=== PATIENT | male | born 1965 ===

== ENCOUNTER 2017-02-19 09:18 | Inpatient (IN) | payer MEDICAID ==
[2017-02-19 10:09] LABS: EOS # 0.1 K/uL (0.0-0.7); LYMPH # 1.5 K/uL (1.0-4.3)
--- NOTE | 2017-02-19 10:10 | C.PDOC ---
History Of Present Illness 51 y/o male presents to the ED requesting heroin detox. Patient reports that he snorts 10-12 bags per day, last use yesterday. Patient denies any medical issues or other complaints. No SI/HI. Note that the patient was already prescreened. Time Seen by Provider: 02/19/17 09:35 Chief Complaint (Nursing): Substance Abuse History Per: Patient History/Exam Limitations: no limitations Onset/Duration Of Symptoms: Days, Gradual, Persistent Current Symptoms Are (Timing): Still Present Suicide/Self Injury Attempted (Context): None Modifying Factor(s): Other (heroin) Involuntary Hold By: None Recent travel outside of the [place]: No Past Medical History Reviewed: Historical Data, Nursing Documentation, Vital Signs Vital Signs: Last Vital Signs Temp 97.9 F 02/19/17 09:27 Pulse 73 02/19/17 09:27 Resp 18 02/19/17 09:27 BP 156/82 H 02/19/17 09:27 Pulse Ox 100 02/19/17 10:12 - Medical History PMH: No Chronic Diseases Surgical History: No Surg Hx Family History: States: No Known Family Hx - Social History Hx Tobacco Use: Yes (heavy smoker) Hx Alcohol Use: No Hx Substance Use: Yes Review Of Systems Except As Marked, All Systems Reviewed And Found Negative. Constitutional: Positive for: Other (requesting detox) Psych: Negative for: Suicidal ideation Physical Exam - Physical Exam Appears: Non-toxic, No Acute Distress Skin: Normal Color, Warm, Dry Head: Atraumatic, Normacephalic Eye(s): bilateral: Normal Inspection, PERRL Neck: Normal ROM Chest: Symmetrical Cardiovascular: Rhythm Regular Respiratory: Normal Breath Sounds, No Rales, No Rhonchi, No Wheezing Gastrointestinal/Abdominal: Normal Exam, Soft, No Tenderness Extremity: Normal ROM, No Swelling Neurological/Psych: Oriented x3, Normal Speech, Normal Cognition ED Course And Treatment - Laboratory Results Result Diagrams: 02/19/17 10:05 02/19/17 10:05 Lab Interpretation: Normal O2 Sat by Pulse Oximetry: 100 (ra) Pulse Ox Interpretation: Normal Progress Note: Case discussed and patient evaluated by Crisis team Reassessment Condition: Unchanged - Physician Consult Information Physician Contacted: Liang Hicks Outcome Of Conversation: admit Medical Decision Making Medical Decision Making: Plan: * Blood Work * Urinalysis Disposition - Disposition Disposition: HOSPITALIZED Disposition Time: 11:40 Condition: STABLE - POA Present On Arrival: None - Clinical Impression Clinical Impression: Drug abuse, Drug dependence - PA / JOB SITE SUPERVISOR / Resident Statement MD/DO has reviewed & agrees with the documentation as recorded. - Scribe Statement The provider has reviewed the documentation as recorded by the Scribe (Jasmin Russell) All medical record entries made by the Scribe were at my direction and personally dictated by me. I have reviewed the chart and agree that the record accurately reflects my personal performance of the history, physical exam, medical decision making, and the department course for this patient. I have also personally directed, reviewed, and agree with the discharge instructions and disposition. Decision To Admit - Pt Status Changed To: Hospital Disposition Of: Inpatient - Admit Certification Admit to Inpatient:: After my assessment, the patient will require hospitalization for at least two midnights. This is because of the severity of symptoms shown, intensity of services needed, and/or the medical risk in this patient being treated as an outpatient. - InPatient: Physician Admission Certification: I certify that this patient requires 2 or more midnights of care for the following reason:: opioid dependence - . Bed Request Type: Detox Admitting Physician: Liang Hicks Patient Diagnosis: Drug dependence, Drug abuse
[2017-02-19 10:17] LABS: CHLORIDE 103 mmol/L (98-107)
[2017-02-19 10:18] LABS: POTASSIUM 3.9 mmol/L (3.6-5.2); SODIUM 138 mmol/L (132-148)
[2017-02-19 10:19] LABS: BASO % 0.6 % (0.0-2.0); EOS % 2.1 % (0.0-4.0); HEMATOCRIT 39.1 % (35.0-51.0); LYMPH % 27.9 % (20.0-40.0); MEAN CELL VOLUME 89.8 fL (80.0-94.0); MEAN CORPUSCULAR HEMOGLOBIN 30.2 pg (27.0-31.0); MEAN CORPUSCULAR HGB CONC 33.6 g/dL (33.0-37.0); MEAN PLATELET VOLUME 10.7 fL (7.2-11.7); MONO # 0.6 K/uL (0.0-0.8); MONO % 12.1 % (0.0-10.0); NRBC % 0.2 % (0.0-2.0); RED CELL DISTRIBUTION WIDTH 14.8 % (11.5-14.5); WHITE BLOOD COUNT 5.4 K/uL (4.8-10.8)
[2017-02-19 10:20] LABS: ALB/GLOB RATIO 0.7 (1.0-2.1); ALKALINE PHOSPHATASE 125 U/L (38-126); ALT/SGPT 103 U/L (21-72); AST/SGOT 141 U/L (17-59); BILIRUBIN,TOTAL 1.8 mg/dL (0.2-1.3); BLOOD UREA NITROGEN 8 mg/dL (9-20); CARBON DIOXIDE 27 mmol/L (22-30); GFR AFRICAN-AMERICAN > 60; GLUCOSE,RANDOM 107 mg/dL (75-110); RBC URINE < 1 /hpf (0-3); URINE BILIRUBIN NEGATIVE (NEGATIVE); URINE BLOOD NEGATIVE (NEGATIVE); URINE COLOR Yellow (YELLOW); URINE GLUCOSE (UA) NORMAL (Normal); URINE KETONE NEGATIVE (NEGATIVE); URINE LEUKOCYTE ESTERASE NEG Leu/uL (Negative); URINE PROTEIN NEGATIVE (NEGATIVE); WBC URINE 1 /hpf (0-5)
[2017-02-19 10:21] LABS: ALCOHOL SERUM < 10 mg/dl (0-10); CALCIUM 8.5 mg/dl (8.6-10.4)
[2017-02-19] MEDS ORDERED: Aluminum Hydroxide/Magnesium Hydroxide Susp (30 mL) PO PRN (13:00)
[2017-02-19] MEDS ORDERED: Buprenorphine Hydrochloride 2 mg SL ONE ×2 (18:30→19:30)
[2017-02-20] MEDS: Buprenorphine Hydrochloride 2 mg SL SCH (09:53)
--- NOTE | 2017-02-20 13:50 | PCM.PSYCH ---
Initial Psychiatric Evaluation - Initial Psychiatric Evaluation Type of Admission: Voluntary Legal Status: Capacity Chief Complaint (in patient's own words): I need treatment from heroine use History of Present Illness and Precipitating Events: Patient is a, 51 years old, single, currently unemployed, male with history of. Use was admitted for the treatment of withdrawing from opiate. Patient denied any psychiatric history. Patient reported started using heroine at the age of 23 years. Reported currently he was using 10-12 bags daily, snorting. In the past he was also using his IV. His last use of heroin reported 2 days ago. Longest period of abstinence was 4 years, from [id number]. Denied any previous detox or rehabs. Denied use of any other drugs including cocaine, cannabis and alcohol. He smokes one pack of cigarettes daily. Refused to take nicotine patch. Patient was born in [place], he has 12th grade of education. Moved to [facility] in [place]. Currently unemployed for last 6 months. 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 He is single and has 2 grown up children. Currently lives with his girlfriend. His height is 5 feet 11 inches and weight is 220 pounds. Current Medications: Active Medications Generic Name Dose Route Start Last Admin Trade Name Freq PRN Reason Stop Dose Admin Al Hydrox/Mg Hydrox/Simethicone 30 ml 02/19/17 13:00 Maalox 30 Ml PO TID PRN Indigestion / Heartburn Buprenorphine HCl 6 mg 02/20/17 10:00 02/20/17 09:53 Subutex SL 02/23/17 09:59 6 mg DAILY GABBY Administration Taper Clobetasol Propionate 0 applic 02/19/17 18:00 02/20/17 09:54 Temovate 0.05% Ointment TOP Not Given BID GABBY Clonidine HCl 0.1 mg 02/19/17 13:04 02/20/17 09:55 Catapres PO 0.1 mg Q8 PRN Administration COWS Score More or Equal to 5 Dicyclomine HCl 20 mg 02/19/17 17:45 Bentyl PO Q6 PRN Other Gabapentin 300 mg 02/19/17 18:00 02/20/17 09:53 Neurontin PO 300 mg BID GABBY Administration Hydroxyzine HCl 25 mg 02/19/17 13:01 02/19/17 18:05 Atarax PO 25 mg Q6 PRN Administration Anxiety Ibuprofen 600 mg 02/19/17 13:02 Motrin Tab PO Q6 PRN Pain, moderate (4-7) Loperamide HCl 2 mg 02/19/17 13:00 Imodium PO Q8 PRN Diarrhea Ondansetron HCl 4 mg 02/19/17 13:00 02/19/17 15:24 Zofran Tab PO 4 mg Q8 PRN Administration Nausea/Vomiting Past Psychiatric History - Past Psychiatric History Previous Treatment History: None History of Abuse: None reported History of ETOH/Drug Use: See HPI History of Family Illness: None reported Pertinent Medical Hx (Current Medical&Sleep Prob, Allergies): Allergies Allergy/AdvReac Type Severity Reaction Status Date / Time No Known Allergies Allergy Verified 02/19/17 09:30 No Known Home Med 02/19/17 Hypertension Review of Systems - Psychiatric Psychiatric: Other Mental Status Examination - Personal Presentation Personal Presentation: Looks stated age - Affect Affect: Depressed - Motor Activity Motor Activity: Calm - Reliability in Providing Information Reliability in Providing Information: Fair - Speech Speech: Organized - Mood Mood: Depressed - Formal Thought Process Formal Thought Process: No Impairment - Hallucinations/Delusions Hallucinations: Other (None reported) Delusions: Other - Obsessions/Compulsions Obsessions: None Compulsions: None - Cognitive Functions Orientation: Person, Place, Situation, Time Sensorium: Alert Attention/Concentration: Attentive Abstract Thinking: [place] Estimate of Intelligence: Average Judgement: Intact, as evidence by: Insight regarding need for hospitalization Memory: Recent intact, as evidence by: 3/3 object recall, Remote intact, as evidenced by: Ability to recall historical events - Risk Risk: Withdrawal, Diminished functioning - Strength & Assets Inventory Strength & Assets Inventory: Family support, Cooperative - Limitations Limitations: Other DSM 5 DX - DSM 5 DSM 5 Diagnosis: Opiate use disorder severe - Recommended/Plan of Treatment Treatment Recommendations and Plan of Treatment: Patient education Supportive therapy [place] intervention We will start Subutex taper for opiate withdrawal symptoms Other when necessary medications Patient doesn't want to go to any program after discharge from the hospital Projected ELOS: 4-5 days - Smoking Cessation Smoking Cessation Initiated: No Reason for not providing: Patient refuses to take nicotine patch
[2017-02-21] MEDS: Buprenorphine Hydrochloride 2 mg SL SCH (09:32)
--- NOTE | 2017-02-21 12:42 | PCM.PYCHPN ---
Psychiatric Progress Note - Psychiatric Progress Note Patient seen today, length of contact: 15 minutes Patient Chief Complaint: I'm feeling better with the treatment Problems Identified/Issues Discussed: Patient seen. Chart reviewed. Case discussed with the staff. Issues related to illness and treatment were discussed with the patient. Patient reported compliant with treatment with no adverse affects. Tolerating treatment very well. Patient reported feeling much better with very mild withdrawal symptoms. No other complaints reported. At the time of evaluation, patient was awake alert oriented 3, had no delusions, no auditory or visual hallucinations, no suicidal ideations or homicidal ideations. Medical Problems: Hypertension Diagnostic Results: Reviewed DSM 5 Symptoms Update: Improving with treatment Medication Change: No Medical Record Reviewed: Yes Mental Status Examination - Cognitive Function Orientation: Person, Place, Situation, Time Memory: Intact Attention: WNL Concentration: WNL Association: WN Fund of Knowledge: [facility] Decription of patient's judgement and insights: Fair - Mood Mood: Depressed (Less than before) - Affect Affect: Depressed - Speech Speech: Appropriate - Formal Thought Process Formal Thought Process: No Impairment Psychotic Thoughts and Behaviors: None - Suicidal Ideation Suicidal Ideation: No - Homicidal Ideation Homicidal Ideation: No Goal/Treatment Plan - Goal/Treatment Plan Need for Continued Stay: Remain at risks for inpatient hospitalization, Discharge may exacerbated symptoms, Severe functional impairment Progress Toward Problem(s) and Goals/Treatment Plan: Patient education Supportive therapy [place] intervention Continue treatment as before Patient doesn't want to go to any program after discharge from the hospital Estimated Date of D/C: 02/23/17 - Smoking Cessation Smoking Cessation Initiated: No Reason for not providing: Patient refuses to take nicotine patch
[2017-02-21 20:06] VITALS: RESP 18; TEMP 98
[2017-02-22 06:25] VITALS: BP 127/72; PULSE 67; O2SAT 95
[2017-02-22] MEDS: Buprenorphine Hydrochloride 2 mg SL SCH (08:36)
== END 2017-02-22 08:40 | disposition home or self-care (01) | DRG 745 ==
LOC: C.ER 09:18 → C.7D 11:39
DX: F11.90 Opioid use, unspecified, uncomplicated (principal); F32.89 Other specified depressive episodes; I10 Essential (primary) hypertension; F17.210 Nicotine dependence, cigarettes, uncomplicated

== ENCOUNTER 2018-02-09 18:43 | Inpatient (IN) | payer MEDICAID ==
--- NOTE | 2018-02-09 19:46 | C.PDOC ---
History Of Present Illness Patient presents to the ER with a complaint of nausea, vomiting, and abdominal pain worsening over the past 2 days. Patient was just recently discharged from [facility] for worsening cirrhosis and high ammonia levels. Patient reports he has not been able to tolerate PO and has not been getting his methadone doses for the past 2 days. Denies fever or chills. Time Seen by Provider: 02/09/18 19:45 Chief Complaint (Nursing): Medical Clearance History Per: Patient History/Exam Limitations: no limitations Onset/Duration Of Symptoms: Days Current Symptoms Are (Timing): Still Present Severity: Moderate Pain Scale Rating Of: 4 Reports Recently: Seen In ED, Treated By A Physician, Hospitalized Recent travel outside of the [place]: No Additional History Per: Family Past Medical History Reviewed: Historical Data, Nursing Documentation, Vital Signs Vital Signs: Last Vital Signs Temp 98.1 F 02/09/18 19:28 Pulse 88 02/09/18 19:28 Resp 16 02/09/18 19:28 BP 92/58 L 02/09/18 20:31 Pulse Ox 95 02/09/18 20:12 - Medical History PMH: Hepatitis Family History: States: No Known Family Hx - Social History Hx Tobacco Use: Yes (heavy smoker) Hx Alcohol Use: No Hx Substance Use: Yes (heroin user) Review Of Systems Constitutional: Negative for: Fever, Chills Cardiovascular: Negative for: Chest Pain Respiratory: Negative for: Shortness of Breath Gastrointestinal: Positive for: Nausea, Vomiting, Abdominal Pain Genitourinary: Negative for: Dysuria Musculoskeletal: Negative for: Back Pain Skin: Negative for: Rash Neurological: Negative for: Weakness Psych: Negative for: Anxiety Physical Exam - Physical Exam Appears: Non-toxic, Other (Awake, Alert) Skin: Warm, Dry Head: Normacephalic Eye(s): bilateral: Scleral Icterus Oral Mucosa: Dry Neck: Supple Chest: Other (Right chest catheter) Cardiovascular: Rhythm Regular Respiratory: No Rales, No Rhonchi, No Wheezing Gastrointestinal/Abdominal: Soft, Tenderness (Diffuse), No Guarding, No Rebound , Other (Hepatomegaly) Back: No CVA Tenderness Extremity: Pedal Edema (Bilateral) Extremity: Bilateral: Atraumatic Pulses: Left Dorsalis Pedis: Normal, Right Dorsalis Pedis: Normal Neurological/Psych: Oriented x3 Gait: Unsteady ED Course And Treatment - Laboratory Results Result Diagrams: 02/09/18 20:17 02/09/18 20:17 ECG: Interpreted By Me, Viewed By Me ECG Rhythm: Sinus Rhythm (72), Nonspecific Changes O2 Sat by Pulse Oximetry: 95 (Room air) Pulse Ox Interpretation: Normal Progress Note: EKG, blood work, CXR, and urinalysis ordered. Pepcid and Zofran administered. Disposition Discussed With Dr.: Megan Zheng Comment: accepted the pt on his service and took over the care at 9:10PM Counseled Patient/Family Regarding: Studies Performed, Diagnosis - Disposition Disposition: HOSPITALIZED Disposition Time: 19:46 Condition: FAIR Forms: [employer] Records (Setswana) - Clinical Impression Clinical Impression: Abdominal pain, Cirrhosis, Hyperammonemia - Scribe Statement The provider has reviewed the documentation as recorded by the Scribe Calvin Cottrell All medical record entries made by the Scribe were at my direction and personally dictated by me. I have reviewed the chart and agree that the record accurately reflects my personal performance of the history, physical exam, medical decision making, and the department course for this patient. I have also personally directed, reviewed, and agree with the discharge instructions and disposition. Decision To Admit - Pt Status Changed To: Hospital Disposition Of: Inpatient - Admit Certification Admit to Inpatient:: After my assessment, the patient will require hospitalization for at least two midnights. This is because of the severity of symptoms shown, intensity of services needed, and/or the medical risk in this patient being treated as an outpatient. - InPatient: Physician Admission Certification: I certify that this patient requires 2 or more midnights of care for the following reason:: After my assessment, the patient will require hospitalization for at least two midnights. This is because of the severity of symptoms shown, intensity of services needed, and/or the medical risk in this patient being treated as an outpatient. - . Bed Request Type: Regular Admitting Physician: Megan Zheng Patient Diagnosis: Abdominal pain, Cirrhosis, Hyperammonemia
[2018-02-09 20:22] LABS: BASO # 0.1 K/uL (0.0-0.2); BASO % 0.4 % (0.0-2.0); EOS # 0.1 K/uL (0.0-0.7); EOS % 0.9 % (0.0-4.0); LYMPH # 0.7 K/uL (1.0-4.3); LYMPH % 4.4 % (20.0-40.0); MEAN PLATELET VOLUME 9.7 fL (7.2-11.7); MONO # 1.4 K/uL (0.0-0.8); MONO % 8.6 % (0.0-10.0); NEUT # 14.2 K/uL (1.8-7.0); NEUT % 85.7 % (50.0-75.0); RBC 4.13 Mil/uL (4.40-5.90); RED CELL DISTRIBUTION WIDTH 15.1 % (11.5-14.5)
[2018-02-09 20:26] LABS: PLATELET COUNT 172 K/uL (130-400); WHITE BLOOD COUNT 16.6 K/uL (4.8-10.8)
[2018-02-09 20:36] LABS: ALB/GLOB RATIO 0.8 (1.0-2.1); ALBUMIN 2.5 g/dL (3.5-5.0); CALCIUM 7.5 mg/dl (8.6-10.4)
[2018-02-09 20:49] LABS: SQUAMOUS EPITHIAL 1 /hpf (0-5); URINE BILIRUBIN NEGATIVE (NEGATIVE); URINE BLOOD NEGATIVE (NEGATIVE); URINE CLARITY Hazy (Clear); URINE COLOR Yellow (YELLOW); URINE GLUCOSE (UA) NORMAL (Normal); URINE LEUKOCYTE ESTERASE TRACE Leu/uL (Negative); URINE PROTEIN NEGATIVE (NEGATIVE); URINE UROBILINOGEN NORMAL mg/dL (0.2-1.0)
[2018-02-09] MEDS ORDERED: Piperacillin/Tazobact 3.375 gm 100 ML IVPB STA (20:50)
[2018-02-09 20:53] LABS: INR 1.6
[2018-02-09 20:59] LABS: PROTHROMBIN TIME 17.9 SECONDS (9.7-12.2)
[2018-02-09] MEDS ORDERED: Sodium Chloride 0.9% 1,000 ML IV ONE (21:14)
[2018-02-09] MEDS ORDERED: Piperacillin/Tazobact 3.375 gm 100 ML IVPB ONE (21:15)
[2018-02-09] MEDS ORDERED: Sodium Chloride 0.9% 1,000 ML IV SCH (21:30)
[2018-02-09 22:00] LABS: BANDS 4 % (0-2); BASOPHIL 1 % (0-2); LYMPHOCYTE 6 % (20-40); MONOCYTE 9 % (0-10); NEUTROPHIL 80 % (50-75); PLATELET ESTIMATE NORMAL (NORMAL); TOTAL CELLS COUNTED 100
[2018-02-09] MEDS ORDERED: Sodium Chloride 0.9% 250 ML IV ONE (23:16)
--- NOTE | 2018-02-10 08:20 | RAD ---
PROCEDURE: CHEST RADIOGRAPH, 1 VIEW HISTORY: abd pain COMPARISON: None available FINDINGS: LUNGS: Oblique linear opacity mid right lung consistent with consolidations/atelectasis at lung base. Right heart border obscured. Recommend further evaluation with PA and lateral chest radiography. Linear opacity upper right yamila thorax may represent fluid within a fissure. Alternatively, this represents linear atelectasis. There is no shift of the heart mediastinum towards the right side this suggests substantial volume loss. No left-sided consolidation is seen. PLEURA: Probable small right pleural effusion. No evidence of left pleural effusion. No pneumothorax. CARDIOVASCULAR: Normal heart size. OSSEOUS STRUCTURES: No significant abnormalities. VISUALIZED UPPER ABDOMEN: Normal. OTHER FINDINGS: None. IMPRESSION: Opacity at medial right base obliquely delineated from aerated lung. Possible atelectasis. Recommend PA and lateral chest radiography for further evaluation. Possible right pleural effusion with fluid in major fissure.
[2018-02-10] MEDS ORDERED: Sodium Chloride 0.9% 250 ML IV ONE (08:45)
[2018-02-10] MEDS ORDERED: Enoxaparin 40 mg Syringe SC SCH (10:00)
[2018-02-10] MEDS ORDERED: MIDODRINE HCL 2.5 MG PO SCH (10:00)
[2018-02-10] MEDS ORDERED: PHENYTOIN SODIUM 300 MG PO SCH (10:00)
[2018-02-10] MEDS: Pantoprazole 40 mg EC Tab PO SCH (10:39)
--- NOTE | 2018-02-10 10:39 | CP.PCM.CON ---
<Summer Dang - Last Filed: 02/10/18 11:11> History of Present Illness - History of Present Illness History of Present Illness: Gastroenterology Note for Dr. Luong's Service Reason for Consult: high ammonia, cirrhosis HPI: 52 Male with PMHx as listed below presented with nausea, vomiting and abdominal pain x 2 days. Patient was recently discharged from [facility] for elevated ammonia levels. Patient reports 2 months ago he was admitted to [facility], where he had fluid removed from his right lung. Shortly after he also had a paracentesis performed, having 7 liters removed. He was discharged with instructions to continue lasix and aldactone for which patient reports he has been compliant. He currently admits to abdominal pain. No prior EGD or Colonoscopy. 12 Point ROS unremarkable, unless noted as above. PMHx: Hepatic Encephalopathy likely secondary to Cirrhosis, ??Seizure Disorder, Hepatitis C - untreated PSHx: Reported having his right lung drainage at [facility] 12/2017 Meds: As per MAR- patient only able to recall lactulose All: NKDA SHx: Admitted 2-1 PPD for >30 years, admitted to drinking ETOH during his 20s , hx IVDA with Heroine, Cocaine, FHx: Unremarkable for GI issues or malignancies Past Patient History - Past Medical History & Family History Past Medical History?: Yes - Past Social History Smoking Status: Heavy Smoker > 10 Cigarettes Daily - CARDIAC Hx Cardiac Disorders: Yes Hx Hypertension: No - PULMONARY Hx Respiratory Disorders: No Hx Tuberculosis: No - NEUROLOGICAL Hx Neurological Disorder: No Hx Seizures: No - HEENT Hx HEENT Problems: No - RENAL Hx Chronic Kidney Disease: No - ENDOCRINE/METABOLIC Hx Endocrine Disorders: No - HEMATOLOGICAL/ONCOLOGICAL Hx Blood Disorders: No Hx Human Immunodeficiency Virus (HIV): No - INTEGUMENTARY Hx Dermatological Problems: Yes Hx Psoriasis: Yes - MUSCULOSKELETAL/RHEUMATOLOGICAL Hx Musculoskeletal Disorders: No Hx Falls: No - GASTROINTESTINAL Hx Gastrointestinal Disorders: No - GENITOURINARY/GYNECOLOGICAL Hx Genitourinary Disorders: No Hx Sexually Transmitted Disorders: No - PSYCHIATRIC Hx Psychophysiologic Disorder: Yes Hx Substance Use: Yes - SURGICAL HISTORY Hx Surgeries: No - ANESTHESIA Hx Anesthesia: No Hx Anesthesia Reactions: No Hx Malignant Hyperthermia: No Meds Allergies/Adverse Reactions: Allergies Allergy/AdvReac Type Severity Reaction Status Date / Time No Known Allergies Allergy Verified 02/09/18 19:30 - Medications Medications: Current Medications Diclofenac Sodium (Voltaren) 75 mg PO BID COUNT INCLUDES [facility] Enoxaparin Sodium (Lovenox) 40 mg SC DAILY COUNT INCLUDES THE [facility] Sodium Chloride (Sodium Chloride 0.9%) 1,000 mls @ 30 mls/hr IV .Q24H COUNT INCLUDES THE [facility] Last Admin: 02/10/18 07:53 Dose: 30 mls/hr Lactulose (Enulose) 20 gm PO BID COUNT INCLUDES THE [facility] Midodrine (Proamatine) 5 mg PO BID COUNT INCLUDES [facility] Last Admin: 02/10/18 09:00 Dose: 5 mg Pantoprazole Sodium (Protonix Ec Tab) 40 mg PO DAILY COUNT INCLUDES [facility] Phenytoin Sodium (Dilantin) 300 mg PO DAILY COUNT INCLUDES THE [facility] Physical Exam - Constitutional Appears: Cachectic, Chronically Ill - Head Exam Head Exam: NORMAL INSPECTION, NORMOCEPHALIC - Eye Exam Eye Exam: EOMI, Normal appearance, PERRL. absent: Scleral icterus Pupil Exam: NORMAL ACCOMODATION - ENT Exam ENT Exam: Mucous Membranes Dry - Respiratory Exam Respiratory Exam: Clear to Auscultation Bilateral, NORMAL BREATHING PATTERN. absent: Decreased Breath Sounds - Cardiovascular Exam Cardiovascular Exam: REGULAR RHYTHM - GI/Abdominal Exam GI & Abdominal Exam: Organomegaly, Soft. absent: Distended, Tenderness Additional comments: Right thorax dressing - c/d/i - Extremities Exam Extremities exam: Positive for: normal inspection, pedal pulses present. Negative for: pedal edema, tenderness - Neurological Exam Neurological exam: Alert, Oriented x3 - Psychiatric Exam Psychiatric exam: Normal Affect, Normal Mood Results - Vital Signs Recent Vital Signs: Last Vital Signs Temp 97.6 F 02/10/18 07:10 Pulse 70 02/10/18 07:59 Resp 20 02/10/18 07:10 BP 89/51 L 02/10/18 07:59 Pulse Ox 96 02/10/18 07:10 - Labs Result Diagrams: 02/09/18 20:17 02/09/18 20:17 Labs: Laboratory Results - last 24 hr 02/09/18 02/09/18 02/09/18 20:17 20:17 20:17 WBC 16.6 H D RBC 4.13 L Hgb 12.0 Hct 36.3 MCV 88.0 MCH 29.0 MCHC 33.0 RDW 15.1 H Plt Count 172 D MPV 9.7 Neut % (Auto) 85.7 H Lymph % (Auto) 4.4 L [place] % (Auto) 8.6 Eos % (Auto) 0.9 Baso % (Auto) 0.4 Neut # (Auto) 14.2 H Lymph # (Auto) 0.7 L [place] # (Auto) 1.4 H Eos # (Auto) 0.1 Baso # (Auto) 0.1 Neutrophils % (Manual) 80 H Band Neutrophils % 4 H Lymphocytes % (Manual) 6 L Monocytes % (Manual) 9 Basophils % (Manual) 1 Platelet Estimate Normal PT INR APTT Sodium 123 L Potassium 4.9 Chloride 90 L Carbon Dioxide 19 L Anion Gap 19 BUN 63 H Creatinine 3.4 H Est GFR ( Amer) 23 Est GFR (Non-Af Amer) 19 Random Glucose 101 Calcium 7.5 L Total Bilirubin 0.9 AST 77 H ALT 53 Alkaline Phosphatase 120 Ammonia 289 H Total Protein 5.9 L Albumin 2.5 L D Globulin 3.4 Albumin/Globulin Ratio 0.8 L Lipase 335 H Urine Color Urine Clarity Urine pH Ur Specific [place] Urine Protein Urine Glucose (UA) Urine Ketones Urine Blood Urine Nitrate Urine Bilirubin Urine Urobilinogen Ur Leukocyte Esterase Urine WBC (Auto) Urine RBC (Auto) Ur Squamous Epith Cells Hyaline Casts 02/09/18 02/09/18 20:41 20:41 WBC RBC Hgb Hct MCV MCH MCHC RDW Plt Count MPV Neut % (Auto) Lymph % (Auto) [place] % (Auto) Eos % (Auto) Baso % (Auto) Neut # (Auto) Lymph # (Auto) [place] # (Auto) Eos # (Auto) Baso # (Auto) Neutrophils % (Manual) Band Neutrophils % Lymphocytes % (Manual) Monocytes % (Manual) Basophils % (Manual) Platelet Estimate PT 17.9 H INR 1.6 APTT 36 H Sodium Potassium Chloride Carbon Dioxide Anion Gap BUN Creatinine Est GFR ( Amer) Est GFR (Non-Af Amer) Random Glucose Calcium Total Bilirubin AST ALT Alkaline Phosphatase Ammonia Total Protein Albumin Globulin Albumin/Globulin Ratio Lipase Urine Color Yellow Urine Clarity Hazy Urine pH 5.0 Ur Specific [place] 1.014 Urine Protein Negative Urine Glucose (UA) Normal Urine Ketones Negative Urine Blood Negative Urine Nitrate Negative Urine Bilirubin Negative Urine Urobilinogen Normal Ur Leukocyte Esterase Trace Urine WBC (Auto) 6 H Urine RBC (Auto) 1 Ur Squamous Epith Cells 1 Hyaline Casts 3-5 H Assessment & Plan - Assessment and Plan (Free Text) Plan: Hepatic Encephalopathy Likely Secondary to Cirrhosis MELD Score: 23 Labs suggesting cirrhosis, however no prior imaging Will need EGD for variceal screening Will need outpatient colonoscopy Imaging: Abdominal Ultrasound to evaluate portal and splenic vein Labs: Ammonia 289 on admission Autoimmune workup: AFP, EVANGELINA, Ceruloplasmin, Mitochondrial, Smooth Muscle, IGG HIV Screening Medications: Lactulose 20gm PO BID - at least 3 bowel movements per day Hepatitis C Untreated If patient is no longer using IV drugs, can consider HCV treatment as outpatient Hx Opioid Use Disorder Currently on Methadone Seizure Disorder? DW Dr. Luong, Summer Dang DO, PGY-1 <Tremaine Luong - Last Filed: 02/10/18 14:54> Meds - Medications Medications: Current Medications Diclofenac Sodium (Voltaren) 75 mg PO BID COUNT INCLUDES [facility] Last Admin: 02/10/18 10:40 Dose: 75 mg Enoxaparin Sodium (Lovenox) 40 mg SC DAILY COUNT INCLUDES [facility] Sodium Chloride (Sodium Chloride 0.9%) 1,000 mls @ 30 mls/hr IV .Q24H COUNT INCLUDES [facility] Last Admin: 02/10/18 07:53 Dose: 30 mls/hr Lactulose (Enulose) 20 gm PO BID COUNT INCLUDES [facility] Last Admin: 02/10/18 10:39 Dose: 20 gm Methadone HCl (Methadone) 45 mg PO Q24H COUNT INCLUDES [facility] PRN Reason: Taper Stop: 02/20/18 09:59 Midodrine (Proamatine) 5 mg PO TID COUNT INCLUDES [facility] Pantoprazole Sodium (Protonix Ec Tab) 40 mg PO DAILY COUNT INCLUDES [facility] Last Admin: 02/10/18 10:39 Dose: 40 mg Phenytoin Sodium (Dilantin) 100 mg PO TID COUNT INCLUDES [facility] Results - Vital Signs Recent Vital Signs: Last Vital Signs Temp 97.6 F 02/10/18 07:10 Pulse 80 02/10/18 10:37 Resp 20 02/10/18 07:10 BP 92/56 L 02/10/18 10:37 Pulse Ox 96 02/10/18 07:10 - Labs Result Diagrams: 02/10/18 11:19 02/10/18 11:19 Labs: Laboratory Results - last 24 hr 02/09/18 02/09/18 02/09/18 20:17 20:17 20:17 WBC 16.6 H D RBC 4.13 L Hgb 12.0 Hct 36.3 MCV 88.0 MCH 29.0 MCHC 33.0 RDW 15.1 H Plt Count 172 D MPV 9.7 Neut % (Auto) 85.7 H Lymph % (Auto) 4.4 L [place] % (Auto) 8.6 Eos % (Auto) 0.9 Baso % (Auto) 0.4 Neut # (Auto) 14.2 H Lymph # (Auto) 0.7 L [place] # (Auto) 1.4 H Eos # (Auto) 0.1 Baso # (Auto) 0.1 Neutrophils % (Manual) 80 H Band Neutrophils % 4 H Lymphocytes % (Manual) 6 L Reactive Lymphs % Monocytes % (Manual) 9 Eosinophils % (Manual) Basophils % (Manual) 1 Platelet Estimate Normal Large Platelets Hypochromasia (manual) Poikilocytosis (manual Anisocytosis (manual) Erlanger Cells PT INR APTT Sodium 123 L Potassium 4.9 Chloride 90 L Carbon Dioxide 19 L Anion Gap 19 BUN 63 H Creatinine 3.4 H Est GFR ( Amer) 23 Est GFR (Non-Af Amer) 19 Random Glucose 101 Calcium 7.5 L Total Bilirubin 0.9 AST 77 H ALT 53 Alkaline Phosphatase 120 Ammonia 289 H Total Protein 5.9 L Albumin 2.5 L D Globulin 3.4 Albumin/Globulin Ratio 0.8 L Lipase 335 H Alpha Fetoprotein Urine Color Urine Clarity Urine pH Ur Specific [place] Urine Protein Urine Glucose (UA) Urine Ketones Urine Blood Urine Nitrate Urine Bilirubin Urine Urobilinogen Ur Leukocyte Esterase Urine WBC (Auto) Urine RBC (Auto) Ur Squamous Epith Cells Hyaline Casts IgG HIV 1&2 Antibody Screen 02/09/18 02/09/18 02/10/18 20:41 20:41 11:19 WBC 10.2 RBC 3.95 L Hgb 11.7 L Hct 35.1 MCV 88.9 MCH 29.7 MCHC 33.4 RDW 15.8 H Plt Count 161 MPV 9.8 Neut % (Auto) 77.1 H Lymph % (Auto) 6.4 L [place] % (Auto) 12.6 H Eos % (Auto) 3.2 Baso % (Auto) 0.7 Neut # (Auto) 7.9 H Lymph # (Auto) 0.7 L [place] # (Auto) 1.3 H Eos # (Auto) 0.3 Baso # (Auto) 0.1 Neutrophils % (Manual) 74 Band Neutrophils % 1 Lymphocytes % (Manual) 6 L Reactive Lymphs % 1 H Monocytes % (Manual) 13 H Eosinophils % (Manual) 4 Basophils % (Manual) 1 Platelet Estimate Normal Large Platelets Present Hypochromasia (manual) Slight Poikilocytosis (manual Slight Anisocytosis (manual) Slight Albina Cells Slight PT 17.9 H INR 1.6 APTT 36 H Sodium Potassium Chloride Carbon Dioxide Anion Gap BUN Creatinine Est GFR ( Amer) Est GFR (Non-Af Amer) Random Glucose Calcium Total Bilirubin AST ALT Alkaline Phosphatase Ammonia Total Protein Albumin Globulin Albumin/Globulin Ratio Lipase Alpha Fetoprotein Urine Color Yellow Urine Clarity Hazy Urine pH 5.0 Ur Specific [place] 1.014 Urine Protein Negative Urine Glucose (UA) Normal Urine Ketones Negative Urine Blood Negative Urine Nitrate Negative Urine Bilirubin Negative Urine Urobilinogen Normal Ur Leukocyte Esterase Trace Urine WBC (Auto) 6 H Urine RBC (Auto) 1 Ur Squamous Epith Cells 1 Hyaline Casts 3-5 H IgG HIV 1&2 Antibody Screen 02/10/18 02/10/18 02/10/18 11:19 11:19 11:19 WBC RBC Hgb Hct MCV MCH MCHC RDW Plt Count MPV Neut % (Auto) Lymph % (Auto) [place] % (Auto) Eos % (Auto) Baso % (Auto) Neut # (Auto) Lymph # (Auto) [place] # (Auto) Eos # (Auto) Baso # (Auto) Neutrophils % (Manual) Band Neutrophils % Lymphocytes % (Manual) Reactive Lymphs % Monocytes % (Manual) Eosinophils % (Manual) Basophils % (Manual) Platelet Estimate Large Platelets Hypochromasia (manual) Poikilocytosis (manual Anisocytosis (manual) Erlanger Cells PT INR APTT Sodium 130 L Potassium 3.8 Chloride 96 L Carbon Dioxide 20 L Anion Gap 18 BUN 72 H Creatinine 3.3 H Est GFR ( Amer) 24 Est GFR (Non-Af Amer) 20 Random Glucose 79 Calcium 7.6 L Total Bilirubin 0.7 AST 72 H ALT 50 Alkaline Phosphatase 125 Ammonia 41 H D Total Protein 5.7 L Albumin 2.4 L Globulin 3.3 Albumin/Globulin Ratio 0.7 L Lipase Alpha Fetoprotein Urine Color Urine Clarity Urine pH Ur Specific [place] Urine Protein Urine Glucose (UA) Urine Ketones Urine Blood Urine Nitrate Urine Bilirubin Urine Urobilinogen Ur Leukocyte Esterase Urine WBC (Auto) Urine RBC (Auto) Ur Squamous Epith Cells Hyaline Casts IgG 1596.5 HIV 1&2 Antibody Screen 02/10/18 02/10/18 11:19 11:19 WBC RBC Hgb Hct MCV MCH MCHC RDW Plt Count MPV Neut % (Auto) Lymph % (Auto) [place] % (Auto) Eos % (Auto) Baso % (Auto) Neut # (Auto) Lymph # (Auto) [place] # (Auto) Eos # (Auto) Baso # (Auto) Neutrophils % (Manual) Band Neutrophils % Lymphocytes % (Manual) Reactive Lymphs % Monocytes % (Manual) Eosinophils % (Manual) Basophils % (Manual) Platelet Estimate Large Platelets Hypochromasia (manual) Poikilocytosis (manual Anisocytosis (manual) [place] Cells PT INR APTT Sodium Potassium Chloride Carbon Dioxide Anion Gap BUN Creatinine Est GFR ( Amer) Est GFR (Non-Af Amer) Random Glucose Calcium Total Bilirubin AST ALT Alkaline Phosphatase Ammonia Total Protein Albumin Globulin Albumin/Globulin Ratio Lipase Alpha Fetoprotein 1.2 Urine Color Urine Clarity Urine pH Ur Specific [place] Urine Protein Urine Glucose (UA) Urine Ketones Urine Blood Urine Nitrate Urine Bilirubin Urine Urobilinogen Ur Leukocyte Esterase Urine WBC (Auto) Urine RBC (Auto) Ur Squamous Epith Cells Hyaline Casts IgG HIV 1&2 Antibody Screen Negative Attending/Attestation - Attestation I have personally seen and examined this patient.: Yes I have fully participated in the care of the patient.: Yes I have reviewed all pertinent clinical information: Yes Notes (Text): 02/10/18 14:45 I have seen and examined patient with GI fellow and medical historian. Agree with above documentation with the following additions. In brief, this is a 52 year old male with history of chronic HCV (diagnosed in 2009, treatment naive), cirrhosis who presents to hospital with complaint of progressive abdominal pain and confusion. He was recently discharged from [facility] where he had a right sided pleural effusion drained along with large volume paracentesis performed. He does admit to recent confusion, though claims to be compliant with outpatient diuretic and lactulose therapy. He denies nausea, vomiting, fever/chills, weight loss, rectal bleeding, jaundice, pruritis. No prior endoscopic evaluation. Additional physical examination: Skin: warm, dry, no suspicious lesions present Chronic HCV decompensated cirrhosis, admission MELD 23 AMS, hepatic encephalopathy CKD? - Low sodium diet as tolerated - Obtain abdominal US, evaluate for mass lesion, ascites - Continue to monitor LFTs, obtain autoimmune panel testing - Obtain AFP - Maintain lactulose therapy for HE prevention, titrate so patient has 2-3 bowel movements daily - Unknown prior baseline creatinine, continue with midodrine therapy, suggest addition of albumin - Patient would benefit from evaluation at tertiary care facility for transplant consideration, particularly given apparent sobriety. He would also eventually benefit from EGD for variceal screening and age appropriate screening colonoscopy which can be performed electively as outpatient. Will continue to monitor patient clinical course.
[2018-02-10] MEDS: Diclofenac Sodium Delayed Release 75 mg EC Tab PO SCH ×2 (10:40→18:24)
[2018-02-10 11:36] LABS: BASO # 0.1 K/uL (0.0-0.2); BASO % 0.7 % (0.0-2.0); EOS # 0.3 K/uL (0.0-0.7); EOS % 3.2 % (0.0-4.0); HEMOGLOBIN 11.7 g/dL (12.0-18.0); LYMPH # 0.7 K/uL (1.0-4.3); LYMPH % 6.4 % (20.0-40.0); MEAN CELL VOLUME 88.9 fL (80.0-94.0); MEAN CORPUSCULAR HEMOGLOBIN 29.7 pg (27.0-31.0); MEAN CORPUSCULAR HGB CONC 33.4 g/dL (33.0-37.0); MEAN PLATELET VOLUME 9.8 fL (7.2-11.7); MONO # 1.3 K/uL (0.0-0.8); MONO % 12.6 % (0.0-10.0); NEUT # 7.9 K/uL (1.8-7.0); NEUT % 77.1 % (50.0-75.0); PLATELET COUNT 161 K/uL (130-400); RBC 3.95 Mil/uL (4.40-5.90); RED CELL DISTRIBUTION WIDTH 15.8 % (11.5-14.5); WHITE BLOOD COUNT 10.2 K/uL (4.8-10.8)
--- NOTE | 2018-02-10 11:41 | PCM.PSYCH ---
Initial Psychiatric Evaluation - Initial Psychiatric Evaluation Type of Admission: Voluntary Legal Status: Capacity Chief Complaint (in patient's own words): "I need help with methadone" History of Present Illness and Precipitating Events: The patient is seen, chart reviewed and case discussed. This is a 52-year-old male, lives with his girlfriend, has 2 adult children, unemployed. The patient is here for GI problems and he has liver cirrhosis due to hepatitis C. He was going to [facility] in [place] for methadone maintenance, however they told him that they will no longer give him methadone because of his liver problem. He was on 70 mg and last dose was confirmed as 2 days ago. He has some withdrawal symptoms now and he wants to detox from methadone. He agreed to do with 5 mg per day here after all the risks and benefits of coming off methadone discussed. He will continue tapering go there if he is discharged sooner or go to detox. He denies all other drug use and alcohol. He reports some insomnia and anxiety but otherwise no psych symptoms. Past psych history: Denies Medical history: Hepatitis C and liver cirrhosis Family psych history: Denies Current Medications: Active Medications Generic Name Dose Route Start Last Admin Trade Name Tomaszq PRN Reason Stop Dose Admin Diclofenac Sodium 75 mg 02/10/18 10:00 02/10/18 10:40 Voltaren PO 75 mg BID GABBY Administration Enoxaparin Sodium 40 mg 02/10/18 10:00 02/10/18 10:40 Lovenox SC 40 mg DAILY GABBY Administration Sodium Chloride 1,000 mls @ 30 mls/hr 02/09/18 21:30 02/10/18 07:53 Sodium Chloride 0.9% IV 30 mls/hr .Q24H GABBY Administration Lactulose 20 gm 02/10/18 10:00 02/10/18 10:39 Enulose PO 20 gm BID GABBY Administration Midodrine 5 mg 02/10/18 14:00 Proamatine PO TID GABBY Pantoprazole Sodium 40 mg 02/10/18 10:00 02/10/18 10:39 Protonix Ec Tab PO 40 mg DAILY GABBY Administration Phenytoin Sodium 100 mg 02/10/18 14:00 Dilantin PO TID GABBY Past Psychiatric History - Past Psychiatric History Previous Treatment History: None Pertinent Medical Hx (Current Medical&Sleep Prob, Allergies): Allergies Allergy/AdvReac Type Severity Reaction Status Date / Time No Known Allergies Allergy Verified 02/09/18 19:30 Diclofenac Sodium [Voltaren] 75 mg PO BID 02/09/18 Furosemide 40 mg PO DAILY 02/09/18 Midodrine HCl [Midodrine HCl] 2.5 mg PO TID 02/09/18 Midodrine [Proamatine] 10 mg PO TID 02/09/18 Phenytoin Sodium Extended [Extended Phenytoin Sodium] 300 mg PO DAILY 02/09/18 Spironolactone [Aldactone] 50 mg PO DAILY 02/09/18 Torsemide 60 mg PO DAILY 02/09/18 Review of Systems - Neurological Neurological: UNREMARKABLE - Psychiatric Psychiatric: Abnormal Sleep Pattern, Anxiety. absent: Hallucinations, Homicidal Ideation, Suicidal Ideation Mental Status Examination - Personal Presentation Personal Presentation: Looks older than stated age - Affect Affect: Constricted - Motor Activity Motor Activity: Calm - Reliability in Providing Information Reliability in Providing Information: Good - Speech Speech: Organized - Mood Mood: Anxious - Formal Thought Process Formal Thought Process: No Impairment - Cognitive Functions Orientation: Person, Place, Situation, Time Sensorium: Alert Attention/Concentration: Attentive Abstract Thinking: [place] Estimate of Intelligence: Average Judgement: Intact, as evidence by: Insight regarding need for hospitalization Memory: Recent intact, as evidence by: Ability to recall events of the day, Remote intact, as evidenced by: Abilit to recall sig. life events - Risk Risk: Diminished functioning - Strength & Assets Inventory Strength & Assets Inventory: Cooperative - Limitations Limitations: Living alone DSM 5 DX - DSM 5 DSM 5 Diagnosis: Opioid withdrawal Opioid use d/o -severe - Recommended/Plan of Treatment Treatment Recommendations and Plan of Treatment: Patient agreed to detox from methadone, starting at 50 mg (he was off for 2 days ) and go down 5 per day. When necessary medications Support and psychoeducation Consider Suboxone maintenance Trazodone for insomnia 33 min
[2018-02-10 11:57] LABS: ALB/GLOB RATIO 0.7 (1.0-2.1); ALBUMIN 2.4 g/dL (3.5-5.0); CALCIUM 7.6 mg/dl (8.6-10.4)
[2018-02-10 12:10] LABS: BANDS 1 % (0-2); BASOPHIL 1 % (0-2); EOSINOPHIL 4 % (0-4); LYMPHOCYTE 6 % (20-40); MONOCYTE 13 % (0-10); NEUTROPHIL 74 % (50-75); REACTIVE LYMPHOCYTES 1 % (0-0); TOTAL CELLS COUNTED 100
[2018-02-10 12:11] LABS: ANISOCYTOSIS SLIGHT; BURR CELLS SLIGHT; HYPOCHROMIC SLIGHT; LARGE PLATELETS PRESENT; PLATELET ESTIMATE NORMAL (NORMAL); POIKILOCYTOSIS SLIGHT
[2018-02-10 15:33] LABS: BARBITURATES, UR NEGATIVE (NEGATIVE); BENZODIAZEPINES, UR NEGATIVE (NEGATIVE); OPIATES, UR NEGATIVE (NEGATIVE); PHENCYCLIDINE, UR NEGATIVE (NEGATIVE)
--- NOTE | 2018-02-10 15:52 | CP.PCM.PN ---
Subjective - Date & Time of Evaluation Date of Evaluation: 02/10/18 Time of Evaluation: 15:52 Objective - Vital Signs/Intake and Output Vital Signs (last 24 hours): Temp Pulse Resp BP Pulse Ox 97.6 F 80 20 92/56 L 96 02/10/18 07:10 02/10/18 10:37 02/10/18 07:10 02/10/18 10:37 02/10/18 07:10 - Medications Medications: Current Medications Diclofenac Sodium (Voltaren) 75 mg PO BID [facility] Last Admin: 02/10/18 10:40 Dose: 75 mg Enoxaparin Sodium (Lovenox) 40 mg SC DAILY [facility] Sodium Chloride (Sodium Chloride 0.9%) 1,000 mls @ 30 mls/hr IV .Q24H [facility] Last Admin: 02/10/18 07:53 Dose: 30 mls/hr Lactulose (Enulose) 20 gm PO BID [facility] Last Admin: 02/10/18 10:39 Dose: 20 gm Methadone HCl (Methadone) 45 mg PO Q24H [facility] PRN Reason: Taper Stop: 02/20/18 09:59 Midodrine (Proamatine) 5 mg PO TID [facility] Last Admin: 02/10/18 14:51 Dose: Not Given Pantoprazole Sodium (Protonix Ec Tab) 40 mg PO DAILY [facility] Last Admin: 02/10/18 10:39 Dose: 40 mg Phenytoin Sodium (Dilantin) 100 mg PO TID [facility] Last Admin: 02/10/18 14:20 Dose: Not Given - Labs Labs: 02/10/18 11:19 02/10/18 11:19 PT 17.9 SECONDS (9.7-12.2) H 02/09/18 20:41 INR 1.6 02/09/18 20:41 APTT 36 SECONDS (21-34) H 02/09/18 20:41
--- NOTE | 2018-02-10 16:26 | US ---
HISTORY: r/o portal vein, splenic vein thrombosis COMPARISON: None. TECHNIQUE: Sonographic evaluation of the abdomen. FINDINGS: LIVER: Measures 13.7 cm. Diffusely increased echogenicity of the liver parenchyma. Consistent with fatty infiltration. Nodular contour. Possible hepatic cirrhosis. No mass. No biliary dilatation. Normal hepatopetal portal venous flow. Portal vein patent without evidence of thrombus. Normal flow in the splenic vein. Normal flow in the hepatic veins. GALLBLADDER: Thickened wall, nonspecific. No evidence of cholelithiasis. No pericholecystic fluid or sonographic Alcaraz's sign. COMMON BILE DUCT: Measures 2 mm. No stones. No dilatation. PANCREAS: Unremarkable as visualized. No mass. No ductal dilatation. RIGHT KIDNEY: Measures 10.0cm. Normal echogenicity. No calculus, mass, or hydronephrosis. LEFT KIDNEY: Measures 14.1cm. Normal echogenicity. No calculus, mass or hydronephrosis. SPLEEN: Mild splenomegaly. The spleen measures 14.3 cm in greatest dimension. AORTA: No aneurysmal dilatation. IVC: Unremarkable. OTHER FINDINGS: Mild ascites. Right pleural effusion. IMPRESSION: No evidence of portal venous thrombosis or splenic venous thrombosis. Possible hepatic cirrhosis. Splenomegaly. Right pleural effusion. Mild ascites.
--- NOTE | 2018-02-10 17:34 | CP.PCM.PN ---
Subjective - Date & Time of Evaluation Date of Evaluation: 02/10/18 Time of Evaluation: 09:20 - Subjective Subjective: clinically same Objective - Vital Signs/Intake and Output Vital Signs (last 24 hours): Temp Pulse Resp BP Pulse Ox 97.6 F 80 20 92/56 L 96 02/10/18 07:10 02/10/18 10:37 02/10/18 07:10 02/10/18 10:37 02/10/18 07:10 Intake and Output: 02/10/18 02/10/18 06:59 18:59 Intake Total 740 Balance 740 - Medications Medications: Current Medications Diclofenac Sodium (Voltaren) 75 mg PO BID [facility] Last Admin: 02/10/18 10:40 Dose: 75 mg Enoxaparin Sodium (Lovenox) 30 mg SC DAILY [facility] Sodium Chloride (Sodium Chloride 0.9%) 1,000 mls @ 30 mls/hr IV .Q24H [facility] Last Admin: 02/10/18 07:53 Dose: 30 mls/hr Lactulose (Enulose) 20 gm PO BID [facility] Last Admin: 02/10/18 10:39 Dose: 20 gm Methadone HCl (Methadone) 45 mg PO Q24H [facility] PRN Reason: Taper Stop: 02/20/18 09:59 Midodrine (Proamatine) 5 mg PO TID [facility] Last Admin: 02/10/18 14:51 Dose: Not Given Pantoprazole Sodium (Protonix Ec Tab) 40 mg PO DAILY [facility] Last Admin: 02/10/18 10:39 Dose: 40 mg Phenytoin Sodium (Dilantin) 100 mg PO TID [facility] Last Admin: 02/10/18 14:20 Dose: Not Given - Labs Labs: 02/10/18 11:19 02/10/18 11:19 PT 17.9 SECONDS (9.7-12.2) H 02/09/18 20:41 INR 1.6 02/09/18 20:41 APTT 36 SECONDS (21-34) H 02/09/18 20:41 - Constitutional Appears: Well - Head Exam Head Exam: ATRAUMATIC, NORMAL INSPECTION, NORMOCEPHALIC - Eye Exam Eye Exam: EOMI, Normal appearance, PERRL Pupil Exam: NORMAL ACCOMODATION, PERRL - ENT Exam ENT Exam: Mucous Membranes Moist, Normal Exam - Neck Exam Neck Exam: Full ROM, Normal Inspection. absent: Lymphadenopathy - Respiratory Exam Respiratory Exam: Decreased Breath Sounds - Cardiovascular Exam Cardiovascular Exam: REGULAR RHYTHM, +S1, +S2 - GI/Abdominal Exam GI & Abdominal Exam: Soft, Diminished Bowel Sounds - Rectal Exam Rectal Exam: Deferred Assessment and Plan - Assessment and Plan (Free Text) Plan: Continue phenytoin Continue methadone Midodrine patient is no more vomiting Follow-up with the GI Follow-up with the psych Follow-up with Dr. Martinez As ordered
[2018-02-10] MEDS: Enoxaparin 30 mg Syringe SC SCH (18:23)
[2018-02-11 06:17] LABS: BASO # 0.2 K/uL (0.0-0.2); BASO % 1.1 % (0.0-2.0); EOS # 0.3 K/uL (0.0-0.7); EOS % 2.2 % (0.0-4.0); HEMOGLOBIN 12.8 g/dL (12.0-18.0); LYMPH # 1.1 K/uL (1.0-4.3); LYMPH % 7.8 % (20.0-40.0); MEAN CELL VOLUME 88.3 fL (80.0-94.0); MEAN CORPUSCULAR HEMOGLOBIN 29.8 pg (27.0-31.0); MEAN CORPUSCULAR HGB CONC 33.7 g/dL (33.0-37.0); MEAN PLATELET VOLUME 9.7 fL (7.2-11.7); MONO # 1.7 K/uL (0.0-0.8); MONO % 12.3 % (0.0-10.0); NEUT # 10.3 K/uL (1.8-7.0); NEUT % 76.6 % (50.0-75.0); NRBC % 0.1 % (0.0-2.0); PLATELET COUNT 220 K/uL (130-400); RBC 4.32 Mil/uL (4.40-5.90); RED CELL DISTRIBUTION WIDTH 15.5 % (11.5-14.5); WHITE BLOOD COUNT 13.5 K/uL (4.8-10.8)
[2018-02-11 06:36] LABS: ALB/GLOB RATIO 0.8 (1.0-2.1); ALBUMIN 2.7 g/dL (3.5-5.0); CALCIUM 7.9 mg/dl (8.6-10.4)
[2018-02-11 08:04] VITALS: TEMP 97.8
[2018-02-11 08:54] LABS: BANDS 1 % (0-2); EOSINOPHIL 4 % (0-4); LYMPHOCYTE 11 % (20-40); MONOCYTE 8 % (0-10); NEUTROPHIL 76 % (50-75); PLATELET ESTIMATE NORMAL (NORMAL); TOTAL CELLS COUNTED 100
[2018-02-11 09:24] LABS: CERULOPLASMIN 16 mg/dL (18-36)
--- NOTE | 2018-02-11 09:47 | CP.PCM.PN ---
<Summer Dang - Last Filed: 02/11/18 09:44> Subjective - Date & Time of Evaluation Date of Evaluation: 02/11/18 Time of Evaluation: 07:00 - Subjective Subjective: Gastroenterology Follow Up Note Patient was seen and examined at bedside. Patient is AAOx 3. Patient reports nausea and abdominal pain has resolved. 12 point ROS unremarkable. Objective - Vital Signs/Intake and Output Vital Signs (last 24 hours): Temp Pulse Resp BP Pulse Ox 97.8 F 90 21 91/61 L 97 02/11/18 07:35 02/11/18 07:35 02/11/18 07:35 02/11/18 07:35 02/11/18 07:35 Intake and Output: 02/11/18 02/11/18 06:59 18:59 Intake Total 540 Balance 540 - Medications Medications: Current Medications Enoxaparin Sodium (Lovenox) 30 mg SC DAILY [facility] Last Admin: 02/10/18 18:23 Dose: 30 mg Sodium Chloride (Sodium Chloride 0.9%) 1,000 mls @ 30 mls/hr IV .Q24H [facility] Last Admin: 02/10/18 07:53 Dose: 30 mls/hr Lactulose (Enulose) 20 gm PO BID [facility] Last Admin: 02/10/18 18:22 Dose: 20 gm Methadone HCl (Methadone) 0 mg PO Q24H [facility] PRN Reason: Taper Stop: 02/19/18 11:59 Midodrine (Proamatine) 5 mg PO TID [facility] Last Admin: 02/10/18 18:24 Dose: 5 mg Pantoprazole Sodium (Protonix Ec Tab) 40 mg PO DAILY [facility] Last Admin: 02/10/18 10:39 Dose: 40 mg Phenytoin Sodium (Dilantin) 100 mg PO TID [facility] Last Admin: 02/10/18 18:24 Dose: 100 mg - Labs Labs: 02/11/18 06:09 02/11/18 06:09 PT 17.9 SECONDS (9.7-12.2) H 02/09/18 20:41 INR 1.6 02/09/18 20:41 APTT 36 SECONDS (21-34) H 02/09/18 20:41 - Constitutional Appears: No Acute Distress - Head Exam Head Exam: NORMAL INSPECTION, NORMOCEPHALIC - Eye Exam Eye Exam: EOMI, Normal appearance, PERRL. absent: Nystagmus, Scleral icterus - ENT Exam ENT Exam: Mucous Membranes Moist - Respiratory Exam Respiratory Exam: Clear to Ausculation Bilateral, NORMAL BREATHING PATTERN - Cardiovascular Exam Cardiovascular Exam: REGULAR RHYTHM - GI/Abdominal Exam GI & Abdominal Exam: Soft, Normal Bowel Sounds, Organomegaly (splenomegaly ). absent: Tenderness - Rectal Exam Rectal Exam: Deferred - Extremities Exam Extremities Exam: Normal Inspection. absent: Pedal Edema, Tenderness - Back Exam Back Exam: NORMAL INSPECTION - Neurological Exam Neurological Exam: Alert, Awake, CN II-XII Intact, Oriented x3 - Psychiatric Exam Psychiatric exam: Normal Affect, Normal Mood - Skin Skin Exam: Dry, Intact, Normal Color, Warm Assessment and Plan - Assessment and Plan (Free Text) Assessment: 52 year old Male with past medical history of Chronic HCV diagnosed in 2009, untreated, cirrhosis with multiple admissions for hepatic encephalopathy despite compliance with outpatient diuretic and lactulose therapy. Admitted for abdominal pain and altered mental state. No prior EGD or colonoscopy. Chronic HCV decompensated cirrhosis, admission MELD 23 AMS, hepatic encephalopathy CKD? Plan: - Low sodium diet as tolerated - Abdominal US showed no portal or splenic thrombosis - AFP - 1.2. Continue to monitor LFTs, pending autoimmune panel testing - Maintain lactulose therapy for HE prevention, titrate so patient has 2-3 bowel movements daily. - Suggest starting Rifaximin to reduce recurrent admissions for hepatic encephalopathy. - Unknown prior baseline creatinine, continue with midodrine therapy, suggest addition of albumin - Patient would benefit from evaluation at tertiary care facility for transplant consideration, particularly given apparent sobriety. He would also eventually benefit from EGD for variceal screening and age appropriate screening colonoscopy which can be performed electively as outpatient. - Will continue to monitor patient clinical course. DW Summer Longoria DO, PGY-1 <Kory Puente - Last Filed: 02/11/18 12:09> Objective - Vital Signs/Intake and Output Vital Signs (last 24 hours): Temp Pulse Resp BP Pulse Ox 97.8 F 90 21 91/61 L 97 02/11/18 07:35 02/11/18 07:35 02/11/18 07:35 02/11/18 07:35 02/11/18 07:35 Intake and Output: 02/11/18 02/11/18 06:59 18:59 Intake Total 540 Balance 540 - Medications Medications: Current Medications Enoxaparin Sodium (Lovenox) 30 mg SC DAILY [facility] Last Admin: 02/11/18 10:18 Dose: 30 mg Sodium Chloride (Sodium Chloride 0.9%) 1,000 mls @ 30 mls/hr IV .Q24H [facility] Last Admin: 02/10/18 07:53 Dose: 30 mls/hr Lactulose (Enulose) 20 gm PO BID [facility] Last Admin: 02/11/18 10:19 Dose: 20 gm Methadone HCl (Methadone) 40 mg PO Q24H [facility] PRN Reason: Taper Stop: 02/19/18 11:59 Midodrine (Proamatine) 5 mg PO TID [facility] Last Admin: 02/11/18 10:19 Dose: 5 mg Pantoprazole Sodium (Protonix Ec Tab) 40 mg PO DAILY [facility] Last Admin: 02/11/18 10:18 Dose: 40 mg Phenytoin Sodium (Dilantin) 100 mg PO TID [facility] Last Admin: 02/11/18 10:18 Dose: 100 mg - Labs Labs: 02/11/18 06:09 02/11/18 06:09 PT 17.9 SECONDS (9.7-12.2) H 02/09/18 20:41 INR 1.6 02/09/18 20:41 APTT 36 SECONDS (21-34) H 02/09/18 20:41 Attending/Attestation - Attestation I have personally seen and examined this patient.: Yes I have fully participated in the care of the patient.: Yes I have reviewed all pertinent clinical information, including history, physical exam and plan: Yes Notes (Text): 02/11/18 12:07 52 year old male with h/o HCV cirrhosis a/w encephalopathy. His symptoms are improved. Continue lactulose. Will try to see if he can get rifaxamin as outpatient to help reduce hospitalizations related to encephalopathy.
[2018-02-11] MEDS ORDERED: Diclofenac Sodium Delayed Release 75 mg EC Tab PO SCH (10:00)
[2018-02-11] MEDS: Pantoprazole 40 mg EC Tab PO SCH (10:18)
[2018-02-11] MEDS: Enoxaparin 30 mg Syringe SC SCH (10:18)
--- NOTE | 2018-02-11 11:51 | PCM.PYCHPN ---
Psychiatric Progress Note - Psychiatric Progress Note Patient seen today, length of contact: 15 min Patient Chief Complaint: "I am OK" Problems Identified/Issues Discussed: The pt is seen, chart reviewed, case discussed with staff. Support given, DC used briefly No new symptoms reported, improving slowly. Got his 50 mg methadone and will get 40 mg today. However, he wants to leave and risk of relapse and then OD/ discussed. He agreed to go to [facility] and complete his detox taper as an outpatient No SEs from medications, risks discussed. No psych issues psych will sign off, cleared for dc. Mental Status Examination - Cognitive Function Orientation: Person, Place, Situation, Time Memory: Intact Attention: WNL Concentration: WNL Association: WNL Fund of Knowledge: WNL - Mood Mood: Anxious - Affect Affect: Constricted - Speech Speech: Appropriate - Formal Thought Process Formal Thought Process: No Impairment - Suicidal Ideation Suicidal Ideation: No - Homicidal Ideation Homicidal Ideation: No Goal/Treatment Plan - Goal/Treatment Plan Need for Continued Stay: Other Progress Toward Problem(s) and Goals/Treatment Plan: Continue detox as an outpt When necessary medications Support and psychoeducation
--- NOTE | 2018-02-11 12:24 | CARD ---
APPROVED REPORT EKG Measurement Heart [id number] [id number] <Conclusion> Normal sinus rhythm Cannot rule out Anterior infarct, age undetermined Prolonged QT Abnormal ECG
[2018-02-11 16:49] VITALS: BP 112/61; PULSE 75; RESP 20; O2SAT 96
--- NOTE | 2018-02-11 16:50 | CP.PCM.PN ---
Subjective - Date & Time of Evaluation Date of Evaluation: 02/11/18 Time of Evaluation: 16:50 - Subjective Subjective: PT SEEN AND CLEARED BY GI THIS MORNING; THEY LEFT PT A LIST OF PHARMACIES THAT MAY BE ABLE TO PROVIDE HIM WITH A VOUCHER FOR NEW RX RIFAXIMIN. SEEN BY DR. HALE AND Timothy MENDEZ AND ALSO CLEARED FOR D/C BY THEM BOTH. RX GIVEN FOR RIFAXIMIN PER GI. PT INSTRUCTED TO F/U WITH DR. MENDEZ, GI AND [facility] (FOR METHADONE PROGRAM). SEE BELOW FOR D/C PLAN SENT HOME WITH PT. NO FURTHER ORDERS. -FOLLOW UP WITH YOUR PRIMARY DOCTOR IN THE OFFICE WITHIN 5-7 DAYS---CALL TOMORROW FOR APPT. -FOLLOW UP WITH DR. MCCLENDON (STOMACH DOCTOR) IN THE OFFICE WITHIN 10-14 DAYS--- CALL TOMORROW FOR APPT. -CONTINUE HOME MEDICATIONS USUAL. -YOU WERE EVALUATED BY DR. HALE, PSYCHIATRIST; IT IS RECOMMENDED THAT YOU REVISIT [facility] FOR MANAGEMENT AND PROPER TAPERING OF METHADONE. -YOU HAVE BEEN GIVEN A PRESCRIPTION FOR RIFAXIMIN TO TAKE 2 TIMES A DAY; YOU HAVE BEEN PROVIDED WITH A LIST OF PHARMACIES THAT PROVIDE VOUCHERS TO COVER THE COST OF THIS MEDICATION. -FOR FURTHER QUESTIONS OR CONCERNS, CONTACT DR. Timothy MENDEZ OR DR. MCCLENDON. Objective - Vital Signs/Intake and Output Vital Signs (last 24 hours): Temp Pulse Resp BP Pulse Ox 97.8 F 75 20 112/61 96 02/11/18 15:05 02/11/18 15:05 02/11/18 15:05 02/11/18 15:05 02/11/18 15:05 Intake and Output: 02/11/18 02/11/18 06:59 18:59 Intake Total 540 Balance 540 - Medications Medications: Current Medications Enoxaparin Sodium (Lovenox) 30 mg SC DAILY [facility] Last Admin: 02/11/18 10:18 Dose: 30 mg Sodium Chloride (Sodium Chloride 0.9%) 1,000 mls @ 30 mls/hr IV .Q24H [facility] Last Admin: 02/10/18 07:53 Dose: 30 mls/hr Lactulose (Enulose) 20 gm PO BID [facility] Last Admin: 02/11/18 10:19 Dose: 20 gm Methadone HCl (Methadone) 40 mg PO Q24H [facility] PRN Reason: Taper Stop: 02/19/18 11:59 Last Admin: 02/11/18 13:32 Dose: 40 mg Midodrine (Proamatine) 5 mg PO TID [facility] Last Admin: 02/11/18 15:01 Dose: 5 mg Pantoprazole Sodium (Protonix Ec Tab) 40 mg PO DAILY [facility] Last Admin: 02/11/18 10:18 Dose: 40 mg Phenytoin Sodium (Dilantin) 100 mg PO TID [facility] Last Admin: 02/11/18 15:01 Dose: 100 mg - Labs Labs: 02/11/18 06:09 02/11/18 06:09 PT 17.9 SECONDS (9.7-12.2) H 02/09/18 20:41 INR 1.6 02/09/18 20:41 APTT 36 SECONDS (21-34) H 02/09/18 20:41
== END 2018-02-11 17:36 | disposition home or self-care (01) | DRG 557 ==
LOC: C.ER 18:43 → C.5S 21:06 → C.9E 21:06 → C.5S 02-10 14:11
PROVIDERS: ADMIT Internal Medicine Nephrology; ATTEND Internal Medicine Nephrology
DX: K74.69 Other cirrhosis of liver (principal); K72.90 Hepatic failure, unspecified without coma; B18.2 Chronic viral hepatitis C; F11.23 Opioid dependence with withdrawal; E72.20 Disorder of urea cycle metabolism, unspecified; F41.9 Anxiety disorder, unspecified; G40.909 Epilepsy, unspecified, not intractable, without status epilepticus; G47.00 Insomnia, unspecified; F17.210 Nicotine dependence, cigarettes, uncomplicated

== ENCOUNTER 2018-02-13 14:10 | Inpatient (IN) | payer MEDICAID ==
--- NOTE | 2018-02-13 14:44 | C.PDOC ---
History Of Present Illness 52 year old male with PMHx of heroin abuse and hepatitis is brought to the ED by EMS/[employer] [employer] after being found in an altered mental state. Patient is accompanied by his brother, patient's brother states patient was D/C from the Hospital 2 days ago and since ten has not been taking his medications. Patient is confused, combative, screaming loudly and is not able to answer any questions. History is provided by his brother. Chief Complaint (Nursing): Weakness/Neurological Deficit History Per: Family History/Exam Limitations: clinical condition Onset/Duration Of Symptoms: Days Current Symptoms Are (Timing): Still Present Associated Symptoms Preceding Syncopal Episode: No Predromal Symptoms (Sudden Onset) Seizure Or Post-ictal Symptoms: None Fall Associated With With Symptoms: No Recent travel outside of the [place]: No Additional History Per: Family Past Medical History Reviewed: Historical Data, Nursing Documentation, Vital Signs Vital Signs: Last Vital Signs Temp 97.8 F 02/13/18 14:30 Pulse 78 02/13/18 15:33 Resp 14 02/13/18 15:33 BP 95/49 L 02/13/18 15:33 Pulse Ox 99 02/13/18 15:33 - Medical History PMH: Hepatitis Denies: Diabetes, HIV, HTN, Chronic Kidney Disease, Seizures, Sexually Transmitted Disease Surgical History: No Surg Hx Family History: States: Unknown Family Hx - Social History Hx Tobacco Use: Yes (heavy smoker) Hx Alcohol Use: No Hx Substance Use: Yes - Immunization History Hx Tetanus Toxoid Vaccination: (unknown) Hx Influenza Vaccination: (unknown) Hx Pneumococcal Vaccination: (unknown) Review Of Systems Review Of Systems: ROS cannot be obtained secondary to pt's inabilty to answer questions. Physical Exam - Physical Exam Appears: Non-toxic, No Acute Distress Skin: Normal Color, Warm, Dry, Ecchymosis (patches on rigth forearm, left abdomen, left foearm), Other (IV drug use track saha) Head: Atraumatic, Normacephalic Eye(s): bilateral: Normal Inspection Nose: No Discharge Oral Mucosa: Moist Neck: Normal ROM, Supple Chest: Symmetrical Cardiovascular: Rhythm Regular, No Murmur, Other (Rigth chest wall drainage in place) Respiratory: Normal Breath Sounds, No Rales, No Rhonchi, No Wheezing Extremity: Normal ROM, No Tenderness, No Swelling Neurological/Psych: No Oriented x3, No Response To Commands, Other (incoherent, combative, confused) Gait: Unable To Assess ED Course And Treatment - Laboratory Results Result Diagrams: 02/13/18 15:28 02/13/18 15:28 Medical Decision Making Medical Decision Making: Impression: AMS, hepatic encephalopathy Plan: * Labs * CXR * Ativan 1 mg IM * Geodon 20 mg IJ * UA Disposition - Disposition Disposition: HOSPITALIZED Disposition Time: 18:01 Condition: FAIR - Clinical Impression Clinical Impression: Hyperammonemia, Acute encephalopathy - Scribe Statement The provider has reviewed the documentation as recorded by the Scribe Amaury Rausch All medical record entries made by the Scribe were at my direction and personally dictated by me. I have reviewed the chart and agree that the record accurately reflects my personal performance of the history, physical exam, medical decision making, and the department course for this patient. I have also personally directed, reviewed, and agree with the discharge instructions and disposition.
--- NOTE | 2018-02-13 15:25 | RAD ---
PROCEDURE: Chest 02/13/2018 HISTORY: Detox/Psy COMPARISON: Comparison made with CT scan 02/09/2018 FINDINGS: LUNGS: Right lower lobe opacification consistent with combination of large effusion with lower lobe atelectasis and or infiltrate PLEURA: No pneumothorax or pleural fluid seen. CARDIOVASCULAR: Heart size difficult to assess due to silhouetting of the right cardiac border OSSEOUS STRUCTURES: No significant abnormalities. VISUALIZED UPPER ABDOMEN: Normal. OTHER FINDINGS: None. IMPRESSION: Right lower lobe opacification consistent with combination of large effusion with lower lobe atelectasis and or infiltrate
[2018-02-13 15:34] LABS: BASO % 0.3 % (0.0-2.0); EOS # 0.1 K/uL (0.0-0.7); EOS % 0.6 % (0.0-4.0); HEMOGLOBIN 12.7 g/dL (12.0-18.0); LYMPH # 0.6 K/uL (1.0-4.3); LYMPH % 5.6 % (20.0-40.0); MEAN CELL VOLUME 87.4 fL (80.0-94.0); MEAN CORPUSCULAR HEMOGLOBIN 29.7 pg (27.0-31.0); MONO # 1.3 K/uL (0.0-0.8); MONO % 12.7 % (0.0-10.0); NEUT # 8.2 K/uL (1.8-7.0); NEUT % 80.8 % (50.0-75.0); NRBC % 0.1 % (0.0-2.0); PLATELET COUNT 239 K/uL (130-400); RBC 4.26 Mil/uL (4.40-5.90); RED CELL DISTRIBUTION WIDTH 15.2 % (11.5-14.5); WHITE BLOOD COUNT 10.2 K/uL (4.8-10.8)
[2018-02-13 15:38] LABS: URINE BACTERIA RARE (<OCC); URINE BILIRUBIN NEGATIVE (NEGATIVE); URINE BLOOD NEGATIVE (NEGATIVE); URINE CLARITY Hazy (Clear); URINE COLOR Yellow (YELLOW); URINE GLUCOSE (UA) NORMAL (Normal); URINE LEUKOCYTE ESTERASE TRACE Leu/uL (Negative); URINE PROTEIN NEGATIVE (NEGATIVE); URINE UROBILINOGEN NORMAL mg/dL (0.2-1.0)
[2018-02-13 15:45] LABS: ALB/GLOB RATIO 0.6 (1.0-2.1); ALBUMIN 2.5 g/dL (3.5-5.0); ALT/SGPT 54 U/L (21-72); AST/SGOT 74 U/L (17-59); BLOOD UREA NITROGEN 99 mg/dL (9-20); CALCIUM 7.8 mg/dl (8.6-10.4); GFR AFRICAN-AMERICAN 17; GFR NON-AFRICAN AMERICAN 14
[2018-02-13 15:54] LABS: EOSINOPHIL 2 % (0-4); LYMPHOCYTE 1 % (20-40); MONOCYTE 9 % (0-10); NEUTROPHIL 88 % (50-75); PLATELET ESTIMATE NORMAL (NORMAL); TOTAL CELLS COUNTED 100
[2018-02-13] MEDS ORDERED: Lactulose 10 gm/15 ml (Rectal Use) PR ONE (15:59)
[2018-02-13 16:04] LABS: BARBITURATES, UR NEGATIVE (NEGATIVE); BENZODIAZEPINES, UR NEGATIVE (NEGATIVE); OPIATES, UR NEGATIVE (NEGATIVE); PHENCYCLIDINE, UR NEGATIVE (NEGATIVE)
[2018-02-13] MEDS ORDERED: Sodium Chloride 0.9% 1,000 ML IV ONE (17:59)
--- NOTE | 2018-02-13 20:50 | CP.PCM.HP ---
Past Patient History - Infectious Disease Hx of Infectious Diseases: None - Past Medical History & Family History Past Medical History?: Yes - Past Social History Smoking Status: Light Smoker < 10 Cigarettes Daily - CARDIAC Hx Hypertension: No - PULMONARY Hx Respiratory Disorders: No Hx Tuberculosis: No - NEUROLOGICAL Hx Seizures: No - HEENT Hx HEENT Problems: No - RENAL Hx Chronic Kidney Disease: No - ENDOCRINE/METABOLIC Hx Endocrine Disorders: No - HEMATOLOGICAL/ONCOLOGICAL Hx Hepatitis C: Yes Hx Human Immunodeficiency Virus (HIV): No - INTEGUMENTARY Hx Dermatological Problems: Yes Hx Psoriasis: Yes - MUSCULOSKELETAL/RHEUMATOLOGICAL Hx Musculoskeletal Disorders: No Hx Falls: Yes - GASTROINTESTINAL Hx Gastrointestinal Disorders: No - GENITOURINARY/GYNECOLOGICAL Hx Sexually Transmitted Disorders: No - PSYCHIATRIC Hx Substance Use: Yes - SURGICAL HISTORY Hx Surgeries: No Other/Comment: unknown - ANESTHESIA Hx Anesthesia: No (unknown) Hx Anesthesia Reactions: No Hx Malignant Hyperthermia: No Has any member of the family had a problem w/ anesthesia?: No Meds Allergies/Adverse Reactions: Allergies Allergy/AdvReac Type Severity Reaction Status Date / Time No Known Allergies Allergy Verified 02/13/18 14:27 Results - Vital Signs Recent Vital Signs: Last Vital Signs Temp 97.8 F 02/13/18 14:30 Pulse 73 02/13/18 19:56 Resp 18 02/13/18 19:56 BP 101/67 02/13/18 19:56 Pulse Ox 99 02/13/18 15:33 - Labs Result Diagrams: 02/13/18 15:28 02/13/18 15:28 Labs: Laboratory Results - last 24 hr 02/13/18 02/13/18 02/13/18 15:25 15:25 15:28 WBC 10.2 RBC 4.26 L Hgb 12.7 Hct 37.3 MCV 87.4 MCH 29.7 MCHC 34.0 RDW 15.2 H Plt Count 239 MPV 10.0 Neut % (Auto) 80.8 H Lymph % (Auto) 5.6 L [place] % (Auto) 12.7 H Eos % (Auto) 0.6 Baso % (Auto) 0.3 Neut # (Auto) 8.2 H Lymph # (Auto) 0.6 L [place] # (Auto) 1.3 H Eos # (Auto) 0.1 Baso # (Auto) 0.0 Neutrophils % (Manual) 88 H Lymphocytes % (Manual) 1 L Monocytes % (Manual) 9 Eosinophils % (Manual) 2 Platelet Estimate Normal RBC Morphology Normal Sodium Potassium Chloride Carbon Dioxide Anion Gap BUN Creatinine Est GFR ( Amer) Est GFR (Non-Af Amer) Random Glucose Calcium Total Bilirubin AST ALT Alkaline Phosphatase Ammonia Total Protein Albumin Globulin Albumin/Globulin Ratio Urine Color Yellow Urine Clarity Hazy Urine pH 6.0 Ur Specific [place] 1.011 Urine Protein Negative Urine Glucose (UA) Normal Urine Ketones Negative Urine Blood Negative Urine Nitrate Negative Urine Bilirubin Negative Urine Urobilinogen Normal Ur Leukocyte Esterase Trace Urine WBC (Auto) 4 Urine RBC (Auto) 1 Urine Bacteria Rare Urine Opiates Screen Negative Urine Methadone Screen Positive H Ur Barbiturates Screen Negative Ur Phencyclidine Scrn Negative Ur Amphetamines Screen Negative U Benzodiazepines Scrn Negative U Oth Cocaine Metabols Negative U Cannabinoids Screen Negative Alcohol, Quantitative 02/13/18 02/13/18 15:28 15:28 WBC RBC Hgb Hct MCV MCH MCHC RDW Plt Count MPV Neut % (Auto) Lymph % (Auto) [place] % (Auto) Eos % (Auto) Baso % (Auto) Neut # (Auto) Lymph # (Auto) [place] # (Auto) Eos # (Auto) Baso # (Auto) Neutrophils % (Manual) Lymphocytes % (Manual) Monocytes % (Manual) Eosinophils % (Manual) Platelet Estimate RBC Morphology Sodium 127 L Potassium 4.4 Chloride 96 L Carbon Dioxide 14 L Anion Gap 21 H BUN 99 H Creatinine 4.5 H Est GFR ( Amer) 17 Est GFR (Non-Af Amer) 14 Random Glucose 97 Calcium 7.8 L Total Bilirubin 0.9 AST 74 H ALT 54 Alkaline Phosphatase 140 H Ammonia 232 H D Total Protein 6.5 Albumin 2.5 L Globulin 4.1 H Albumin/Globulin Ratio 0.6 L Urine Color Urine Clarity Urine pH Ur Specific [place] Urine Protein Urine Glucose (UA) Urine Ketones Urine Blood Urine Nitrate Urine Bilirubin Urine Urobilinogen Ur Leukocyte Esterase Urine WBC (Auto) Urine RBC (Auto) Urine Bacteria Urine Opiates Screen Urine Methadone Screen Ur Barbiturates Screen Ur Phencyclidine Scrn Ur Amphetamines Screen U Benzodiazepines Scrn U Oth Cocaine Metabols U Cannabinoids Screen Alcohol, Quantitative < 10
[2018-02-14] MEDS ORDERED: Diclofenac Sodium Delayed Release 75 mg EC Tab PO SCH (10:00)
--- NOTE | 2018-02-14 14:37 | CP.PCM.PN ---
Subjective - Date & Time of Evaluation Date of Evaluation: 02/14/18 Time of Evaluation: 09:00 - Subjective Subjective: clinically same Objective - Vital Signs/Intake and Output Vital Signs (last 24 hours): Temp Pulse Resp BP Pulse Ox 98.6 F 98 H 20 108/63 98 02/14/18 09:00 02/14/18 09:00 02/14/18 09:00 02/14/18 10:35 02/14/18 09:00 Intake and Output: 02/14/18 02/14/18 06:59 18:59 Intake Total 1400 Balance 1400 - Medications Medications: Current Medications Diclofenac Sodium (Voltaren) 75 mg PO BID [facility] Furosemide (Lasix) 40 mg PO DAILY [facility] Last Admin: 02/14/18 10:35 Dose: 40 mg Heparin Sodium (Porcine) (Heparin) 5,000 units SC Q12 [facility] Last Admin: 02/14/18 10:35 Dose: 5,000 units Lactulose (Enulose) 20 gm PO BID [facility] Last Admin: 02/14/18 10:35 Dose: 20 gm Lorazepam (Ativan) 0.5 mg PO Q12 PRN PRN Reason: Agitation Midodrine (Proamatine) 5 mg PO TID [facility] Last Admin: 02/14/18 13:51 Dose: 5 mg Ondansetron HCl (Zofran Inj) 4 mg IVP Q8 PRN PRN Reason: Nausea/Vomiting Phenytoin Sodium (Dilantin) 300 mg PO DAILY [facility] Last Admin: 02/14/18 10:34 Dose: 300 mg Pneumococcal Polyvalent Vaccine (Pneumovax 23 Vaccine) 0.5 ml IM .ONCE ONE Stop: 02/15/18 10:01 Rifaximin (Xifaxan) 550 mg PO BID [facility] PRN Reason: Protocol Last Admin: 02/14/18 10:34 Dose: 550 mg Spironolactone (Aldactone) 50 mg PO DAILY [facility] Last Admin: 02/14/18 10:35 Dose: 50 mg Torsemide (Demadex) 60 mg PO DAILY [facility] Last Admin: 02/14/18 10:35 Dose: 60 mg - Labs Labs: 02/13/18 15:28 02/13/18 15:28 - Constitutional Appears: Well - Head Exam Head Exam: ATRAUMATIC, NORMAL INSPECTION, NORMOCEPHALIC - Eye Exam Eye Exam: EOMI, Normal appearance, PERRL Pupil Exam: NORMAL ACCOMODATION, PERRL - ENT Exam ENT Exam: Mucous Membranes Moist, Normal Exam - Neck Exam Neck Exam: Full ROM, Normal Inspection. absent: Lymphadenopathy - Respiratory Exam Respiratory Exam: Decreased Breath Sounds - Cardiovascular Exam Cardiovascular Exam: REGULAR RHYTHM, +S1, +S2 - GI/Abdominal Exam GI & Abdominal Exam: Soft, Diminished Bowel Sounds - Rectal Exam Rectal Exam: Deferred
--- NOTE | 2018-02-14 15:26 | CP.PCM.CON ---
<Jatin Zheng - Last Filed: 02/14/18 15:42> History of Present Illness - History of Present Illness History of Present Illness: Samm Muller is a 52 Male with PMHx as listed below who presented to the ER for AMS. Pt was bought in by his brother due to altered mental status and states that he has been non-complaint on all of hi meds since discharge from [facility] 2 days ago. He again was admitted at that time for hepatic encephalopathy. He was given lactulose and given diuretics then discharged home. Prior to the last admission, patient was recently discharged from [facility] for elevated ammonia levels. Patient reports 2 months ago he was admitted to [facility], where he had fluid removed from his right lung. Shortly after he also had a paracentesis performed, having 7 liters removed. Pt cannot give a history to AMS, so all information was obtained from EMR and staff. PMHx: Hepatic Encephalopathy likely secondary to Cirrhosis, ??Seizure Disorder, Hepatitis C - untreated PSHx: Reported having his right lung drainage at [facility] 12/2017 Meds: As per MAR- patient only able to recall lactulose All: NKDA SHx: Admitted 2-1 PPD for >30 years, admitted to drinking ETOH during his 20s , hx IVDA with Heroine, Cocaine, FHx: Unremarkable for GI issues or malignancies Past Patient History - Infectious Disease Hx of Infectious Diseases: None - Past Medical History & Family History Past Medical History?: Yes - Past Social History Smoking Status: Light Smoker < 10 Cigarettes Daily - CARDIAC Hx Hypertension: No - PULMONARY Hx Respiratory Disorders: No Hx Tuberculosis: No - NEUROLOGICAL Hx Seizures: No - HEENT Hx HEENT Problems: No - RENAL Hx Chronic Kidney Disease: No - ENDOCRINE/METABOLIC Hx Endocrine Disorders: No - HEMATOLOGICAL/ONCOLOGICAL Hx Hepatitis C: Yes Hx Human Immunodeficiency Virus (HIV): No - INTEGUMENTARY Hx Dermatological Problems: Yes Hx Psoriasis: Yes - MUSCULOSKELETAL/RHEUMATOLOGICAL Hx Musculoskeletal Disorders: No Hx Falls: Yes - GASTROINTESTINAL Hx Gastrointestinal Disorders: No - GENITOURINARY/GYNECOLOGICAL Hx Sexually Transmitted Disorders: No - PSYCHIATRIC Hx Substance Use: Yes - SURGICAL HISTORY Hx Surgeries: No Other/Comment: unknown - ANESTHESIA Hx Anesthesia: No (unknown) Hx Anesthesia Reactions: No Hx Malignant Hyperthermia: No Has any member of the family had a problem w/ anesthesia?: No Meds Allergies/Adverse Reactions: Allergies Allergy/AdvReac Type Severity Reaction Status Date / Time No Known Allergies Allergy Verified 02/13/18 14:27 - Medications Medications: Current Medications Diclofenac Sodium (Voltaren) 75 mg PO BID [facility] Furosemide (Lasix) 40 mg PO DAILY [facility] Last Admin: 02/14/18 10:35 Dose: 40 mg Heparin Sodium (Porcine) (Heparin) 5,000 units SC Q12 [facility] Last Admin: 02/14/18 10:35 Dose: 5,000 units Lactulose (Enulose) 20 gm PO BID [facility] Last Admin: 02/14/18 10:35 Dose: 20 gm Lorazepam (Ativan) 0.5 mg PO Q12 PRN PRN Reason: Agitation Midodrine (Proamatine) 5 mg PO TID [facility] Last Admin: 02/14/18 13:51 Dose: 5 mg Ondansetron HCl (Zofran Inj) 4 mg IVP Q8 PRN PRN Reason: Nausea/Vomiting Phenytoin Sodium (Dilantin) 300 mg PO DAILY [facility] Last Admin: 02/14/18 10:34 Dose: 300 mg Pneumococcal Polyvalent Vaccine (Pneumovax 23 Vaccine) 0.5 ml IM .ONCE ONE Stop: 02/15/18 10:01 Rifaximin (Xifaxan) 550 mg PO BID [facility] PRN Reason: Protocol Last Admin: 02/14/18 10:34 Dose: 550 mg Spironolactone (Aldactone) 50 mg PO DAILY [facility] Last Admin: 02/14/18 10:35 Dose: 50 mg Torsemide (Demadex) 60 mg PO DAILY [facility] Last Admin: 02/14/18 10:35 Dose: 60 mg Physical Exam - Constitutional Appears: Non-toxic, No Acute Distress, Confused, Chronically Ill - Head Exam Head Exam: ATRAUMATIC, NORMOCEPHALIC - Eye Exam Eye Exam: Scleral icterus - ENT Exam ENT Exam: Mucous Membranes Moist, Normal Exam - Neck Exam Neck exam: Positive for: Normal Inspection - Respiratory Exam Respiratory Exam: Clear to Auscultation Bilateral, NORMAL BREATHING PATTERN. absent: Prolonged Expiratory Phase, Rales, Rhonchi, Wheezes - Cardiovascular Exam Cardiovascular Exam: REGULAR RHYTHM, +S1, +S2 - GI/Abdominal Exam GI & Abdominal Exam: Distended, Normal Bowel Sounds. absent: Firm, Guarding, Hyperactive Bowel Sounds, Rebound, Rigid - Extremities Exam Extremities exam: Positive for: pedal edema. Negative for: joint swelling - Neurological Exam Neurological exam: Altered Additional comments: +asterix - Psychiatric Exam Additional comments: could not assess - Skin Skin Exam: Dry, Intact, Warm Results - Vital Signs Recent Vital Signs: Last Vital Signs Temp 98.6 F 02/14/18 09:00 Pulse 98 H 02/14/18 09:00 Resp 20 02/14/18 09:00 BP 108/63 02/14/18 10:35 Pulse Ox 98 02/14/18 09:00 - Labs Result Diagrams: 02/13/18 15:28 02/13/18 15:28 Labs: Laboratory Results - last 24 hr 02/13/18 02/13/18 02/13/18 15:25 15:25 15:28 WBC 10.2 RBC 4.26 L Hgb 12.7 Hct 37.3 MCV 87.4 MCH 29.7 MCHC 34.0 RDW 15.2 H Plt Count 239 MPV 10.0 Neut % (Auto) 80.8 H Lymph % (Auto) 5.6 L [place] % (Auto) 12.7 H Eos % (Auto) 0.6 Baso % (Auto) 0.3 Neut # (Auto) 8.2 H Lymph # (Auto) 0.6 L [place] # (Auto) 1.3 H Eos # (Auto) 0.1 Baso # (Auto) 0.0 Neutrophils % (Manual) 88 H Lymphocytes % (Manual) 1 L Monocytes % (Manual) 9 Eosinophils % (Manual) 2 Platelet Estimate Normal RBC Morphology Normal Sodium Potassium Chloride Carbon Dioxide Anion Gap BUN Creatinine Est GFR ( Amer) Est GFR (Non-Af Amer) Random Glucose Calcium Total Bilirubin AST ALT Alkaline Phosphatase Ammonia Total Protein Albumin Globulin Albumin/Globulin Ratio Urine Color Yellow Urine Clarity Hazy Urine pH 6.0 Ur Specific [place] 1.011 Urine Protein Negative Urine Glucose (UA) Normal Urine Ketones Negative Urine Blood Negative Urine Nitrate Negative Urine Bilirubin Negative Urine Urobilinogen Normal Ur Leukocyte Esterase Trace Urine WBC (Auto) 4 Urine RBC (Auto) 1 Urine Bacteria Rare Urine Opiates Screen Negative Urine Methadone Screen Positive H Ur Barbiturates Screen Negative Ur Phencyclidine Scrn Negative Ur Amphetamines Screen Negative U Benzodiazepines Scrn Negative U Oth Cocaine Metabols Negative U Cannabinoids Screen Negative Alcohol, Quantitative 02/13/18 02/13/18 15:28 15:28 WBC RBC Hgb Hct MCV MCH MCHC RDW Plt Count MPV Neut % (Auto) Lymph % (Auto) [place] % (Auto) Eos % (Auto) Baso % (Auto) Neut # (Auto) Lymph # (Auto) [place] # (Auto) Eos # (Auto) Baso # (Auto) Neutrophils % (Manual) Lymphocytes % (Manual) Monocytes % (Manual) Eosinophils % (Manual) Platelet Estimate RBC Morphology Sodium 127 L Potassium 4.4 Chloride 96 L Carbon Dioxide 14 L Anion Gap 21 H BUN 99 H Creatinine 4.5 H Est GFR ( Amer) 17 Est GFR (Non-Af Amer) 14 Random Glucose 97 Calcium 7.8 L Total Bilirubin 0.9 AST 74 H ALT 54 Alkaline Phosphatase 140 H Ammonia 232 H D Total Protein 6.5 Albumin 2.5 L Globulin 4.1 H Albumin/Globulin Ratio 0.6 L Urine Color Urine Clarity Urine pH Ur Specific [place] Urine Protein Urine Glucose (UA) Urine Ketones Urine Blood Urine Nitrate Urine Bilirubin Urine Urobilinogen Ur Leukocyte Esterase Urine WBC (Auto) Urine RBC (Auto) Urine Bacteria Urine Opiates Screen Urine Methadone Screen Ur Barbiturates Screen Ur Phencyclidine Scrn Ur Amphetamines Screen U Benzodiazepines Scrn U Oth Cocaine Metabols U Cannabinoids Screen Alcohol, Quantitative < 10 Assessment & Plan - Assessment and Plan (Free Text) Assessment: 52 year old Male with past medical history of Chronic HCV diagnosed in 2009, untreated, cirrhosis with multiple admissions for hepatic encephalopathy despite compliance with outpatient diuretic and lactulose therapy. Admitted for abdominal pain and altered mental state. Chronic HCV decompensated cirrhosis, admission MELD 23 AMS, hepatic encephalopathy CLARA on CKD? Plan: - Low sodium diet as tolerated - Abdominal US showed no portal or splenic thrombosis - AFP - 1.2. Last admission Continue to monitor LFTs - Maintain lactulose therapy for HE prevention, titrate so patient has 2-3 bowel movements daily. - start Rifaximin to reduce recurrent admissions for hepatic encephalopathy. - recommend discontinuation of all diurectic - recommend renal consult - Will continue to monitor patient clinical course. -need INR D/W Dr. Olvera <Germán Olvera - Last Filed: 02/14/18 16:21> Meds - Medications Medications: Current Medications Diclofenac Sodium (Voltaren) 75 mg PO BID [facility] Furosemide (Lasix) 40 mg PO DAILY [facility] Last Admin: 02/14/18 10:35 Dose: 40 mg Heparin Sodium (Porcine) (Heparin) 5,000 units SC Q12 [facility] Last Admin: 02/14/18 10:35 Dose: 5,000 units Lactulose (Enulose) 20 gm PO QID [facility] Lorazepam (Ativan) 0.5 mg PO Q12 PRN PRN Reason: Agitation Midodrine (Proamatine) 5 mg PO TID [facility] Last Admin: 02/14/18 13:51 Dose: 5 mg Ondansetron HCl (Zofran Inj) 4 mg IVP Q8 PRN PRN Reason: Nausea/Vomiting Phenytoin Sodium (Dilantin) 300 mg PO DAILY [facility] Last Admin: 02/14/18 10:34 Dose: 300 mg Pneumococcal Polyvalent Vaccine (Pneumovax 23 Vaccine) 0.5 ml IM .ONCE ONE Stop: 02/15/18 10:01 Rifaximin (Xifaxan) 550 mg PO BID [facility] PRN Reason: Protocol Last Admin: 02/14/18 10:34 Dose: 550 mg Results - Vital Signs Recent Vital Signs: Last Vital Signs Temp 98.6 F 02/14/18 15:25 Pulse 111 H 02/14/18 15:25 Resp 20 02/14/18 15:25 BP 112/74 02/14/18 15:25 Pulse Ox 96 02/14/18 15:25 - Labs Result Diagrams: 02/13/18 15:28 02/13/18 15:28 Labs: Laboratory Results - last 24 hr 02/13/18 15:25 Urine Opiates Screen Negative Urine Methadone Screen Positive H Ur Barbiturates Screen Negative Ur Phencyclidine Scrn Negative Ur Amphetamines Screen Negative U Benzodiazepines Scrn Negative U Oth Cocaine Metabols Negative U Cannabinoids Screen Negative Attending/Attestation - Attestation I have personally seen and examined this patient.: Yes I have fully participated in the care of the patient.: Yes I have reviewed all pertinent clinical information: Yes Notes (Text): 02/14/18 16:02 Patient seen with GI fellow. This is a 52 year old with past medical history of Chronic HCV diagnosed in 2009, untreated, cirrhosis with multiple admissions for hepatic encephalopathy despite compliance with outpatient diuretic and lactulose therapy. Admitted for abdominal pain and altered mental state. Maintain lactulose to have 2 BM/day. Discontinue diuretics for new onset azotemia. Low sodium diet as tolerated. Sonogram with no PVT. recommend 500 cc of IVF and then start albumin 25 gm 3 bottles per day for 3 days. Send urine lytes and monitor I/O.
[2018-02-14 19:44] LABS: INR 1.6; PROTHROMBIN TIME 18.2 SECONDS (9.7-12.2)
[2018-02-15 08:38] LABS: BASO # 0.2 K/uL (0.0-0.2); BASO % 0.9 % (0.0-2.0); EOS % 0.2 % (0.0-4.0); HEMOGLOBIN 14.4 g/dL (12.0-18.0); LYMPH # 0.8 K/uL (1.0-4.3); LYMPH % 4.5 % (20.0-40.0); MEAN CELL VOLUME 87.9 fL (80.0-94.0); MEAN CORPUSCULAR HEMOGLOBIN 29.5 pg (27.0-31.0); MEAN CORPUSCULAR HGB CONC 33.6 g/dL (33.0-37.0); MEAN PLATELET VOLUME 10.1 fL (7.2-11.7); MONO # 1.9 K/uL (0.0-0.8); MONO % 10.7 % (0.0-10.0); NEUT # 15.1 K/uL (1.8-7.0); NEUT % 83.7 % (50.0-75.0); NRBC % 0.1 % (0.0-2.0); PLATELET COUNT 248 K/uL (130-400); RBC 4.89 Mil/uL (4.40-5.90); RED CELL DISTRIBUTION WIDTH 15.8 % (11.5-14.5)
[2018-02-15 08:41] LABS: WHITE BLOOD COUNT 18.1 K/uL (4.8-10.8)
[2018-02-15 08:43] LABS: INR 1.7; PROTHROMBIN TIME 19.5 SECONDS (9.7-12.2)
[2018-02-15 09:03] LABS: ALB/GLOB RATIO 0.6 (1.0-2.1); ALBUMIN 2.6 g/dL (3.5-5.0); CALCIUM 8.2 mg/dl (8.6-10.4)
[2018-02-15] MEDS ORDERED: Pneumococcal 23-Valent Vaccine IM ONE (10:00)
[2018-02-15] MEDS ORDERED: Influenza Vaccine 60 mcg/0.5 mL SYR (4YR UP) IM ONE (10:00)
[2018-02-15 10:26] LABS: BANDS 1 % (0-2); LYMPHOCYTE 5 % (20-40); MONOCYTE 10 % (0-10); NEUTROPHIL 84 % (50-75); TOTAL CELLS COUNTED 100
[2018-02-15 10:27] LABS: ANISOCYTOSIS SLIGHT
[2018-02-15 10:30] LABS: LARGE PLATELETS PRESENT; POIKILOCYTOSIS SLIGHT
[2018-02-15 10:31] LABS: PLATELET ESTIMATE NORMAL (NORMAL)
--- NOTE | 2018-02-15 13:24 | CP.PCM.PN ---
<Jatin Zheng - Last Filed: 02/15/18 13:26> Subjective - Date & Time of Evaluation Date of Evaluation: 02/15/18 Time of Evaluation: 12:15 - Subjective Subjective: PGY4 GI Follow-up Pt seen and examined bedside more alert and oriented today +BM 2-3 since yesterday Denies any abd pain tolerating diet ROS: 10 point ROS conducted neg other than above Objective - Vital Signs/Intake and Output Vital Signs (last 24 hours): Temp Pulse Resp BP Pulse Ox 97.4 F L 89 21 115/80 96 02/15/18 07:10 02/15/18 07:10 02/15/18 07:10 02/15/18 10:11 02/15/18 07:10 Intake and Output: 02/15/18 02/15/18 06:59 18:59 Output Total 20 Balance -20 - Medications Medications: Current Medications Diclofenac Sodium (Voltaren) 75 mg PO BID [facility] Furosemide (Lasix) 40 mg PO DAILY [facility] Last Admin: 02/15/18 10:11 Dose: 40 mg Heparin Sodium (Porcine) (Heparin) 5,000 units SC Q12 [facility] Last Admin: 02/15/18 10:07 Dose: 5,000 units Lactulose (Enulose) 20 gm PO QID [facility] Last Admin: 02/15/18 10:06 Dose: 20 gm Lorazepam (Ativan) 0.5 mg PO Q12 PRN PRN Reason: Agitation Midodrine (Proamatine) 5 mg PO TID [facility] Last Admin: 02/15/18 10:19 Dose: 5 mg Ondansetron HCl (Zofran Inj) 4 mg IVP Q8 PRN PRN Reason: Nausea/Vomiting Last Admin: 02/15/18 10:11 Dose: 4 mg Phenytoin Sodium (Dilantin) 300 mg PO DAILY [facility] Last Admin: 02/15/18 10:06 Dose: 300 mg Rifaximin (Xifaxan) 550 mg PO BID [facility] PRN Reason: Protocol Last Admin: 02/15/18 10:09 Dose: 550 mg - Labs Labs: 02/15/18 08:29 02/15/18 08:29 PT 19.5 SECONDS (9.7-12.2) H 02/15/18 08:29 INR 1.7 02/15/18 08:29 - Constitutional Appears: Well, No Acute Distress - Head Exam Head Exam: ATRAUMATIC, NORMOCEPHALIC - Eye Exam Eye Exam: Scleral icterus - ENT Exam ENT Exam: Mucous Membranes Moist, Normal Exam - Neck Exam Neck Exam: Normal Inspection - Respiratory Exam Respiratory Exam: Clear to Ausculation Bilateral, NORMAL BREATHING PATTERN. absent: Rales, Rhonchi, Wheezes, Respiratory Distress - Cardiovascular Exam Cardiovascular Exam: REGULAR RHYTHM, +S1, +S2 - GI/Abdominal Exam GI & Abdominal Exam: Soft, Normal Bowel Sounds. absent: Guarding, Rigid, Tenderness, Organomegaly, Rebound - Extremities Exam Extremities Exam: absent: Joint Swelling, Pedal Edema - Neurological Exam Neurological Exam: Alert, Awake, Oriented x3 - Psychiatric Exam Psychiatric exam: Normal Affect, Normal Mood - Skin Skin Exam: Dry, Intact, Normal Color, Warm Assessment and Plan - Assessment and Plan (Free Text) Assessment: 52 year old Male with past medical history of Chronic HCV diagnosed in 2009, untreated, cirrhosis with multiple admissions for hepatic encephalopathy despite compliance with outpatient diuretic and lactulose therapy. Admitted for abdominal pain and altered mental state. Chronic HCV decompensated cirrhosis, MELD 02/15/18 25 AMS, hepatic encephalopathy CLARA on CKD?, improving Plan: - strict Low sodium diet as tolerated - Abdominal US showed no portal or splenic thrombosis - AFP - 1.2. Last admission - Continue to monitor LFTs - Maintain lactulose therapy for HE prevention, titrate so patient has 2-3 bowel movements daily. - continue Rifaximin to reduce recurrent admissions for hepatic encephalopathy. - recommend discontinuation of all diurectic; waiting on nephro recommedations - Will continue to monitor patient clinical course. D/W Dr. Olvera <Germán Olvera - Last Filed: 02/15/18 17:05> Objective - Vital Signs/Intake and Output Vital Signs (last 24 hours): Temp Pulse Resp BP Pulse Ox 97.7 F 89 20 114/77 96 02/15/18 15:37 02/15/18 15:37 02/15/18 15:37 02/15/18 15:37 02/15/18 15:37 Intake and Output: 02/15/18 02/15/18 06:59 18:59 Output Total 20 Balance -20 - Medications Medications: Current Medications Diclofenac Sodium (Voltaren) 75 mg PO BID [facility] Furosemide (Lasix) 40 mg PO DAILY [facility] Last Admin: 02/15/18 10:11 Dose: 40 mg Heparin Sodium (Porcine) (Heparin) 5,000 units SC Q12 [facility] Last Admin: 02/15/18 10:07 Dose: 5,000 units Sodium Chloride (Sodium Chloride 0.9%) 1,000 mls @ 40 mls/hr IV .Q24H [facility] Last Admin: 02/15/18 14:58 Dose: 40 mls/hr Lactulose (Enulose) 20 gm PO QID [facility] Last Admin: 02/15/18 13:34 Dose: 20 gm Lorazepam (Ativan) 0.5 mg PO Q12 PRN PRN Reason: Agitation Methadone HCl (Methadone) 15 mg PO DAILY [facility] Last Admin: 02/15/18 14:58 Dose: 15 mg Midodrine (Proamatine) 5 mg PO TID [facility] Last Admin: 02/15/18 13:33 Dose: 5 mg Ondansetron HCl (Zofran Inj) 4 mg IVP Q8 PRN PRN Reason: Nausea/Vomiting Last Admin: 02/15/18 10:11 Dose: 4 mg Ondansetron HCl (Zofran Odt) 4 mg PO BID [facility] Phenytoin Sodium (Dilantin) 300 mg PO DAILY [facility] Last Admin: 02/15/18 10:06 Dose: 300 mg Rifaximin (Xifaxan) 550 mg PO BID [facility] PRN Reason: Protocol Last Admin: 02/15/18 10:09 Dose: 550 mg - Labs Labs: 02/15/18 08:29 02/15/18 08:29 PT 19.5 SECONDS (9.7-12.2) H 02/15/18 08:29 INR 1.7 02/15/18 08:29 Attending/Attestation - Attestation I have personally seen and examined this patient.: Yes I have fully participated in the care of the patient.: Yes I have reviewed all pertinent clinical information, including history, physical exam and plan: Yes Notes (Text): 02/15/18 17:05 Patient seen with GI fellow. This is a 52 year old with past medical history of Chronic HCV diagnosed in 2009, untreated, cirrhosis with multiple admissions for hepatic encephalopathy despite compliance with outpatient diuretic and lactulose therapy. Admitted for abdominal pain and altered mental state. Maintain lactulose to have 2 BM/day. Discontinue diuretics for new onset azotemia. Low sodium diet as tolerated. Sonogram with no PVT. recommend 500 cc of IVF and then start albumin 25 gm 3 bottles per day for 3 days. Send urine lytes and monitor I/O.
[2018-02-15] MEDS ORDERED: Potassium Chloride 20 mEq ER Tab PO STA (14:15)
[2018-02-15] MEDS ORDERED: Sodium Chloride 0.9% 1,000 ML IV SCH (14:30)
[2018-02-15 15:37] VITALS: RESP 20
--- NOTE | 2018-02-15 17:44 | CP.PCM.PN ---
Subjective - Date & Time of Evaluation Date of Evaluation: 02/15/18 Time of Evaluation: 09:20 - Subjective Subjective: clinically same Objective - Vital Signs/Intake and Output Vital Signs (last 24 hours): Temp Pulse Resp BP Pulse Ox 97.7 F 89 20 114/77 96 02/15/18 15:37 02/15/18 15:37 02/15/18 15:37 02/15/18 15:37 02/15/18 15:37 Intake and Output: 02/15/18 02/15/18 06:59 18:59 Output Total 20 Balance -20 - Medications Medications: Current Medications Diclofenac Sodium (Voltaren) 75 mg PO BID [facility] Furosemide (Lasix) 40 mg PO DAILY [facility] Last Admin: 02/15/18 10:11 Dose: 40 mg Heparin Sodium (Porcine) (Heparin) 5,000 units SC Q12 [facility] Last Admin: 02/15/18 10:07 Dose: 5,000 units Sodium Chloride (Sodium Chloride 0.9%) 1,000 mls @ 40 mls/hr IV .Q24H [facility] Last Admin: 02/15/18 14:58 Dose: 40 mls/hr Lactulose (Enulose) 20 gm PO QID [facility] Last Admin: 02/15/18 13:34 Dose: 20 gm Lorazepam (Ativan) 0.5 mg PO Q12 PRN PRN Reason: Agitation Methadone HCl (Methadone) 15 mg PO DAILY [facility] Last Admin: 02/15/18 14:58 Dose: 15 mg Midodrine (Proamatine) 5 mg PO TID [facility] Last Admin: 02/15/18 13:33 Dose: 5 mg Ondansetron HCl (Zofran Inj) 4 mg IVP Q8 PRN PRN Reason: Nausea/Vomiting Last Admin: 02/15/18 10:11 Dose: 4 mg Ondansetron HCl (Zofran Odt) 4 mg PO BID [facility] Phenytoin Sodium (Dilantin) 300 mg PO DAILY [facility] Last Admin: 02/15/18 10:06 Dose: 300 mg Rifaximin (Xifaxan) 550 mg PO BID [facility] PRN Reason: Protocol Last Admin: 02/15/18 10:09 Dose: 550 mg - Labs Labs: 02/15/18 08:29 02/15/18 08:29 PT 19.5 SECONDS (9.7-12.2) H 02/15/18 08:29 INR 1.7 02/15/18 08:29 - Constitutional Appears: Well - Head Exam Head Exam: ATRAUMATIC, NORMAL INSPECTION, NORMOCEPHALIC - Eye Exam Eye Exam: EOMI, Normal appearance, PERRL Pupil Exam: NORMAL ACCOMODATION, PERRL - ENT Exam ENT Exam: Mucous Membranes Moist, Normal Exam - Neck Exam Neck Exam: Full ROM, Normal Inspection. absent: Lymphadenopathy - Respiratory Exam Respiratory Exam: Decreased Breath Sounds - Cardiovascular Exam Cardiovascular Exam: REGULAR RHYTHM, +S1, +S2 - GI/Abdominal Exam GI & Abdominal Exam: Soft, Diminished Bowel Sounds - Rectal Exam Rectal Exam: Deferred
--- NOTE | 2018-02-15 22:43 | CP.PCM.CON ---
History of Present Illness - History of Present Illness History of Present Illness: renal consult note 52 yr old with liver cirrhosis, hep c, recurrent HRS, ckd sec ot hrs, hepatic encephalopathy is admitted with ams, he has had recurrent admissions to [facility] [place] and then [facility] for ams/ascites/clara which has responded to meds. per family has been non compliant with meds since last dc from [facility]. ros: negative pe: vitals reviewed s1s2 present heent normal oral mucosa dry no resp distress abd soft, distended ao times 1 skin nrml flat affect PLAN: CLARA/CKD/HRS/cirrhosis/hepatic encephalopathy/ascites/azotemia renal failure is sec to hepatorenal syndrome, with clara precipitated with acute hepatic issues like recurrent hepatic encephalopathy. he is well known to us from prior admissions [facility] I&Os recommend griffiths continue midodrine, i have added octerotide sc i have stopped lasix and agree with gentle hydration could add albumin 25% tid as well further cirrhosis management per gi and primary team Past Patient History - Infectious Disease Hx of Infectious Diseases: None - Past Medical History & Family History Past Medical History?: Yes - Past Social History Smoking Status: Light Smoker < 10 Cigarettes Daily - CARDIAC Hx Hypertension: No - PULMONARY Hx Respiratory Disorders: No Hx Tuberculosis: No - NEUROLOGICAL Hx Seizures: No - HEENT Hx HEENT Problems: No - RENAL Hx Chronic Kidney Disease: No - ENDOCRINE/METABOLIC Hx Endocrine Disorders: No - HEMATOLOGICAL/ONCOLOGICAL Hx Hepatitis C: Yes Hx Human Immunodeficiency Virus (HIV): No - INTEGUMENTARY Hx Dermatological Problems: Yes Hx Psoriasis: Yes - MUSCULOSKELETAL/RHEUMATOLOGICAL Hx Musculoskeletal Disorders: No Hx Falls: Yes - GASTROINTESTINAL Hx Gastrointestinal Disorders: No - GENITOURINARY/GYNECOLOGICAL Hx Sexually Transmitted Disorders: No - PSYCHIATRIC Hx Substance Use: Yes - SURGICAL HISTORY Hx Surgeries: No Other/Comment: unknown - ANESTHESIA Hx Anesthesia: No (unknown) Hx Anesthesia Reactions: No Hx Malignant Hyperthermia: No Has any member of the family had a problem w/ anesthesia?: No Meds Allergies/Adverse Reactions: Allergies Allergy/AdvReac Type Severity Reaction Status Date / Time No Known Allergies Allergy Verified 02/13/18 14:27 - Medications Medications: Current Medications Heparin Sodium (Porcine) (Heparin) 5,000 units SC Q12 [facility] Last Admin: 02/15/18 22:23 Dose: Not Given Sodium Chloride (Sodium Chloride 0.9%) 1,000 mls @ 40 mls/hr IV .Q24H [facility] Last Admin: 02/15/18 14:58 Dose: 40 mls/hr Lactulose (Enulose) 20 gm PO QID [facility] Last Admin: 02/15/18 22:23 Dose: Not Given Lorazepam (Ativan) 0.5 mg PO Q12 PRN PRN Reason: Agitation Methadone HCl (Methadone) 15 mg PO DAILY [facility] Last Admin: 02/15/18 14:58 Dose: 15 mg Midodrine (Proamatine) 5 mg PO TID [facility] Last Admin: 02/15/18 18:13 Dose: 5 mg Octreotide Acetate (Sandostatin) 100 mcg SC TID [facility] Ondansetron HCl (Zofran Inj) 4 mg IVP Q8 PRN PRN Reason: Nausea/Vomiting Last Admin: 02/15/18 10:11 Dose: 4 mg Ondansetron HCl (Zofran Odt) 4 mg PO BID [facility] Last Admin: 02/15/18 18:13 Dose: 4 mg Phenytoin Sodium (Dilantin) 300 mg PO DAILY [facility] Last Admin: 02/15/18 10:06 Dose: 300 mg Rifaximin (Xifaxan) 550 mg PO BID [facility] PRN Reason: Protocol Last Admin: 02/15/18 18:12 Dose: 550 mg Results - Vital Signs Recent Vital Signs: Last Vital Signs Temp 97.7 F 02/15/18 15:37 Pulse 89 02/15/18 15:37 Resp 20 02/15/18 15:37 BP 114/77 02/15/18 15:37 Pulse Ox 96 02/15/18 15:37 - Labs Result Diagrams: 02/15/18 08:29 02/15/18 08:29 Labs: Laboratory Results - last 24 hr 02/15/18 02/15/18 02/15/18 08:29 08:29 08:29 WBC 18.1 H D RBC 4.89 Hgb 14.4 Hct 43.0 MCV 87.9 MCH 29.5 MCHC 33.6 RDW 15.8 H Plt Count 248 MPV 10.1 Neut % (Auto) 83.7 H Lymph % (Auto) 4.5 L [place] % (Auto) 10.7 H Eos % (Auto) 0.2 Baso % (Auto) 0.9 Neut # (Auto) 15.1 H Lymph # (Auto) 0.8 L [place] # (Auto) 1.9 H Eos # (Auto) 0.0 Baso # (Auto) 0.2 Neutrophils % (Manual) 84 H Band Neutrophils % 1 Lymphocytes % (Manual) 5 L Monocytes % (Manual) 10 Platelet Estimate Normal Large Platelets Present Poikilocytosis (manual Slight Anisocytosis (manual) Slight PT 19.5 H INR 1.7 Sodium 133 Potassium 3.5 L Chloride 102 Carbon Dioxide 17 L Anion Gap 17 BUN 103 H* Creatinine 3.1 H Est GFR ( Amer) 26 Est GFR (Non-Af Amer) 21 Random Glucose 146 H Calcium 8.2 L Total Bilirubin 0.8 AST 69 H ALT 50 Alkaline Phosphatase 158 H Total Protein 7.0 Albumin 2.6 L Globulin 4.4 H Albumin/Globulin Ratio 0.6 L
--- NOTE | 2018-02-16 07:23 | CP.PCM.PN ---
<Summer Dang - Last Filed: 02/16/18 09:51> Subjective - Date & Time of Evaluation Date of Evaluation: 02/16/18 Time of Evaluation: 07:00 - Subjective Subjective: Gastroenterology Follow Up Patient was seen and examined at bedside. Patient is AAOx3 this morning. Patient reports he had 5 loose bowel movements overnight. He is ambulating and tolerating diet. 12 point ROS unremarkable. Objective - Vital Signs/Intake and Output Vital Signs (last 24 hours): Temp Pulse Resp BP Pulse Ox 97.8 F 95 H 20 116/77 95 02/15/18 23:25 02/15/18 23:25 02/15/18 23:25 02/15/18 23:25 02/15/18 23:25 - Medications Medications: Current Medications Heparin Sodium (Porcine) (Heparin) 5,000 units SC Q12 [facility] Last Admin: 02/15/18 22:23 Dose: Not Given Sodium Chloride (Sodium Chloride 0.9%) 1,000 mls @ 40 mls/hr IV .Q24H [facility] Last Admin: 02/15/18 14:58 Dose: 40 mls/hr Lactulose (Enulose) 20 gm PO BID [facility] Lorazepam (Ativan) 0.5 mg PO Q12 PRN PRN Reason: Agitation Methadone HCl (Methadone) 15 mg PO DAILY [facility] Last Admin: 02/15/18 14:58 Dose: 15 mg Midodrine (Proamatine) 5 mg PO TID [facility] Last Admin: 02/15/18 18:13 Dose: 5 mg Octreotide Acetate (Sandostatin) 100 mcg SC TID [facility] Ondansetron HCl (Zofran Inj) 4 mg IVP Q8 PRN PRN Reason: Nausea/Vomiting Last Admin: 02/15/18 10:11 Dose: 4 mg Phenytoin Sodium (Dilantin) 300 mg PO DAILY [facility] Last Admin: 02/15/18 10:06 Dose: 300 mg Rifaximin (Xifaxan) 550 mg PO BID [facility] PRN Reason: Protocol Last Admin: 02/15/18 18:12 Dose: 550 mg - Labs Labs: 02/15/18 08:29 02/15/18 08:29 PT 19.5 SECONDS (9.7-12.2) H 02/15/18 08:29 INR 1.7 02/15/18 08:29 - Constitutional Appears: No Acute Distress, Older Than Stated Age, Cachectic, Chronically Ill - Head Exam Head Exam: NORMAL INSPECTION, NORMOCEPHALIC - Eye Exam Eye Exam: EOMI, Normal appearance, PERRL. absent: Nystagmus, Scleral icterus Pupil Exam: NORMAL ACCOMODATION - ENT Exam ENT Exam: Mucous Membranes Dry, Normal Exam - Respiratory Exam Respiratory Exam: Decreased Breath Sounds (R> L ), NORMAL BREATHING PATTERN - Cardiovascular Exam Cardiovascular Exam: REGULAR RHYTHM - GI/Abdominal Exam GI & Abdominal Exam: Soft, Normal Bowel Sounds. absent: Distended, Tenderness, Organomegaly - Rectal Exam Rectal Exam: Deferred - Extremities Exam Extremities Exam: Normal Inspection. absent: Pedal Edema, Tenderness - Neurological Exam Neurological Exam: Alert, Awake, Oriented x3 - Psychiatric Exam Psychiatric exam: Normal Affect, Normal Mood - Skin Skin Exam: Dry, Intact, Normal Color, Warm Assessment and Plan - Assessment and Plan (Free Text) Assessment: 52 year old Male with past medical history of Chronic HCV diagnosed in 2009, untreated, cirrhosis with multiple admissions for hepatic encephalopathy despite compliance with outpatient diuretic and lactulose therapy. Admitted for abdominal pain and altered mental state. Chronic HCV Decompensated Cirrhosis, MELD 02/15/18 25 AMS, Hepatic Encephalopathy HRS CLARA 2/2 Diuretics? Plan: - Strict Low sodium diet as tolerated - Abdominal US showed no portal or splenic thrombosis - AFP - 1.2. Last admission - Maintain lactulose therapy for HE prevention, titrate so patient has 2-3 bowel movements daily - Continue Rifaximin to reduce recurrent admissions for hepatic encephalopathy. Patient will need assistance affording this as outpatient - Recommend discontinuation of all diuretics; continue with nephrology recommendations - Patient will need therapeutic paracentesis, pending creatinine - Will continue to monitor patient clinical course. Summer Joseph Dr., DO, PGY-1 <Germán Olvera - Last Filed: 02/16/18 10:20> Objective - Vital Signs/Intake and Output Vital Signs (last 24 hours): Temp Pulse Resp BP Pulse Ox 97.7 F 71 20 106/72 96 02/16/18 07:34 02/16/18 07:34 02/16/18 07:34 02/16/18 07:34 02/16/18 07:34 - Medications Medications: Current Medications Heparin Sodium (Porcine) (Heparin) 5,000 units SC Q12 [facility] Last Admin: 02/15/18 22:23 Dose: Not Given Sodium Chloride (Sodium Chloride 0.9%) 1,000 mls @ 40 mls/hr IV .Q24H [facility] Last Admin: 02/15/18 14:58 Dose: 40 mls/hr Lactulose (Enulose) 20 gm PO BID [facility] Lorazepam (Ativan) 0.5 mg PO Q12 PRN PRN Reason: Agitation Methadone HCl (Methadone) 15 mg PO DAILY [facility] Last Admin: 02/15/18 14:58 Dose: 15 mg Midodrine (Proamatine) 5 mg PO TID [facility] Last Admin: 02/15/18 18:13 Dose: 5 mg Octreotide Acetate (Sandostatin) 100 mcg SC TID [facility] Ondansetron HCl (Zofran Inj) 4 mg IVP Q8 PRN PRN Reason: Nausea/Vomiting Last Admin: 02/15/18 10:11 Dose: 4 mg Phenytoin Sodium (Dilantin) 300 mg PO DAILY [facility] Last Admin: 02/15/18 10:06 Dose: 300 mg Rifaximin (Xifaxan) 550 mg PO BID [facility] PRN Reason: Protocol Last Admin: 02/15/18 18:12 Dose: 550 mg - Labs Labs: 02/16/18 08:26 02/16/18 08:26 PT 19.5 SECONDS (9.7-12.2) H 02/15/18 08:29 INR 1.7 02/15/18 08:29 Attending/Attestation - Attestation I have personally seen and examined this patient.: Yes I have fully participated in the care of the patient.: Yes I have reviewed all pertinent clinical information, including history, physical exam and plan: Yes Notes (Text): 02/16/18 10:16 Patient seen with GI fellow and medical administrative specialist. This is a 52 year old with past medical history of Chronic HCV diagnosed in 2009, untreated, decompensated cirrhosis with multiple admissions for hepatic encephalopathy despite compliance with outpatient diuretic and lactulose therapy. Admitted for abdominal pain, worsening ascites and azotemia and altered mental state. Mental status oriented today. - Maintain lactulose to have 2 BM/day. - Discontinue diuretics for new onset azotemia. - Low sodium diet as tolerated. - Sonogram with no PVT. - Recommend start albumin 25 gm 3 bottles per day for 3 days. - Send urine lytes and monitor I/O - Therapeutic tap once creatinine downtrends - Continue HRS cocktail - On PE- decreased BS on LLL of lungs. 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 - DVt prophylaxis - daily MELD labs - last Na- MELD- 25
[2018-02-16] MEDS ORDERED: Albumin Human 25% (12.5 gm/50 ml) IV ONE (08:00)
[2018-02-16 08:37] LABS: BASO # 0.1 K/uL (0.0-0.2); BASO % 0.4 % (0.0-2.0); EOS # 0.2 K/uL (0.0-0.7); EOS % 1.3 % (0.0-4.0); HEMOGLOBIN 13.9 g/dL (12.0-18.0); LYMPH % 6.1 % (20.0-40.0); MEAN CELL VOLUME 88.2 fL (80.0-94.0); MEAN CORPUSCULAR HEMOGLOBIN 29.6 pg (27.0-31.0); MEAN CORPUSCULAR HGB CONC 33.5 g/dL (33.0-37.0); MEAN PLATELET VOLUME 9.8 fL (7.2-11.7); MONO # 1.9 K/uL (0.0-0.8); NEUT # 12.6 K/uL (1.8-7.0); NEUT % 80.2 % (50.0-75.0); NRBC % 0.1 % (0.0-2.0); PLATELET COUNT 244 K/uL (130-400); RED CELL DISTRIBUTION WIDTH 16.1 % (11.5-14.5); WHITE BLOOD COUNT 15.7 K/uL (4.8-10.8)
[2018-02-16 08:45] LABS: ALB/GLOB RATIO 0.6 (1.0-2.1); ALBUMIN 2.6 g/dL (3.5-5.0); CALCIUM 8.1 mg/dl (8.6-10.4)
[2018-02-16] MEDS: Albumin Human 25% (12.5 gm/50 ml) IV SCH ×2 (09:17→10:52)
[2018-02-16 09:44] LABS: BANDS 3 % (0-2); EOSINOPHIL 2 % (0-4); LYMPHOCYTE 5 % (20-40); MONOCYTE 10 % (0-10); NEUTROPHIL 80 % (50-75); PLATELET ESTIMATE NORMAL (NORMAL); TOTAL CELLS COUNTED 100
--- NOTE | 2018-02-16 13:13 | CP.PCM.PN ---
Subjective - Date & Time of Evaluation Date of Evaluation: 02/16/18 Time of Evaluation: 13:08 - Subjective Subjective: Nephrology Consultation Note Assessment: critical Recurrent Acute Kidney Injury (N17.9) likely due to hepato-renal syndrome Type 1 Rt pleural effusion Chronic Hep C with cirrhosis and hepatic encephalopathy Plan No acute need for renal replacement therapy at this time. Maintain hemodynamics stable. Patient not on ACEI/ARB due to CLARA Monitor Input/Output, daily weights and renal function with basic metabolic panel will increase po midodrine to 10 mg and octreotide 200 mcg sc three times a day added sodium bicarb d/c IVF and started IV albumin pt was not considered to be a candidate for liver transplant when seen at [facility] by GI team overall prognosis poor consider palliative care Dose meds/antibiotics for reduced GFR. Avoid fleets enema/magnesium based laxatives. Avoid nephrotoxins/NSAIDs/ iodinated contrast (unless needed emergently) Glycemic control Further work up for as per primary team Thanks for allowing me to participate in care of your patient. Will follow patient with you. Please call if any Qs Dr Sean Ruiz Office: [phone] Subjective: Noted events overnight. Patients feels okay. Denies chest pain, palpitation, shortness of breath, leg swelling. All other negative Physical Examination: General Appearance: Comfortable, in no acute respiratory distress, co- operative. facial muscles wasted Vitals reviewed and noted as below Head; Atraumatic, normocephalic ENT: no ulcers no thrush. Tongue is midline. Oropharynx: no rash or ulcers. EYES: Pupils are equal, round and reactive to light accommodation. Eye muscles and extraocular movement intact. Sclera is anicteric. Neck; supple no lymphadenopathy, no thyromegaly or bruit Lungs: Normal respiratory rate/effort. Breath sounds reduced at Rt base Heart: Normal rate. s1s2 normal. No rub or gallop. Extremities: no edema. No varicose veins Neurological: Patient is alert, awake and oriented to person, place and time. No focal deficit. Strength bilateral appropriate and equal Skin: Warm and dry. Normal turgor. No rash. Palpitation: Normal elasticity for age Abdomen: Abdomen is soft. Bowel sounds +. There is no abdominal tenderness, no guarding/rigidity no organomegaly. abdomen is ascitic Psych: limited insight and flat affect/mood MSK: no joint tenderness or swelling. Digits and nails normal, no deformity : kidney or bladder not palpable Labs/imaging reviewed. Past medical history, past surgical history, family history, social history, allergy reviewed and noted as below Family hx: no hx of CKD. Rest non-contributory UA: no blood or protein Objective - Vital Signs/Intake and Output Vital Signs (last 24 hours): Temp Pulse Resp BP Pulse Ox 97.7 F 71 20 106/72 96 02/16/18 07:34 02/16/18 07:34 02/16/18 07:34 02/16/18 07:34 02/16/18 07:34 - Medications Medications: Current Medications Albumin Human (Albumin Human 25% (12.5 Gm/50 Ml)) 25 gm IV Q6 [facility] Stop: 02/17/18 06:01 Heparin Sodium (Porcine) (Heparin) 5,000 units SC Q12 [facility] Last Admin: 02/16/18 10:04 Dose: 5,000 units Lactulose (Enulose) 20 gm PO BID [facility] Last Admin: 02/16/18 10:15 Dose: 20 gm Lorazepam (Ativan) 0.5 mg PO Q12 PRN PRN Reason: Agitation Methadone HCl (Methadone) 15 mg PO DAILY [facility] Last Admin: 02/16/18 10:34 Dose: 10 mg Midodrine (Proamatine) 10 mg PO TID [facility] Octreotide Acetate (Sandostatin) 200 mcg SC TID [facility] Ondansetron HCl (Zofran Inj) 4 mg IVP Q8 PRN PRN Reason: Nausea/Vomiting Last Admin: 02/15/18 10:11 Dose: 4 mg Phenytoin Sodium (Dilantin) 300 mg PO DAILY [facility] Last Admin: 02/16/18 10:35 Dose: Not Given Rifaximin (Xifaxan) 550 mg PO BID [facility] PRN Reason: Protocol Last Admin: 02/16/18 10:05 Dose: 550 mg Sodium Bicarbonate (Sodium Bicarbonate Tab) 650 mg PO BID [facility] Last Admin: 02/16/18 10:23 Dose: 650 mg - Labs Labs: 02/16/18 08:26 02/16/18 08:26 PT 19.5 SECONDS (9.7-12.2) H 02/15/18 08:29 INR 1.7 02/15/18 08:29
[2018-02-16] MEDS ORDERED: Albumin Human 25% (12.5 gm/50 ml) IV SCH (14:00)
--- NOTE | 2018-02-16 15:58 | CP.PCM.PN ---
Subjective - Date & Time of Evaluation Date of Evaluation: 02/16/18 Time of Evaluation: 09:20 - Subjective Subjective: clinically same Objective - Vital Signs/Intake and Output Vital Signs (last 24 hours): Temp Pulse Resp BP Pulse Ox 97.7 F 71 20 106/72 96 02/16/18 07:34 02/16/18 07:34 02/16/18 07:34 02/16/18 07:34 02/16/18 07:34 - Medications Medications: Current Medications Heparin Sodium (Porcine) (Heparin) 5,000 units SC Q12 [facility]S [facility] Last Admin: 02/16/18 10:04 Dose: 5,000 units Albumin Human (Albumin Human 25% (12.5 Gm/50 Ml)) 50 mls @ 100 mls/hr IV Q6H [facility] Stop: 02/17/18 08:59 Last Admin: 02/16/18 15:01 Dose: 100 mls/hr Albumin Human (Albumin Human 25% (12.5 Gm/50 Ml)) 50 mls @ 100 mls/hr IV Q6H [facility] 234 [facility]S [facility] Stop: 02/17/18 08:59 Lactulose (Enulose) 20 gm PO BID [facility] 234 [facility] Last Admin: 02/16/18 10:15 Dose: 20 gm Lorazepam (Ativan) 0.5 mg PO Q12 PRN PRN Reason: Agitation Methadone HCl (Methadone) 15 mg PO DAILY [facility] Last Admin: 02/16/18 10:34 Dose: 10 mg Midodrine (Proamatine) 10 mg PO TID [facility] 234 [facility] Last Admin: 02/16/18 15:00 Dose: 10 mg Octreotide Acetate (Sandostatin) 200 mcg SC TID [facility] 234 [facility]S [facility] Last Admin: 02/16/18 15:00 Dose: 200 mcg Ondansetron HCl (Zofran Inj) 4 mg IVP Q8 PRN PRN Reason: Nausea/Vomiting Last Admin: 02/15/18 10:11 Dose: 4 mg Phenytoin Sodium (Dilantin) 300 mg PO DAILY [facility] 234 [facility] Last Admin: 02/16/18 10:35 Dose: Not Given Rifaximin (Xifaxan) 550 mg PO BID [facility] 234 [facility] PRN Reason: Protocol Last Admin: 02/16/18 10:05 Dose: 550 mg Sodium Bicarbonate (Sodium Bicarbonate Tab) 650 mg PO BID [facility] 234 [facility] Last Admin: 02/16/18 10:23 Dose: 650 mg - Labs Labs: 02/16/18 08:26 02/16/18 08:26 PT 19.5 SECONDS (9.7-12.2) H 02/15/18 08:29 INR 1.7 02/15/18 08:29 - Constitutional Appears: Well - Head Exam Head Exam: ATRAUMATIC, NORMAL INSPECTION, NORMOCEPHALIC - Eye Exam Eye Exam: EOMI, Normal appearance, PERRL Pupil Exam: NORMAL ACCOMODATION, PERRL - ENT Exam ENT Exam: Mucous Membranes Moist, Normal Exam - Neck Exam Neck Exam: Full ROM, Normal Inspection. absent: Lymphadenopathy - Respiratory Exam Respiratory Exam: Decreased Breath Sounds - Cardiovascular Exam Cardiovascular Exam: REGULAR RHYTHM, +S1, +S2 - GI/Abdominal Exam GI & Abdominal Exam: Soft, Diminished Bowel Sounds - Rectal Exam Rectal Exam: Deferred Assessment and Plan - Assessment and Plan (Free Text) Plan: Patient is okay patient is able to eat patient is on small IV fluid patient is on IV albumin patient is on rifaximin patient is on octreotide Status post GI consult Follow-up with the renal Follow-up with the GI Follow-up with the nephrology social worker
--- NOTE | 2018-02-17 07:22 | CP.PCM.PN ---
<Jatin Zheng - Last Filed: 02/17/18 09:29> Subjective - Date & Time of Evaluation Date of Evaluation: 02/17/18 Time of Evaluation: 06:50 - Subjective Subjective: PGY4 GI follow-up Pt seen and examined bedside No complaints other than intermittent nausea 3 Bm yesterday tolerating diet Drain fluid from plurex cath of the right lung yesterday ROS: 10 point ROS conducted, neg other than above Objective - Vital Signs/Intake and Output Vital Signs (last 24 hours): Temp Pulse Resp BP Pulse Ox 98.0 F 56 L 20 98/61 L 95 02/16/18 23:00 02/16/18 23:00 02/16/18 23:00 02/16/18 23:00 02/16/18 23:00 Intake and Output: 02/17/18 02/17/18 06:59 18:59 Intake Total 570 Balance 570 - Medications Medications: Current Medications Heparin Sodium (Porcine) (Heparin) 5,000 units SC Q12 [facility] Last Admin: 02/16/18 21:56 Dose: Not Given Albumin Human (Albumin Human 25% (12.5 Gm/50 Ml)) 50 mls @ 100 mls/hr IV Q6H [facility] Stop: 02/17/18 08:59 Last Admin: 02/17/18 02:09 Dose: 100 mls/hr Lactulose (Enulose) 20 gm PO BID [facility] Last Admin: 02/16/18 18:45 Dose: 20 gm Lorazepam (Ativan) 0.5 mg PO Q12 PRN PRN Reason: Agitation Methadone HCl (Methadone) 15 mg PO DAILY [facility] Last Admin: 02/16/18 10:34 Dose: 10 mg Midodrine (Proamatine) 10 mg PO TID [facility] Octreotide Acetate (Sandostatin) 200 mcg SC TID [facility] Last Admin: 02/16/18 18:46 Dose: 200 mcg Ondansetron HCl (Zofran Inj) 4 mg IVP Q8 PRN PRN Reason: Nausea/Vomiting Last Admin: 02/17/18 05:07 Dose: 4 mg Phenytoin Sodium (Dilantin) 300 mg PO DAILY [facility] Last Admin: 02/16/18 10:35 Dose: Not Given Rifaximin (Xifaxan) 550 mg PO BID [facility] PRN Reason: Protocol Last Admin: 02/16/18 18:45 Dose: 550 mg Sodium Bicarbonate (Sodium Bicarbonate Tab) 650 mg PO BID [facility] Last Admin: 02/16/18 18:45 Dose: 650 mg - Labs Labs: 02/16/18 08:26 02/16/18 08:26 PT 19.5 SECONDS (9.7-12.2) H 02/15/18 08:29 INR 1.7 02/15/18 08:29 - Constitutional Appears: Well, No Acute Distress - Head Exam Head Exam: ATRAUMATIC, NORMOCEPHALIC - Eye Exam Eye Exam: Normal appearance - ENT Exam ENT Exam: Mucous Membranes Moist, Normal Exam - Neck Exam Neck Exam: Normal Inspection - Respiratory Exam Respiratory Exam: Decreased Breath Sounds, NORMAL BREATHING PATTERN. absent: Rales, Rhonchi, Wheezes Additional comments: decreased breath sounds of the right lung, but improved since yesterday - Cardiovascular Exam Cardiovascular Exam: REGULAR RHYTHM, +S1, +S2 - GI/Abdominal Exam GI & Abdominal Exam: Distended, Soft, Normal Bowel Sounds - Extremities Exam Extremities Exam: absent: Joint Swelling, Pedal Edema - Neurological Exam Neurological Exam: Alert, Awake, Oriented x3 - Psychiatric Exam Psychiatric exam: Normal Affect, Normal Mood - Skin Skin Exam: Dry, Intact, Normal Color, Warm Assessment and Plan - Assessment and Plan (Free Text) Assessment: 52 year old Male with past medical history of Chronic HCV diagnosed in 2009, untreated, cirrhosis with multiple admissions for hepatic encephalopathy despite compliance with outpatient diuretic and lactulose therapy. Admitted for abdominal pain and altered mental state. Chronic HCV Decompensated Cirrhosis, MELD 02/15/18 25 AMS, Hepatic Encephalopathy HRS CLARA 2/2 Diuretics? Plan: - Strict Low sodium diet as tolerated - Abdominal US showed no portal or splenic thrombosis - AFP - 1.2. Last admission - Maintain lactulose therapy for HE prevention, titrate so patient has 2-3 bowel movements daily - Continue Rifaximin to reduce recurrent admissions for hepatic encephalopathy. Patient will need assistance affording this as outpatient - Recommend discontinuation of all diuretics; continue with nephrology recommendations - Will continue to monitor patient clinical course. - Continue albumin 1g/kg for 1 more day. - continue octreotide and midodrine - will monitor lytes - continue daily MELD labs will D/W Dr. Luong <Tremaine Luong Y - Last Filed: 02/17/18 11:47> Objective - Vital Signs/Intake and Output Vital Signs (last 24 hours): Temp Pulse Resp BP Pulse Ox 97.5 F L 60 20 96/61 L 94 L 02/17/18 08:36 02/17/18 08:36 02/17/18 08:36 02/17/18 08:36 02/17/18 08:36 Intake and Output: 02/17/18 02/17/18 06:59 18:59 Intake Total 570 Balance 570 - Medications Medications: Current Medications Heparin Sodium (Porcine) (Heparin) 5,000 units SC Q12 [facility] Last Admin: 02/17/18 11:11 Dose: 5,000 units Lactulose (Enulose) 20 gm PO BID [facility] Last Admin: 02/17/18 11:08 Dose: 20 gm Lorazepam (Ativan) 0.5 mg PO Q12 PRN PRN Reason: Agitation Methadone HCl (Methadone) 15 mg PO DAILY [facility] Last Admin: 02/17/18 11:07 Dose: 15 mg Midodrine (Proamatine) 10 mg PO TID [facility] Last Admin: 02/17/18 11:07 Dose: 10 mg Octreotide Acetate (Sandostatin) 200 mcg SC TID [facility] Last Admin: 02/17/18 11:11 Dose: 200 mcg Ondansetron HCl (Zofran Inj) 4 mg IVP Q8 PRN PRN Reason: Nausea/Vomiting Last Admin: 02/17/18 05:07 Dose: 4 mg Phenytoin Sodium (Dilantin) 300 mg PO DAILY [facility] Last Admin: 02/17/18 11:08 Dose: Not Given Rifaximin (Xifaxan) 550 mg PO BID [facility] PRN Reason: Protocol Last Admin: 02/17/18 11:08 Dose: 550 mg Sodium Bicarbonate (Sodium Bicarbonate Tab) 650 mg PO BID [facility] Last Admin: 02/17/18 11:18 Dose: 650 mg - Labs Labs: 02/17/18 08:15 02/17/18 08:15 PT 19.5 SECONDS (9.7-12.2) H 02/15/18 08:29 INR 1.7 02/15/18 08:29 Attending/Attestation - Attestation I have personally seen and examined this patient.: Yes I have fully participated in the care of the patient.: Yes I have reviewed all pertinent clinical information, including history, physical exam and plan: Yes Notes (Text): 02/17/18 11:43 I have seen and examined patient with GI fellow. No acute events overnight, he is seen resting in bed. He endorses ongoing nausea but denies abdominal pain, vomiting, fever/chills. Tolerating PO diet without difficulty. He had three bowel movements yesterday and self drained nearly 1 liter of fluid from left sided pleurex catheter yesterday. Decompensated HCV cirrhosis AMS, hepatic encephalopathy Acute on chronic renal insufficiency, HRS - Low sodium diet as tolerated - Continue with lactulose and xifaxan therapy for HE prevention - Continue with midodrine, octreotide, albumin therapy for suspected HRS - continue to monitor creatinine - Follow up nephrology recommendations - Consider repeat abdominal US for consideration of repeat paracentesis - Patient would ultimately benefit from referral to tertiary care facility for transplant evaluation. Will continue to monitor clinical course.
[2018-02-17 08:29] LABS: BASO # 0.1 K/uL (0.0-0.2); BASO % 0.5 % (0.0-2.0); EOS # 0.3 K/uL (0.0-0.7); EOS % 2.5 % (0.0-4.0); HEMOGLOBIN 12.8 g/dL (12.0-18.0); LYMPH # 1.1 K/uL (1.0-4.3); LYMPH % 9.2 % (20.0-40.0); MEAN CELL VOLUME 87.9 fL (80.0-94.0); MEAN CORPUSCULAR HEMOGLOBIN 29.9 pg (27.0-31.0); MEAN PLATELET VOLUME 9.7 fL (7.2-11.7); MONO # 1.3 K/uL (0.0-0.8); MONO % 10.8 % (0.0-10.0); NRBC % 0.1 % (0.0-2.0); PLATELET COUNT 210 K/uL (130-400); RBC 4.29 Mil/uL (4.40-5.90); RED CELL DISTRIBUTION WIDTH 15.5 % (11.5-14.5); WHITE BLOOD COUNT 11.7 K/uL (4.8-10.8)
[2018-02-17 08:43] LABS: ALB/GLOB RATIO 0.8 (1.0-2.1); ALBUMIN 3.3 g/dL (3.5-5.0); CALCIUM 8.3 mg/dl (8.6-10.4)
[2018-02-17 09:02] LABS: EOSINOPHIL 6 % (0-4); LYMPHOCYTE 3 % (20-40); MONOCYTE 6 % (0-10); NEUTROPHIL 85 % (50-75); TOTAL CELLS COUNTED 100
[2018-02-17 09:03] LABS: ANISOCYTOSIS SLIGHT; HYPOCHROMIC SLIGHT; PLATELET ESTIMATE NORMAL (NORMAL); POLYCHROMIC SLIGHT
[2018-02-17 09:04] LABS: OVALOCYTES SLIGHT
--- NOTE | 2018-02-17 11:21 | CP.PCM.PN ---
Subjective - Date & Time of Evaluation Date of Evaluation: 02/17/18 Time of Evaluation: 11:20 - Subjective Subjective: Nephrology Consultation Note Assessment: critical Recurrent Acute Kidney Injury (N17.9) likely due to hepato-renal syndrome Type 1 Rt pleural effusion Chronic Hep C with cirrhosis and hepatic encephalopathy Plan No acute need for renal replacement therapy at this time. Maintain hemodynamics stable. Patient not on ACEI/ARB due to CLARA Monitor Input/Output, daily weights and renal function with basic metabolic panel continue with po midodrine to 10 mg and octreotide 200 mcg sc three times a day added sodium bicarb d/c IVF and started IV albumin pt was not considered to be a candidate for liver transplant when seen at [facility] by GI team overall prognosis poor consider palliative care Dose meds/antibiotics for reduced GFR. Avoid fleets enema/magnesium based laxatives. Avoid nephrotoxins/NSAIDs/ iodinated contrast (unless needed emergently) Glycemic control Further work up for as per primary team Thanks for allowing me to participate in care of your patient. Will follow patient with you. Please call if any Qs Dr Sean Ruiz Office: [phone] Subjective: Noted events overnight. Patients feels same. Denies chest pain, palpitation, shortness of breath, leg swelling. All other negative Physical Examination: General Appearance: Comfortable, in no acute respiratory distress, co- operative. facial muscles wasted Vitals reviewed and noted as below Head; Atraumatic, normocephalic ENT: no ulcers no thrush. Tongue is midline. Oropharynx: no rash or ulcers. EYES: Pupils are equal, round and reactive to light accommodation. Eye muscles and extraocular movement intact. Sclera is anicteric. Neck; supple no lymphadenopathy, no thyromegaly or bruit Lungs: Normal respiratory rate/effort. Breath sounds reduced at Rt base Heart: Normal rate. s1s2 normal. No rub or gallop. Extremities: no edema. No varicose veins Neurological: Patient is alert, awake and oriented to person, place and time. No focal deficit. Strength bilateral appropriate and equal Skin: Warm and dry. Normal turgor. No rash. Palpitation: Normal elasticity for age Abdomen: Abdomen is soft. Bowel sounds +. There is no abdominal tenderness, no guarding/rigidity no organomegaly. abdomen is ascitic Psych: limited insight and flat affect/mood MSK: no joint tenderness or swelling. Digits and nails normal, no deformity : kidney or bladder not palpable Labs/imaging reviewed. Past medical history, past surgical history, family history, social history, allergy reviewed and noted as below Family hx: no hx of CKD. Rest non-contributory UA: no blood or protein Objective - Vital Signs/Intake and Output Vital Signs (last 24 hours): Temp Pulse Resp BP Pulse Ox 97.5 F L 60 20 96/61 L 94 L 02/17/18 08:36 02/17/18 08:36 02/17/18 08:36 02/17/18 08:36 02/17/18 08:36 Intake and Output: 02/17/18 02/17/18 06:59 18:59 Intake Total 570 Balance 570 - Medications Medications: Current Medications Heparin Sodium (Porcine) (Heparin) 5,000 units SC Q12 [facility] Last Admin: 02/17/18 11:11 Dose: 5,000 units Lactulose (Enulose) 20 gm PO BID [facility] Last Admin: 02/17/18 11:08 Dose: 20 gm Lorazepam (Ativan) 0.5 mg PO Q12 PRN PRN Reason: Agitation Methadone HCl (Methadone) 15 mg PO DAILY [facility] Last Admin: 02/17/18 11:07 Dose: 15 mg Midodrine (Proamatine) 10 mg PO TID [facility] Last Admin: 02/17/18 11:07 Dose: 10 mg Octreotide Acetate (Sandostatin) 200 mcg SC TID [facility] Last Admin: 02/17/18 11:11 Dose: 200 mcg Ondansetron HCl (Zofran Inj) 4 mg IVP Q8 PRN PRN Reason: Nausea/Vomiting Last Admin: 02/17/18 05:07 Dose: 4 mg Phenytoin Sodium (Dilantin) 300 mg PO DAILY [facility] Last Admin: 02/17/18 11:08 Dose: Not Given Rifaximin (Xifaxan) 550 mg PO BID [facility] PRN Reason: Protocol Last Admin: 02/17/18 11:08 Dose: 550 mg Sodium Bicarbonate (Sodium Bicarbonate Tab) 650 mg PO BID [facility] Last Admin: 02/17/18 11:18 Dose: 650 mg - Labs Labs: 02/17/18 08:15 02/17/18 08:15 PT 19.5 SECONDS (9.7-12.2) H 02/15/18 08:29 INR 1.7 02/15/18 08:29
--- NOTE | 2018-02-17 13:27 | CP.PCM.PN ---
Subjective - Date & Time of Evaluation Date of Evaluation: 02/17/18 Time of Evaluation: 10:00 - Subjective Subjective: clinically same Objective - Vital Signs/Intake and Output Vital Signs (last 24 hours): Temp Pulse Resp BP Pulse Ox 97.5 F L 60 20 96/61 L 94 L 02/17/18 08:36 02/17/18 08:36 02/17/18 08:36 02/17/18 08:36 02/17/18 08:36 Intake and Output: 02/17/18 02/17/18 06:59 18:59 Intake Total 570 Balance 570 - Medications Medications: Current Medications Heparin Sodium (Porcine) (Heparin) 5,000 units SC Q12 [facility] Last Admin: 02/17/18 11:11 Dose: 5,000 units Lactulose (Enulose) 20 gm PO BID [facility] Last Admin: 02/17/18 11:08 Dose: 20 gm Lorazepam (Ativan) 0.5 mg PO Q12 PRN PRN Reason: Agitation Methadone HCl (Methadone) 15 mg PO DAILY [facility] Last Admin: 02/17/18 11:07 Dose: 15 mg Midodrine (Proamatine) 10 mg PO TID [facility] Last Admin: 02/17/18 11:07 Dose: 10 mg Octreotide Acetate (Sandostatin) 200 mcg SC TID [facility] Last Admin: 02/17/18 11:11 Dose: 200 mcg Ondansetron HCl (Zofran Inj) 4 mg IVP Q8 PRN PRN Reason: Nausea/Vomiting Last Admin: 02/17/18 05:07 Dose: 4 mg Phenytoin Sodium (Dilantin) 300 mg PO DAILY [facility] Last Admin: 02/17/18 11:08 Dose: Not Given Rifaximin (Xifaxan) 550 mg PO BID [facility] PRN Reason: Protocol Last Admin: 02/17/18 11:08 Dose: 550 mg Sodium Bicarbonate (Sodium Bicarbonate Tab) 650 mg PO BID [facility] Last Admin: 02/17/18 11:18 Dose: 650 mg - Labs Labs: 02/17/18 08:15 02/17/18 08:15 PT 19.5 SECONDS (9.7-12.2) H 02/15/18 08:29 INR 1.7 02/15/18 08:29 - Constitutional Appears: Well - Head Exam Head Exam: ATRAUMATIC, NORMAL INSPECTION, NORMOCEPHALIC - Eye Exam Eye Exam: EOMI, Normal appearance, PERRL Pupil Exam: NORMAL ACCOMODATION, PERRL - ENT Exam ENT Exam: Mucous Membranes Moist, Normal Exam - Neck Exam Neck Exam: Full ROM, Normal Inspection. absent: Lymphadenopathy - Respiratory Exam Respiratory Exam: Decreased Breath Sounds - Cardiovascular Exam Cardiovascular Exam: REGULAR RHYTHM, +S1, +S2 - GI/Abdominal Exam GI & Abdominal Exam: Soft, Diminished Bowel Sounds - Rectal Exam Rectal Exam: Deferred Assessment and Plan (1) Acute encephalopathy Status: Acute (2) Hyperammonemia Status: Acute (3) Abdominal pain Status: Acute (4) Cirrhosis Status: Acute (5) Drug abuse Status: Acute - Assessment and Plan (Free Text) Plan: Continue rifaximin Continue midodrine Check the vital signs Continue Dilantin Continue encourage p.o. fluid Vital signs blood pressure still on the lower side Follow-up with the renal Follow-up with the GI As ordered
[2018-02-18 07:40] LABS: BASO % 0.3 % (0.0-2.0); EOS # 0.2 K/uL (0.0-0.7); EOS % 1.6 % (0.0-4.0); HEMOGLOBIN 12.6 g/dL (12.0-18.0); LYMPH # 0.6 K/uL (1.0-4.3); LYMPH % 4.6 % (20.0-40.0); MEAN CELL VOLUME 87.6 fL (80.0-94.0); MEAN CORPUSCULAR HEMOGLOBIN 29.9 pg (27.0-31.0); MEAN CORPUSCULAR HGB CONC 34.2 g/dL (33.0-37.0); MEAN PLATELET VOLUME 9.8 fL (7.2-11.7); MONO # 1.6 K/uL (0.0-0.8); MONO % 12.2 % (0.0-10.0); NEUT # 10.5 K/uL (1.8-7.0); NEUT % 81.3 % (50.0-75.0); NRBC % 0.1 % (0.0-2.0); PLATELET COUNT 173 K/uL (130-400); RBC 4.21 Mil/uL (4.40-5.90); RED CELL DISTRIBUTION WIDTH 15.7 % (11.5-14.5)
[2018-02-18 07:46] LABS: ALB/GLOB RATIO 0.8 (1.0-2.1)
--- NOTE | 2018-02-18 07:49 | CP.PCM.PN ---
<Jatin Zheng - Last Filed: 02/18/18 12:49> Subjective - Date & Time of Evaluation Date of Evaluation: 02/18/18 Time of Evaluation: 07:00 - Subjective Subjective: PGY4 GI Follow-up Pt seen and examined bedside complaining of back pain tolerating diet denies any nausea, vomiting or diarrhea 2 BM yesterday ROS: 12 point ROS conducted, neg other than above Objective - Vital Signs/Intake and Output Vital Signs (last 24 hours): Temp Pulse Resp BP Pulse Ox 98.2 F 60 20 111/75 96 02/17/18 23:00 02/17/18 23:00 02/17/18 23:00 02/17/18 23:00 02/17/18 23:00 Intake and Output: 02/18/18 02/18/18 06:59 18:59 Intake Total 300 Balance 300 - Medications Medications: Current Medications Heparin Sodium (Porcine) (Heparin) 5,000 units SC Q12 [facility] Last Admin: 02/17/18 21:13 Dose: 5,000 units Albumin Human (Albumin Human 25% (12.5 Gm/50 Ml)) 50 mls @ 50 mls/hr IV Q6 [facility] Stop: 02/19/18 06:59 Lactulose (Enulose) 20 gm PO BID [facility] Last Admin: 02/17/18 18:08 Dose: 20 gm Lorazepam (Ativan) 0.5 mg PO Q12 PRN PRN Reason: Agitation Methadone HCl (Methadone) 15 mg PO DAILY [facility] Last Admin: 02/17/18 11:07 Dose: 15 mg Midodrine (Proamatine) 10 mg PO TID [facility] Last Admin: 02/17/18 18:09 Dose: 10 mg Octreotide Acetate (Sandostatin) 200 mcg SC TID [facility] Last Admin: 02/17/18 18:08 Dose: 200 mcg Ondansetron HCl (Zofran Inj) 4 mg IVP Q8 PRN PRN Reason: Nausea/Vomiting Last Admin: 02/17/18 05:07 Dose: 4 mg Phenytoin Sodium (Dilantin) 300 mg PO DAILY [facility] Last Admin: 02/17/18 11:08 Dose: Not Given Rifaximin (Xifaxan) 550 mg PO BID [facility] PRN Reason: Protocol Last Admin: 02/17/18 18:09 Dose: 550 mg Sodium Bicarbonate (Sodium Bicarbonate Tab) 650 mg PO BID [facility] Last Admin: 02/17/18 18:09 Dose: 650 mg - Labs Labs: 02/18/18 07:03 02/18/18 07:03 PT 19.5 SECONDS (9.7-12.2) H 02/15/18 08:29 INR 1.7 02/15/18 08:29 - Constitutional Appears: Well, No Acute Distress - Head Exam Head Exam: ATRAUMATIC, NORMOCEPHALIC - Eye Exam Eye Exam: Normal appearance - ENT Exam ENT Exam: Mucous Membranes Moist - Respiratory Exam Respiratory Exam: Decreased Breath Sounds, NORMAL BREATHING PATTERN. absent: Prolonged Expiratory Phase, Rales, Rhonchi, Wheezes, Respiratory Distress - Cardiovascular Exam Cardiovascular Exam: REGULAR RHYTHM, +S1, +S2 - GI/Abdominal Exam GI & Abdominal Exam: Soft, Normal Bowel Sounds. absent: Guarding, Rigid, Tenderness, Organomegaly - Neurological Exam Neurological Exam: Alert, Awake, Oriented x3 - Psychiatric Exam Psychiatric exam: Normal Affect, Normal Mood - Skin Skin Exam: Dry, Intact, Normal Color, Warm Assessment and Plan - Assessment and Plan (Free Text) Assessment: 52 year old Male with past medical history of Chronic HCV diagnosed in 2009, untreated, cirrhosis with multiple admissions for hepatic encephalopathy despite compliance with outpatient diuretic and lactulose therapy. Admitted for abdominal pain and altered mental state. Chronic HCV Decompensated Cirrhosis, MELD 02/15/18 25 AMS, Hepatic Encephalopathy HRS CLARA 2/2 Diuretics? Plan: - Strict Low sodium diet as tolerated - Maintain lactulose therapy for HE prevention, titrate so patient has 2-3 bowel movements daily - Continue Rifaximin - Recommend discontinuation of all diuretics; continue with nephrology recommendations - Will continue to monitor patient clinical course. - Continue albumin 1g/kg - continue octreotide and midodrine - will monitor lytes - continue daily MELD labs will D/W attending <Tremaine Luong - Last Filed: 02/18/18 13:41> Objective - Vital Signs/Intake and Output Vital Signs (last 24 hours): Temp Pulse Resp BP Pulse Ox 98.0 F 65 20 107/73 100 02/18/18 07:05 02/18/18 07:05 02/18/18 07:05 02/18/18 07:05 02/18/18 07:05 Intake and Output: 02/18/18 02/18/18 06:59 18:59 Intake Total 300 Balance 300 - Medications Medications: Current Medications Heparin Sodium (Porcine) (Heparin) 5,000 units SC Q12 [facility] Last Admin: 02/18/18 09:49 Dose: 5,000 units Albumin Human (Albumin Human 25% (12.5 Gm/50 Ml)) 50 mls @ 50 mls/hr IV Q6 [facility] Stop: 02/19/18 06:59 Last Admin: 02/18/18 12:35 Dose: 50 mls/hr Lactulose (Enulose) 20 gm PO BID [facility] Last Admin: 02/18/18 09:55 Dose: Not Given Lorazepam (Ativan) 0.5 mg PO Q12 PRN PRN Reason: Agitation Methadone HCl (Methadone) 15 mg PO DAILY [facility] Last Admin: 02/18/18 09:48 Dose: 15 mg Midodrine (Proamatine) 10 mg PO TID [facility] Stop: 02/18/18 19:00 Last Admin: 02/18/18 09:48 Dose: 10 mg Midodrine (Proamatine) 10 mg PO TID [facility] Octreotide Acetate (Sandostatin) 200 mcg SC TID [facility] Last Admin: 02/18/18 09:48 Dose: 200 mcg Ondansetron HCl (Zofran Inj) 4 mg IVP Q8 PRN PRN Reason: Nausea/Vomiting Last Admin: 02/17/18 05:07 Dose: 4 mg Phenytoin Sodium (Dilantin) 300 mg PO DAILY [facility] Last Admin: 02/18/18 09:56 Dose: Not Given Rifaximin (Xifaxan) 550 mg PO BID [facility] PRN Reason: Protocol Last Admin: 02/18/18 09:48 Dose: 550 mg Sodium Bicarbonate (Sodium Bicarbonate Tab) 650 mg PO BID [facility] Last Admin: 02/18/18 09:48 Dose: 650 mg - Labs Labs: 02/18/18 07:03 02/18/18 07:03 PT 19.5 SECONDS (9.7-12.2) H 02/15/18 08:29 INR 1.7 02/15/18 08:29 Attending/Attestation - Attestation I have personally seen and examined this patient.: Yes I have fully participated in the care of the patient.: Yes I have reviewed all pertinent clinical information, including history, physical exam and plan: Yes Notes (Text): 02/18/18 13:37 I have seen and examined patient with GI fellow. No acute events overnight, he is seen sitting at bedside eating breakfast and appears comfortable. He does report ongoing back pain near site of pleurex catheter. He otherwise denies abdominal pain, nausea, vomiting, fever/chills. Tolerating PO diet without difficulty. He had two loose bowel movements yesterday. HCV decompensated cirrhosis AMS, hepatic encephalopathy Acute on chronic renal insufficiency, HRS - Low sodium diet as tolerated - Continue with albumin, midodrine/octreotide therapy for HRS. Follow up renal recommendations. - Creatinine continues to trend down, monitor - Continue with xifaxan/lactulose therapy for HE prevention - Patient anxious to be discharged home, will require outpatient follow up. Patient given telephone number for liver transplant clinic at [facility] for evaluation.
[2018-02-18 08:07] VITALS: BP 107/73; PULSE 65; TEMP 98; O2SAT 100
[2018-02-18 08:54] LABS: ANISOCYTOSIS SLIGHT; LYMPHOCYTE 4 % (20-40); MONOCYTE 9 % (0-10); NEUTROPHIL 87 % (50-75); PLATELET ESTIMATE NORMAL (NORMAL); TOTAL CELLS COUNTED 100
[2018-02-18] MEDS ORDERED: Albumin Human 25% (12.5 gm/50 ml) IV SCH (12:00)
--- NOTE | 2018-02-18 13:30 | CP.PCM.PN ---
Subjective - Date & Time of Evaluation Date of Evaluation: 02/18/18 Time of Evaluation: 13:27 - Subjective Subjective: Nephrology Consultation Note Assessment: critical Recurrent Acute Kidney Injury (N17.9) likely due to hepato-renal syndrome Type 1 Rt pleural effusion Chronic Hep C with cirrhosis and hepatic encephalopathy Hyponatremia, acidosis Plan No acute need for renal replacement therapy at this time. Maintain hemodynamics stable. Patient not on ACEI/ARB due to CLARA Monitor Input/Output, daily weights and renal function with basic metabolic panel continue with po midodrine to 10 mg and octreotide 200 mcg sc three times a day added sodium bicarb s/p IV albumin pt was not considered to be a candidate for liver transplant when seen at [facility] by GI team overall prognosis poor consider palliative care Dose meds/antibiotics for reduced GFR. Avoid fleets enema/magnesium based laxatives. Avoid nephrotoxins/NSAIDs/ iodinated contrast (unless needed emergently) Glycemic control Further work up for as per primary team Thanks for allowing me to participate in care of your patient. Will follow patient with you. Please call if any Qs Dr Sean Ruiz Office: [phone] Subjective: Noted events overnight. Patients feels same. Denies chest pain, palpitation, shortness of breath, leg swelling. All other negative. says I am going home today Physical Examination: General Appearance: Comfortable, in no acute respiratory distress, co- operative. facial muscles wasted Vitals reviewed and noted as below Head; Atraumatic, normocephalic ENT: no ulcers no thrush. Tongue is midline. Oropharynx: no rash or ulcers. EYES: Pupils are equal, round and reactive to light accommodation. Eye muscles and extraocular movement intact. Sclera is anicteric. Neck; supple no lymphadenopathy, no thyromegaly or bruit Lungs: Normal respiratory rate/effort. Breath sounds reduced at Rt base Heart: Normal rate. s1s2 normal. No rub or gallop. Extremities: no edema. No varicose veins Neurological: Patient is alert, awake and oriented to person, place and time. No focal deficit. Strength bilateral appropriate and equal Skin: Warm and dry. Normal turgor. No rash. Palpitation: Normal elasticity for age Abdomen: Abdomen is soft. Bowel sounds +. There is no abdominal tenderness, no guarding/rigidity no organomegaly. abdomen is ascitic Psych: limited insight and flat affect/mood MSK: no joint tenderness or swelling. Digits and nails normal, no deformity : kidney or bladder not palpable Labs/imaging reviewed. Past medical history, past surgical history, family history, social history, allergy reviewed and noted as below Family hx: no hx of CKD. Rest non-contributory UA: no blood or protein Objective - Vital Signs/Intake and Output Vital Signs (last 24 hours): Temp Pulse Resp BP Pulse Ox 98.0 F 65 20 107/73 100 02/18/18 07:05 02/18/18 07:05 02/18/18 07:05 02/18/18 07:05 02/18/18 07:05 Intake and Output: 02/18/18 02/18/18 06:59 18:59 Intake Total 300 Balance 300 - Medications Medications: Current Medications Heparin Sodium (Porcine) (Heparin) 5,000 units SC Q12 [facility] Last Admin: 02/18/18 09:49 Dose: 5,000 units Albumin Human (Albumin Human 25% (12.5 Gm/50 Ml)) 50 mls @ 50 mls/hr IV Q6 [facility] Stop: 02/19/18 06:59 Last Admin: 02/18/18 12:35 Dose: 50 mls/hr Lactulose (Enulose) 20 gm PO BID [facility] Last Admin: 02/18/18 09:55 Dose: Not Given Lorazepam (Ativan) 0.5 mg PO Q12 PRN PRN Reason: Agitation Methadone HCl (Methadone) 15 mg PO DAILY [facility] Last Admin: 02/18/18 09:48 Dose: 15 mg Midodrine (Proamatine) 10 mg PO TID [facility] Stop: 02/18/18 19:00 Last Admin: 02/18/18 09:48 Dose: 10 mg Midodrine (Proamatine) 10 mg PO TID [facility] Octreotide Acetate (Sandostatin) 200 mcg SC TID [facility] Last Admin: 02/18/18 09:48 Dose: 200 mcg Ondansetron HCl (Zofran Inj) 4 mg IVP Q8 PRN PRN Reason: Nausea/Vomiting Last Admin: 02/17/18 05:07 Dose: 4 mg Phenytoin Sodium (Dilantin) 300 mg PO DAILY [facility] Last Admin: 02/18/18 09:56 Dose: Not Given Rifaximin (Xifaxan) 550 mg PO BID [facility] PRN Reason: Protocol Last Admin: 02/18/18 09:48 Dose: 550 mg Sodium Bicarbonate (Sodium Bicarbonate Tab) 650 mg PO BID [facility] Last Admin: 02/18/18 09:48 Dose: 650 mg - Labs Labs: 02/18/18 07:03 02/18/18 07:03 PT 19.5 SECONDS (9.7-12.2) H 02/15/18 08:29 INR 1.7 02/15/18 08:29
== END 2018-02-18 16:42 | disposition left against medical advice (07) | DRG 557 ==
LOC: C.ER 14:10 → C.9E 16:35 → C.5S 17:52
PROVIDERS: ADMIT Internal Medicine Nephrology; ATTEND Internal Medicine Nephrology
DX: K72.90 Hepatic failure, unspecified without coma (principal); N17.9 Acute kidney failure, unspecified; K76.7 Hepatorenal syndrome; J90 Pleural effusion, not elsewhere classified; E72.20 Disorder of urea cycle metabolism, unspecified; E87.2 Acidosis; E87.1 Hypo-osmolality and hyponatremia; R18.8 Other ascites; K74.60 Unspecified cirrhosis of liver; B18.2 Chronic viral hepatitis C; N18.9 Chronic kidney disease, unspecified; F11.20 Opioid dependence, uncomplicated; G40.909 Epilepsy, unspecified, not intractable, without status epilepticus; Z91.14 Patient's other noncompliance with medication regimen; F17.210 Nicotine dependence, cigarettes, uncomplicated

== ENCOUNTER 2018-03-05 11:08 | Inpatient (IN) | payer MEDICAID ==
[2018-03-05] MEDS ORDERED: Sodium Chloride 0.9% 1,000 ML IV STA ×2 (12:03→12:39)
--- NOTE | 2018-03-05 12:06 | C.PDOC ---
History Of Present Illness 52 y/o M c PMHx liver cirrhosis p/w altered mental status. Patient uncooperative , further HPI/ROS unobtainable. Time Seen by Provider: 03/05/18 11:56 Chief Complaint (Nursing): Altered Mental Status Past Medical History Vital Signs: Last Vital Signs Temp 97.5 F L 03/05/18 11:25 Pulse 71 03/05/18 12:39 Resp 14 03/05/18 12:39 BP 95/60 L 03/05/18 12:39 Pulse Ox 99 03/05/18 12:39 - Medical History PMH: Hepatitis Denies: Diabetes, HIV, HTN, Chronic Kidney Disease, Seizures, Sexually Transmitted Disease Family History: States: Unknown Family Hx - Social History Hx Tobacco Use: Yes (heavy smoker) Hx Alcohol Use: No Hx Substance Use: Yes - Immunization History Hx Tetanus Toxoid Vaccination: (unknown) Hx Influenza Vaccination: (unknown) Hx Pneumococcal Vaccination: (unknown) Review Of Systems Review Of Systems: ROS cannot be obtained secondary to pt's inabilty to answer questions. Physical Exam - Physical Exam Additional Physical Exam Comments: Gen: NAD Head: Atraumatic Eyes: Scleral icterus ENT: MMM Neck: No midline tenderness Chest: No tenderness CV: Regular rate Resp: No accessory muscle use Abd: Distended, nontender Neuro: Alert, refuses questions. Asterixis. ED Course And Treatment - Laboratory Results Result Diagrams: 03/05/18 12:08 03/05/18 12:08 O2 Sat by Pulse Oximetry: 97 Medical Decision Making Medical Decision Making: Patient refused CXR. EKG 77 bpm, no ST elevations, poor baseline Disposition Discussed With : Megan Zheng Doctor Will See Patient In The: Hospital - Disposition Disposition: HOSPITALIZED Disposition Time: 13:04 Condition: GUARDED Forms: [facility] (Czech) - Clinical Impression Clinical Impression: Hyperammonemia, Acute encephalopathy
[2018-03-05 12:13] LABS: BASO # 0.1 K/uL (0.0-0.2); BASO % 0.7 % (0.0-2.0); EOS # 0.2 K/uL (0.0-0.7); HEMOGLOBIN 12.1 g/dL (12.0-18.0); LYMPH # 0.6 K/uL (1.0-4.3); LYMPH % 7.1 % (20.0-40.0); MEAN CELL VOLUME 86.7 fL (80.0-94.0); MEAN CORPUSCULAR HEMOGLOBIN 30.3 pg (27.0-31.0); MEAN PLATELET VOLUME 10.5 fL (7.2-11.7); MONO # 1.2 K/uL (0.0-0.8); MONO % 14.1 % (0.0-10.0); NEUT # 6.5 K/uL (1.8-7.0); NEUT % 76.1 % (50.0-75.0); PLATELET COUNT 134 K/uL (130-400); RED CELL DISTRIBUTION WIDTH 15.6 % (11.5-14.5); WHITE BLOOD COUNT 8.6 K/uL (4.8-10.8)
[2018-03-05 12:20] LABS: INR 1.5; PROTHROMBIN TIME 16.9 SECONDS (9.7-12.2)
[2018-03-05 12:40] LABS: ANISOCYTOSIS SLIGHT; BASOPHIL 1 % (0-2); EOSINOPHIL 5 % (0-4); LYMPHOCYTE 6 % (20-40); MONOCYTE 18 % (0-10); NEUTROPHIL 70 % (50-75); PLATELET ESTIMATE NORMAL (NORMAL); TOTAL CELLS COUNTED 100
[2018-03-05 12:41] LABS: LARGE PLATELETS PRESENT; OVALOCYTES SLIGHT
[2018-03-05] MEDS ORDERED: Sodium Chloride 0.9% 1,000 ML ONE (12:43)
[2018-03-05 13:02] LABS: ALB/GLOB RATIO 0.8 (1.0-2.1); ALBUMIN 2.8 g/dL (3.5-5.0); ALT/SGPT 44 U/L (21-72); AST/SGOT 86 U/L (17-59); BLOOD UREA NITROGEN 101 mg/dL (9-20); CALCIUM 8.3 mg/dl (8.6-10.4); GFR AFRICAN-AMERICAN 40; GFR NON-AFRICAN AMERICAN 33; LIPASE 246 U/L (23-300)
--- NOTE | 2018-03-05 18:07 | CP.PCM.HP ---
Past Patient History - Infectious Disease Hx of Infectious Diseases: None - Past Medical History & Family History Past Medical History?: Yes - Past Social History Smoking Status: Light Smoker < 10 Cigarettes Daily - CARDIAC Hx Hypertension: No - PULMONARY Hx Respiratory Disorders: No Hx Tuberculosis: No Other/Comment: tube to right chest to remove fluid - NEUROLOGICAL Hx Seizures: No - HEENT Hx HEENT Problems: No - RENAL Hx Chronic Kidney Disease: No - ENDOCRINE/METABOLIC Hx Endocrine Disorders: No - HEMATOLOGICAL/ONCOLOGICAL Hx Human Immunodeficiency Virus (HIV): No - INTEGUMENTARY Hx Dermatological Problems: Yes Hx Psoriasis: Yes - MUSCULOSKELETAL/RHEUMATOLOGICAL Hx Musculoskeletal Disorders: No Hx Falls: Yes - GASTROINTESTINAL Hx Gastrointestinal Disorders: No - GENITOURINARY/GYNECOLOGICAL Hx Sexually Transmitted Disorders: No - PSYCHIATRIC Hx Substance Use: Yes - SURGICAL HISTORY Hx Surgeries: No Other/Comment: unknown - ANESTHESIA Hx Anesthesia: No (unknown) Hx Anesthesia Reactions: No Hx Malignant Hyperthermia: No Meds Allergies/Adverse Reactions: Allergies Allergy/AdvReac Type Severity Reaction Status Date / Time No Known Allergies Allergy Verified 03/05/18 11:25 Physical Exam - Constitutional Appears: Well - Head Exam Head Exam: ATRAUMATIC, NORMAL INSPECTION, NORMOCEPHALIC - Eye Exam Eye Exam: EOMI, Normal appearance, PERRL Pupil Exam: NORMAL ACCOMODATION, PERRL - ENT Exam ENT Exam: Mucous Membranes Moist, Normal Exam - Neck Exam Neck exam: Positive for: Normal Inspection - Respiratory Exam Respiratory Exam: Decreased Breath Sounds - Cardiovascular Exam Cardiovascular Exam: REGULAR RHYTHM, +S1, +S2 - GI/Abdominal Exam GI & Abdominal Exam: Diminished Bowel Sounds, Soft - Rectal Exam Rectal Exam: Deferred Results - Vital Signs Recent Vital Signs: Last Vital Signs Temp 97.5 F L 03/05/18 11:25 Pulse 70 03/05/18 14:43 Resp 14 03/05/18 14:43 BP 87/57 L 03/05/18 14:43 Pulse Ox 100 03/05/18 14:43 - Labs Result Diagrams: 03/06/18 08:00 03/06/18 08:00 Labs: Laboratory Results - last 24 hr 03/05/18 03/05/18 03/05/18 11:24 12:08 12:08 WBC 8.6 RBC 4.00 L Hgb 12.1 Hct 34.7 L MCV 86.7 MCH 30.3 MCHC 35.0 RDW 15.6 H Plt Count 134 MPV 10.5 Neut % (Auto) 76.1 H Lymph % (Auto) 7.1 L [place] % (Auto) 14.1 H Eos % (Auto) 2.0 Baso % (Auto) 0.7 Neut # (Auto) 6.5 Lymph # (Auto) 0.6 L [place] # (Auto) 1.2 H Eos # (Auto) 0.2 Baso # (Auto) 0.1 Neutrophils % (Manual) 70 Lymphocytes % (Manual) 6 L Monocytes % (Manual) 18 H Eosinophils % (Manual) 5 H Basophils % (Manual) 1 Platelet Estimate Normal Large Platelets Present Anisocytosis (manual) Slight Ovalocytes Slight PT 16.9 H INR 1.5 APTT 35 H Sodium Potassium Chloride Carbon Dioxide Anion Gap BUN Creatinine Est GFR ( Amer) Est GFR (Non-Af Amer) POC Glucose (mg/dL) 101 Random Glucose Calcium Total Bilirubin AST ALT Alkaline Phosphatase Ammonia Total Protein Albumin Globulin Albumin/Globulin Ratio Lipase Alcohol, Quantitative 03/05/18 03/05/18 12:08 12:08 WBC RBC Hgb Hct MCV MCH MCHC RDW Plt Count MPV Neut % (Auto) Lymph % (Auto) [place] % (Auto) Eos % (Auto) Baso % (Auto) Neut # (Auto) Lymph # (Auto) [place] # (Auto) Eos # (Auto) Baso # (Auto) Neutrophils % (Manual) Lymphocytes % (Manual) Monocytes % (Manual) Eosinophils % (Manual) Basophils % (Manual) Platelet Estimate Large Platelets Anisocytosis (manual) Ovalocytes PT INR APTT Sodium 125 L Potassium 4.7 Chloride 93 L Carbon Dioxide 19 L Anion Gap 18 BUN 101 H* Creatinine 2.1 H Est GFR ( Amer) 40 Est GFR (Non-Af Amer) 33 POC Glucose (mg/dL) Random Glucose 90 Calcium 8.3 L Total Bilirubin 1.2 AST 86 H D ALT 44 Alkaline Phosphatase 128 H Ammonia 100 H D Total Protein 6.4 Albumin 2.8 L Globulin 3.6 Albumin/Globulin Ratio 0.8 L Lipase 246 Alcohol, Quantitative < 10 Assessment & Plan (1) Acute encephalopathy Status: Acute (2) Hyperammonemia Status: Acute (3) Abdominal pain Status: Acute (4) Cirrhosis Status: Acute (5) Drug abuse Status: Acute (6) Drug dependence Status: Acute - Assessment and Plan (Free Text) Plan: GI consult with Ag Continue Spironolactone Continue Bactrim IV Lasix Renal consult with truck farmer No need for antibiotic at this time IV fluid Follow-up with Dr. nova
[2018-03-05] MEDS: Tmp-Smz 800 mg-160 mg DS Tab PO SCH (18:43)
[2018-03-05] MEDS: Diclofenac Sodium Delayed Release 75 mg EC Tab PO SCH (18:44)
[2018-03-05] MEDS ORDERED: Lactulose 10 gm/15 ml (Rectal Use) PR ONE (19:47)
[2018-03-05] MEDS ORDERED: Albumin Human 5% (25 gm/500 ml) IVPB SCH ×2 (20:00→22:00)
[2018-03-05] MEDS ORDERED: DiphenhydrAMINE 50 mg/ml Inj IVP STA (21:40)
[2018-03-06 06:06] VITALS: RESP 20
--- NOTE | 2018-03-06 06:29 | CP.PCM.CON ---
<Matthew Burden - Last Filed: 03/06/18 08:17> History of Present Illness - History of Present Illness History of Present Illness: PGy5 GI Fellow Consult Note Patient is a 52yo male with decompensated HCV cirrhosis (treatment naive, unknown GT/VL) complicated by hepatic encephalopathy, suspected hepatorenal syndrome previously, HTN, prior opiate abuse who presented to the hospital with altered mental status. Patient unable to provide history and cannot state how he came to be hospitalized. He has had multiple admissions previously for exacerbations of hepatic encephalopathy and on most recent admission was found to have significant decline in renal function with creatinine peaking at 4.5 last month. The patient has been rather agitated since admission and has refused virtually all oral or rectal medications and has been combative with staff. He has been given Ativan and Haldol without much improvement. There have been no episodes of rectal bleeding and with the exception of hypotension, vitals have remained stable. Blood and urine cultures have been collected but a urine drug screen is unavailable at this juncture. PMHx: See HPI PSHx: Right thoracentesis 12/2017 FHx: Unable to assess at this time Social: Prior heroin abuse, was formerly on methadone but taken off due to liver complications, + tobacco use, +prior EtOH use Endo: No known endoscopic history 12 system ROS cannot be assessed given altered mentation. Past Patient History - Infectious Disease Hx of Infectious Diseases: None - Past Medical History & Family History Past Medical History?: Yes - Past Social History Smoking Status: Heavy Smoker > 10 Cigarettes Daily - CARDIAC Hx Hypertension: No Hx Hypotension: Yes - PULMONARY Hx Respiratory Disorders: No Hx Tuberculosis: No Other/Comment: tube to right chest to remove fluid - NEUROLOGICAL Hx Seizures: No - HEENT Hx HEENT Problems: No - RENAL Hx Chronic Kidney Disease: No - ENDOCRINE/METABOLIC Hx Endocrine Disorders: No - HEMATOLOGICAL/ONCOLOGICAL Hx Human Immunodeficiency Virus (HIV): No - INTEGUMENTARY Hx Dermatological Problems: Yes Hx Psoriasis: Yes - MUSCULOSKELETAL/RHEUMATOLOGICAL Hx Musculoskeletal Disorders: No Hx Falls: Yes - GASTROINTESTINAL Hx Gastrointestinal Disorders: No - GENITOURINARY/GYNECOLOGICAL Hx Sexually Transmitted Disorders: No - PSYCHIATRIC Hx Substance Use: Yes - SURGICAL HISTORY Hx Surgeries: No Other/Comment: unknown - ANESTHESIA Hx Anesthesia: No (unknown) Hx Anesthesia Reactions: No Hx Malignant Hyperthermia: No Meds Allergies/Adverse Reactions: Allergies Allergy/AdvReac Type Severity Reaction Status Date / Time No Known Allergies Allergy Verified 03/05/18 11:25 - Medications Medications: Current Medications Diclofenac Sodium (Voltaren) 75 mg PO BID [facility] Last Admin: 03/05/18 18:44 Dose: Not Given Albumin Human (Albumin Human 25% (12.5 Gm/50 Ml)) 100 mls @ 100 mls/hr IV Q8H [facility] Stop: 03/08/18 15:59 Last Admin: 03/06/18 06:07 Dose: 100 mls/hr Lactulose (Enulose) 20 gm PO BID [facility] Last Admin: 03/05/18 18:43 Dose: Not Given Midodrine (Proamatine) 2.5 mg PO TID [facility] Last Admin: 03/05/18 18:44 Dose: Not Given Pantoprazole Sodium (Protonix Ec Tab) 40 mg PO DAILY [facility] Phenytoin Sodium (Dilantin) 300 mg PO DAILY [facility] Pneumococcal Polyvalent Vaccine (Pneumovax 23 Vaccine) 0.5 ml IM .ONCE ONE Stop: 03/08/18 10:01 Rifaximin (Xifaxan) 550 mg PO BID [facility] PRN Reason: Protocol Last Admin: 03/05/18 22:02 Dose: Not Given Sodium Bicarbonate (Sodium Bicarbonate Tab) 650 mg PO BID [facility] Last Admin: 03/05/18 18:44 Dose: Not Given Trimethoprim/Sulfamethoxazole (Bactrim Ds Tab) 1 tab PO BID [facility] PRN Reason: Protocol Stop: 03/15/18 18:01 Last Admin: 03/05/18 18:43 Dose: Not Given Physical Exam - Constitutional Appears: Agitated, Confused, Chronically Ill - Eye Exam Eye Exam: PERRL - ENT Exam ENT Exam: Mucous Membranes Dry - Respiratory Exam Respiratory Exam: Clear to Auscultation Bilateral. absent: Rales, Rhonchi, Wheezes - Cardiovascular Exam Cardiovascular Exam: RRR, +S1, +S2 - GI/Abdominal Exam GI & Abdominal Exam: Normal Bowel Sounds, Soft. absent: Distended, Firm, Guarding, Organomegaly, Rigid, Tenderness - Extremities Exam Extremities exam: Positive for: normal inspection. Negative for: pedal edema - Neurological Exam Neurological exam: Altered - Psychiatric Exam Psychiatric exam: Agitated, Anxious - Skin Skin Exam: Dry, Warm Results - Vital Signs Recent Vital Signs: Last Vital Signs Temp 97 F L 03/06/18 06:01 Pulse 78 03/06/18 06:01 Resp 20 03/06/18 06:01 BP 97/62 L 03/06/18 06:01 Pulse Ox 100 03/05/18 14:43 - Labs Result Diagrams: 03/05/18 12:08 03/05/18 12:08 Labs: Laboratory Results - last 24 hr 03/05/18 03/05/18 03/05/18 11:24 12:08 12:08 WBC 8.6 RBC 4.00 L Hgb 12.1 Hct 34.7 L MCV 86.7 MCH 30.3 MCHC 35.0 RDW 15.6 H Plt Count 134 MPV 10.5 Neut % (Auto) 76.1 H Lymph % (Auto) 7.1 L [place] % (Auto) 14.1 H Eos % (Auto) 2.0 Baso % (Auto) 0.7 Neut # (Auto) 6.5 Lymph # (Auto) 0.6 L [place] # (Auto) 1.2 H Eos # (Auto) 0.2 Baso # (Auto) 0.1 Neutrophils % (Manual) 70 Lymphocytes % (Manual) 6 L Monocytes % (Manual) 18 H Eosinophils % (Manual) 5 H Basophils % (Manual) 1 Platelet Estimate Normal Large Platelets Present Anisocytosis (manual) Slight Ovalocytes Slight PT 16.9 H INR 1.5 APTT 35 H Sodium Potassium Chloride Carbon Dioxide Anion Gap BUN Creatinine Est GFR ( Amer) Est GFR (Non-Af Amer) POC Glucose (mg/dL) 101 Random Glucose Calcium Total Bilirubin AST ALT Alkaline Phosphatase Ammonia Total Protein Albumin Globulin Albumin/Globulin Ratio Lipase Alcohol, Quantitative 03/05/18 03/05/18 12:08 12:08 WBC RBC Hgb Hct MCV MCH MCHC RDW Plt Count MPV Neut % (Auto) Lymph % (Auto) [place] % (Auto) Eos % (Auto) Baso % (Auto) Neut # (Auto) Lymph # (Auto) [place] # (Auto) Eos # (Auto) Baso # (Auto) Neutrophils % (Manual) Lymphocytes % (Manual) Monocytes % (Manual) Eosinophils % (Manual) Basophils % (Manual) Platelet Estimate Large Platelets Anisocytosis (manual) Ovalocytes PT INR APTT Sodium 125 L Potassium 4.7 Chloride 93 L Carbon Dioxide 19 L Anion Gap 18 BUN 101 H* Creatinine 2.1 H Est GFR ( Amer) 40 Est GFR (Non-Af Amer) 33 POC Glucose (mg/dL) Random Glucose 90 Calcium 8.3 L Total Bilirubin 1.2 AST 86 H D ALT 44 Alkaline Phosphatase 128 H Ammonia 100 H D Total Protein 6.4 Albumin 2.8 L Globulin 3.6 Albumin/Globulin Ratio 0.8 L Lipase 246 Alcohol, Quantitative < 10 Assessment & Plan - Assessment and Plan (Free Text) Assessment: Patient is a 52yo male with decompensated HCV cirrhosis (tx naive, unknown GT/VL ) complicated by hepatic encephalopathy, suspected hepatorenal syndrome, HTN, prior opiate abuse who presented to the hospital with altered mental status -Decompensated HCV cirrhosis -Altered mental status, suspect hepatic encephalopathy, possible component of uremia -Hyponatremia -CLARA with possible component of Hepatorenal syndrome if ascites present -Medical nonadherence -H/O opiate abuse Plan: -Recommend discontinuation of all diuretic therapy given CLARA and hyponatremia -Lactulose Q1H PO or UT as tolerated by patient but has been refusing all therapies -Rifaximin 550mg PO BID -Added Zinc sulfate 220mg PO QD for HE -If patient not tolerating, improving or utilizing therapies prescribed - could consider use of IV Metronidazole or Neomycin to improve HE -Initiated albumin 25% 25g IV Q8H for 9 doses -S/P 1.5L IVF -U/S abdomen complete -Would discontinue NSAIDs, Bactrim in setting of CLARA -Nephrology consultation -Blood and urine culture -Awaiting UDS -No obvious GI bleeding noted -Please avoid further sedating agents in this cirrhotic patient where possible -Psychiatric consultation - Date & Time Date: 03/06/18 Time: 06:38 <Kory Puente - Last Filed: 03/06/18 08:30> Meds - Medications Medications: Current Medications Diclofenac Sodium (Voltaren) 75 mg PO BID [facility] Last Admin: 03/05/18 18:44 Dose: Not Given Albumin Human (Albumin Human 25% (12.5 Gm/50 Ml)) 100 mls @ 100 mls/hr IV Q8H [facility] Stop: 03/08/18 15:59 Last Admin: 03/06/18 06:07 Dose: 100 mls/hr Lactulose (Enulose) 20 gm PO BID [facility] Last Admin: 03/05/18 18:43 Dose: Not Given Midodrine (Proamatine) 2.5 mg PO TID [facility] Last Admin: 03/05/18 18:44 Dose: Not Given Pantoprazole Sodium (Protonix Ec Tab) 40 mg PO DAILY [facility] Phenytoin Sodium (Dilantin) 300 mg PO DAILY [facility] Pneumococcal Polyvalent Vaccine (Pneumovax 23 Vaccine) 0.5 ml IM .ONCE ONE Stop: 03/08/18 10:01 Rifaximin (Xifaxan) 550 mg PO BID [facility] PRN Reason: Protocol Last Admin: 03/05/18 22:02 Dose: Not Given Sodium Bicarbonate (Sodium Bicarbonate Tab) 650 mg PO BID [facility] Last Admin: 03/05/18 18:44 Dose: Not Given Trimethoprim/Sulfamethoxazole (Bactrim Ds Tab) 1 tab PO BID [facility] PRN Reason: Protocol Stop: 03/15/18 18:01 Last Admin: 03/05/18 18:43 Dose: Not Given Zinc Sulfate (Zinc Sulfate 220 Mg Cap) 220 mg PO DAILY [facility] Results - Vital Signs Recent Vital Signs: Last Vital Signs Temp 98.3 F 03/06/18 08:02 Pulse 87 03/06/18 08:02 Resp 20 03/06/18 08:02 BP 95/60 L 03/06/18 08:02 Pulse Ox 96 03/06/18 08:02 - Labs Result Diagrams: 03/05/18 12:08 03/05/18 12:08 Labs: Laboratory Results - last 24 hr 03/05/18 03/05/18 03/05/18 11:24 12:08 12:08 WBC 8.6 RBC 4.00 L Hgb 12.1 Hct 34.7 L MCV 86.7 MCH 30.3 MCHC 35.0 RDW 15.6 H Plt Count 134 MPV 10.5 Neut % (Auto) 76.1 H Lymph % (Auto) 7.1 L [place] % (Auto) 14.1 H Eos % (Auto) 2.0 Baso % (Auto) 0.7 Neut # (Auto) 6.5 Lymph # (Auto) 0.6 L [place] # (Auto) 1.2 H Eos # (Auto) 0.2 Baso # (Auto) 0.1 Neutrophils % (Manual) 70 Lymphocytes % (Manual) 6 L Monocytes % (Manual) 18 H Eosinophils % (Manual) 5 H Basophils % (Manual) 1 Platelet Estimate Normal Large Platelets Present Anisocytosis (manual) Slight Ovalocytes Slight PT 16.9 H INR 1.5 APTT 35 H Sodium Potassium Chloride Carbon Dioxide Anion Gap BUN Creatinine Est GFR ( Amer) Est GFR (Non-Af Amer) POC Glucose (mg/dL) 101 Random Glucose Calcium Total Bilirubin AST ALT Alkaline Phosphatase Ammonia Total Protein Albumin Globulin Albumin/Globulin Ratio Lipase Urine Color Urine Clarity Urine pH Ur Specific [place] Urine Protein Urine Glucose (UA) Urine Ketones Urine Blood Urine Nitrate Urine Bilirubin Urine Urobilinogen Ur Leukocyte Esterase Urine WBC (Auto) Urine RBC (Auto) Ur Squamous Epith Cells Alcohol, Quantitative 03/05/18 03/05/18 03/06/18 12:08 12:08 08:00 WBC RBC Hgb Hct MCV MCH MCHC RDW Plt Count MPV Neut % (Auto) Lymph % (Auto) [place] % (Auto) Eos % (Auto) Baso % (Auto) Neut # (Auto) Lymph # (Auto) [place] # (Auto) Eos # (Auto) Baso # (Auto) Neutrophils % (Manual) Lymphocytes % (Manual) Monocytes % (Manual) Eosinophils % (Manual) Basophils % (Manual) Platelet Estimate Large Platelets Anisocytosis (manual) Ovalocytes PT 17.4 H INR 1.5 APTT Sodium 125 L Potassium 4.7 Chloride 93 L Carbon Dioxide 19 L Anion Gap 18 BUN 101 H* Creatinine 2.1 H Est GFR ( Amer) 40 Est GFR (Non-Af Amer) 33 POC Glucose (mg/dL) Random Glucose 90 Calcium 8.3 L Total Bilirubin 1.2 AST 86 H D ALT 44 Alkaline Phosphatase 128 H Ammonia 100 H D Total Protein 6.4 Albumin 2.8 L Globulin 3.6 Albumin/Globulin Ratio 0.8 L Lipase 246 Urine Color Urine Clarity Urine pH Ur Specific [place] Urine Protein Urine Glucose (UA) Urine Ketones Urine Blood Urine Nitrate Urine Bilirubin Urine Urobilinogen Ur Leukocyte Esterase Urine WBC (Auto) Urine RBC (Auto) Ur Squamous Epith Cells Alcohol, Quantitative < 10 03/06/18 08:05 WBC RBC Hgb Hct MCV MCH MCHC RDW Plt Count MPV Neut % (Auto) Lymph % (Auto) [place] % (Auto) Eos % (Auto) Baso % (Auto) Neut # (Auto) Lymph # (Auto) [place] # (Auto) Eos # (Auto) Baso # (Auto) Neutrophils % (Manual) Lymphocytes % (Manual) Monocytes % (Manual) Eosinophils % (Manual) Basophils % (Manual) Platelet Estimate Large Platelets Anisocytosis (manual) Ovalocytes PT INR APTT Sodium Potassium Chloride Carbon Dioxide Anion Gap BUN Creatinine Est GFR ( Amer) Est GFR (Non-Af Amer) POC Glucose (mg/dL) Random Glucose Calcium Total Bilirubin AST ALT Alkaline Phosphatase Ammonia Total Protein Albumin Globulin Albumin/Globulin Ratio Lipase Urine Color Yellow Urine Clarity Clear Urine pH 6.0 Ur Specific [place] 1.012 Urine Protein Negative Urine Glucose (UA) Normal Urine Ketones Negative Urine Blood Negative Urine Nitrate Negative Urine Bilirubin Negative Urine Urobilinogen Normal Ur Leukocyte Esterase Neg Urine WBC (Auto) 2 Urine RBC (Auto) < 1 Ur Squamous Epith Cells < 1 Alcohol, Quantitative Attending/Attestation - Attestation I have personally seen and examined this patient.: Yes I have fully participated in the care of the patient.: Yes I have reviewed all pertinent clinical information: Yes Notes (Text): 03/06/18 08:29 52 year old male with decompensated HCV cirrhosis, substance abuse, HE, HRS, HTN a/w AMS. Recommend lactulose/rifaxamin therapy for HE. US to r/o ascites. Continue Midodrine/albumin for HRS. Hold diuretics for now. Nephrology consult. No obvious signs of infection apparent.
[2018-03-06 08:17] LABS: BASO # 0.1 K/uL (0.0-0.2); EOS # 0.1 K/uL (0.0-0.7); LYMPH # 0.6 K/uL (1.0-4.3); MONO # 0.8 K/uL (0.0-0.8); MONO % 13.6 % (0.0-10.0); NEUT # 4.4 K/uL (1.8-7.0); NEUT % 73.4 % (50.0-75.0)
[2018-03-06 08:20] LABS: SQUAMOUS EPITHIAL < 1 /hpf (0-5); URINE BILIRUBIN NEGATIVE (NEGATIVE); URINE BLOOD NEGATIVE (NEGATIVE); URINE CLARITY Clear (Clear); URINE COLOR Yellow (YELLOW); URINE GLUCOSE (UA) NORMAL (Normal); URINE LEUKOCYTE ESTERASE NEG Leu/uL (Negative); URINE PROTEIN NEGATIVE (NEGATIVE); URINE UROBILINOGEN NORMAL mg/dL (0.2-1.0)
[2018-03-06 08:20] LABS: INR 1.5; PROTHROMBIN TIME 17.4 SECONDS (9.7-12.2)
[2018-03-06 08:25] LABS: BASO % 1.1 % (0.0-2.0); EOS % 2.4 % (0.0-4.0); HEMOGLOBIN 10.5 g/dL (12.0-18.0); LYMPH % 9.5 % (20.0-40.0); MEAN CORPUSCULAR HEMOGLOBIN 30.4 pg (27.0-31.0); RBC 3.46 Mil/uL (4.40-5.90); RED CELL DISTRIBUTION WIDTH 15.8 % (11.5-14.5)
[2018-03-06 08:28] LABS: PLATELET COUNT 104 K/uL (130-400)
[2018-03-06 08:32] LABS: BARBITURATES, UR NEGATIVE (NEGATIVE); BENZODIAZEPINES, UR NEGATIVE (NEGATIVE); PHENCYCLIDINE, UR NEGATIVE (NEGATIVE)
[2018-03-06 08:37] LABS: ALB/GLOB RATIO 0.8 (1.0-2.1); ALBUMIN 2.5 g/dL (3.5-5.0); CALCIUM 7.9 mg/dl (8.6-10.4)
--- NOTE | 2018-03-06 08:41 | CP.PCM.PN ---
Subjective - Date & Time of Evaluation Date of Evaluation: 03/05/18 Time of Evaluation: 16:45 - Subjective Subjective: NOTIFIED BY PRIMARY RN DINA LEIGH IN 100'S (SEE LAB RESULTS). PLUG GROWER NOT COVERING THE FLOOR AT THIS TIME AND PT IS PENDING ADMITTING ORDERS FROM ATTENDING MD. NOTIFIED RN TO CONTACT ATTENDING FOR ADMITTING ORDERS AND TO RELAY LAB RESULTS TO. NO FURTHER ORDERS. Objective - Vital Signs/Intake and Output Vital Signs (last 24 hours): Temp Pulse Resp BP Pulse Ox 98.3 F 87 20 95/60 L 96 03/06/18 08:02 03/06/18 08:02 03/06/18 08:02 03/06/18 08:02 03/06/18 08:02 Intake and Output: 03/06/18 03/06/18 06:59 18:59 Intake Total 650 Output Total 300 Balance 350 - Medications Medications: Current Medications Diclofenac Sodium (Voltaren) 75 mg PO BID [facility] Last Admin: 03/05/18 18:44 Dose: Not Given Albumin Human (Albumin Human 25% (12.5 Gm/50 Ml)) 100 mls @ 100 mls/hr IV Q8H [facility] Stop: 03/08/18 15:59 Last Admin: 03/06/18 06:07 Dose: 100 mls/hr Lactulose (Enulose) 20 gm PO BID [facility] Last Admin: 03/05/18 18:43 Dose: Not Given Midodrine (Proamatine) 2.5 mg PO TID [facility] Last Admin: 03/05/18 18:44 Dose: Not Given Pantoprazole Sodium (Protonix Ec Tab) 40 mg PO DAILY [facility] Phenytoin Sodium (Dilantin) 300 mg PO DAILY [facility] Pneumococcal Polyvalent Vaccine (Pneumovax 23 Vaccine) 0.5 ml IM .ONCE ONE Stop: 03/08/18 10:01 Rifaximin (Xifaxan) 550 mg PO BID [facility] PRN Reason: Protocol Last Admin: 03/05/18 22:02 Dose: Not Given Sodium Bicarbonate (Sodium Bicarbonate Tab) 650 mg PO BID [facility] Last Admin: 03/05/18 18:44 Dose: Not Given Trimethoprim/Sulfamethoxazole (Bactrim Ds Tab) 1 tab PO BID [facility] PRN Reason: Protocol Stop: 03/15/18 18:01 Last Admin: 03/05/18 18:43 Dose: Not Given Zinc Sulfate (Zinc Sulfate 220 Mg Cap) 220 mg PO DAILY [facility] - Labs Labs: 03/06/18 08:00 03/06/18 08:00 PT 17.4 SECONDS (9.7-12.2) H 03/06/18 08:00 INR 1.5 03/06/18 08:00 APTT 35 SECONDS (21-34) H 03/05/18 12:08
[2018-03-06 08:49] LABS: OPIATES, UR POSITIVE (NEGATIVE)
[2018-03-06 09:01] LABS: HEPATITIS B SURFACE AG Negative (NEGATIVE)
[2018-03-06 09:07] LABS: HEPATITIS A IGM NEGATIVE (NEGATIVE); HEPATITIS B CORE AB NEGATIVE (NEGATIVE)
[2018-03-06 09:24] LABS: CREATININE, RANDOM URINE 80.4 mg/dL
--- NOTE | 2018-03-06 09:44 | US ---
Abdominal ultrasound History: Acute renal insufficiency. Ascites. Comparison: Ultrasound dated 02/10/2018 Technique: Real-time sonography was performed through the abdomen. Findings: Right pleural effusion. Small amount of perihepatic ascites. Liver measures 13.6 centimeters in length. Increased echogenicity of the hepatic parenchymal cortex suggestive for fatty infiltration versus hepatic parenchymal disease. Clinical correlation. Gallbladder: No calculi or sludge. Top-normal wall thickness 3.3 millimeters. Negative sonographic Alcaraz's sign. Common bile duct measures 4.9 millimeters, within normal limits. Limited visualization of the pancreas. Spleen is prominent measuring up to 16 centimeters in length. Visualized aorta and IVC are preserved. Right kidney: 11.9 x 6.3 x 6.3 centimeters. Mild increased echogenicity of the renal parenchymal cortex suggestive for medical renal disease. No calculi or hydronephrosis. Left kidney: 14.4 x 6.8 x 6.3 centimeters. Mild increased echogenicity of the renal parenchymal cortex suggestive for medical renal disease. No calculi or hydronephrosis. Study limited secondary to patient noncompliance. Impression: Increased echogenicity of the hepatic parenchymal cortex suggestive for fatty infiltration versus hepatic parenchymal disease. Clinical correlation. Perihepatic ascites. Right pleural effusion. Limited visualization of the pancreas. Splenomegaly. Increased echogenicity of the bilateral renal parenchymal cortices suggestive for medical renal disease. Clinical correlation.
[2018-03-06] MEDS: Pantoprazole 40 mg EC Tab PO SCH (10:33)
[2018-03-06] MEDS: Tmp-Smz 800 mg-160 mg DS Tab PO SCH (10:35)
[2018-03-06] MEDS: Diclofenac Sodium Delayed Release 75 mg EC Tab PO SCH (10:36)
[2018-03-06 10:49] LABS: EOSINOPHIL 3 % (0-4); LYMPHOCYTE 8 % (20-40); MONOCYTE 14 % (0-10); NEUTROPHIL 73 % (50-75); REACTIVE LYMPHOCYTES 2 % (0-0); TOTAL CELLS COUNTED 100
[2018-03-06 10:50] LABS: ANISOCYTOSIS SLIGHT; PLATELET ESTIMATE SLIGHTLY DECREASED (NORMAL)
[2018-03-06 10:51] LABS: BURR CELLS SLIGHT; HYPOCHROMIC SLIGHT; OVALOCYTES SLIGHT; POIKILOCYTOSIS SLIGHT
[2018-03-06 12:14] LABS: HEPATITIS C ANTIBODY REACTIVE (NEGATIVE)
--- NOTE | 2018-03-06 15:26 | CP.PCM.CON ---
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 Maintain hemodynamics stable. Patient not on ACEI/ARB due to CLARA Monitor Input/Output, daily weights and renal function with basic metabolic panel continue with po midodrine to 10 mg and octreotide 200 mcg sc three times a day also on sodium bicarb continue with IV albumin pt was not considered to be a candidate for liver transplant when seen at [facility] by GI team overall prognosis poor d/c bactrim as well. avoid NSAIDs as voltaren Dose meds/antibiotics for reduced GFR. Avoid fleets enema/magnesium based laxatives. Avoid nephrotoxins/NSAIDs/ iodinated contrast (unless needed emergently) Glycemic control Further work up for as per primary team Thanks for allowing me to participate in care of your patient. Will follow patient with you. Please call if any Qs Dr Sean Ruiz Office: [phone] CC: I an going home today reason for consult: CLARA HPI: pt is a 52 M with hx of cirrhosis and hepatic encehalopathy, recurent AKIs with hepatorenal syndome and frequent hospitalizations at [facility] , [facility] came with AMS and aso with CLARA hence renal consult. pt says he feels fine, not aware why he is in hospital and feels ready to go home Subjective: Noted events overnight. Patients feels well Denies chest pain, palpitation, shortness of breath, leg swelling. All other negative. says I am going home today Physical Examination: General Appearance: Comfortable, in no acute respiratory distress, co- operative. facial muscles wasted Vitals reviewed and noted as below Head; Atraumatic, normocephalic ENT: no ulcers no thrush. Tongue is midline. Oropharynx: no rash or ulcers. EYES: Pupils are equal, round and reactive to light accommodation. Eye muscles and extraocular movement intact. Sclera is anicteric. Neck; supple no lymphadenopathy, no thyromegaly or bruit Lungs: Normal respiratory rate/effort. Breath sounds reduced at Rt base Heart: Normal rate. s1s2 normal. No rub or gallop. Extremities: no edema. No varicose veins Neurological: Patient is alert, awake and disoriented no focal deficit. Strength bilateral appropriate and equal. has asterixis Skin: Warm and dry. Normal turgor. No rash. Palpitation: Normal elasticity for age Abdomen: Abdomen is soft. Bowel sounds +. There is no abdominal tenderness, no guarding/rigidity no organomegaly. abdomen is ascitic Psych: limited insight and flat affect/mood MSK: no joint tenderness or swelling. Digits and nails normal, no deformity : kidney or bladder not palpable Labs/imaging reviewed. Past medical history, past surgical history, family history, social history, allergy reviewed and noted as below Family hx: no hx of CKD. Rest non-contributory Past Patient History - Infectious Disease Hx of Infectious Diseases: None - Past Medical History & Family History Past Medical History?: Yes - Past Social History Smoking Status: Heavy Smoker > 10 Cigarettes Daily - CARDIAC Hx Hypertension: No Hx Hypotension: Yes - PULMONARY Hx Respiratory Disorders: No Hx Tuberculosis: No Other/Comment: tube to right chest to remove fluid - NEUROLOGICAL Hx Seizures: No - HEENT Hx HEENT Problems: No - RENAL Hx Chronic Kidney Disease: No - ENDOCRINE/METABOLIC Hx Endocrine Disorders: No - HEMATOLOGICAL/ONCOLOGICAL Hx Human Immunodeficiency Virus (HIV): No - INTEGUMENTARY Hx Dermatological Problems: Yes Hx Psoriasis: Yes - MUSCULOSKELETAL/RHEUMATOLOGICAL Hx Musculoskeletal Disorders: No Hx Falls: Yes - GASTROINTESTINAL Hx Gastrointestinal Disorders: No - GENITOURINARY/GYNECOLOGICAL Hx Sexually Transmitted Disorders: No - PSYCHIATRIC Hx Substance Use: Yes - SURGICAL HISTORY Hx Surgeries: No Other/Comment: unknown - ANESTHESIA Hx Anesthesia: No (unknown) Hx Anesthesia Reactions: No Hx Malignant Hyperthermia: No Meds Allergies/Adverse Reactions: Allergies Allergy/AdvReac Type Severity Reaction Status Date / Time No Known Allergies Allergy Verified 03/05/18 11:25 - Medications Medications: Current Medications Albumin Human (Albumin Human 25% (12.5 Gm/50 Ml)) 100 mls @ 100 mls/hr IV Q8H [facility] Stop: 03/08/18 15:59 Last Admin: 03/06/18 14:19 Dose: 100 mls/hr Lactulose (Enulose) 20 gm PO TID [facility] Last Admin: 03/06/18 14:17 Dose: 20 gm Midodrine (Proamatine) 10 mg PO TID [facility] Last Admin: 03/06/18 14:17 Dose: 10 mg Octreotide Acetate (Sandostatin) 200 mcg SC Q8 [facility] Last Admin: 03/06/18 14:17 Dose: 200 mcg Pantoprazole Sodium (Protonix Ec Tab) 40 mg PO DAILY [facility] Last Admin: 03/06/18 10:33 Dose: 40 mg Phenytoin Sodium (Dilantin) 300 mg PO DAILY [facility] Last Admin: 03/06/18 10:33 Dose: 300 mg Pneumococcal Polyvalent Vaccine (Pneumovax 23 Vaccine) 0.5 ml IM .ONCE ONE Stop: 03/08/18 10:01 Rifaximin (Xifaxan) 550 mg PO BID [facility] PRN Reason: Protocol Last Admin: 03/06/18 10:38 Dose: 550 mg Sodium Bicarbonate (Sodium Bicarbonate Tab) 650 mg PO BID [facility] Last Admin: 03/06/18 10:34 Dose: 650 mg Zinc Sulfate (Zinc Sulfate 220 Mg Cap) 220 mg PO DAILY [facility] Last Admin: 03/06/18 10:34 Dose: 220 mg Results - Vital Signs Recent Vital Signs: Last Vital Signs Temp 98.3 F 03/06/18 08:02 Pulse 87 03/06/18 08:02 Resp 20 03/06/18 08:02 BP 95/60 L 03/06/18 08:02 Pulse Ox 96 03/06/18 08:02 - Labs Result Diagrams: 03/06/18 08:00 03/06/18 08:00 Labs: Laboratory Results - last 24 hr 03/06/18 03/06/18 03/06/18 08:00 08:00 08:00 WBC 6.0 RBC 3.46 L Hgb 10.5 L Hct 30.1 L MCV 87.0 MCH 30.4 MCHC 35.0 RDW 15.8 H Plt Count 104 L D MPV 10.0 Neut % (Auto) 73.4 Lymph % (Auto) 9.5 L Perry % (Auto) 13.6 H Eos % (Auto) 2.4 Baso % (Auto) 1.1 Neut # (Auto) 4.4 Lymph # (Auto) 0.6 L Perry # (Auto) 0.8 Eos # (Auto) 0.1 Baso # (Auto) 0.1 Neutrophils % (Manual) 73 Lymphocytes % (Manual) 8 L Reactive Lymphs % 2 H Monocytes % (Manual) 14 H Eosinophils % (Manual) 3 Platelet Estimate Slightly decreased L Hypochromasia (manual) Slight Poikilocytosis (manual Slight Anisocytosis (manual) Slight Ovalocytes Slight [place] Cells Slight PT 17.4 H INR 1.5 Sodium 133 Potassium 4.2 Chloride 102 Carbon Dioxide 17 L Anion Gap 18 BUN 92 H Creatinine 1.6 H Est GFR ( Amer) 55 Est GFR (Non-Af Amer) 45 Random Glucose 74 L Calcium 7.9 L Total Bilirubin 1.3 AST 54 ALT 37 Alkaline Phosphatase 99 Total Protein 5.7 L Albumin 2.5 L Globulin 3.2 Albumin/Globulin Ratio 0.8 L Urine Color Urine Clarity Urine pH Ur Specific [place] Urine Protein Urine Glucose (UA) Urine Ketones Urine Blood Urine Nitrate Urine Bilirubin Urine Urobilinogen Ur Leukocyte Esterase Urine WBC (Auto) Urine RBC (Auto) Ur Squamous Epith Cells Ur Random Creatinine Ur Random Sodium Ur Random Urea Nitrogn Urine Opiates Screen Urine Methadone Screen Ur Barbiturates Screen Ur Phencyclidine Scrn Ur Amphetamines Screen U Benzodiazepines Scrn U Oth Cocaine Metabols U Cannabinoids Screen Hepatitis A IgM Ab Hep Bs Antigen Hep B Core IgM Ab Hepatitis C Antibody 03/06/18 03/06/18 03/06/18 08:00 08:05 08:05 WBC RBC Hgb Hct MCV MCH MCHC RDW Plt Count MPV Neut % (Auto) Lymph % (Auto) [place] % (Auto) Eos % (Auto) Baso % (Auto) Neut # (Auto) Lymph # (Auto) [place] # (Auto) Eos # (Auto) Baso # (Auto) Neutrophils % (Manual) Lymphocytes % (Manual) Reactive Lymphs % Monocytes % (Manual) Eosinophils % (Manual) Platelet Estimate Hypochromasia (manual) Poikilocytosis (manual Anisocytosis (manual) Ovalocytes [place] Cells PT INR Sodium Potassium Chloride Carbon Dioxide Anion Gap BUN Creatinine Est GFR ( Amer) Est GFR (Non-Af Amer) Random Glucose Calcium Total Bilirubin AST ALT Alkaline Phosphatase Total Protein Albumin Globulin Albumin/Globulin Ratio Urine Color Yellow Urine Clarity Clear Urine pH 6.0 Ur Specific [place] 1.012 Urine Protein Negative Urine Glucose (UA) Normal Urine Ketones Negative Urine Blood Negative Urine Nitrate Negative Urine Bilirubin Negative Urine Urobilinogen Normal Ur Leukocyte Esterase Neg Urine WBC (Auto) 2 Urine RBC (Auto) < 1 Ur Squamous Epith Cells < 1 Ur Random Creatinine Ur Random Sodium Ur Random Urea Nitrogn Urine Opiates Screen Positive H Urine Methadone Screen Negative Ur Barbiturates Screen Negative Ur Phencyclidine Scrn Negative Ur Amphetamines Screen Negative U Benzodiazepines Scrn Negative U Oth Cocaine Metabols Negative U Cannabinoids Screen Negative Hepatitis A IgM Ab Negative Hep Bs Antigen Negative Hep B Core IgM Ab Negative Hepatitis C Antibody Reactive 03/06/18 03/06/18 08:43 08:43 WBC RBC Hgb Hct MCV MCH MCHC RDW Plt Count MPV Neut % (Auto) Lymph % (Auto) [place] % (Auto) Eos % (Auto) Baso % (Auto) Neut # (Auto) Lymph # (Auto) [place] # (Auto) Eos # (Auto) Baso # (Auto) Neutrophils % (Manual) Lymphocytes % (Manual) Reactive Lymphs % Monocytes % (Manual) Eosinophils % (Manual) Platelet Estimate Hypochromasia (manual) Poikilocytosis (manual Anisocytosis (manual) Ovalocytes [place] Cells PT INR Sodium Potassium Chloride Carbon Dioxide Anion Gap BUN Creatinine Est GFR ( Amer) Est GFR (Non-Af Amer) Random Glucose Calcium Total Bilirubin AST ALT Alkaline Phosphatase Total Protein Albumin Globulin Albumin/Globulin Ratio Urine Color Urine Clarity Urine pH Ur Specific [place] Urine Protein Urine Glucose (UA) Urine Ketones Urine Blood Urine Nitrate Urine Bilirubin Urine Urobilinogen Ur Leukocyte Esterase Urine WBC (Auto) Urine RBC (Auto) Ur Squamous Epith Cells Ur Random Creatinine 80.4 Ur Random Sodium < 5 Ur Random Urea Nitrogn Cancelled 854 Urine Opiates Screen Urine Methadone Screen Ur Barbiturates Screen Ur Phencyclidine Scrn Ur Amphetamines Screen U Benzodiazepines Scrn U Oth Cocaine Metabols U Cannabinoids Screen Hepatitis A IgM Ab Hep Bs Antigen Hep B Core IgM Ab Hepatitis C Antibody
--- NOTE | 2018-03-06 17:13 | CP.PCM.PN ---
Subjective - Date & Time of Evaluation Date of Evaluation: 03/06/18 Time of Evaluation: 09:00 - Subjective Subjective: clinically same Objective - Vital Signs/Intake and Output Vital Signs (last 24 hours): Temp Pulse Resp BP Pulse Ox 98.2 F 80 20 97/64 L 98 03/06/18 16:00 03/06/18 16:00 03/06/18 16:00 03/06/18 16:00 03/06/18 16:00 Intake and Output: 03/06/18 03/06/18 06:59 18:59 Intake Total 1150 Output Total 300 Balance 850 - Medications Medications: Current Medications Albumin Human (Albumin Human 25% (12.5 Gm/50 Ml)) 100 mls @ 100 mls/hr IV Q8H [facility] Stop: 03/08/18 15:59 Last Admin: 03/06/18 14:19 Dose: 100 mls/hr Lactulose (Enulose) 20 gm PO TID [facility] Last Admin: 03/06/18 14:17 Dose: 20 gm Midodrine (Proamatine) 10 mg PO TID [facility] Last Admin: 03/06/18 14:17 Dose: 10 mg Octreotide Acetate (Sandostatin) 200 mcg SC Q8 [facility] Last Admin: 03/06/18 14:17 Dose: 200 mcg Pantoprazole Sodium (Protonix Ec Tab) 40 mg PO DAILY [facility] Last Admin: 03/06/18 10:33 Dose: 40 mg Phenytoin Sodium (Dilantin) 300 mg PO DAILY [facility] Last Admin: 03/06/18 10:33 Dose: 300 mg Pneumococcal Polyvalent Vaccine (Pneumovax 23 Vaccine) 0.5 ml IM .ONCE ONE Stop: 03/08/18 10:01 Rifaximin (Xifaxan) 550 mg PO BID [facility] PRN Reason: Protocol Last Admin: 03/06/18 10:38 Dose: 550 mg Sodium Bicarbonate (Sodium Bicarbonate Tab) 650 mg PO BID [facility] Last Admin: 03/06/18 10:34 Dose: 650 mg Zinc Sulfate (Zinc Sulfate 220 Mg Cap) 220 mg PO DAILY [facility] Last Admin: 03/06/18 10:34 Dose: 220 mg - Labs Labs: 03/06/18 08:00 03/06/18 08:00 PT 17.4 SECONDS (9.7-12.2) H 03/06/18 08:00 INR 1.5 03/06/18 08:00 APTT 35 SECONDS (21-34) H 03/05/18 12:08 - Constitutional Appears: Well - Head Exam Head Exam: ATRAUMATIC, NORMAL INSPECTION, NORMOCEPHALIC - Eye Exam Eye Exam: EOMI, Normal appearance, PERRL Pupil Exam: NORMAL ACCOMODATION, PERRL - ENT Exam ENT Exam: Mucous Membranes Moist, Normal Exam - Neck Exam Neck Exam: Full ROM, Normal Inspection. absent: Lymphadenopathy - Respiratory Exam Respiratory Exam: Decreased Breath Sounds - Cardiovascular Exam Cardiovascular Exam: REGULAR RHYTHM, +S1, +S2 - GI/Abdominal Exam GI & Abdominal Exam: Soft, Diminished Bowel Sounds - Rectal Exam Rectal Exam: Deferred Assessment and Plan (1) Acute encephalopathy Status: Acute (2) Hyperammonemia Status: Acute (3) Abdominal pain Status: Acute (4) Cirrhosis Status: Acute (5) Drug abuse Status: Acute (6) Drug dependence Status: Acute
--- NOTE | 2018-03-06 22:35 | CARD ---
APPROVED REPORT EKG Measurement Heart [id number] <Conclusion> Poor quailty ECG Probably normal Sinus consider repeat ecg
--- NOTE | 2018-03-07 07:57 | CP.PCM.PN ---
Subjective - Date & Time of Evaluation Date of Evaluation: 03/07/18 Time of Evaluation: 07:52 - Subjective Subjective: Patient seen and examined, resting comfortably in bed. No acute events overnight, he reports 3 bowel movements yesterday. He denies abdominal pain, nausea, vomiting, fever/chills. Tolerating PO diet without difficulty. Review of vitals from today are normal. 12 point review of systems performed, negative aside from mentioned above. Objective - Vital Signs/Intake and Output Vital Signs (last 24 hours): Temp Pulse Resp BP Pulse Ox 97.9 F 73 20 113/69 95 03/07/18 07:22 03/07/18 07:22 03/07/18 07:22 03/07/18 07:22 03/07/18 07:22 Intake and Output: 03/07/18 03/07/18 06:59 18:59 Intake Total 450 Balance 450 - Medications Medications: Current Medications Albumin Human (Albumin Human 25% (12.5 Gm/50 Ml)) 100 mls @ 100 mls/hr IV Q8H [facility] Stop: 03/08/18 15:59 Last Admin: 03/07/18 06:02 Dose: 100 mls/hr Lactulose (Enulose) 20 gm PO TID [facility] Last Admin: 03/06/18 17:54 Dose: 20 gm Midodrine (Proamatine) 10 mg PO TID [facility] Last Admin: 03/06/18 17:54 Dose: 10 mg Octreotide Acetate (Sandostatin) 200 mcg SC Q8 [facility] Last Admin: 03/07/18 05:51 Dose: 200 mcg Pantoprazole Sodium (Protonix Ec Tab) 40 mg PO DAILY [facility] Last Admin: 03/06/18 10:33 Dose: 40 mg Phenytoin Sodium (Dilantin) 300 mg PO DAILY [facility] Last Admin: 03/06/18 10:33 Dose: 300 mg Pneumococcal Polyvalent Vaccine (Pneumovax 23 Vaccine) 0.5 ml IM .ONCE ONE Stop: 03/08/18 10:01 Rifaximin (Xifaxan) 550 mg PO BID [facility] PRN Reason: Protocol Last Admin: 03/06/18 17:52 Dose: 550 mg Sodium Bicarbonate (Sodium Bicarbonate Tab) 650 mg PO BID [facility] Last Admin: 03/06/18 17:53 Dose: 650 mg Zinc Sulfate (Zinc Sulfate 220 Mg Cap) 220 mg PO DAILY [facility] Last Admin: 03/06/18 10:34 Dose: 220 mg - Labs Labs: 03/06/18 08:00 03/06/18 08:00 PT 17.4 SECONDS (9.7-12.2) H 03/06/18 08:00 INR 1.5 03/06/18 08:00 APTT 35 SECONDS (21-34) H 03/05/18 12:08 - Constitutional Appears: Non-toxic, No Acute Distress - Head Exam Head Exam: NORMAL INSPECTION - Eye Exam Eye Exam: EOMI, Normal appearance - ENT Exam ENT Exam: Mucous Membranes Moist - Respiratory Exam Respiratory Exam: Clear to Ausculation Bilateral - Cardiovascular Exam Cardiovascular Exam: +S1, +S2 - GI/Abdominal Exam GI & Abdominal Exam: Soft, Normal Bowel Sounds Additional comments: non tender to palpation in four quadrants - Extremities Exam Extremities Exam: Normal Inspection - Skin Skin Exam: Abrasion Additional comments: multiple excoriated lesions on b/l extremities Assessment and Plan - Assessment and Plan (Free Text) Assessment: HCV decompensated cirrhosis AMS - hepatic encephalopathy Acute on chronic renal insufficiency Plan: - Low sodium diet as tolerated - Abdominal US reviewed by me, minimal micah-hepatic ascites present - Continue with lactulose and xifaxan regimen for HE prevention - Creatinine improved on current regimen, continue to monitor - After hospital discharge, patient should follow up at [facility] liver clinic for transplant evaluation
[2018-03-07 08:42] LABS: INR 1.6; PROTHROMBIN TIME 18.6 SECONDS (9.7-12.2)
[2018-03-07 08:43] LABS: BASO # 0.1 K/uL (0.0-0.2); EOS # 0.2 K/uL (0.0-0.7); EOS % 3.3 % (0.0-4.0); HEMOGLOBIN 10.8 g/dL (12.0-18.0); LYMPH # 0.6 K/uL (1.0-4.3); LYMPH % 8.8 % (20.0-40.0); MEAN CELL VOLUME 87.8 fL (80.0-94.0); MEAN CORPUSCULAR HEMOGLOBIN 30.2 pg (27.0-31.0); MEAN CORPUSCULAR HGB CONC 34.4 g/dL (33.0-37.0); MEAN PLATELET VOLUME 9.7 fL (7.2-11.7); MONO # 0.8 K/uL (0.0-0.8); MONO % 12.5 % (0.0-10.0); NEUT # 4.6 K/uL (1.8-7.0); NEUT % 74.4 % (50.0-75.0); NRBC % 0.1 % (0.0-2.0); PLATELET COUNT 117 K/uL (130-400); RBC 3.58 Mil/uL (4.40-5.90); RED CELL DISTRIBUTION WIDTH 15.8 % (11.5-14.5); WHITE BLOOD COUNT 6.2 K/uL (4.8-10.8)
[2018-03-07 08:57] LABS: ALB/GLOB RATIO 0.9 (1.0-2.1); ALBUMIN 2.9 g/dL (3.5-5.0); CALCIUM 7.8 mg/dl (8.6-10.4)
[2018-03-07 09:31] LABS: BANDS 1 % (0-2); EOSINOPHIL 2 % (0-4); LYMPHOCYTE 8 % (20-40); MONOCYTE 10 % (0-10); NEUTROPHIL 79 % (50-75); PLATELET ESTIMATE SLIGHTLY DECREASED (NORMAL); TOTAL CELLS COUNTED 100
[2018-03-07 09:32] LABS: ANISOCYTOSIS SLIGHT; HYPOCHROMIC SLIGHT; TOXIC GRANULATION PRESENT
[2018-03-07 09:33] LABS: OVALOCYTES SLIGHT; POIKILOCYTOSIS SLIGHT; POLYCHROMIC SLIGHT
[2018-03-07] MEDS: Pantoprazole 40 mg EC Tab PO SCH (10:23)
[2018-03-07 17:32] LABS: CREATININE, RANDOM URINE 76.8 mg/dL
--- NOTE | 2018-03-07 18:05 | CP.PCM.PN ---
Subjective - Date & Time of Evaluation Date of Evaluation: 03/07/18 Time of Evaluation: 08:40 - Subjective Subjective: clinically same Objective - Vital Signs/Intake and Output Vital Signs (last 24 hours): Temp Pulse Resp BP Pulse Ox 98.0 F 75 20 111/71 97 03/07/18 15:00 03/07/18 15:00 03/07/18 15:00 03/07/18 15:00 03/07/18 15:00 Intake and Output: 03/07/18 03/07/18 06:59 18:59 Intake Total 450 450 Balance 450 450 - Medications Medications: Current Medications Albumin Human (Albumin Human 25% (12.5 Gm/50 Ml)) 100 mls @ 100 mls/hr IV Q8H [facility] Stop: 03/08/18 15:59 Last Admin: 03/07/18 14:57 Dose: 100 mls/hr Lactulose (Enulose) 20 gm PO TID [facility] Last Admin: 03/07/18 17:26 Dose: 20 gm Midodrine (Proamatine) 10 mg PO TID [facility] Last Admin: 03/07/18 17:26 Dose: 10 mg Octreotide Acetate (Sandostatin) 200 mcg SC Q8 [facility] Last Admin: 03/07/18 14:57 Dose: 200 mcg Pantoprazole Sodium (Protonix Ec Tab) 40 mg PO DAILY [facility] Last Admin: 03/07/18 10:23 Dose: 40 mg Phenytoin Sodium (Dilantin) 300 mg PO DAILY [facility] Last Admin: 03/07/18 10:28 Dose: 300 mg Pneumococcal Polyvalent Vaccine (Pneumovax 23 Vaccine) 0.5 ml IM .ONCE ONE Stop: 03/08/18 10:01 Rifaximin (Xifaxan) 550 mg PO BID [facility] PRN Reason: Protocol Last Admin: 03/07/18 17:26 Dose: 550 mg Sodium Bicarbonate (Sodium Bicarbonate Tab) 650 mg PO BID [facility] Last Admin: 03/07/18 17:26 Dose: 650 mg Zinc Sulfate (Zinc Sulfate 220 Mg Cap) 220 mg PO DAILY [facility] Last Admin: 03/07/18 10:23 Dose: 220 mg - Labs Labs: 03/07/18 08:26 03/07/18 08:26 PT 18.6 SECONDS (9.7-12.2) H 03/07/18 08:26 INR 1.6 03/07/18 08:26 APTT 35 SECONDS (21-34) H 03/05/18 12:08 - Constitutional Appears: Well - Head Exam Head Exam: ATRAUMATIC, NORMAL INSPECTION, NORMOCEPHALIC - Eye Exam Eye Exam: EOMI, Normal appearance, PERRL Pupil Exam: NORMAL ACCOMODATION, PERRL - ENT Exam ENT Exam: Mucous Membranes Moist, Normal Exam - Neck Exam Neck Exam: Full ROM, Normal Inspection. absent: Lymphadenopathy - Respiratory Exam Respiratory Exam: Decreased Breath Sounds - Cardiovascular Exam Cardiovascular Exam: REGULAR RHYTHM, +S1, +S2 - GI/Abdominal Exam GI & Abdominal Exam: Soft, Diminished Bowel Sounds - Rectal Exam Rectal Exam: Deferred Assessment and Plan (1) Acute encephalopathy Status: Acute (2) Hyperammonemia Status: Acute (3) Abdominal pain Status: Acute (4) Cirrhosis Status: Acute (5) Drug abuse Status: Acute (6) Drug dependence Status: Acute
--- NOTE | 2018-03-07 22:38 | CP.PCM.PN ---
Subjective - Date & Time of Evaluation Date of Evaluation: 03/07/18 Time of Evaluation: 13:00 - Subjective Subjective: Assessment: stable Recurrent Acute Kidney Injury (N17.9) likely due to hepato-renal syndrome Type 1 Chronic Hep C with cirrhosis and hepatic encephalopathy Hyponatremia, acidosis Plan No acute need for renal replacement therapy at this time. Maintain hemodynamics stable. Patient not on ACEI/ARB due to CLARA Monitor Input/Output, daily weights and renal function with basic metabolic panel continue with po midodrine to 10 mg and octreotide 200 mcg sc three times a day also on sodium bicarb continue with IV albumin overall prognosis poor Dose meds/antibiotics for reduced GFR Physical Examination: General Appearance: Comfortable, in no acute respiratory distress, co- operative. facial muscles wasted Vitals reviewed Head; Atraumatic, normocephalic ENT: no ulcers no thrush. Tongue is midline. Oropharynx: no rash or ulcers. EYES:Eye muscles and extraocular movement intact. Sclera is anicteric. Neck; supple no lymphadenopathy, no thyromegaly or bruit Lungs: Normal respiratory rate/effort. Breath sounds reduced at bases Heart: Normal rate. s1s2 normal. No rub or gallop. Extremities: no edema. No varicose veins Neurological: Patient is alert, awake and disoriented no focal deficit. Skin: Warm and dry. Normal turgor. No rash. Abdomen: Abdomen is soft. Bowel sounds +. There is no abdominal tenderness, no guarding/rigidity no organomegaly. abdomen is ascitic Psych: limited insight and flat affect/mood MSK: no joint tenderness or swelling. Objective - Vital Signs/Intake and Output Vital Signs (last 24 hours): Temp Pulse Resp BP Pulse Ox 98.0 F 75 20 111/71 97 03/07/18 15:00 03/07/18 15:00 03/07/18 15:00 03/07/18 15:00 03/07/18 15:00 Intake and Output: 03/07/18 03/08/18 18:59 06:59 Intake Total 450 Balance 450 - Medications Medications: Current Medications Albumin Human (Albumin Human 25% (12.5 Gm/50 Ml)) 100 mls @ 100 mls/hr IV Q8H [facility] Stop: 03/08/18 15:59 Last Admin: 03/07/18 21:56 Dose: 100 mls/hr Lactulose (Enulose) 20 gm PO TID [facility] Last Admin: 03/07/18 17:26 Dose: 20 gm Midodrine (Proamatine) 10 mg PO TID [facility] Last Admin: 03/07/18 17:26 Dose: 10 mg Morphine Sulfate (Morphine) 2 mg IVP Q6 PRN PRN Reason: Pain, moderate (4-7) Octreotide Acetate (Sandostatin) 200 mcg SC Q8 [facility] Last Admin: 03/07/18 21:55 Dose: 200 mcg Pantoprazole Sodium (Protonix Ec Tab) 40 mg PO DAILY [facility] Last Admin: 03/07/18 10:23 Dose: 40 mg Phenytoin Sodium (Dilantin) 300 mg PO DAILY [facility] Last Admin: 03/07/18 10:28 Dose: 300 mg Pneumococcal Polyvalent Vaccine (Pneumovax 23 Vaccine) 0.5 ml IM .ONCE ONE Stop: 03/08/18 10:01 Rifaximin (Xifaxan) 550 mg PO BID [facility] PRN Reason: Protocol Last Admin: 03/07/18 17:26 Dose: 550 mg Sodium Bicarbonate (Sodium Bicarbonate Tab) 650 mg PO BID [facility] Last Admin: 03/07/18 17:26 Dose: 650 mg Zinc Sulfate (Zinc Sulfate 220 Mg Cap) 220 mg PO DAILY [facility] Last Admin: 03/07/18 10:23 Dose: 220 mg - Labs Labs: 03/07/18 08:26 03/07/18 08:26 PT 18.6 SECONDS (9.7-12.2) H 03/07/18 08:26 INR 1.6 03/07/18 08:26 APTT 35 SECONDS (21-34) H 03/05/18 12:08
[2018-03-07] MEDS: Morphine 4 MG/ML VIAL IVP PRN (23:04)
[2018-03-08 07:51] LABS: INR 1.7; PROTHROMBIN TIME 20.3 SECONDS (9.7-12.2)
[2018-03-08 07:55] LABS: BASO % 0.5 % (0.0-2.0); EOS # 0.2 K/uL (0.0-0.7); EOS % 1.8 % (0.0-4.0); HEMOGLOBIN 10.9 g/dL (12.0-18.0); LYMPH # 0.6 K/uL (1.0-4.3); LYMPH % 6.3 % (20.0-40.0); MEAN CORPUSCULAR HEMOGLOBIN 30.7 pg (27.0-31.0); MEAN CORPUSCULAR HGB CONC 34.9 g/dL (33.0-37.0); MEAN PLATELET VOLUME 9.4 fL (7.2-11.7); MONO % 10.8 % (0.0-10.0); NEUT # 7.3 K/uL (1.8-7.0); NEUT % 80.6 % (50.0-75.0); PLATELET COUNT 114 K/uL (130-400); RBC 3.55 Mil/uL (4.40-5.90); RED CELL DISTRIBUTION WIDTH 16.1 % (11.5-14.5); WHITE BLOOD COUNT 9.1 K/uL (4.8-10.8)
[2018-03-08 08:10] LABS: ALB/GLOB RATIO 0.9 (1.0-2.1); ALT/SGPT 28 U/L (21-72); AST/SGOT 41 U/L (17-59); BLOOD UREA NITROGEN 59 mg/dL (9-20); CALCIUM 7.8 mg/dl (8.6-10.4); GFR AFRICAN-AMERICAN > 60; GFR NON-AFRICAN AMERICAN 58
--- NOTE | 2018-03-08 08:19 | CP.PCM.PN ---
Subjective - Date & Time of Evaluation Date of Evaluation: 03/08/18 Time of Evaluation: 08:13 - Subjective Subjective: Patient seen and examined, ambulating in room, appears comfortable. No acute events overnight, he continues to report intermittent right sided abdominal pain at pleurex catheter site. He had 3 loose bowel movements overnight and denies abdominal pain, nausea, vomiting, fever/chills. Tolerating PO diet without difficulty. 12 point review of systems performed, negative aside from mentioned above. Objective - Vital Signs/Intake and Output Vital Signs (last 24 hours): Temp Pulse Resp BP Pulse Ox 98 F 81 20 109/64 98 03/07/18 23:21 03/07/18 23:21 03/07/18 23:21 03/07/18 23:21 03/07/18 23:21 Intake and Output: 03/08/18 03/08/18 06:59 18:59 Intake Total 450 Balance 450 - Medications Medications: Current Medications Albumin Human (Albumin Human 25% (12.5 Gm/50 Ml)) 100 mls @ 100 mls/hr IV Q8H [facility] Stop: 03/08/18 15:59 Last Admin: 03/08/18 06:08 Dose: 100 mls/hr Lactulose (Enulose) 20 gm PO TID [facility] Last Admin: 03/07/18 17:26 Dose: 20 gm Midodrine (Proamatine) 10 mg PO TID [facility] Last Admin: 03/07/18 17:26 Dose: 10 mg Morphine Sulfate (Morphine) 2 mg IVP Q6 PRN PRN Reason: Pain, moderate (4-7) Last Admin: 03/07/18 23:04 Dose: 2 mg Octreotide Acetate (Sandostatin) 200 mcg SC Q8 [facility] Last Admin: 03/08/18 05:45 Dose: 200 mcg Pantoprazole Sodium (Protonix Ec Tab) 40 mg PO DAILY [facility] Last Admin: 03/07/18 10:23 Dose: 40 mg Phenytoin Sodium (Dilantin) 300 mg PO DAILY [facility] Last Admin: 03/07/18 10:28 Dose: 300 mg Pneumococcal Polyvalent Vaccine (Pneumovax 23 Vaccine) 0.5 ml IM .ONCE ONE Stop: 03/08/18 10:01 Rifaximin (Xifaxan) 550 mg PO BID [facility] PRN Reason: Protocol Last Admin: 03/07/18 17:26 Dose: 550 mg Sodium Bicarbonate (Sodium Bicarbonate Tab) 650 mg PO BID [facility] Last Admin: 03/07/18 17:26 Dose: 650 mg Zinc Sulfate (Zinc Sulfate 220 Mg Cap) 220 mg PO DAILY [facility] Last Admin: 03/07/18 10:23 Dose: 220 mg - Labs Labs: 03/08/18 07:40 03/08/18 07:40 PT 20.3 SECONDS (9.7-12.2) H 03/08/18 07:40 INR 1.7 03/08/18 07:40 APTT 35 SECONDS (21-34) H 03/05/18 12:08 - Constitutional Appears: Non-toxic, No Acute Distress - Head Exam Head Exam: NORMAL INSPECTION - Eye Exam Eye Exam: EOMI, Normal appearance - ENT Exam ENT Exam: Mucous Membranes Moist - Respiratory Exam Respiratory Exam: Clear to Ausculation Bilateral - Cardiovascular Exam Cardiovascular Exam: +S1, +S2 - GI/Abdominal Exam GI & Abdominal Exam: Soft, Normal Bowel Sounds Additional comments: non tender to palpation in four quadrants - Extremities Exam Extremities Exam: Normal Inspection - Skin Skin Exam: Abrasion Additional comments: b/l upper extremities, trunk Assessment and Plan - Assessment and Plan (Free Text) Assessment: HCV decompensated cirrhosis Altered mental status, resolved - hepatic encephalopathy Acute on chronic renal insufficiency - prerenal vs HRS Plan: - Low sodium diet as tolerated - Continue with lactulose and xifaxan regimen for HE prevention - Continue to monitor creatinine, follow up renal recommendations. Currently being treated for suspected HRS, diuretics on hold. - No further planned GI interventions, patient has follow up appointment at [facility] liver clinic on March 10. Will sign off case, please reconsult as necessary, thank you.
[2018-03-08 08:44] LABS: BANDS 1 % (0-2); EOSINOPHIL 1 % (0-4); LYMPHOCYTE 5 % (20-40); MONOCYTE 9 % (0-10); NEUTROPHIL 84 % (50-75); PLATELET ESTIMATE SLIGHTLY DECREASED (NORMAL); TOTAL CELLS COUNTED 100
[2018-03-08 08:45] LABS: ANISOCYTOSIS SLIGHT; HYPOCHROMIC SLIGHT; LARGE PLATELETS PRESENT; POLYCHROMIC SLIGHT; TOXIC GRANULATION PRESENT
[2018-03-08] MEDS: Pantoprazole 40 mg EC Tab PO SCH (09:59)
[2018-03-08] MEDS ORDERED: Pneumococcal 23-Valent Vaccine IM ONE (10:00)
--- NOTE | 2018-03-08 15:09 | CP.PCM.PN ---
Subjective - Date & Time of Evaluation Date of Evaluation: 03/08/18 Time of Evaluation: 08:20 - Subjective Subjective: clinically same Objective - Vital Signs/Intake and Output Vital Signs (last 24 hours): Temp Pulse Resp BP Pulse Ox 98.5 F 82 20 115/75 97 03/08/18 13:38 03/08/18 13:38 03/08/18 13:38 03/08/18 13:38 03/08/18 13:38 Intake and Output: 03/08/18 03/08/18 06:59 18:59 Intake Total 450 Output Total 800 Balance 450 -800 - Medications Medications: Current Medications Albumin Human (Albumin Human 25% (12.5 Gm/50 Ml)) 100 mls @ 100 mls/hr IV Q8H [facility] Stop: 03/08/18 15:59 Last Admin: 03/08/18 15:00 Dose: 100 mls/hr Lactulose (Enulose) 20 gm PO TID [facility] Last Admin: 03/08/18 14:58 Dose: Not Given Midodrine (Proamatine) 10 mg PO TID [facility] Last Admin: 03/08/18 14:58 Dose: 10 mg Morphine Sulfate (Morphine) 2 mg IVP Q6 PRN PRN Reason: Pain, moderate (4-7) Last Admin: 03/07/18 23:04 Dose: 2 mg Octreotide Acetate (Sandostatin) 200 mcg SC Q8 [facility] Last Admin: 03/08/18 14:58 Dose: 200 mcg Pantoprazole Sodium (Protonix Ec Tab) 40 mg PO DAILY [facility] Last Admin: 03/08/18 09:59 Dose: 40 mg Phenytoin Sodium (Dilantin) 300 mg PO DAILY [facility] Last Admin: 03/08/18 09:59 Dose: 300 mg Rifaximin (Xifaxan) 550 mg PO BID [facility] PRN Reason: Protocol Last Admin: 03/08/18 10:00 Dose: 550 mg Sodium Bicarbonate (Sodium Bicarbonate Tab) 650 mg PO BID [facility] Last Admin: 03/08/18 09:59 Dose: 650 mg Zinc Sulfate (Zinc Sulfate 220 Mg Cap) 220 mg PO DAILY [facility] Last Admin: 03/08/18 10:10 Dose: 220 mg - Labs Labs: 03/08/18 07:40 03/08/18 07:40 PT 20.3 SECONDS (9.7-12.2) H 03/08/18 07:40 INR 1.7 03/08/18 07:40 APTT 35 SECONDS (21-34) H 03/05/18 12:08 - Constitutional Appears: Well - Head Exam Head Exam: ATRAUMATIC, NORMAL INSPECTION, NORMOCEPHALIC - Eye Exam Eye Exam: EOMI, Normal appearance, PERRL Pupil Exam: NORMAL ACCOMODATION, PERRL - ENT Exam ENT Exam: Mucous Membranes Moist, Normal Exam - Neck Exam Neck Exam: Full ROM, Normal Inspection. absent: Lymphadenopathy - Respiratory Exam Respiratory Exam: Decreased Breath Sounds - Cardiovascular Exam Cardiovascular Exam: REGULAR RHYTHM, +S1, +S2 - GI/Abdominal Exam GI & Abdominal Exam: Soft, Diminished Bowel Sounds - Rectal Exam Rectal Exam: Deferred Assessment and Plan (1) Acute encephalopathy Status: Acute (2) Hyperammonemia Status: Acute (3) Abdominal pain Status: Acute (4) Cirrhosis Status: Acute (5) Drug abuse Status: Acute (6) Drug dependence Status: Acute
[2018-03-09] MEDS: Morphine 4 MG/ML VIAL IVP PRN ×3 (01:14→20:48)
[2018-03-09 07:20] LABS: BASO % 0.5 % (0.0-2.0); EOS # 0.2 K/uL (0.0-0.7); EOS % 2.7 % (0.0-4.0); LYMPH # 0.9 K/uL (1.0-4.3); LYMPH % 10.1 % (20.0-40.0); MEAN CORPUSCULAR HGB CONC 35.2 g/dL (33.0-37.0); MEAN PLATELET VOLUME 9.3 fL (7.2-11.7); MONO % 11.4 % (0.0-10.0); NEUT # 6.5 K/uL (1.8-7.0); NEUT % 75.3 % (50.0-75.0); RBC 3.55 Mil/uL (4.40-5.90); RED CELL DISTRIBUTION WIDTH 16.1 % (11.5-14.5); WHITE BLOOD COUNT 8.6 K/uL (4.8-10.8)
[2018-03-09 07:28] LABS: INR 1.9; PROTHROMBIN TIME 21.6 SECONDS (9.7-12.2)
[2018-03-09 07:37] LABS: ALB/GLOB RATIO 0.8 (1.0-2.1); ALBUMIN 2.8 g/dL (3.5-5.0); ALT/SGPT 33 U/L (21-72); AST/SGOT 40 U/L (17-59); BLOOD UREA NITROGEN 49 mg/dL (9-20); CALCIUM 7.9 mg/dl (8.6-10.4); GFR AFRICAN-AMERICAN > 60; GFR NON-AFRICAN AMERICAN 58
[2018-03-09] MEDS: Pantoprazole 40 mg EC Tab PO SCH (09:46)
--- NOTE | 2018-03-09 13:44 | CP.PCM.PN ---
Subjective - Date & Time of Evaluation Date of Evaluation: 03/09/18 Time of Evaluation: 10:00 - Subjective Subjective: clinically same Objective - Vital Signs/Intake and Output Vital Signs (last 24 hours): Temp Pulse Resp BP Pulse Ox 98.5 F 85 20 98/54 L 95 03/09/18 09:21 03/09/18 09:21 03/09/18 09:21 03/09/18 09:21 03/09/18 09:21 Intake and Output: 03/09/18 03/09/18 06:59 18:59 Intake Total 200 240 Output Total 1850 350 Balance -1650 -110 - Medications Medications: Current Medications Lactulose (Enulose) 20 gm PO TID [facility] Last Admin: 03/09/18 09:46 Dose: 20 gm Midodrine (Proamatine) 10 mg PO TID [facility] Last Admin: 03/09/18 09:46 Dose: 10 mg Morphine Sulfate (Morphine) 2 mg IVP Q6 PRN PRN Reason: Pain, moderate (4-7) Last Admin: 03/09/18 09:00 Dose: 2 mg Octreotide Acetate (Sandostatin) 200 mcg SC Q8 [facility] Last Admin: 03/09/18 06:04 Dose: 200 mcg Pantoprazole Sodium (Protonix Ec Tab) 40 mg PO DAILY [facility] Last Admin: 03/09/18 09:46 Dose: 40 mg Phenytoin Sodium (Dilantin) 300 mg PO DAILY [facility] Last Admin: 03/09/18 09:46 Dose: 300 mg Rifaximin (Xifaxan) 550 mg PO BID [facility] PRN Reason: Protocol Last Admin: 03/09/18 09:46 Dose: 550 mg Sodium Bicarbonate (Sodium Bicarbonate Tab) 650 mg PO BID [facility] Last Admin: 03/09/18 09:47 Dose: 650 mg Zinc Sulfate (Zinc Sulfate 220 Mg Cap) 220 mg PO DAILY [facility] Last Admin: 03/09/18 09:47 Dose: 220 mg - Labs Labs: 03/09/18 06:56 03/09/18 06:56 PT 21.6 SECONDS (9.7-12.2) H 03/09/18 06:56 INR 1.9 03/09/18 06:56 APTT 35 SECONDS (21-34) H 03/05/18 12:08 - Constitutional Appears: Well - Head Exam Head Exam: ATRAUMATIC, NORMAL INSPECTION, NORMOCEPHALIC - Eye Exam Eye Exam: EOMI, Normal appearance, PERRL Pupil Exam: NORMAL ACCOMODATION, PERRL - ENT Exam ENT Exam: Mucous Membranes Moist, Normal Exam - Neck Exam Neck Exam: Full ROM, Normal Inspection. absent: Lymphadenopathy - Respiratory Exam Respiratory Exam: Decreased Breath Sounds - Cardiovascular Exam Cardiovascular Exam: REGULAR RHYTHM, +S1, +S2 - GI/Abdominal Exam GI & Abdominal Exam: Soft, Diminished Bowel Sounds - Rectal Exam Rectal Exam: Deferred Assessment and Plan (1) Acute encephalopathy Status: Acute (2) Hyperammonemia Status: Acute (3) Abdominal pain Status: Acute (4) Cirrhosis Status: Acute (5) Drug abuse Status: Acute (6) Drug dependence Status: Acute
--- NOTE | 2018-03-09 13:55 | PCM.PSYCH ---
Initial Psychiatric Evaluation - Initial Psychiatric Evaluation Type of Admission: Voluntary Legal Status: Capacity Chief Complaint (in patient's own words): Consult for Substance Abuse History of Present Illness and Precipitating Events: This is a 52 year old male, who is unemployed and lives alone, who came to ED on 03/05/2018 for elevated ammonia levels. Patient has history of opioid use disorder. Patient states he was in [facility] but has stopped attending for the past month. He was taking 70mg of methadone a day. Patient states he used to use heroin, 2-3 bags per day, but has not used in 18 months. Patient states he currently has withdrawal symptoms. He states he has previously been to detox/rehab at [facility]. He states his longest sobriety was 7 months. Patient denies alcohol use. He states he has not consumed alcohol in 10 years. Patient denies other illicit drug use. Patient denies psychiatric hospitalization in the past. Patient denies depression, anxiety, hallucinations, or suicidal ideation. medical history: Hepatitis psych history: denies Current Medications: Active Medications Generic Name Dose Route Start Last Admin Trade Name Freq PRN Reason Stop Dose Admin Lactulose 20 gm 03/06/18 14:00 03/09/18 09:46 Enulose PO 20 gm TID [facility] Administration Midodrine 10 mg 03/06/18 11:00 03/09/18 09:46 Proamatine PO 10 mg TID [facility] Administration Morphine Sulfate 2 mg 03/07/18 21:00 03/09/18 09:00 Morphine IVP 2 mg Q6 PRN Administration Pain, moderate (4-7) Octreotide Acetate 200 mcg 03/06/18 11:00 03/09/18 06:04 Sandostatin SC 200 mcg Q8 [facility] Administration Pantoprazole Sodium 40 mg 03/06/18 10:00 03/09/18 09:46 Protonix Ec Tab PO 40 mg DAILY [facility] Administration Phenytoin Sodium 300 mg 03/06/18 10:00 03/09/18 09:46 Dilantin PO 300 mg DAILY [facility] Administration Rifaximin 550 mg 03/05/18 20:00 03/09/18 09:46 Xifaxan PO 550 mg BID [facility] Administration Protocol Sodium Bicarbonate 650 mg 03/05/18 18:00 03/09/18 09:47 Sodium Bicarbonate Tab PO 650 mg BID [facility] Administration Zinc Sulfate 220 mg 03/06/18 10:00 03/09/18 09:47 Zinc Sulfate 220 Mg Cap PO 220 mg DAILY [facility] Administration Past Psychiatric History - Past Psychiatric History Previous Treatment History: None History of ETOH/Drug Use: Opioid Use Disorder Pertinent Medical Hx (Current Medical&Sleep Prob, Allergies): Allergies Allergy/AdvReac Type Severity Reaction Status Date / Time No Known Allergies Allergy Verified 03/05/18 11:25 Diclofenac Sodium [Voltaren] 75 mg PO BID 02/09/18 Furosemide 40 mg PO DAILY 02/09/18 Midodrine HCl 2.5 mg PO TID 02/09/18 Midodrine [Proamatine] 10 mg PO TID 02/09/18 Phenytoin Sodium Extended 300 mg PO DAILY 02/09/18 Spironolactone [Aldactone] 50 mg PO DAILY 02/09/18 Torsemide 60 mg PO DAILY 02/09/18 Lactulose [Enulose] 20 gm PO BID #60 udc 02/11/18 Rifaximin [Xifaxan] 550 mg PO BID #60 tablet 02/11/18 Lactulose [Generlac] 30 ml TID 03/05/18 Pantoprazole [Protonix] 40 mg PO DAILY 03/05/18 Sodium Bicarbonate 650 mg PO BID 03/05/18 Sulfamethoxazole/Trimethoprim [Bactrim DS 800 mg-160 mg] 1 tab PO BID 03/05/18 Review of Systems - Review of Systems All systems: reviewed and no additional remarkable complaints except - Psychiatric Psychiatric: absent: Anxiety, Depression, Hallucinations, Hopelessness, Paranoia , Suicidal Ideation Mental Status Examination - Personal Presentation Personal Presentation: Looks older than stated age - Affect Affect: Broad - Motor Activity Motor Activity: Calm - Reliability in Providing Information Reliability in Providing Information: Fair - Speech Speech: Organized - Mood Mood: Neutral - Formal Thought Process Formal Thought Process: No Impairment - Obsessions/Compulsions Obsessions: No Compulsions: No - Cognitive Functions Orientation: Person, Place, Situation Sensorium: Lethargic - Limitations Limitations: Living alone DSM 5 DX - DSM 5 DSM 5 Diagnosis: Opioid Use Disorder severe Opioid withdrawal - Recommended/Plan of Treatment Treatment Recommendations and Plan of Treatment: Opioid Use Disorder severe Opioid withdrawal Pt psychiatrically stable and clear for discharge.
--- NOTE | 2018-03-09 14:56 | CP.PCM.PN ---
Subjective - Date & Time of Evaluation Date of Evaluation: 03/09/18 Time of Evaluation: 14:55 - Subjective Subjective: Nephrology Consultation Note Assessment: stable Recurrent Acute Kidney Injury (N17.9) likely due to hepato-renal syndrome Type 1 Chronic Hep C with cirrhosis and hepatic encephalopathy Hyponatremia, acidosis Plan No acute need for renal replacement therapy at this time. Maintain hemodynamics stable. Patient not on ACEI/ARB due to CLARA Monitor Input/Output, daily weights and renal function with basic metabolic panel continue with po midodrine to 10 mg and octreotide 200 mcg sc three times a day also on sodium bicarb s/p IV albumin pt was not considered to be a candidate for liver transplant when seen at [facility] by GI team overall prognosis poor d/c bactrim as well. avoid NSAIDs as voltaren Dose meds/antibiotics for reduced GFR. Avoid fleets enema/magnesium based laxatives. Avoid nephrotoxins/NSAIDs/ iodinated contrast (unless needed emergently) Glycemic control Further work up for as per primary team Thanks for allowing me to participate in care of your patient. Will follow patient with you. Please call if any Qs Dr Sean Ruiz Office: [phone] reason for consult: CLARA HPI: pt is a 52 M with hx of cirrhosis and hepatic encehalopathy, recurent AKIs with hepatorenal syndome and frequent hospitalizations at [facility] , [facility] came with AMS and aso with CLARA hence renal consult. pt says he feels fine, not aware why he is in hospital and feels ready to go home Subjective: Noted events overnight. Patients feels well Denies chest pain, palpitation, shortness of breath, leg swelling. All other negative. wants to go home Physical Examination: General Appearance: Comfortable, in no acute respiratory distress, co- operative. facial muscles wasted Vitals reviewed and noted as below Head; Atraumatic, normocephalic ENT: no ulcers no thrush. Tongue is midline. Oropharynx: no rash or ulcers. EYES: Pupils are equal, round and reactive to light accommodation. Eye muscles and extraocular movement intact. Sclera is anicteric. Neck; supple no lymphadenopathy, no thyromegaly or bruit Lungs: Normal respiratory rate/effort. Breath sounds reduced at Rt base Heart: Normal rate. s1s2 normal. No rub or gallop. Extremities: no edema. No varicose veins Neurological: Patient is alert, awake and more oriented no focal deficit. Strength bilateral appropriate and equal. Skin: Warm and dry. Normal turgor. No rash. Palpitation: Normal elasticity for age Abdomen: Abdomen is soft. Bowel sounds +. There is no abdominal tenderness, no guarding/rigidity no organomegaly. abdomen is ascitic Psych: limited insight and flat affect/mood MSK: no joint tenderness or swelling. Digits and nails normal, no deformity : kidney or bladder not palpable Labs/imaging reviewed. Past medical history, past surgical history, family history, social history, allergy reviewed and noted as below Family hx: no hx of CKD. Rest non-contributory Objective - Vital Signs/Intake and Output Vital Signs (last 24 hours): Temp Pulse Resp BP Pulse Ox 98.5 F 85 20 98/54 L 95 03/09/18 09:21 03/09/18 09:21 03/09/18 09:21 03/09/18 09:21 03/09/18 09:21 Intake and Output: 03/09/18 03/09/18 06:59 18:59 Intake Total 200 240 Output Total 1850 350 Balance -1650 -110 - Medications Medications: Current Medications Lactulose (Enulose) 20 gm PO TID [facility] Last Admin: 03/09/18 14:31 Dose: 20 gm Midodrine (Proamatine) 10 mg PO TID [facility] Last Admin: 03/09/18 14:31 Dose: 10 mg Morphine Sulfate (Morphine) 2 mg IVP Q6 PRN PRN Reason: Pain, moderate (4-7) Last Admin: 03/09/18 09:00 Dose: 2 mg Octreotide Acetate (Sandostatin) 200 mcg SC Q8 [facility] Last Admin: 03/09/18 14:46 Dose: 200 mcg Pantoprazole Sodium (Protonix Ec Tab) 40 mg PO DAILY [facility] Last Admin: 03/09/18 09:46 Dose: 40 mg Phenytoin Sodium (Dilantin) 300 mg PO DAILY [facility] Last Admin: 03/09/18 09:46 Dose: 300 mg Rifaximin (Xifaxan) 550 mg PO BID [facility] PRN Reason: Protocol Last Admin: 03/09/18 09:46 Dose: 550 mg Sodium Bicarbonate (Sodium Bicarbonate Tab) 650 mg PO BID [facility] Last Admin: 03/09/18 09:47 Dose: 650 mg Zinc Sulfate (Zinc Sulfate 220 Mg Cap) 220 mg PO DAILY [facility] Last Admin: 03/09/18 09:47 Dose: 220 mg - Labs Labs: 03/09/18 06:56 03/09/18 06:56 PT 21.6 SECONDS (9.7-12.2) H 03/09/18 06:56 INR 1.9 03/09/18 06:56 APTT 35 SECONDS (21-34) H 03/05/18 12:08
[2018-03-10] MEDS: Morphine 4 MG/ML VIAL IVP PRN ×2 (05:50→11:50)
[2018-03-10 06:03] VITALS: O2SAT 97
[2018-03-10 08:22] VITALS: BP 111/72; PULSE 79; TEMP 98.4
[2018-03-10 09:00] LABS: BASO # 0.1 K/uL (0.0-0.2); EOS # 0.3 K/uL (0.0-0.7); EOS % 3.7 % (0.0-4.0); HEMOGLOBIN 10.9 g/dL (12.0-18.0); LYMPH # 0.7 K/uL (1.0-4.3); LYMPH % 8.9 % (20.0-40.0); MEAN CELL VOLUME 88.3 fL (80.0-94.0); MEAN CORPUSCULAR HEMOGLOBIN 30.3 pg (27.0-31.0); MEAN CORPUSCULAR HGB CONC 34.3 g/dL (33.0-37.0); MEAN PLATELET VOLUME 9.2 fL (7.2-11.7); MONO # 0.8 K/uL (0.0-0.8); MONO % 10.1 % (0.0-10.0); NEUT # 5.9 K/uL (1.8-7.0); NEUT % 76.3 % (50.0-75.0); PLATELET COUNT 122 K/uL (130-400); RBC 3.61 Mil/uL (4.40-5.90); RED CELL DISTRIBUTION WIDTH 16.2 % (11.5-14.5); WHITE BLOOD COUNT 7.7 K/uL (4.8-10.8)
[2018-03-10 09:13] LABS: ALB/GLOB RATIO 0.8 (1.0-2.1); ALBUMIN 2.7 g/dL (3.5-5.0); ALT/SGPT 23 U/L (21-72); AST/SGOT 39 U/L (17-59); BLOOD UREA NITROGEN 43 mg/dL (9-20); CALCIUM 7.7 mg/dl (8.6-10.4); GFR AFRICAN-AMERICAN > 60; GFR NON-AFRICAN AMERICAN 58
[2018-03-10 09:17] LABS: EOSINOPHIL 3 % (0-4); NEUTROPHIL 76 % (50-75); TOTAL CELLS COUNTED 100
[2018-03-10 09:18] LABS: ANISOCYTOSIS SLIGHT; BURR CELLS SLIGHT; HYPOCHROMIC SLIGHT; LYMPHOCYTE 8 % (20-40); MONOCYTE 13 % (0-10); PLATELET ESTIMATE SLIGHTLY DECREASED (NORMAL); POIKILOCYTOSIS SLIGHT; TARGET CELLS SLIGHT
[2018-03-10] MEDS: Pantoprazole 40 mg EC Tab PO SCH (09:41)
[2018-03-10] MEDS: Magnesium Sulfate 1 gm in D5W 1 GM/100 ML BAG IVPB SCH ×2 (10:00→10:59)
--- NOTE | 2018-03-10 10:59 | CP.PCM.PN ---
Subjective - Date & Time of Evaluation Date of Evaluation: 03/10/18 Time of Evaluation: 07:00 - Subjective Subjective: PGY 2 medicine progress note for Dr. Timothy Zheng, Patient was seen and examined at bedside this morning. He states that he is no in any discomfort and wanted to go home. He states that he will take his medications as prescribed outpatient and will follow up with Dr. Timothy Zheng. He reports that he is currently living with his girlfriend. Per social work the family would like the patient to be in full term care but the patient is able to make decisions for himself. NO acute events overnight and the patient ia AA0 x 3. Objective - Vital Signs/Intake and Output Vital Signs (last 24 hours): Temp Pulse Resp BP Pulse Ox 98.4 F 79 20 111/72 97 03/10/18 08:00 03/10/18 08:00 03/10/18 08:00 03/10/18 08:00 03/10/18 08:00 Intake and Output: 03/10/18 03/10/18 06:59 18:59 Intake Total 400 Balance 400 - Medications Medications: Current Medications Magnesium Sulfate/Dextrose (Magnesium Sulfate 1 Gm/100 Ml D5w) 1 gm in 100 mls @ 100 mls/hr IVPB Q1H [facility] Stop: 03/10/18 11:44 Last Admin: 03/10/18 10:00 Dose: 100 mls/hr Lactulose (Enulose) 20 gm PO TID [facility] Last Admin: 03/10/18 09:41 Dose: 20 gm Midodrine (Proamatine) 10 mg PO TID [facility] Last Admin: 03/10/18 09:41 Dose: 10 mg Morphine Sulfate (Morphine) 2 mg IVP Q6 PRN PRN Reason: Pain, moderate (4-7) Last Admin: 03/10/18 05:50 Dose: 2 mg Octreotide Acetate (Sandostatin) 200 mcg SC Q8 [facility] Last Admin: 03/10/18 06:00 Dose: 200 mcg Pantoprazole Sodium (Protonix Ec Tab) 40 mg PO DAILY [facility] Last Admin: 03/10/18 09:41 Dose: 40 mg Phenytoin Sodium (Dilantin) 300 mg PO DAILY [facility] Last Admin: 03/10/18 09:41 Dose: 300 mg Rifaximin (Xifaxan) 550 mg PO BID [facility] PRN Reason: Protocol Last Admin: 03/10/18 09:41 Dose: 550 mg Sodium Bicarbonate (Sodium Bicarbonate Tab) 650 mg PO BID [facility] Last Admin: 03/10/18 09:42 Dose: 650 mg Zinc Sulfate (Zinc Sulfate 220 Mg Cap) 220 mg PO DAILY [facility] Last Admin: 03/10/18 09:42 Dose: 220 mg - Labs Labs: 03/10/18 08:54 03/10/18 08:54 PT 21.6 SECONDS (9.7-12.2) H 03/09/18 06:56 INR 1.9 03/09/18 06:56 APTT 35 SECONDS (21-34) H 03/05/18 12:08 - Constitutional Appears: Non-toxic, No Acute Distress - Head Exam Head Exam: NORMAL INSPECTION - Eye Exam Eye Exam: EOMI, PERRL Pupil Exam: NORMAL ACCOMODATION - ENT Exam ENT Exam: Mucous Membranes Moist - Respiratory Exam Respiratory Exam: Clear to Ausculation Bilateral, NORMAL BREATHING PATTERN. absent: Respiratory Distress - Cardiovascular Exam Cardiovascular Exam: REGULAR RHYTHM, +S1, +S2 - GI/Abdominal Exam GI & Abdominal Exam: Distended, Soft, Normal Bowel Sounds. absent: Firm, Guarding, Tenderness - Extremities Exam Extremities Exam: Normal Inspection - Back Exam Back Exam: NORMAL INSPECTION - Neurological Exam Neurological Exam: Alert, Awake, CN II-XII Intact, Normal Gait, Oriented x3 - Psychiatric Exam Psychiatric exam: Normal Affect, Normal Mood - Skin Skin Exam: Dry, Intact, Normal Color, Warm Assessment and Plan - Assessment and Plan (Free Text) Assessment: Decompensated cirrhosis Hepatic encephalopathy Lactulose and Xifaxan patient has follow up appointment at [facility] liver clinic on March 10, as of now not deemed a candidate for liver transplantation HCV for outpatient follow up CLARA secondary to hepatorenal syndrome Nephrology consultes Midodrine 10mg and Octreotide 20mcg TID Sodium bicarb Poor prognosis DC bactrim, avoid NSAIDS and voltaren Hypomagnesim Mag sulfate x 2 grams given today Hx seizures Dilantin 300mg PO daily Patient is stable for discharge home. He is to follow up with his PMD Dr. Timothy Zheng within one week of discharge. Patient is to resume all of his current medications. Refills were sent to the [facility] on [address] which he states he is preferred pharmacy. Patient is to return to the emergency room if symptoms return. All instructions explained to the patient and he agree All management per Dr. Timothy Zheng
--- NOTE | 2018-03-10 11:27 | CP.PCM.PN ---
Subjective - Date & Time of Evaluation Date of Evaluation: 03/10/18 Time of Evaluation: 11:26 - Subjective Subjective: Nephrology Consultation Note Assessment: stable Recurrent Acute Kidney Injury (N17.9) likely due to hepato-renal syndrome Type 1 Chronic Hep C with cirrhosis and hepatic encephalopathy Hyponatremia, acidosis Plan No acute need for renal replacement therapy at this time. Maintain hemodynamics stable. Patient not on ACEI/ARB due to CLARA Monitor Input/Output, daily weights and renal function with basic metabolic panel continue with po midodrine to 10 mg and octreotide 200 mcg sc three times a day also on sodium bicarb s/p IV albumin pt was not considered to be a candidate for liver transplant when [place] [facility] [place] overall prognosis poor d/c bactrim as well. avoid NSAIDs as voltaren Dose meds/antibiotics for reduced GFR. Avoid fleets enema/magnesium based laxatives. Avoid nephrotoxins/NSAIDs/ iodinated contrast (unless needed emergently) Glycemic control Further work up for as per primary team pt stable for d/c from renal perspective when planned. continue with octreotide and midodrine, on outpatient basis as well Thanks for allowing me to participate in care of your patient. Will follow patient with you. Please call if any Qs Dr Sean Ruiz Office: [phone] reason for consult: CLARA HPI: pt is a 52 M with hx of cirrhosis and hepatic encehalopathy, recurent AKIs with hepatorenal syndome and [place] [facility] [place] [facility] came with AMS and aso with CLARA hence renal consult. pt says he feels fine, not aware why he is in hospital and feels ready to go home Subjective: Noted events overnight. Patients feels well Denies chest pain, palpitation, shortness of breath, leg swelling. All other negative. wants to go home Physical Examination: General Appearance: Comfortable, in no acute respiratory distress, co- operative. facial muscles wasted Vitals reviewed and noted as below Head; Atraumatic, normocephalic ENT: no ulcers no thrush. Tongue is midline. Oropharynx: no rash or ulcers. EYES: Pupils are equal, round and reactive to light accommodation. Eye muscles and extraocular movement intact. Sclera is anicteric. Neck; supple no lymphadenopathy, no thyromegaly or bruit Lungs: Normal respiratory rate/effort. Breath sounds reduced at Rt base Heart: Normal rate. s1s2 normal. No rub or gallop. Extremities: no edema. No varicose veins Neurological: Patient is alert, awake and more oriented no focal deficit. Strength bilateral appropriate and equal. Skin: Warm and dry. Normal turgor. No rash. Palpitation: Normal elasticity for age Abdomen: Abdomen is soft. Bowel sounds +. There is no abdominal tenderness, no guarding/rigidity no organomegaly. abdomen is ascitic Psych: limited insight and flat affect/mood MSK: no joint tenderness or swelling. Digits and nails normal, no deformity : kidney or bladder not palpable Labs/imaging reviewed. Past medical history, past surgical history, family history, social history, allergy reviewed and noted as below Family hx: no hx of CKD. Rest non-contributory Objective - Vital Signs/Intake and Output Vital Signs (last 24 hours): Temp Pulse Resp BP Pulse Ox 98.4 F 79 20 111/72 97 03/10/18 08:00 03/10/18 08:00 03/10/18 08:00 03/10/18 08:00 03/10/18 08:00 Intake and Output: 03/10/18 03/10/18 06:59 18:59 Intake Total 400 Balance 400 - Medications Medications: Current Medications Magnesium Sulfate/Dextrose (Magnesium Sulfate 1 Gm/100 Ml D5w) 1 gm in 100 mls @ 100 mls/hr IVPB Q1H [facility] Stop: 03/10/18 11:44 Last Admin: 03/10/18 10:59 Dose: 100 mls/hr Lactulose (Enulose) 20 gm PO TID [facility] Last Admin: 03/10/18 09:41 Dose: 20 gm Midodrine (Proamatine) 10 mg PO TID [facility] Last Admin: 03/10/18 09:41 Dose: 10 mg Morphine Sulfate (Morphine) 2 mg IVP Q6 PRN PRN Reason: Pain, moderate (4-7) Last Admin: 03/10/18 05:50 Dose: 2 mg Octreotide Acetate (Sandostatin) 200 mcg SC Q8 [facility] Last Admin: 03/10/18 06:00 Dose: 200 mcg Pantoprazole Sodium (Protonix Ec Tab) 40 mg PO DAILY [facility] Last Admin: 03/10/18 09:41 Dose: 40 mg Phenytoin Sodium (Dilantin) 300 mg PO DAILY [facility] Last Admin: 03/10/18 09:41 Dose: 300 mg Rifaximin (Xifaxan) 550 mg PO BID [facility] PRN Reason: Protocol Last Admin: 03/10/18 09:41 Dose: 550 mg Sodium Bicarbonate (Sodium Bicarbonate Tab) 650 mg PO BID [facility] Last Admin: 03/10/18 09:42 Dose: 650 mg Zinc Sulfate (Zinc Sulfate 220 Mg Cap) 220 mg PO DAILY [facility] Last Admin: 03/10/18 09:42 Dose: 220 mg - Labs Labs: 03/10/18 08:54 03/10/18 08:54 PT 21.6 SECONDS (9.7-12.2) H 03/09/18 06:56 INR 1.9 03/09/18 06:56 APTT 35 SECONDS (21-34) H 03/05/18 12:08
== END 2018-03-10 14:52 | disposition home or self-care (01) | DRG 557 ==
LOC: C.ER 11:08 → C.9E 13:03 → C.3T 13:29
PROVIDERS: ADMIT Internal Medicine Nephrology; ATTEND Internal Medicine Nephrology
DX: K74.60 Unspecified cirrhosis of liver (principal); K72.90 Hepatic failure, unspecified without coma; N17.9 Acute kidney failure, unspecified; F11.23 Opioid dependence with withdrawal; E87.1 Hypo-osmolality and hyponatremia; B18.2 Chronic viral hepatitis C; E87.2 Acidosis; N18.9 Chronic kidney disease, unspecified; I12.9 Hypertensive chronic kidney disease with stage 1 through stage 4 chronic kidney disease, or unspecified chronic kidney disease; Z91.19 Patient's noncompliance with other medical treatment and regimen; F17.210 Nicotine dependence, cigarettes, uncomplicated

== ENCOUNTER 2018-03-15 14:59 | Inpatient (IN) | payer MEDICAID ==
[2018-03-15 16:36] LABS: BASO # 0.1 K/uL (0.0-0.2); BASO % 0.8 % (0.0-2.0); EOS # 0.2 K/uL (0.0-0.7); EOS % 1.5 % (0.0-4.0); HEMOGLOBIN 11.8 g/dL (12.0-18.0); LYMPH # 0.5 K/uL (1.0-4.3); LYMPH % 4.7 % (20.0-40.0); MEAN CELL VOLUME 87.4 fL (80.0-94.0); MEAN CORPUSCULAR HEMOGLOBIN 29.8 pg (27.0-31.0); MEAN CORPUSCULAR HGB CONC 34.1 g/dL (33.0-37.0); MEAN PLATELET VOLUME 9.8 fL (7.2-11.7); MONO # 1.4 K/uL (0.0-0.8); MONO % 12.6 % (0.0-10.0); NEUT # 8.9 K/uL (1.8-7.0); NEUT % 80.4 % (50.0-75.0); RBC 3.96 Mil/uL (4.40-5.90); RED CELL DISTRIBUTION WIDTH 16.1 % (11.5-14.5); WHITE BLOOD COUNT 11.1 K/uL (4.8-10.8)
[2018-03-15 16:43] LABS: PLATELET COUNT 232 K/uL (130-400)
[2018-03-15 16:52] LABS: ALB/GLOB RATIO 0.7 (1.0-2.1); ALBUMIN 2.8 g/dL (3.5-5.0); CALCIUM 8.2 mg/dl (8.6-10.4)
[2018-03-15 17:01] LABS: BANDS 3 % (0-2); BASOPHIL 1 % (0-2); EOSINOPHIL 1 % (0-4); LYMPHOCYTE 4 % (20-40); MONOCYTE 15 % (0-10); NEUTROPHIL 76 % (50-75); PLATELET ESTIMATE NORMAL (NORMAL); TOTAL CELLS COUNTED 100
[2018-03-15 17:02] LABS: ANISOCYTOSIS SLIGHT; HYPOCHROMIC SLIGHT; LARGE PLATELETS PRESENT; OVALOCYTES SLIGHT; POIKILOCYTOSIS SLIGHT
[2018-03-15 17:03] LABS: MICROCYTOSIS SLIGHT
[2018-03-15 17:09] LABS: INR 1.5; PROTHROMBIN TIME 17.6 SECONDS (9.7-12.2)
[2018-03-15 17:42] LABS: TROPONIN I 0.041 ng/mL (0.00-0.120)
--- NOTE | 2018-03-15 17:53 | C.PDOC ---
History Of Present Illness Patient is a 52 y/o male, with a Hx of cirrhosis and hepatic encephalopothy, who presents to the ED with complaints of confusion and decreased appetite. Patient's mother reports paracentisis was performed today at home. Patient reports previous vomiting that has since resolved; otherwise, no other physical complaints at this time. Time Seen by Provider: 03/15/18 16:11 Chief Complaint (Nursing): Abdominal Pain History Per: Patient, Family (mother) History/Exam Limitations: no limitations Onset/Duration Of Symptoms: Hrs Current Symptoms Are (Timing): Still Present Associated Symptoms: Other (decreased appetite) Recent travel outside of the [place]: No Past Medical History Reviewed: Historical Data, Nursing Documentation, Vital Signs Vital Signs: Last Vital Signs Temp 97.6 F 03/15/18 18:45 Pulse 78 03/15/18 18:45 Resp 20 03/15/18 18:45 BP 94/60 L 03/15/18 18:45 Pulse Ox 96 03/15/18 18:45 - Medical History PMH: Hepatitis, HIV Denies: Diabetes, HTN, Chronic Kidney Disease, Seizures, Sexually Transmitted Disease Surgical History: No Surg Hx Family History: States: No Known Family Hx - Social History Hx Tobacco Use: Yes (heavy smoker) Hx Alcohol Use: No Hx Substance Use: Yes (9 MONTHS QUIT) - Immunization History Hx Tetanus Toxoid Vaccination: Yes (unknown) Hx Influenza Vaccination: No (unknown) Hx Pneumococcal Vaccination: No (unknown) Review Of Systems Neurological: Positive for: Confusion Physical Exam - Physical Exam Appears: Well, Non-toxic, No Acute Distress Skin: Warm, Dry, Jaundice Head: Atraumatic, Normacephalic Eye(s): bilateral: Normal Inspection, PERRL, EOMI Oral Mucosa: Moist Chest: Symmetrical Cardiovascular: Rhythm Regular, No Murmur Respiratory: Normal Breath Sounds, No Rales, No Rhonchi, No Wheezing Gastrointestinal/Abdominal: Bowel Sounds (positive), Soft, No Tenderness, Distention, No Guarding, No Rebound, Other (drain in place at right lateral abdominal wall) Neurological/Psych: Other (A&Ox1) ED Course And Treatment - Laboratory Results Result Diagrams: 03/15/18 16:32 03/15/18 16:32 O2 Sat by Pulse Oximetry: 100 Progress Note: CXR, EKG, and UA ordered. Enulose and zofran administered. Patient accepted and admitted to hospitalist. EKG unable to be obtained secondary to patient's combativeness. - Physician Consult Information Physician Contacted: Megan Zheng Outcome Of Conversation: Agrees to admit patient to medical surgeon for hepatic encephalopathy. Medical Decision Making Medical Decision Making: Diagnosis: hepatic encephalopothy Disposition Discussed With Dr.: Megan Zheng Counseled Patient/Family Regarding: Studies Performed, Diagnosis - Disposition Disposition: HOSPITALIZED Disposition Time: 17:53 Condition: FAIR - Clinical Impression Clinical Impression: Hepatic encephalopathy - Scribe Statement The provider has reviewed the documentation as recorded by the Scribe Laurie Gallagher All medical record entries made by the Scribe were at my direction and personally dictated by me. I have reviewed the chart and agree that the record accurately reflects my personal performance of the history, physical exam, medical decision making, and the department course for this patient. I have also personally directed, reviewed, and agree with the discharge instructions and disposition.
[2018-03-15 18:46] VITALS: RESP 20
--- NOTE | 2018-03-15 18:47 | RAD ---
PROCEDURE: CHEST RADIOGRAPH, 1 VIEW HISTORY: abd pain COMPARISON: Comparison is made to 02/13/2018 FINDINGS: LUNGS: Interval new improvement in the right lung since the previous exam. PLEURA: Interval decrease in the size of right pleural effusion since the previous study. CARDIOVASCULAR: Normal. OSSEOUS STRUCTURES: No significant abnormalities. VISUALIZED UPPER ABDOMEN: Normal. OTHER FINDINGS: None. IMPRESSION: Moderate right-sided pleural effusion. Interval mild improvement in the right lung since the previous study.
[2018-03-15] MEDS ORDERED: DiphenhydrAMINE 50 mg/ml Inj IVP PRN (19:49)
[2018-03-16] MEDS ORDERED: Albumin Human 25% (12.5 gm/50 ml) IV SCH (06:45)
[2018-03-16] MEDS ORDERED: Sodium Chloride 0.9% 500 ML IV ONE (06:48)
[2018-03-16] MEDS: Enoxaparin 30 mg Syringe SC SCH (09:58)
[2018-03-16] MEDS ORDERED: Pantoprazole 40 mg EC Tab PO SCH (10:00)
[2018-03-16 11:29] LABS: ALB/GLOB RATIO 0.7 (1.0-2.1); ALBUMIN 2.7 g/dL (3.5-5.0); ALT/SGPT 42 U/L (21-72); AST/SGOT 60 U/L (17-59); BLOOD UREA NITROGEN 60 mg/dL (9-20); CALCIUM 7.7 mg/dl (8.6-10.4); GFR AFRICAN-AMERICAN 45; GFR NON-AFRICAN AMERICAN 37
--- NOTE | 2018-03-16 13:43 | CP.PCM.CON ---
<Matthew Burden - Last Filed: 03/16/18 13:53> History of Present Illness - History of Present Illness History of Present Illness: PGY5 GI Fellow Consult Note Patient is a 52yo male with decompensated cirrhosis c/b hepatic encephalopathy, ascites, suspected hepatorenal syndrome type 1, HTN, prior heroin abuse who presented to the hospital for altered mentation. His cirrhosis has been presumed to be 2/2 chronic HCV infection though his most recent viral load is negative. Per history, he is treatment naive. I called the patient's family as he is unable to participate in the history. His sister, Nickie, states that in the last several days he has become constipated despite use of Lactulose. He became more confused and began vomiting multiple times per day which is when his mother brought him to the ED for further evaluation. Though the ED note suggests patient had a paracentesis yesterday, the family deny this history. Patient has been agitated and physically aggressive with staff since admission. At this time, he seems calm but remains confused. 12 system ROS cannot be assessed given altered mentation. PMHx: See HPI PSHx: Right thoracentesis 12/2017 FHx: Unable to assess at this time Social: Prior heroin abuse, was formerly on methadone but taken off due to liver complications, + tobacco use, +prior EtOH use Endo: No known endoscopic history Past Patient History - Infectious Disease Hx of Infectious Diseases: None - Past Medical History & Family History Past Medical History?: Yes - Past Social History Smoking Status: Light Smoker < 10 Cigarettes Daily - CARDIAC Hx Hypotension: No - PULMONARY Hx Respiratory Disorders: No Hx Tuberculosis: No Other/Comment: tube to right chest to remove fluid - NEUROLOGICAL Hx Seizures: No - HEENT Hx HEENT Problems: No - RENAL Hx Chronic Kidney Disease: No - ENDOCRINE/METABOLIC Hx Endocrine Disorders: No - HEMATOLOGICAL/ONCOLOGICAL Hx Hepatitis C: Yes Hx Human Immunodeficiency Virus (HIV): Yes - INTEGUMENTARY Hx Dermatological Problems: Yes Hx Psoriasis: Yes - MUSCULOSKELETAL/RHEUMATOLOGICAL Hx Falls: No - GASTROINTESTINAL Hx Gastrointestinal Disorders: No - GENITOURINARY/GYNECOLOGICAL Hx Sexually Transmitted Disorders: No - PSYCHIATRIC Hx Substance Use: Yes (pt quit as per records) - SURGICAL HISTORY Hx Surgeries: Yes Other/Comment: DRAIN TO LIVER - ANESTHESIA Hx Anesthesia: No (unknown) Hx Anesthesia Reactions: No Hx Malignant Hyperthermia: No Has any member of the family had a problem w/ anesthesia?: No Meds Allergies/Adverse Reactions: Allergies Allergy/AdvReac Type Severity Reaction Status Date / Time No Known Allergies Allergy Verified 03/15/18 15:14 - Medications Medications: Current Medications Diphenhydramine HCl (Benadryl) 25 mg IVP Q8 PRN PRN Reason: Agitation Last Admin: 03/16/18 04:19 Dose: 25 mg Enoxaparin Sodium (Lovenox) 30 mg SC DAILY [facility] Last Admin: 03/16/18 09:58 Dose: 30 mg Albumin Human (Albumin Human 25% (12.5 Gm/50 Ml)) 100 mls @ 100 mls/hr IV Q8H [facility] Stop: 03/19/18 01:59 Last Admin: 03/16/18 09:21 Dose: 100 mls/hr Lactulose (Enulose) 20 gm PO TID [facility] Last Admin: 03/16/18 09:58 Dose: 20 gm Lorazepam (Ativan) 0.5 mg IVP ONCE PRN PRN Reason: Agitation Stop: 03/16/18 19:57 Last Admin: 03/16/18 00:35 Dose: 0.5 mg Rifaximin (Xifaxan) 550 mg PO BID [facility] PRN Reason: Protocol Last Admin: 03/16/18 09:57 Dose: 550 mg Physical Exam - Constitutional Appears: No Acute Distress, Chronically Ill - Eye Exam Eye Exam: PERRL Additional comments: won't follow commands for EOMI testing - ENT Exam ENT Exam: Mucous Membranes Dry - Respiratory Exam Respiratory Exam: Decreased Breath Sounds, Rales. absent: Rhonchi, Wheezes - Cardiovascular Exam Cardiovascular Exam: RRR, +S1, +S2 - GI/Abdominal Exam GI & Abdominal Exam: Distended, Normal Bowel Sounds, Soft. absent: Firm, Guarding, Organomegaly, Rigid, Tenderness - Extremities Exam Extremities exam: Positive for: normal inspection. Negative for: pedal edema - Neurological Exam Neurological exam: Altered Additional comments: asterixis - Psychiatric Exam Psychiatric exam: Agitated - Skin Skin Exam: Dry, Warm - Additional Findings Additional findings: Pleurex catheter noted in right lateral chest wall Results - Vital Signs Recent Vital Signs: Last Vital Signs Temp 97.6 F 03/16/18 08:00 Pulse 67 03/16/18 08:00 Resp 20 03/16/18 08:00 BP 91/51 L 03/16/18 08:00 Pulse Ox 100 03/16/18 08:00 - Labs Result Diagrams: 03/15/18 16:32 03/16/18 11:05 Labs: Laboratory Results - last 24 hr 03/15/18 03/15/18 03/15/18 16:32 16:32 16:32 WBC 11.1 H RBC 3.96 L Hgb 11.8 L Hct 34.6 L MCV 87.4 MCH 29.8 MCHC 34.1 RDW 16.1 H Plt Count 232 D MPV 9.8 Neut % (Auto) 80.4 H Lymph % (Auto) 4.7 L Weld % (Auto) 12.6 H Eos % (Auto) 1.5 Baso % (Auto) 0.8 Neut # (Auto) 8.9 H Lymph # (Auto) 0.5 L Weld # (Auto) 1.4 H Eos # (Auto) 0.2 Baso # (Auto) 0.1 Neutrophils % (Manual) 76 H Band Neutrophils % 3 H Lymphocytes % (Manual) 4 L Monocytes % (Manual) 15 H Eosinophils % (Manual) 1 Basophils % (Manual) 1 Platelet Estimate Normal Large Platelets Present Hypochromasia (manual) Slight Poikilocytosis (manual Slight Anisocytosis (manual) Slight Microcytosis (manual) Slight Macrocytosis (manual) Slight Ovalocytes Slight PT INR APTT Sodium 125 L Potassium 3.9 Chloride 92 L Carbon Dioxide 22 Anion Gap 15 BUN 59 H Creatinine 2.8 H Est GFR ( Amer) 29 Est GFR (Non-Af Amer) 24 Random Glucose 120 H Calcium 8.2 L Total Bilirubin 0.8 AST 71 H D ALT 47 Alkaline Phosphatase 168 H D Ammonia 240 H D Troponin I NT-Pro-B Natriuret Pep Total Protein 6.8 Albumin 2.8 L Globulin 4.0 H Albumin/Globulin Ratio 0.7 L Lipase 482 H Alcohol, Quantitative 03/15/18 03/15/18 03/16/18 16:54 16:56 11:05 WBC RBC Hgb Hct MCV MCH MCHC RDW Plt Count MPV Neut % (Auto) Lymph % (Auto) Weld % (Auto) Eos % (Auto) Baso % (Auto) Neut # (Auto) Lymph # (Auto) Weld # (Auto) Eos # (Auto) Baso # (Auto) Neutrophils % (Manual) Band Neutrophils % Lymphocytes % (Manual) Monocytes % (Manual) Eosinophils % (Manual) Basophils % (Manual) Platelet Estimate Large Platelets Hypochromasia (manual) Poikilocytosis (manual Anisocytosis (manual) Microcytosis (manual) Macrocytosis (manual) Ovalocytes PT 17.6 H INR 1.5 APTT 31 Sodium 129 L Potassium 3.7 Chloride 97 L Carbon Dioxide 21 L Anion Gap 15 BUN 60 H Creatinine 1.9 H Est GFR ( Amer) 45 Est GFR (Non-Af Amer) 37 Random Glucose 102 Calcium 7.7 L Total Bilirubin 1.0 AST 60 H ALT 42 Alkaline Phosphatase 138 H Ammonia Troponin I 0.0410 NT-Pro-B Natriuret Pep 358 Total Protein 6.6 Albumin 2.7 L Globulin 3.9 Albumin/Globulin Ratio 0.7 L Lipase 481 H Alcohol, Quantitative < 10 03/16/18 11:05 WBC RBC Hgb Hct MCV MCH MCHC RDW Plt Count MPV Neut % (Auto) Lymph % (Auto) Weld % (Auto) Eos % (Auto) Baso % (Auto) Neut # (Auto) Lymph # (Auto) Weld # (Auto) Eos # (Auto) Baso # (Auto) Neutrophils % (Manual) Band Neutrophils % Lymphocytes % (Manual) Monocytes % (Manual) Eosinophils % (Manual) Basophils % (Manual) Platelet Estimate Large Platelets Hypochromasia (manual) Poikilocytosis (manual Anisocytosis (manual) Microcytosis (manual) Macrocytosis (manual) Ovalocytes PT INR APTT Sodium Potassium Chloride Carbon Dioxide Anion Gap BUN Creatinine Est GFR ( Amer) Est GFR (Non-Af Amer) Random Glucose Calcium Total Bilirubin AST ALT Alkaline Phosphatase Ammonia 85 H D Troponin I NT-Pro-B Natriuret Pep Total Protein Albumin Globulin Albumin/Globulin Ratio Lipase Alcohol, Quantitative Assessment & Plan - Assessment and Plan (Free Text) Assessment: Patient is a 52yo male with decompensated cirrhosis c/b hepatic encephalopathy, ascites, suspected hepatorenal syndrome type 1, HTN, prior heroin abuse who presented to the hospital for altered mentation -Hepatic encephalopathy - grade 2/3 -Decompensated cirrhosis -Ascites -CLARA - R/O HRS -HTN -Prior HCV exposure Plan: -Stop diuretics -IV NS 500cc fluid challenge bolus now -Start albumin 25%, 25g IV Q8H for 3 days -Lactulose 20g PO TID until patient passes 2 BM then titrate to 2-3 BM/day -Rifaximin 550mg PO BID -Patient would benefit from repeat U/S if he will allow it - paracentesis if ascitic fluid present -Recommend removal of pleurex catheter which can serve as nidus for infection and will not improve what is likely pleural effusion 2/2 hepatic hydrothroax -Recommend nephrology consultation -Prior autoimmune w/u with +ASMA 1:40; repeat Ab -HCV VL negative -Avoid sedating agents -2g Na diet when tolerating PO - Date & Time Date: 03/16/18 Time: 06:30 <Germán Olvera - Last Filed: 03/16/18 18:04> Meds - Medications Medications: Current Medications Diphenhydramine HCl (Benadryl) 25 mg IVP Q8 PRN PRN Reason: Agitation Last Admin: 03/16/18 04:19 Dose: 25 mg Enoxaparin Sodium (Lovenox) 30 mg SC DAILY [facility] Last Admin: 03/16/18 09:58 Dose: 30 mg Albumin Human (Albumin Human 25% (12.5 Gm/50 Ml)) 100 mls @ 100 mls/hr IV Q8H [facility] Stop: 03/19/18 01:59 Last Admin: 03/16/18 17:43 Dose: 100 mls/hr Lactulose (Enulose) 20 gm PO TID [facility] Last Admin: 03/16/18 17:44 Dose: 20 gm Lorazepam (Ativan) 0.5 mg IVP ONCE PRN PRN Reason: Agitation Stop: 03/16/18 19:57 Last Admin: 03/16/18 00:35 Dose: 0.5 mg Pantoprazole Sodium (Protonix Ec Tab) 40 mg PO DAILY [facility] Last Admin: 03/16/18 17:44 Dose: 40 mg Rifaximin (Xifaxan) 550 mg PO BID [facility] PRN Reason: Protocol Last Admin: 03/16/18 17:43 Dose: 550 mg Results - Vital Signs Recent Vital Signs: Last Vital Signs Temp 98.1 F 03/16/18 15:00 Pulse 67 03/16/18 16:19 Resp 20 03/16/18 15:00 BP 91/51 L 03/16/18 16:19 Pulse Ox 100 03/16/18 16:19 - Labs Result Diagrams: 03/15/18 16:32 03/16/18 11:05 Labs: Laboratory Results - last 24 hr 03/16/18 03/16/18 11:05 11:05 Sodium 129 L Potassium 3.7 Chloride 97 L Carbon Dioxide 21 L Anion Gap 15 BUN 60 H Creatinine 1.9 H Est GFR ( Amer) 45 Est GFR (Non-Af Amer) 37 Random Glucose 102 Calcium 7.7 L Total Bilirubin 1.0 AST 60 H ALT 42 Alkaline Phosphatase 138 H Ammonia 85 H D Total Protein 6.6 Albumin 2.7 L Globulin 3.9 Albumin/Globulin Ratio 0.7 L Alcohol, Quantitative < 10 Attending/Attestation - Attestation I have personally seen and examined this patient.: Yes I have fully participated in the care of the patient.: Yes I have reviewed all pertinent clinical information: Yes Notes (Text): 03/16/18 17:58 This is a 52 year old male with decompensated HCV cirrhosis (tx naive, unknown GT/VL) complicated by hepatic encephalopathy, suspected hepatorenal syndrome, HTN, prior opiate abuse who presented to the hospital with altered mental status and recent pleurex catheter placed 9unknown where and why) in right thoracic cavity most likely for right sided pleural effusion. He is probably going into dehydration and electrolyte imbalance with wosening azotemia due to diuretics and fluid shifts due to the diuretics and catheter. This maybe in turn leading to HE. Will supplement electrolytes and challenge with albumin at 1 gm/Kg for azotemia for 3 days. Hold diuretics for hyponatremia. Continue lactulose for HE and rifaximin for HE prevention. Discontinue NSAID and removal of pleural catheter. instead recommend TIPS evaluation once HE subsides. Please avoid further sedating agents in this cirrhotic patient where possible Not a transplant candidate due to poor social support
--- NOTE | 2018-03-16 16:01 | CP.PCM.PN ---
Subjective - Date & Time of Evaluation Date of Evaluation: 03/16/18 Time of Evaluation: 15:54 - Subjective Subjective: PGY2 progress note for Dr. Zheng 52 year old male with past medical history of decompensated cirrhosis, hx of hepatic encephalopathy, ascites, suspected hepatorenal syndrome type 1, HTN, prior heroin abuse, HCV infection (treatment naive) is admitted for AMS. Patient is A&Ox 3 but history is hard to obtain. Per chart, patient has been confused for a few days. He has also become constipated over the past few days despite Lactulose use. Due to this, he became more and more confused. Currently, patient is agitated and does not answer ROS questions. PSHx: Right thoracentesis 12/2017 FHx: Unable to assess at this time Social: Prior heroin abuse, was formerly on methadone but taken off due to liver complications, + tobacco use, +prior EtOH use states he has not drank for 10 years Objective - Vital Signs/Intake and Output Vital Signs (last 24 hours): Temp Pulse Resp BP Pulse Ox 97.6 F 67 20 91/51 L 100 03/16/18 08:00 03/16/18 08:00 03/16/18 08:00 03/16/18 08:00 03/16/18 08:00 Intake and Output: 03/16/18 03/16/18 06:59 18:59 Intake Total 50 200 Balance 50 200 - Medications Medications: Current Medications Diphenhydramine HCl (Benadryl) 25 mg IVP Q8 PRN PRN Reason: Agitation Last Admin: 03/16/18 04:19 Dose: 25 mg Enoxaparin Sodium (Lovenox) 30 mg SC DAILY [facility] Last Admin: 03/16/18 09:58 Dose: 30 mg Albumin Human (Albumin Human 25% (12.5 Gm/50 Ml)) 100 mls @ 100 mls/hr IV Q8H [facility] Stop: 03/19/18 01:59 Last Admin: 03/16/18 09:21 Dose: 100 mls/hr Lactulose (Enulose) 20 gm PO TID [facility] Last Admin: 03/16/18 13:42 Dose: 20 gm Lorazepam (Ativan) 0.5 mg IVP ONCE PRN PRN Reason: Agitation Stop: 03/16/18 19:57 Last Admin: 03/16/18 00:35 Dose: 0.5 mg Rifaximin (Xifaxan) 550 mg PO BID [facility] PRN Reason: Protocol Last Admin: 03/16/18 09:57 Dose: 550 mg - Labs Labs: 03/15/18 16:32 03/16/18 11:05 PT 17.6 SECONDS (9.7-12.2) H 03/15/18 16:54 INR 1.5 03/15/18 16:54 APTT 31 SECONDS (21-34) 03/15/18 16:54 - Constitutional Appears: Non-toxic, No Acute Distress - Head Exam Head Exam: ATRAUMATIC - ENT Exam ENT Exam: Mucous Membranes Moist - Respiratory Exam Respiratory Exam: Clear to Ausculation Bilateral. absent: Accessory Muscle Use , Rales, Rhonchi, Wheezes, Respiratory Distress - Cardiovascular Exam Cardiovascular Exam: REGULAR RHYTHM, +S1, +S2 - GI/Abdominal Exam GI & Abdominal Exam: Distended, Soft, Tenderness, Normal Bowel Sounds. absent: Firm, Guarding, Rigid, Organomegaly - Extremities Exam Extremities Exam: absent: Pedal Edema, Tenderness - Neurological Exam Neurological Exam: Alert, Awake, Oriented x3 - Psychiatric Exam Psychiatric exam: Normal Affect, Normal Mood - Skin Skin Exam: Dry, Intact, Normal Color, Warm Assessment and Plan - Assessment and Plan (Free Text) Assessment: Hepatic Encephalopathy - On admission, ammonia level is 240 - Patient is continued on lactulose 20 mg po TID and Rifaximin 550 mg po bid - Serum albumin is 2.7. - GI, Dr. Luong is consulted - Pt started on albumin 25% IV q8 for 3 days - Avoid sedating agents Cirrhosis - Will consider getting abd US to assess for ascites - continue 2 g Na diet - Pt has transient transaminits. Pt given NS 500 cc - Liver functions opening Hepatorenal syndrome (suspected) - On presentation, pt had worsening kidney failure - Will continue to monitor. Improving Cr today - Will consider getting nephrology consult HTN - Pt has been hypotensive since admission. Will hold all BP meds for now and continue to monitor VS HCV - HCV ab positive, viral load is negative Hyponatremia - Patient has chronic hyponatremia likely due to liver cirrhosis. Improved today. Will continue to monitor. Prophylaxis - Lovenox 30 mg sc - Protonix All managements and orders per Dr. Zheng
[2018-03-16] MEDS: Pantoprazole 40 mg EC Tab PO SCH (17:44)
--- NOTE | 2018-03-16 18:32 | CP.PCM.HP ---
History of Present Illness - History of Present Illness History of Present Illness: 52 year old male with past medical history of decompensated cirrhosis, hx of hepatic encephalopathy, ascites, suspected hepatorenal syndrome type 1, HTN, prior heroin abuse, HCV infection (treatment naive) is admitted for AMS. Patient is A&Ox 3 but history is hard to obtain. Per chart, patient has been confused for a few days. He has also become constipated over the past few days despite Lactulose use. Due to this, he became more and more confused. Currently, patient is agitated and does not answer ROS questions. Present on Admission - Present on Admission Any Indicators Present on Admission: No Past Patient History - Infectious Disease Hx of Infectious Diseases: None - Past Medical History & Family History Past Medical History?: Yes - Past Social History Smoking Status: Light Smoker < 10 Cigarettes Daily - CARDIAC Hx Hypertension: No - PULMONARY Hx Respiratory Disorders: No Hx Tuberculosis: No Other/Comment: tube to right chest to remove fluid - NEUROLOGICAL Hx Seizures: No - HEENT Hx HEENT Problems: No - RENAL Hx Chronic Kidney Disease: No - ENDOCRINE/METABOLIC Hx Endocrine Disorders: No - HEMATOLOGICAL/ONCOLOGICAL Hx Hepatitis C: Yes Hx Human Immunodeficiency Virus (HIV): Yes - INTEGUMENTARY Hx Dermatological Problems: Yes Hx Psoriasis: Yes - MUSCULOSKELETAL/RHEUMATOLOGICAL Hx Falls: No - GASTROINTESTINAL Hx Gastrointestinal Disorders: No - GENITOURINARY/GYNECOLOGICAL Hx Sexually Transmitted Disorders: No - PSYCHIATRIC Hx Substance Use: Yes (pt quit as per records) - SURGICAL HISTORY Hx Surgeries: Yes Other/Comment: DRAIN TO LIVER - ANESTHESIA Hx Anesthesia: No (unknown) Hx Anesthesia Reactions: No Hx Malignant Hyperthermia: No Has any member of the family had a problem w/ anesthesia?: No Meds Allergies/Adverse Reactions: Allergies Allergy/AdvReac Type Severity Reaction Status Date / Time No Known Allergies Allergy Verified 03/15/18 15:14 Physical Exam - Constitutional Appears: Well - Head Exam Head Exam: ATRAUMATIC, NORMAL INSPECTION, NORMOCEPHALIC - Eye Exam Eye Exam: EOMI, Normal appearance, PERRL Pupil Exam: NORMAL ACCOMODATION, PERRL - ENT Exam ENT Exam: Mucous Membranes Moist, Normal Exam - Neck Exam Neck exam: Positive for: Normal Inspection - Respiratory Exam Respiratory Exam: Decreased Breath Sounds - Cardiovascular Exam Cardiovascular Exam: REGULAR RHYTHM, +S1, +S2 - GI/Abdominal Exam GI & Abdominal Exam: Diminished Bowel Sounds, Soft - Rectal Exam Rectal Exam: Deferred Results - Vital Signs Recent Vital Signs: Last Vital Signs Temp 98.1 F 03/16/18 15:00 Pulse 67 03/16/18 16:19 Resp 20 03/16/18 15:00 BP 91/51 L 03/16/18 16:19 Pulse Ox 100 03/16/18 16:19 - Labs Result Diagrams: 03/17/18 07:13 03/17/18 07:13 Labs: Laboratory Results - last 24 hr 03/16/18 03/16/18 11:05 11:05 Sodium 129 L Potassium 3.7 Chloride 97 L Carbon Dioxide 21 L Anion Gap 15 BUN 60 H Creatinine 1.9 H Est GFR ( Amer) 45 Est GFR (Non-Af Amer) 37 Random Glucose 102 Calcium 7.7 L Total Bilirubin 1.0 AST 60 H ALT 42 Alkaline Phosphatase 138 H Ammonia 85 H D Total Protein 6.6 Albumin 2.7 L Globulin 3.9 Albumin/Globulin Ratio 0.7 L Alcohol, Quantitative < 10 Assessment & Plan (1) Hepatic encephalopathy Status: Acute (2) Abdominal pain Status: Acute (3) Acute encephalopathy Status: Acute (4) Cirrhosis Status: Acute (5) Drug abuse Status: Acute (6) Drug dependence Status: Acute (7) Hyperammonemia Status: Acute - Assessment and Plan (Free Text) Plan: Hepatic Encephalopathy - On admission, ammonia level is 240 - Patient is continued on lactulose 20 mg po TID and Rifaximin 550 mg po bid - Serum albumin is 2.7. - GI, Dr. Luong is consulted - Pt started on albumin 25% IV q8 for 3 days - Avoid sedating agents Cirrhosis - Will consider getting abd US to assess for ascites - continue 2 g Na diet - Pt has transient transaminits. Pt given NS 500 cc - Liver functions opening Hepatorenal syndrome (suspected) - On presentation, pt had worsening kidney failure - Will continue to monitor. Improving Cr today - Will consider getting nephrology consult HTN - Pt has been hypotensive since admission. Will hold all BP meds for now and continue to monitor VS HCV - HCV ab positive, viral load is negative Hyponatremia - Patient has chronic hyponatremia likely due to liver cirrhosis. Improved today. Will continue to monitor. Prophylaxis - Lovenox 30 mg sc - Protonix
[2018-03-17 07:22] LABS: BASO % 0.7 % (0.0-2.0); EOS # 0.2 K/uL (0.0-0.7); EOS % 2.8 % (0.0-4.0); LYMPH # 0.6 K/uL (1.0-4.3); LYMPH % 10.5 % (20.0-40.0); MEAN CELL VOLUME 87.9 fL (80.0-94.0); MEAN CORPUSCULAR HEMOGLOBIN 30.2 pg (27.0-31.0); MEAN CORPUSCULAR HGB CONC 34.3 g/dL (33.0-37.0); MEAN PLATELET VOLUME 9.9 fL (7.2-11.7); MONO # 0.9 K/uL (0.0-0.8); NEUT # 3.9 K/uL (1.8-7.0); NRBC % 0.1 % (0.0-2.0); RBC 3.64 Mil/uL (4.40-5.90); RED CELL DISTRIBUTION WIDTH 15.6 % (11.5-14.5); WHITE BLOOD COUNT 5.6 K/uL (4.8-10.8)
--- NOTE | 2018-03-17 07:32 | CP.PCM.PN ---
<Matthew Burden - Last Filed: 03/17/18 08:42> Subjective - Date & Time of Evaluation Date of Evaluation: 03/17/18 Time of Evaluation: 06:00 - Subjective Subjective: PGY5 GI Fellow Progress Note Patient seen and examined bedside this morning. The patient is more alert today and answering some simple questions. Still, mostly confused about how he came to be ill and his recent medical history. Denies any abdominal pain. No episodes noted overnight. 12 system ROS limited but performed and negative except where stated. Objective - Vital Signs/Intake and Output Vital Signs (last 24 hours): Temp Pulse Resp BP Pulse Ox 98.3 F 87 20 103/68 97 03/17/18 00:26 03/17/18 00:26 03/17/18 00:26 03/17/18 00:26 03/17/18 00:26 Intake and Output: 03/17/18 03/17/18 06:59 18:59 Intake Total 460 Balance 460 - Medications Medications: Current Medications Diphenhydramine HCl (Benadryl) 25 mg IVP Q8 PRN PRN Reason: Agitation Last Admin: 03/16/18 04:19 Dose: 25 mg Enoxaparin Sodium (Lovenox) 30 mg SC DAILY [facility] Last Admin: 03/16/18 09:58 Dose: 30 mg Albumin Human (Albumin Human 25% (12.5 Gm/50 Ml)) 100 mls @ 100 mls/hr IV Q8H [facility] Stop: 03/19/18 01:59 Last Admin: 03/17/18 01:05 Dose: 100 mls/hr Lactulose (Enulose) 20 gm PO TID [facility] Last Admin: 03/16/18 17:44 Dose: 20 gm Pantoprazole Sodium (Protonix Ec Tab) 40 mg PO DAILY [facility] Last Admin: 03/16/18 17:44 Dose: 40 mg Rifaximin (Xifaxan) 550 mg PO BID [facility] PRN Reason: Protocol Last Admin: 03/16/18 17:43 Dose: 550 mg - Labs Labs: 03/17/18 07:13 03/16/18 11:05 PT 17.6 SECONDS (9.7-12.2) H 03/15/18 16:54 INR 1.5 03/15/18 16:54 APTT 31 SECONDS (21-34) 03/15/18 16:54 - Constitutional Appears: No Acute Distress, Chronically Ill - Eye Exam Eye Exam: EOMI, PERRL - ENT Exam ENT Exam: Mucous Membranes Dry - Respiratory Exam Respiratory Exam: Clear to Ausculation Bilateral. absent: Rales, Rhonchi, Wheezes - Cardiovascular Exam Cardiovascular Exam: RRR, +S1, +S2 - GI/Abdominal Exam GI & Abdominal Exam: Soft, Normal Bowel Sounds. absent: Distended, Firm, Guarding, Rigid, Tenderness, Organomegaly - Extremities Exam Extremities Exam: Normal Inspection. absent: Pedal Edema - Neurological Exam Neurological Exam: Awake. absent: Oriented x3 - Psychiatric Exam Psychiatric exam: Flat Affect - Skin Skin Exam: Dry, Warm - Additional Findings Additional findings: pleurex catheter in right chest wall Assessment and Plan - Assessment and Plan (Free Text) Assessment: Patient is a 52yo male with decompensated cirrhosis c/b hepatic encephalopathy, ascites, suspected hepatorenal syndrome type 1, HTN, prior heroin abuse who presented to the hospital for altered mentation -Hepatic encephalopathy - grade 2/3 - improving -Decompensated cirrhosis -Ascites -CLARA - R/O HRS -HTN -Prior HCV exposure Plan: -Cr continues to improve off diuresis and with IVF resuscitation -Recommend IR evaluation to remove pleurex catheter -Would give another 500cc NS IVF challenge -Continue albumin 25%, 25g IV Q8H for total of 3 days -Lactulose 20g PO TID, titrate to 2-3 BM/day -Rifaximin 550mg PO BID -Prior autoimmune w/u with +ASMA 1:40; repeat Ab -HCV VL negative -Avoid sedating agents -2g Na diet <Tremaine Luong - Last Filed: 03/17/18 08:53> Objective - Vital Signs/Intake and Output Vital Signs (last 24 hours): Temp Pulse Resp BP Pulse Ox 98.3 F 89 20 107/56 L 97 03/17/18 07:48 03/17/18 07:48 03/17/18 07:48 03/17/18 07:48 03/17/18 07:48 Intake and Output: 03/17/18 03/17/18 06:59 18:59 Intake Total 460 Balance 460 - Medications Medications: Current Medications Diphenhydramine HCl (Benadryl) 25 mg IVP Q8 PRN PRN Reason: Agitation Last Admin: 03/16/18 04:19 Dose: 25 mg Enoxaparin Sodium (Lovenox) 30 mg SC DAILY [facility] Last Admin: 03/16/18 09:58 Dose: 30 mg Albumin Human (Albumin Human 25% (12.5 Gm/50 Ml)) 100 mls @ 100 mls/hr IV Q8H [facility] Stop: 03/19/18 01:59 Last Admin: 03/17/18 01:05 Dose: 100 mls/hr Sodium Chloride (Sodium Chloride 0.9%) 500 mls @ 1,000 mls/hr IV .Q30M ONE Stop: 03/17/18 09:13 Lactulose (Enulose) 20 gm PO TID [facility] Last Admin: 03/16/18 17:44 Dose: 20 gm Pantoprazole Sodium (Protonix Ec Tab) 40 mg PO DAILY [facility] Last Admin: 03/16/18 17:44 Dose: 40 mg Rifaximin (Xifaxan) 550 mg PO BID [facility] PRN Reason: Protocol Last Admin: 03/16/18 17:43 Dose: 550 mg - Labs Labs: 03/17/18 07:13 03/16/18 11:05 PT 18.9 SECONDS (9.7-12.2) H 03/17/18 07:13 INR 1.6 03/17/18 07:13 APTT 33 SECONDS (21-34) 03/17/18 07:13 Attending/Attestation - Attestation I have personally seen and examined this patient.: Yes I have fully participated in the care of the patient.: Yes I have reviewed all pertinent clinical information, including history, physical exam and plan: Yes Notes (Text): 03/17/18 08:50 I have seen and examined patient with GI fellow. He remains confused, though oriented to place and time. He denies abdominal pain, nausea, vomiting, fever/ chills. Tolerating PO diet without difficulty, review of vitals from today are normal. Decompensated HCV cirrhosis AMS - hepatic encepahlopathy Acute on chronic renal insufficiency - Low sodium diet as tolerated - Continue with lactulose and xifaxan regimen for HE prevention - Continue with albumin and IVF hydration, monitor renal function - Suggest IR evaluation for removal of indwelling pleurex catheter as fluid removal may lead to ongoing electrolyte disturbances and source of potential infection - Patient with likely home medication non-compliance, would suggest placement in nursing facility following hospital discharge
--- NOTE | 2018-03-17 07:35 | CP.PCM.PN ---
Addendum entered and electronically signed by Aruna Urbina DO 03/17/18 14:05: IR consulted for paracentesis and catheter removal. Patient is refusing medications. Original Note: <Aruna Urbina - Last Filed: 03/17/18 13:34> Subjective - Date & Time of Evaluation Date of Evaluation: 03/17/18 Time of Evaluation: 07:00 - Subjective Subjective: PGY2 progress note for Dr. Zheng Patient seen and examined at bedside this morning. The patient is more alert today but still a little confused. He complains of some mild abdominal discomfort. He is scheduled to have an abdominal US this morning. Objective - Vital Signs/Intake and Output Vital Signs (last 24 hours): Temp Pulse Resp BP Pulse Ox 98.3 F 87 20 103/68 97 03/17/18 00:26 03/17/18 00:26 03/17/18 00:26 03/17/18 00:26 03/17/18 00:26 Intake and Output: 03/17/18 03/17/18 06:59 18:59 Intake Total 460 Balance 460 - Medications Medications: Current Medications Diphenhydramine HCl (Benadryl) 25 mg IVP Q8 PRN PRN Reason: Agitation Last Admin: 03/16/18 04:19 Dose: 25 mg Enoxaparin Sodium (Lovenox) 30 mg SC DAILY [facility] Last Admin: 03/16/18 09:58 Dose: 30 mg Albumin Human (Albumin Human 25% (12.5 Gm/50 Ml)) 100 mls @ 100 mls/hr IV Q8H [facility] Stop: 03/19/18 01:59 Last Admin: 03/17/18 01:05 Dose: 100 mls/hr Lactulose (Enulose) 20 gm PO TID [facility] Last Admin: 03/16/18 17:44 Dose: 20 gm Pantoprazole Sodium (Protonix Ec Tab) 40 mg PO DAILY [facility] Last Admin: 03/16/18 17:44 Dose: 40 mg Rifaximin (Xifaxan) 550 mg PO BID [facility] PRN Reason: Protocol Last Admin: 03/16/18 17:43 Dose: 550 mg - Labs Labs: 03/17/18 07:13 03/16/18 11:05 PT 17.6 SECONDS (9.7-12.2) H 03/15/18 16:54 INR 1.5 03/15/18 16:54 APTT 31 SECONDS (21-34) 03/15/18 16:54 - Constitutional Appears: No Acute Distress, Chronically Ill - Head Exam Head Exam: NORMAL INSPECTION - Eye Exam Eye Exam: EOMI, PERRL - Respiratory Exam Respiratory Exam: Clear to Ausculation Bilateral, NORMAL BREATHING PATTERN. absent: Respiratory Distress - Cardiovascular Exam Cardiovascular Exam: REGULAR RHYTHM, +S1, +S2 - GI/Abdominal Exam GI & Abdominal Exam: Soft, Normal Bowel Sounds. absent: Distended, Firm, Guarding, Tenderness - Extremities Exam Extremities Exam: Normal Inspection - Neurological Exam Neurological Exam: Alert, Awake. absent: Oriented x3 - Psychiatric Exam Psychiatric exam: Flat Affect - Skin Skin Exam: Dry, Normal Color, Warm Additional comments: pleurex catheter in right chest wall Assessment and Plan - Assessment and Plan (Free Text) Assessment: Hepatic Encephalopathy - On admission, ammonia level is 240 - Patient is continued on lactulose 20 mg po TID and Rifaximin 550 mg po bid - Serum albumin is 2.7. - GI, Dr. Luong is consulted -> Suggest IR evaluation for removal of indwelling pleurex catheter as fluid removal may lead to ongoing electrolyte disturbances and source of potential infection - Pt started on albumin 25% IV q8 for 3 days - Avoid sedating agents Cirrhosis - F/U Abd US - continue 2 g Na diet - Pt has transient transaminits. Pt given NS 500 cc Hepatorenal syndrome (suspected), chronic - On presentation, pt had worsening kidney failure - Will continue to monitor. Improving Cr today - Will consider getting nephrology consult HTN - Pt has been hypotensive since admission. Will hold all BP meds for now and continue to monitor VS HCV - HCV ab positive, viral load is negative Hyponatremia - Patient has chronic hyponatremia likely due to liver cirrhosis. Improved today. Will continue to monitor. Prophylaxis - Lovenox 30 mg sc - Protonix 40mg Po daily All managements and orders per Dr. Zheng <Megan Zheng - Last Filed: 03/17/18 23:03> Objective - Vital Signs/Intake and Output Vital Signs (last 24 hours): Temp Pulse Resp BP Pulse Ox 98.3 F 87 20 112/73 100 03/17/18 15:55 03/17/18 15:55 03/17/18 15:55 03/17/18 15:55 03/17/18 15:57 Intake and Output: 03/17/18 03/18/18 18:59 06:59 Intake Total 1150 350 Balance 1150 350 - Medications Medications: Current Medications Diphenhydramine HCl (Benadryl) 25 mg IVP Q8 PRN PRN Reason: Agitation Last Admin: 03/16/18 04:19 Dose: 25 mg Enoxaparin Sodium (Lovenox) 30 mg SC DAILY [facility] Last Admin: 03/17/18 11:41 Dose: Not Given Albumin Human (Albumin Human 25% (12.5 Gm/50 Ml)) 100 mls @ 100 mls/hr IV Q8H [facility] Stop: 03/19/18 01:59 Last Admin: 03/17/18 17:00 Dose: 100 mls/hr Lactulose (Enulose) 20 gm PO TID [facility] Last Admin: 03/17/18 18:34 Dose: 20 gm Pantoprazole Sodium (Protonix Ec Tab) 40 mg PO DAILY [facility] Last Admin: 03/17/18 11:45 Dose: 40 mg Rifaximin (Xifaxan) 550 mg PO BID [facility] PRN Reason: Protocol Last Admin: 03/17/18 18:34 Dose: 550 mg - Labs Labs: 03/17/18 07:13 03/17/18 07:13 PT 18.9 SECONDS (9.7-12.2) H 03/17/18 07:13 INR 1.6 03/17/18 07:13 APTT 33 SECONDS (21-34) 03/17/18 07:13 Attending/Attestation - Attestation I have personally seen and examined this patient.: Yes I have fully participated in the care of the patient.: Yes I have reviewed all pertinent clinical information, including history, physical exam and plan: Yes Notes (Text): 03/17/18 23:03 case seen and d.w staff and resident, concurred with finding and management..
[2018-03-17 07:39] LABS: INR 1.6; PROTHROMBIN TIME 18.9 SECONDS (9.7-12.2)
[2018-03-17] MEDS ORDERED: Sodium Chloride 0.9% 500 ML IV ONE (08:44)
[2018-03-17 08:50] LABS: ALB/GLOB RATIO 0.7 (1.0-2.1); ALBUMIN 2.5 g/dL (3.5-5.0); CALCIUM 7.6 mg/dl (8.6-10.4)
[2018-03-17] MEDS: Enoxaparin 30 mg Syringe SC SCH (11:41)
[2018-03-17] MEDS: Pantoprazole 40 mg EC Tab PO SCH (11:45)
--- NOTE | 2018-03-17 12:25 | US ---
Abdominal ultrasound History: Ascites. Comparison: 03/06/2018 Technique: Real-time sonography was performed through the abdomen. Findings: Liver: 12.3 centimeters in length. Increased echogenicity of the hepatic parenchymal cortex suggestive for fatty infiltration versus hepatic parenchymal disease. Clinical correlation. Perihepatic ascites. Gallbladder: No calculi or sludge. Normal wall thickness of 1.2 millimeters. No gross wall edema. Negative sonographic Alcaraz's sign. Common bile duct measures 2.2 millimeters, within normal limits. Limited visualization of the pancreas. Spleen measures 15 centimeters in length, prominent. Visualized aorta and IVC are preserved. Right kidney: 11.4 x 6.1 x 6.9 centimeters. No calculi or hydronephrosis. Left kidney: 13.9 x 6.6 x 6.5 centimeters. No calculi or hydronephrosis. Right pleural effusion noted. Impression: 1. Increased echogenicity of the hepatic parenchymal cortex suggestive for fatty infiltration versus hepatic parenchymal disease. Clinical correlation. 2. Abdominal ascites including perihepatic ascites. 3. Right pleural effusion. 4. Limited visualization of the pancreas. 5. Prominent spleen. Clinical correlation.
--- NOTE | 2018-03-17 17:00 | CP.PCM.PN ---
Subjective - Date & Time of Evaluation Date of Evaluation: 03/17/18 Time of Evaluation: 07:20 - Subjective Subjective: clinically same Objective - Vital Signs/Intake and Output Vital Signs (last 24 hours): Temp Pulse Resp BP Pulse Ox 98.3 F 87 20 112/73 100 03/17/18 15:55 03/17/18 15:55 03/17/18 15:55 03/17/18 15:55 03/17/18 15:57 Intake and Output: 03/17/18 03/17/18 06:59 18:59 Intake Total 460 1150 Balance 460 1150 - Medications Medications: Current Medications Diphenhydramine HCl (Benadryl) 25 mg IVP Q8 PRN PRN Reason: Agitation Last Admin: 03/16/18 04:19 Dose: 25 mg Enoxaparin Sodium (Lovenox) 30 mg SC DAILY [facility] Last Admin: 03/17/18 11:41 Dose: Not Given Albumin Human (Albumin Human 25% (12.5 Gm/50 Ml)) 100 mls @ 100 mls/hr IV Q8H [facility] Stop: 03/19/18 01:59 Last Admin: 03/17/18 11:40 Dose: 100 mls/hr Lactulose (Enulose) 20 gm PO TID [facility] Last Admin: 03/17/18 14:23 Dose: 20 gm Pantoprazole Sodium (Protonix Ec Tab) 40 mg PO DAILY [facility] Last Admin: 03/17/18 11:45 Dose: 40 mg Rifaximin (Xifaxan) 550 mg PO BID [facility] PRN Reason: Protocol Last Admin: 03/17/18 11:40 Dose: 550 mg - Labs Labs: 03/17/18 07:13 03/17/18 07:13 PT 18.9 SECONDS (9.7-12.2) H 03/17/18 07:13 INR 1.6 03/17/18 07:13 APTT 33 SECONDS (21-34) 03/17/18 07:13 - Constitutional Appears: Well - Head Exam Head Exam: ATRAUMATIC, NORMAL INSPECTION, NORMOCEPHALIC - Eye Exam Eye Exam: EOMI, Normal appearance, PERRL Pupil Exam: NORMAL ACCOMODATION, PERRL - ENT Exam ENT Exam: Mucous Membranes Moist, Normal Exam - Neck Exam Neck Exam: Full ROM, Normal Inspection. absent: Lymphadenopathy - Respiratory Exam Respiratory Exam: Decreased Breath Sounds - Cardiovascular Exam Cardiovascular Exam: REGULAR RHYTHM, +S1, +S2 - GI/Abdominal Exam GI & Abdominal Exam: Soft, Diminished Bowel Sounds - Rectal Exam Rectal Exam: Deferred Assessment and Plan (1) Hepatic encephalopathy Status: Acute (2) Abdominal pain Status: Acute (3) Acute encephalopathy Status: Acute (4) Cirrhosis Status: Acute (5) Drug abuse Status: Acute (6) Drug dependence Status: Acute (7) Hyperammonemia Status: Acute - Assessment and Plan (Free Text) Plan: Hepatic Encephalopathy - On admission, ammonia level is 240 - Patient is continued on lactulose 20 mg po TID and Rifaximin 550 mg po bid - Serum albumin is 2.7. - GI, Dr. Luong is consulted -> Suggest IR evaluation for removal of indwelling pleurex catheter as fluid removal may lead to ongoing electrolyte disturbances and source of potential infection - Pt started on albumin 25% IV q8 for 3 days - Avoid sedating agents Cirrhosis - F/U Abd US - continue 2 g Na diet - Pt has transient transaminits. Pt given NS 500 cc Hepatorenal syndrome (suspected), chronic - On presentation, pt had worsening kidney failure - Will continue to monitor. Improving Cr today - Will consider getting nephrology consult HTN - Pt has been hypotensive since admission. Will hold all BP meds for now and continue to monitor VS HCV - HCV ab positive, viral load is negative Hyponatremia - Patient has chronic hyponatremia likely due to liver cirrhosis. Improved today. Will continue to monitor. Prophylaxis - Lovenox 30 mg sc - Protonix 40mg Po daily
[2018-03-18 07:26] LABS: BARBITURATES, UR NEGATIVE (NEGATIVE); BENZODIAZEPINES, UR NEGATIVE (NEGATIVE); OPIATES, UR NEGATIVE (NEGATIVE); PHENCYCLIDINE, UR NEGATIVE (NEGATIVE)
[2018-03-18 07:50] LABS: BASO # 0.1 K/uL (0.0-0.2); BASO % 0.8 % (0.0-2.0); EOS # 0.2 K/uL (0.0-0.7); HEMOGLOBIN 10.9 g/dL (12.0-18.0); LYMPH # 0.7 K/uL (1.0-4.3); LYMPH % 9.3 % (20.0-40.0); MEAN CELL VOLUME 87.9 fL (80.0-94.0); MEAN CORPUSCULAR HEMOGLOBIN 30.4 pg (27.0-31.0); MEAN CORPUSCULAR HGB CONC 34.5 g/dL (33.0-37.0); MONO # 1.1 K/uL (0.0-0.8); MONO % 14.2 % (0.0-10.0); NEUT # 5.9 K/uL (1.8-7.0); NEUT % 73.7 % (50.0-75.0); PLATELET COUNT 149 K/uL (130-400); RBC 3.57 Mil/uL (4.40-5.90); RED CELL DISTRIBUTION WIDTH 15.9 % (11.5-14.5)
[2018-03-18 08:17] LABS: ALB/GLOB RATIO 0.8 (1.0-2.1); ALBUMIN 2.8 g/dL (3.5-5.0); ALT/SGPT 43 U/L (21-72); AST/SGOT 64 U/L (17-59); BLOOD UREA NITROGEN 44 mg/dL (9-20); GFR AFRICAN-AMERICAN > 60; GFR NON-AFRICAN AMERICAN > 60
[2018-03-18 08:34] LABS: SQUAMOUS EPITHIAL 1 /hpf (0-5); URINE BACTERIA RARE (<OCC); URINE BILIRUBIN NEGATIVE (NEGATIVE); URINE BLOOD NEGATIVE (NEGATIVE); URINE CLARITY Clear (Clear); URINE COLOR Yellow (YELLOW); URINE GLUCOSE (UA) NORMAL (Normal); URINE LEUKOCYTE ESTERASE NEG Leu/uL (Negative); URINE PROTEIN NEGATIVE (NEGATIVE); URINE UROBILINOGEN NORMAL mg/dL (0.2-1.0)
[2018-03-18 08:38] LABS: URINE HYALINE CAST 0-2 /lpf (0-2)
[2018-03-18 08:51] LABS: ANISOCYTOSIS SLIGHT; BANDS 1 % (0-2); EOSINOPHIL 1 % (0-4); HYPOCHROMIC SLIGHT; LYMPHOCYTE 6 % (20-40); MONOCYTE 11 % (0-10); NEUTROPHIL 81 % (50-75); PLATELET ESTIMATE NORMAL (NORMAL); POIKILOCYTOSIS SLIGHT; TOTAL CELLS COUNTED 100
[2018-03-18] MEDS: Pantoprazole 40 mg EC Tab PO SCH (09:47)
[2018-03-18] MEDS: Enoxaparin 30 mg Syringe SC SCH (09:47)
--- NOTE | 2018-03-18 10:11 | CP.PCM.PN ---
<Matthew Burden - Last Filed: 03/18/18 10:23> Subjective - Date & Time of Evaluation Date of Evaluation: 03/18/18 Time of Evaluation: 09:30 - Subjective Subjective: PGY5 GI Fellow Progress Note Patient seen and examined bedside this morning. The patient is much more alert and able to converse today. Did not get all doses of lactulose yesterday as he refused treatment. He is having BM, 1-2 per day. Explained importance of avoiding constipation. No nausea, vomiting. Tolerating diet. No issues overnight. 12 system ROS performed and negative except where stated. Objective - Vital Signs/Intake and Output Vital Signs (last 24 hours): Temp Pulse Resp BP Pulse Ox 98.2 F 92 H 20 167/92 H 97 03/18/18 07:16 03/18/18 07:16 03/18/18 07:16 03/18/18 07:16 03/18/18 07:16 Intake and Output: 03/18/18 03/18/18 06:59 18:59 Intake Total 950 Balance 950 - Medications Medications: Current Medications Diphenhydramine HCl (Benadryl) 25 mg IVP Q8 PRN PRN Reason: Agitation Last Admin: 03/16/18 04:19 Dose: 25 mg Enoxaparin Sodium (Lovenox) 30 mg SC DAILY [facility] Last Admin: 03/18/18 09:47 Dose: 30 mg Albumin Human (Albumin Human 25% (12.5 Gm/50 Ml)) 100 mls @ 100 mls/hr IV Q8H [facility] Stop: 03/19/18 01:59 Last Admin: 03/18/18 08:00 Dose: 100 mls/hr Lactulose (Enulose) 20 gm PO TID [facility] Last Admin: 03/18/18 09:47 Dose: 20 gm Pantoprazole Sodium (Protonix Ec Tab) 40 mg PO DAILY [facility] Last Admin: 03/18/18 09:47 Dose: 40 mg Rifaximin (Xifaxan) 550 mg PO BID [facility] PRN Reason: Protocol Last Admin: 03/18/18 09:47 Dose: 550 mg - Labs Labs: 03/18/18 07:42 03/18/18 07:20 PT 18.9 SECONDS (9.7-12.2) H 03/17/18 07:13 INR 1.6 03/17/18 07:13 APTT 33 SECONDS (21-34) 03/17/18 07:13 - Constitutional Appears: Non-toxic, No Acute Distress - Eye Exam Eye Exam: EOMI, PERRL - ENT Exam ENT Exam: Mucous Membranes Dry - Respiratory Exam Respiratory Exam: Clear to Ausculation Bilateral. absent: Rales, Rhonchi, Wheezes - Cardiovascular Exam Cardiovascular Exam: RRR, +S1, +S2 - GI/Abdominal Exam GI & Abdominal Exam: Soft, Normal Bowel Sounds. absent: Distended, Firm, Guarding, Rigid, Tenderness, Organomegaly - Extremities Exam Extremities Exam: Normal Inspection. absent: Pedal Edema - Neurological Exam Neurological Exam: Alert, Awake, Oriented x3 - Psychiatric Exam Psychiatric exam: Normal Affect, Normal Mood - Skin Skin Exam: Dry, Warm Additional comments: purpura noted on left chest wall/neck Assessment and Plan - Assessment and Plan (Free Text) Assessment: Patient is a 52yo male with decompensated cirrhosis c/b hepatic encephalopathy, ascites, suspected hepatorenal syndrome type 1, HTN, prior heroin abuse who presented to the hospital for altered mentation -Hepatic encephalopathy - grade 2/3 - improving -Decompensated cirrhosis -Ascites -CLARA - R/O HRS -HTN -Prior HCV exposure Plan: -Given rapid improvement in Cr with IVF and albumin, suspect dehydration as etiology of HE and CLARA -Strongly encourage removal of pleurex catheter as this is likely potentiating dehydration -Continue albumin 25%, 25g IV Q8H for total of 3 days -Lactulose 20g PO TID, titrate to 2-3 BM/day; patient non-adherent during hospitalization -Rifaximin 550mg PO BID -Stressed importance of medication adherence and outpatient follow up -Prior autoimmune w/u with +ASMA 1:40; repeat Ab pending -HCV VL negative - likely prior exposure and clearance -Avoid sedating agents -2g Na diet <Kory Puente - Last Filed: 03/18/18 12:33> Objective - Vital Signs/Intake and Output Vital Signs (last 24 hours): Temp Pulse Resp BP Pulse Ox 98.2 F 92 H 20 167/92 H 97 03/18/18 07:16 03/18/18 07:16 03/18/18 07:16 03/18/18 07:16 03/18/18 07:16 Intake and Output: 03/18/18 03/18/18 06:59 18:59 Intake Total 950 Balance 950 - Medications Medications: Current Medications Diphenhydramine HCl (Benadryl) 25 mg IVP Q8 PRN PRN Reason: Agitation Last Admin: 03/16/18 04:19 Dose: 25 mg Enoxaparin Sodium (Lovenox) 30 mg SC DAILY [facility] Last Admin: 03/18/18 09:47 Dose: 30 mg Albumin Human (Albumin Human 25% (12.5 Gm/50 Ml)) 50 mls @ 50 mls/hr IV Q8H [facility] Stop: 03/19/18 01:59 Albumin Human (Albumin Human 25% (12.5 Gm/50 Ml)) 50 mls @ 50 mls/hr IV Q8H [facility] Stop: 03/19/18 01:59 Lactulose (Enulose) 20 gm PO TID [facility] Last Admin: 03/18/18 09:47 Dose: 20 gm Pantoprazole Sodium (Protonix Ec Tab) 40 mg PO DAILY [facility] Last Admin: 03/18/18 09:47 Dose: 40 mg Rifaximin (Xifaxan) 550 mg PO BID [facility] PRN Reason: Protocol Last Admin: 03/18/18 09:47 Dose: 550 mg - Labs Labs: 03/18/18 07:42 03/18/18 07:20 PT 18.9 SECONDS (9.7-12.2) H 03/17/18 07:13 INR 1.6 03/17/18 07:13 APTT 33 SECONDS (21-34) 03/17/18 07:13 Attending/Attestation - Attestation I have personally seen and examined this patient.: Yes I have fully participated in the care of the patient.: Yes I have reviewed all pertinent clinical information, including history, physical exam and plan: Yes Notes (Text): 03/18/18 12:33 52 year old male with cirrhosis c/b hepatic encephalopathy. Improving with lactulose therapy. Renal failure also improving.
--- NOTE | 2018-03-18 12:05 | CP.PCM.PN ---
Subjective - Date & Time of Evaluation Date of Evaluation: 03/18/18 Time of Evaluation: 12:03 - Subjective Subjective: PGY2 progress note for Dr. Zheng Pt seen and examined at bedside. No acute events overnight. Pt is resting comfortably. AOx3. Patient was scheduled for paracentesis this am but procedure was cancelled as there was not enough fluid to drain per IR. Pt denies having any abd discomfort, N/v/D/C, F/C, CP, SOB. Pt had 1 BM yesterday. Objective - Vital Signs/Intake and Output Vital Signs (last 24 hours): Temp Pulse Resp BP Pulse Ox 98.2 F 92 H 20 167/92 H 97 03/18/18 07:16 03/18/18 07:16 03/18/18 07:16 03/18/18 07:16 03/18/18 07:16 Intake and Output: 03/18/18 03/18/18 06:59 18:59 Intake Total 950 Balance 950 - Medications Medications: Current Medications Diphenhydramine HCl (Benadryl) 25 mg IVP Q8 PRN PRN Reason: Agitation Last Admin: 03/16/18 04:19 Dose: 25 mg Enoxaparin Sodium (Lovenox) 30 mg SC DAILY [facility] Last Admin: 03/18/18 09:47 Dose: 30 mg Albumin Human (Albumin Human 25% (12.5 Gm/50 Ml)) 50 mls @ 50 mls/hr IV Q8H [facility] Stop: 03/19/18 01:59 Albumin Human (Albumin Human 25% (12.5 Gm/50 Ml)) 50 mls @ 50 mls/hr IV Q8H [facility] Stop: 03/19/18 01:59 Lactulose (Enulose) 20 gm PO TID [facility] Last Admin: 03/18/18 09:47 Dose: 20 gm Pantoprazole Sodium (Protonix Ec Tab) 40 mg PO DAILY [facility] Last Admin: 03/18/18 09:47 Dose: 40 mg Rifaximin (Xifaxan) 550 mg PO BID [facility] PRN Reason: Protocol Last Admin: 03/18/18 09:47 Dose: 550 mg - Labs Labs: 03/18/18 07:42 03/18/18 07:20 PT 18.9 SECONDS (9.7-12.2) H 03/17/18 07:13 INR 1.6 03/17/18 07:13 APTT 33 SECONDS (21-34) 03/17/18 07:13 - Constitutional Appears: Non-toxic, No Acute Distress - Head Exam Head Exam: ATRAUMATIC - ENT Exam ENT Exam: Mucous Membranes Moist - Respiratory Exam Respiratory Exam: Clear to Ausculation Bilateral. absent: Accessory Muscle Use , Rales, Rhonchi, Wheezes, Respiratory Distress - Cardiovascular Exam Cardiovascular Exam: REGULAR RHYTHM, +S1, +S2. absent: Gallop, Rubs, Murmur - GI/Abdominal Exam GI & Abdominal Exam: Distended, Soft, Normal Bowel Sounds. absent: Firm, Guarding, Rigid, Tenderness, Organomegaly - Extremities Exam Extremities Exam: absent: Pedal Edema, Tenderness - Neurological Exam Neurological Exam: Alert, Awake, Oriented x3 - Psychiatric Exam Psychiatric exam: Normal Affect, Normal Mood - Skin Skin Exam: Dry, Intact, Normal Color, Warm Assessment and Plan - Assessment and Plan (Free Text) Assessment: Hepatic Encephalopathy - Improved mental status - Patient is continued on lactulose 20 mg po TID and Rifaximin 550 mg po bid - Serum albumin is 2.7. - GI, Dr. Luong is consulted. recommend removal of pleurex as that may be causing dehydration and worsening mental status as times - Consulted pulm, Dr. Martinez for possible removal of catheter. - Continue albumin 25% IV q8 for total of 3 days - Avoid sedating agents Cirrhosis - Abd US showed increased echogenecity in hepatic parenchymal cortex for fatty infiltration vs. hepatic parenchymal disease. Abd ascites including perhepatic ascites. - continue 2 g Na diet - Pt has transient transaminits. CLARA - resolved - On presentation, pt had worsening kidney failure 2/2 dehdration vs suspected hepatorenal syndrome. - Will continue to monitor. HTN - Pt has been hypotensive since admission. Will hold all BP meds for now and continue to monitor VS HCV - HCV ab positive, viral load is negative - Pending repeat auto-antibodies (ASMA) Hyponatremia - Patient has chronic hyponatremia likely due to liver cirrhosis. Improved today. Will continue to monitor. Prophylaxis - Lovenox 30 mg sc - Protonix 40mg Po daily All managements and orders per Dr. Zheng
--- NOTE | 2018-03-18 15:35 | CP.PCM.PN ---
Subjective - Date & Time of Evaluation Date of Evaluation: 03/18/18 Time of Evaluation: 07:30 - Subjective Subjective: clinically same Objective - Vital Signs/Intake and Output Vital Signs (last 24 hours): Temp Pulse Resp BP Pulse Ox 98.2 F 97 H 20 117/82 98 03/18/18 15:00 03/18/18 15:00 03/18/18 15:00 03/18/18 15:00 03/18/18 15:00 Intake and Output: 03/18/18 03/18/18 06:59 18:59 Intake Total 950 Balance 950 - Medications Medications: Current Medications Diphenhydramine HCl (Benadryl) 25 mg IVP Q8 PRN PRN Reason: Agitation Last Admin: 03/16/18 04:19 Dose: 25 mg Enoxaparin Sodium (Lovenox) 30 mg SC DAILY [facility] Last Admin: 03/18/18 09:47 Dose: 30 mg Albumin Human (Albumin Human 25% (12.5 Gm/50 Ml)) 50 mls @ 50 mls/hr IV Q8H [facility] Stop: 03/19/18 01:59 Albumin Human (Albumin Human 25% (12.5 Gm/50 Ml)) 50 mls @ 50 mls/hr IV Q8H [facility] Stop: 03/19/18 01:59 Lactulose (Enulose) 20 gm PO TID [facility] Last Admin: 03/18/18 13:41 Dose: 20 gm Pantoprazole Sodium (Protonix Ec Tab) 40 mg PO DAILY [facility] Last Admin: 03/18/18 09:47 Dose: 40 mg Rifaximin (Xifaxan) 550 mg PO BID [facility] PRN Reason: Protocol Last Admin: 03/18/18 09:47 Dose: 550 mg - Labs Labs: 03/18/18 07:42 03/18/18 07:20 PT 18.9 SECONDS (9.7-12.2) H 03/17/18 07:13 INR 1.6 03/17/18 07:13 APTT 33 SECONDS (21-34) 03/17/18 07:13 - Constitutional Appears: Well - Head Exam Head Exam: ATRAUMATIC, NORMAL INSPECTION, NORMOCEPHALIC - Eye Exam Eye Exam: EOMI, Normal appearance, PERRL Pupil Exam: NORMAL ACCOMODATION, PERRL - ENT Exam ENT Exam: Mucous Membranes Moist, Normal Exam - Neck Exam Neck Exam: Full ROM, Normal Inspection. absent: Lymphadenopathy - Respiratory Exam Respiratory Exam: Decreased Breath Sounds - Cardiovascular Exam Cardiovascular Exam: REGULAR RHYTHM, +S1, +S2 - GI/Abdominal Exam GI & Abdominal Exam: Soft, Diminished Bowel Sounds - Rectal Exam Rectal Exam: Deferred Assessment and Plan (1) Hepatic encephalopathy Status: Acute (2) Abdominal pain Status: Acute (3) Acute encephalopathy Status: Acute (4) Cirrhosis Status: Acute (5) Drug abuse Status: Acute (6) Drug dependence Status: Acute (7) Hyperammonemia Status: Acute
--- NOTE | 2018-03-19 09:03 | CP.PCM.PN ---
<Matthew Burden - Last Filed: 03/19/18 09:00> Subjective - Date & Time of Evaluation Date of Evaluation: 03/19/18 Time of Evaluation: 07:00 - Subjective Subjective: PGY5 GI Fellow Progress Note Patient seen and examined bedside this morning. The patient states that he is feeling well and has no complaints. Potato chips bag at bedside; reinforced importance of 2g Na diet. He denies any complaints and is eager to go home. 12 system ROS performed and negative except where stated. Objective - Vital Signs/Intake and Output Vital Signs (last 24 hours): Temp Pulse Resp BP Pulse Ox 98.5 F 71 20 145/79 98 03/18/18 23:57 03/18/18 23:57 03/18/18 23:57 03/18/18 23:57 03/18/18 23:57 - Medications Medications: Current Medications Diphenhydramine HCl (Benadryl) 25 mg IVP Q8 PRN PRN Reason: Agitation Last Admin: 03/16/18 04:19 Dose: 25 mg Enoxaparin Sodium (Lovenox) 30 mg SC DAILY [facility] Last Admin: 03/18/18 09:47 Dose: 30 mg Lactulose (Enulose) 20 gm PO TID [facility] Last Admin: 03/18/18 17:13 Dose: 20 gm Pantoprazole Sodium (Protonix Ec Tab) 40 mg PO DAILY [facility] Last Admin: 03/18/18 09:47 Dose: 40 mg Rifaximin (Xifaxan) 550 mg PO BID [facility] PRN Reason: Protocol Last Admin: 03/18/18 17:14 Dose: 550 mg - Labs Labs: 03/18/18 07:42 03/18/18 07:20 PT 18.9 SECONDS (9.7-12.2) H 03/17/18 07:13 INR 1.6 03/17/18 07:13 APTT 33 SECONDS (21-34) 03/17/18 07:13 - Constitutional Appears: No Acute Distress, Chronically Ill - Eye Exam Eye Exam: EOMI, PERRL - ENT Exam ENT Exam: Mucous Membranes Dry - Respiratory Exam Respiratory Exam: Rales. absent: Clear to Ausculation Bilateral, Rhonchi, Wheezes - Cardiovascular Exam Cardiovascular Exam: RRR, +S1, +S2 - GI/Abdominal Exam GI & Abdominal Exam: Soft, Normal Bowel Sounds. absent: Distended, Firm, Guarding, Rigid, Tenderness, Organomegaly - Extremities Exam Extremities Exam: Normal Inspection. absent: Pedal Edema - Neurological Exam Neurological Exam: Alert, Awake, Oriented x3 - Psychiatric Exam Psychiatric exam: Normal Affect, Normal Mood - Skin Skin Exam: Dry, Warm Assessment and Plan - Assessment and Plan (Free Text) Assessment: maty is a 52yo male with decompensated cirrhosis c/b hepatic encephalopathy, ascites, HTN, prior heroin abuse who presented to the hospital for altered mentation -Hepatic encephalopathy - grade 2/3 - resolved -Decompensated cirrhosis -Ascites -CLARA - resolved -HTN -Prior HCV exposure Plan: -Again recommend removal of pleurex catheter in this cirrhotic patient as this is likely potentiating frequent dehydration and development of HE -Continue to encourage medical compliance -Continue 2g Na diet -Will discuss case with IR for pleurex catheter removal -S/P albumin and IVF resuscitation with significant improvement in Cr -Lactulose 20g PO TID, titrate to 2-3 BM/day -Rifaximin 550mg PO BID -Prior autoimmune w/u with +ASMA 1:40; repeat Ab pending -HCV VL negative - likely prior exposure and clearance -Avoid sedating agents -2g Na diet <Tremaine Luong - Last Filed: 03/19/18 11:37> Objective - Vital Signs/Intake and Output Vital Signs (last 24 hours): Temp Pulse Resp BP Pulse Ox 98.5 F 71 20 145/79 98 03/18/18 23:57 03/18/18 23:57 03/18/18 23:57 03/18/18 23:57 03/18/18 23:57 - Medications Medications: Current Medications Diphenhydramine HCl (Benadryl) 25 mg IVP Q8 PRN PRN Reason: Agitation Last Admin: 03/16/18 04:19 Dose: 25 mg Enoxaparin Sodium (Lovenox) 30 mg SC DAILY [facility] Last Admin: 03/19/18 09:45 Dose: 30 mg Lactulose (Enulose) 20 gm PO TID [facility] Last Admin: 03/19/18 09:45 Dose: 20 gm Pantoprazole Sodium (Protonix Ec Tab) 40 mg PO DAILY [facility] Last Admin: 03/19/18 09:45 Dose: 40 mg Rifaximin (Xifaxan) 550 mg PO BID [facility] PRN Reason: Protocol Last Admin: 03/19/18 09:45 Dose: 550 mg - Labs Labs: 03/19/18 11:10 03/18/18 07:20 PT 18.9 SECONDS (9.7-12.2) H 03/17/18 07:13 INR 1.6 03/17/18 07:13 APTT 33 SECONDS (21-34) 03/17/18 07:13 Attending/Attestation - Attestation I have personally seen and examined this patient.: Yes I have fully participated in the care of the patient.: Yes I have reviewed all pertinent clinical information, including history, physical exam and plan: Yes Notes (Text): 03/19/18 11:33 I have seen and examined patient with GI fellow. No acute events overnight, he is seen resting in bed comfortably eating breakfast. He denies abdominal pain, nausea, vomiting, fever/chills. Tolerating PO diet without difficulty, 2 bowel movements yesterday. HCV decompensated cirrhosis Acute renal insufficiency - resolved AMS - resolved, hepatic encephalopathy - Low sodium diet as tolerated - Ideally would suggest removing pleurex catheter to prevent patient from self- draining ascitic fluid which contributes to ongoing electrolyte disturbance, however discussed with IR. Recommend clamping tube and initiating diuretic therapy, continue to monitor electrolytes. - Continue with lactulose/xifaxan regimen for HE prevention - Following hospital discharge, patient will require follow up at [facility] liver clinic for transplant evaluation - No further planned GI interventions, will sign off case. Please reconsult as necessary, thank you.
[2018-03-19] MEDS: Pantoprazole 40 mg EC Tab PO SCH (09:45)
[2018-03-19] MEDS: Enoxaparin 30 mg Syringe SC SCH (09:45)
--- NOTE | 2018-03-19 11:04 | CP.PCM.PN ---
Subjective - Date & Time of Evaluation Date of Evaluation: 03/19/18 Time of Evaluation: 10:44 - Subjective Subjective: Medicine progress note for Dr. Timothy Zheng's service Patient seen and examined. Patient resting comfortably in bed. Patient inquiring about removal of Pleurex catheter. Patient denies other complaints at this time. Objective - Vital Signs/Intake and Output Vital Signs (last 24 hours): Temp Pulse Resp BP Pulse Ox 98.5 F 71 20 145/79 98 03/18/18 23:57 03/18/18 23:57 03/18/18 23:57 03/18/18 23:57 03/18/18 23:57 - Medications Medications: Current Medications Diphenhydramine HCl (Benadryl) 25 mg IVP Q8 PRN PRN Reason: Agitation Last Admin: 03/16/18 04:19 Dose: 25 mg Enoxaparin Sodium (Lovenox) 30 mg SC DAILY [facility] Last Admin: 03/19/18 09:45 Dose: 30 mg Lactulose (Enulose) 20 gm PO TID [facility] Last Admin: 03/19/18 09:45 Dose: 20 gm Pantoprazole Sodium (Protonix Ec Tab) 40 mg PO DAILY [facility] Last Admin: 03/19/18 09:45 Dose: 40 mg Rifaximin (Xifaxan) 550 mg PO BID [facility] PRN Reason: Protocol Last Admin: 03/19/18 09:45 Dose: 550 mg - Labs Labs: 03/18/18 07:42 03/18/18 07:20 PT 18.9 SECONDS (9.7-12.2) H 03/17/18 07:13 INR 1.6 03/17/18 07:13 APTT 33 SECONDS (21-34) 03/17/18 07:13 - Constitutional Appears: No Acute Distress, Chronically Ill - Head Exam Head Exam: ATRAUMATIC, NORMOCEPHALIC - Eye Exam Eye Exam: EOMI - ENT Exam ENT Exam: Mucous Membranes Dry - Respiratory Exam Respiratory Exam: Clear to Ausculation Bilateral, NORMAL BREATHING PATTERN Additional comments: pleurex catheter present right side of chest - Cardiovascular Exam Cardiovascular Exam: +S1, +S2 - GI/Abdominal Exam GI & Abdominal Exam: Distended, Soft, Normal Bowel Sounds. absent: Firm, Guarding, Rigid, Tenderness - Extremities Exam Extremities Exam: Pedal Edema (1+ pitting bilaterally to midshin) - Neurological Exam Neurological Exam: Alert, Awake - Psychiatric Exam Psychiatric exam: Normal Affect - Skin Skin Exam: Warm Assessment and Plan - Assessment and Plan (Free Text) Assessment: Hepatic Encephalopathy - Improved mental status - Continue on lactulose 20 mg po TID and Rifaximin 550 mg po bid - Serum albumin is 2.8 - GI, Dr. Luong is consulted. recommend removal of pleurex as that may be causing dehydration recommend starting diuretics with outpatient laboratory testing one week - Consulted pulm, Dr. Martinez for possible removal of catheter. - Completed albumin 25% IV q8 for total of 3 days - Avoid sedating agents Cirrhosis - Abd US showed increased echogenecity in hepatic parenchymal cortex for fatty infiltration vs. hepatic parenchymal disease. Abd ascites including perhepatic ascites. - continue 2 g Na diet - Pt has transient transaminits. CLARA - resolved - On presentation, pt had worsening kidney failure 2/2 dehdration vs suspected hepatorenal syndrome. - Will continue to monitor. HTN - Pt has been normotensive since admission. Will hold all BP meds for now and continue to monitor VS HCV - HCV ab positive, viral load is negative - Pending repeat auto-antibodies (ASMA) Hyponatremia - Patient has chronic hyponatremia likely due to liver cirrhosis. Will continue to monitor. Prophylaxis - Lovenox 30 mg sc - Protonix 40mg Po daily All managements and orders per Dr. Zheng
[2018-03-19 11:19] LABS: BASO # 0.1 K/uL (0.0-0.2); EOS # 0.2 K/uL (0.0-0.7); HEMOGLOBIN 11.3 g/dL (12.0-18.0); LYMPH # 0.8 K/uL (1.0-4.3); MEAN CELL VOLUME 88.6 fL (80.0-94.0); MEAN CORPUSCULAR HEMOGLOBIN 30.4 pg (27.0-31.0); MEAN CORPUSCULAR HGB CONC 34.3 g/dL (33.0-37.0); MEAN PLATELET VOLUME 9.9 fL (7.2-11.7); MONO # 1.2 K/uL (0.0-0.8); MONO % 11.3 % (0.0-10.0); NEUT # 8.1 K/uL (1.8-7.0); NEUT % 77.7 % (50.0-75.0); NRBC % 0.1 % (0.0-2.0); PLATELET COUNT 156 K/uL (130-400); RBC 3.71 Mil/uL (4.40-5.90); RED CELL DISTRIBUTION WIDTH 15.9 % (11.5-14.5); WHITE BLOOD COUNT 10.4 K/uL (4.8-10.8)
[2018-03-19 11:38] LABS: ALBUMIN 2.8 g/dL (3.5-5.0); BLOOD UREA NITROGEN 39 mg/dL (9-20); CALCIUM 7.8 mg/dl (8.6-10.4); GFR AFRICAN-AMERICAN > 60; GFR NON-AFRICAN AMERICAN > 60
[2018-03-19 11:39] LABS: ALB/GLOB RATIO 0.8 (1.0-2.1); ALT/SGPT 43 U/L (21-72); AST/SGOT 86 U/L (17-59)
[2018-03-19 11:46] LABS: BASOPHIL 1 % (0-2); EOSINOPHIL 2 % (0-4); LYMPHOCYTE 6 % (20-40); MONOCYTE 10 % (0-10); NEUTROPHIL 81 % (50-75); PLATELET ESTIMATE NORMAL (NORMAL); TOTAL CELLS COUNTED 100
[2018-03-19 11:49] LABS: ANISOCYTOSIS SLIGHT; BURR CELLS SLIGHT; HYPOCHROMIC SLIGHT; POIKILOCYTOSIS SLIGHT; TARGET CELLS SLIGHT
[2018-03-19 11:50] LABS: TEARDROP CELLS SLIGHT
[2018-03-19 16:09] VITALS: BP 107/75; PULSE 106; TEMP 98.4; O2SAT 96
--- NOTE | 2018-03-19 16:30 | CP.PCM.PN ---
Subjective - Date & Time of Evaluation Date of Evaluation: 03/19/18 Time of Evaluation: 07:20 - Subjective Subjective: clinically same Objective - Vital Signs/Intake and Output Vital Signs (last 24 hours): Temp Pulse Resp BP Pulse Ox 98.4 F 106 H 20 107/75 96 03/19/18 16:00 03/19/18 16:00 03/19/18 16:00 03/19/18 16:00 03/19/18 16:00 - Medications Medications: Current Medications Diphenhydramine HCl (Benadryl) 25 mg IVP Q8 PRN PRN Reason: Agitation Last Admin: 03/16/18 04:19 Dose: 25 mg Enoxaparin Sodium (Lovenox) 30 mg SC DAILY [facility] Last Admin: 03/19/18 09:45 Dose: 30 mg Lactulose (Enulose) 20 gm PO TID [facility] Last Admin: 03/19/18 13:16 Dose: 20 gm Pantoprazole Sodium (Protonix Ec Tab) 40 mg PO DAILY [facility] Last Admin: 03/19/18 09:45 Dose: 40 mg Rifaximin (Xifaxan) 550 mg PO BID [facility] PRN Reason: Protocol Last Admin: 03/19/18 09:45 Dose: 550 mg Spironolactone (Aldactone) 50 mg PO DAILY [facility] - Labs Labs: 03/19/18 11:10 03/19/18 11:10 PT 18.9 SECONDS (9.7-12.2) H 03/17/18 07:13 INR 1.6 03/17/18 07:13 APTT 33 SECONDS (21-34) 03/17/18 07:13 - Constitutional Appears: Well - Head Exam Head Exam: ATRAUMATIC, NORMAL INSPECTION, NORMOCEPHALIC - Eye Exam Eye Exam: EOMI, Normal appearance, PERRL Pupil Exam: NORMAL ACCOMODATION, PERRL - ENT Exam ENT Exam: Mucous Membranes Moist, Normal Exam - Neck Exam Neck Exam: Full ROM, Normal Inspection. absent: Lymphadenopathy - Respiratory Exam Respiratory Exam: Decreased Breath Sounds - Cardiovascular Exam Cardiovascular Exam: REGULAR RHYTHM, +S1, +S2 - GI/Abdominal Exam GI & Abdominal Exam: Soft, Diminished Bowel Sounds - Rectal Exam Rectal Exam: Deferred Assessment and Plan (1) Hepatic encephalopathy Status: Acute (2) Abdominal pain Status: Acute (3) Acute encephalopathy Status: Acute (4) Cirrhosis Status: Acute (5) Drug abuse Status: Acute (6) Drug dependence Status: Acute (7) Hyperammonemia Status: Acute
--- NOTE | 2018-03-19 19:37 | CP.PCM.PN ---
Subjective - Date & Time of Evaluation Date of Evaluation: 03/19/18 Time of Evaluation: 19:37 Objective - Vital Signs/Intake and Output Vital Signs (last 24 hours): Temp Pulse Resp BP Pulse Ox 98.4 F 106 H 20 107/75 96 03/19/18 16:00 03/19/18 16:00 03/19/18 16:00 03/19/18 16:00 03/19/18 16:00 - Medications Medications: Current Medications Diphenhydramine HCl (Benadryl) 25 mg IVP Q8 PRN PRN Reason: Agitation Last Admin: 03/16/18 04:19 Dose: 25 mg Enoxaparin Sodium (Lovenox) 30 mg SC DAILY [facility] Last Admin: 03/19/18 09:45 Dose: 30 mg Lactulose (Enulose) 20 gm PO TID [facility] Last Admin: 03/19/18 18:15 Dose: 20 gm Pantoprazole Sodium (Protonix Ec Tab) 40 mg PO DAILY [facility] Last Admin: 03/19/18 09:45 Dose: 40 mg Rifaximin (Xifaxan) 550 mg PO BID [facility] PRN Reason: Protocol Last Admin: 03/19/18 18:22 Dose: 550 mg Spironolactone (Aldactone) 50 mg PO DAILY [facility] - Labs Labs: 03/19/18 11:10 03/19/18 11:10 PT 18.9 SECONDS (9.7-12.2) H 03/17/18 07:13 INR 1.6 03/17/18 07:13 APTT 33 SECONDS (21-34) 03/17/18 07:13
== END 2018-03-19 21:10 | disposition home or self-care (01) | DRG 557 ==
LOC: C.ER 14:59 → C.9E 17:52 → C.3T 18:21
PROVIDERS: ADMIT Internal Medicine Nephrology; ATTEND Internal Medicine Nephrology
DX: K74.69 Other cirrhosis of liver (principal); N17.9 Acute kidney failure, unspecified; B20 Human immunodeficiency virus [HIV] disease; B18.2 Chronic viral hepatitis C; E86.0 Dehydration; R18.8 Other ascites; E87.1 Hypo-osmolality and hyponatremia; N18.9 Chronic kidney disease, unspecified; K74.60 Unspecified cirrhosis of liver; I12.9 Hypertensive chronic kidney disease with stage 1 through stage 4 chronic kidney disease, or unspecified chronic kidney disease; K59.00 Constipation, unspecified; F17.210 Nicotine dependence, cigarettes, uncomplicated

== ENCOUNTER 2018-03-24 07:35 | Inpatient (IN) | payer MEDICAID ==
[2018-03-24 07:51] VITALS: BMI 25.1
--- NOTE | 2018-03-24 08:19 | RAD ---
HISTORY: hx pleural effusion COMPARISON: Chest x-ray 03/15/2018 and 02/13/2018 TECHNIQUE: Chest one view . FINDINGS: LUNGS: Large right pleural effusion, significantly increased since prior exam. Small amount of aerated right upper lobe. Underlying consolidation cannot be excluded. Left lung appears clear. There is no left pleural effusion. PLEURA: See above CARDIOVASCULAR: Heart size is enlarged. OSSEOUS STRUCTURES: Stable sclerotic focus left humeral head. VISUALIZED UPPER ABDOMEN: Unremarkable. OTHER FINDINGS: None. IMPRESSION: Large right pleural effusion, significantly increased since prior exam. Small amount of aerated right upper lobe. Underlying consolidation cannot be excluded. Cardiomegaly
--- NOTE | 2018-03-24 08:21 | C.PDOC ---
History Of Present Illness 52 y/o male, w/ PMhx of HIV, Hepatitis C, liver cirrhosis, and hepatic encephalopathy brought to ER for evaluation after family found him in an agitated state today. He was seen in the office by Dr Timothy Zheng yesterday. Patient had frequent hospitalizations over the past 1 month for AMS and agitation. He was discharged last week against medical advice. Patient has elevated ammonia levels. He is also known to have a chronic right sided pleural effusion that had been drained in the past but is not drain is currently closed. Patient is usually agitated and he refuses to take medications and treatment. According to his family member, he appeared fine last night. However , when his family woke him up today, he appeared confused and agitated.Of note , patient is unable to provide information and is not compliant with the exam. Time Seen by Provider: 03/24/18 07:42 Chief Complaint (Nursing): Altered Mental Status History Per: Family History/Exam Limitations: None Onset/Duration Of Symptoms: Days Current Symptoms Are (Timing): Still Present Severity: Moderate Past Medical History Reviewed: Historical Data, Nursing Documentation, Vital Signs Vital Signs: Last Vital Signs Temp 97.6 F 03/24/18 07:45 Pulse 84 03/24/18 09:29 Resp 15 03/24/18 09:29 BP 107/67 03/24/18 09:29 Pulse Ox 98 03/24/18 09:29 - Medical History PMH: Hepatitis, HIV Denies: Diabetes, HTN, Chronic Kidney Disease, Seizures, Sexually Transmitted Disease Other Surgeries: Hx of surgeries Family History: States: No Known Family Hx - Social History Hx Tobacco Use: Yes (heavy smoker) Hx Alcohol Use: Yes Hx Substance Use: Yes - Immunization History Hx Tetanus Toxoid Vaccination: No Hx Influenza Vaccination: No Hx Pneumococcal Vaccination: No Review Of Systems Review Of Systems: ROS cannot be obtained secondary to pt's inabilty to answer questions. Constitutional: Negative for: Fever, Chills Neurological: Positive for: Confusion Physical Exam - Physical Exam Appears: Combative, Confused, Chronically Ill, Other (nonverbal, non-cooperative , combative when touched) Skin: No Normal Color (sallow ), Warm, Dry, Ecchymosis (multiple regions of ecchymosis over chest wall and abdomen wall), Other (IV track saha) Head: Atraumatic, Normacephalic Eye(s): bilateral: Normal Inspection Nose: Normal Oral Mucosa: Dry Neck: Supple Chest: Symmetrical, Ecchymosis (multiple regions of ecchymosis over chest wall) , Other (drain to right chest wall) Cardiovascular: Rhythm Regular Respiratory: Normal Breath Sounds, No Rales, No Rhonchi, No Wheezing Gastrointestinal/Abdominal: Soft, Distention, Other (difficult to evaluate for tenderness because patient is non-cooperative) Extremity: Other (mild peripheral edema) Neurological/Psych: Inappropriate Response To Command, Other (agitated when stimulated) Gait: Unable To Assess ED Course And Treatment - Laboratory Results Result Diagrams: 03/24/18 08:09 03/24/18 08:09 Lab Interpretation: Abnormal (Na 121, K+ 5.8, HCO3 17, BUN 49, Cr 1.6, ammonia 318) ECG Rhythm: Sinus Rhythm (with prolonged QT) O2 Sat by Pulse Oximetry: 97 (RA) Pulse Ox Interpretation: Normal - Radiology CXR: Interpreted by Me CXR Interpretation: Yes: Other (Large right pelural effusion much worse than prior images) Reevaluation Time: 10:39 Reassessment Condition: Unchanged - Physician Consult Information Outcome Of Conversation: Case discussed with Dr Zheng and Dr Dc. Patient to be admitted to ICU for hepatic encephalopathy with pleural effusion Medical Decision Making Medical Decision Making: Plan: --Labs --ECG --CXR Disposition - Disposition Disposition: HOSPITALIZED Disposition Time: 10:41 Condition: CRITICAL - POA Present On Arrival: None - Clinical Impression Clinical Impression: Hepatic encephalopathy, Pleural effusion - Scribe Statement The provider has reviewed the documentation as recorded by the Eufemia Thorpe Provider Attestation: All medical record entries made by the Eufemia were at my direction and personally dictated by me. I have reviewed the chart and agree that the record accurately reflects my personal performance of the history, physical exam, medical decision making, and the department course for this patient. I have also personally directed, reviewed, and agree with the discharge instructions and disposition.
[2018-03-24 08:22] LABS: BASO % 0.2 % (0.0-2.0); EOS # 0.1 K/uL (0.0-0.7); EOS % 1.3 % (0.0-4.0); HEMOGLOBIN 11.8 g/dL (12.0-18.0); LYMPH # 0.6 K/uL (1.0-4.3); LYMPH % 5.4 % (20.0-40.0); MEAN CELL VOLUME 87.2 fL (80.0-94.0); MEAN CORPUSCULAR HEMOGLOBIN 30.4 pg (27.0-31.0); MEAN CORPUSCULAR HGB CONC 34.9 g/dL (33.0-37.0); MEAN PLATELET VOLUME 9.7 fL (7.2-11.7); MONO # 1.3 K/uL (0.0-0.8); MONO % 12.7 % (0.0-10.0); NEUT # 8.5 K/uL (1.8-7.0); NEUT % 80.4 % (50.0-75.0); PLATELET COUNT 232 K/uL (130-400); RBC 3.88 Mil/uL (4.40-5.90); RED CELL DISTRIBUTION WIDTH 15.9 % (11.5-14.5); WHITE BLOOD COUNT 10.6 K/uL (4.8-10.8)
[2018-03-24 08:36] LABS: INR 1.5; PROTHROMBIN TIME 17.2 SECONDS (9.7-12.2)
[2018-03-24 08:37] LABS: ALB/GLOB RATIO 0.7 (1.0-2.1); ALT/SGPT 44 U/L (21-72); AST/SGOT 121 U/L (17-59); BLOOD UREA NITROGEN 49 mg/dL (9-20); CALCIUM 7.9 mg/dl (8.6-10.4); GFR AFRICAN-AMERICAN 55; GFR NON-AFRICAN AMERICAN 45
[2018-03-24 08:50] LABS: ANISOCYTOSIS SLIGHT; BURR CELLS SLIGHT; EOSINOPHIL 1 % (0-4); HYPOCHROMIC SLIGHT; LYMPHOCYTE 8 % (20-40); MONOCYTE 10 % (0-10); NEUTROPHIL 81 % (50-75); OVALOCYTES SLIGHT; PLATELET ESTIMATE NORMAL (NORMAL); POIKILOCYTOSIS SLIGHT; TOTAL CELLS COUNTED 100
[2018-03-24] MEDS: Dexmedetomidine Hydrochloride 200 MCG in Sodium Chloride 0.9% 48 ML IV PRN ×2 (11:42→17:49)
--- NOTE | 2018-03-24 12:44 | CP.PCM.CON ---
<Kendrick Sheikh - Last Filed: 03/24/18 14:37> History of Present Illness - History of Present Illness History of Present Illness: Critical Care Consult note for Dr. Dc This is a 52 year old male with PMHx 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 Patient was last known well last night per family but woke up this morning confused. History is limited because unable to communicate with the patient at this time due to AMS. Per chart review: PMHx: cirrhosis secondary to chronic HCV, hepatorenal syndrome, HTN PSHx: Right thoracentesis 12/2017 Allergies: NKA Social: Prior heroin abuse, tobacco use, prior alcohol use Review of Systems - Review of Systems Systems not reviewed;Unavailable: Altered Mental Status Past Patient History - Infectious Disease Hx of Infectious Diseases: None - Past Medical History & Family History Past Medical History?: Yes - Past Social History Smoking Status: Light Smoker < 10 Cigarettes Daily - CARDIAC Hx Hypertension: Yes - PULMONARY Hx Respiratory Disorders: Yes Other/Comment: Drain to right chest to remove fluid - NEUROLOGICAL Hx Seizures: No - HEENT Hx HEENT Problems: No - RENAL Hx Chronic Kidney Disease: No - ENDOCRINE/METABOLIC Hx Endocrine Disorders: No - HEMATOLOGICAL/ONCOLOGICAL Hx AIDS: Yes Hx Human Immunodeficiency Virus (HIV): Yes - INTEGUMENTARY Hx Dermatological Problems: Yes Hx Psoriasis: Yes - MUSCULOSKELETAL/RHEUMATOLOGICAL Hx Falls: No - GASTROINTESTINAL Hx Gastrointestinal Disorders: Yes Other/Comment: Ascites. Hepatic Encephalopathy - GENITOURINARY/GYNECOLOGICAL Hx Sexually Transmitted Disorders: No - PSYCHIATRIC Hx Substance Use: Yes - SURGICAL HISTORY Hx Surgeries: Yes Other/Comment: Right sided abdominal drain. - ANESTHESIA Hx Anesthesia: No (unknown) Hx Anesthesia Reactions: No Hx Malignant Hyperthermia: No Meds Allergies/Adverse Reactions: Allergies Allergy/AdvReac Type Severity Reaction Status Date / Time No Known Allergies Allergy Verified 03/15/18 15:14 - Medications Medications: Current Medications Dexmedetomidine HCl 200 mcg/ (Sodium Chloride) 50 mls @ 3.85 mls/hr IV TITR PRN ; Protocol; 0.2 MCG/KG/HR PRN Reason: Agitation Last Admin: 03/24/18 11:42 Dose: 0.2 mcg/kg/hr, 3.85 mls/hr Physical Exam - Constitutional Appears: Cachectic, Chronically Ill - Head Exam Head Exam: ATRAUMATIC - Eye Exam Eye Exam: Normal appearance - ENT Exam ENT Exam: Mucous Membranes Dry - Respiratory Exam Respiratory Exam: Decreased Breath Sounds Additional comments: Right chest wall drain in place with dressing - Cardiovascular Exam Cardiovascular Exam: REGULAR RHYTHM, +S1, +S2 - GI/Abdominal Exam GI & Abdominal Exam: Distended, Normal Bowel Sounds, Soft. absent: Tenderness - Extremities Exam Extremities exam: Negative for: pedal edema - Neurological Exam Neurological exam: Altered - Skin Skin Exam: Dry, Warm Results - Vital Signs Recent Vital Signs: Last Vital Signs Temp 97.8 F 03/24/18 11:30 Pulse 81 03/24/18 11:50 Resp 9 L 03/24/18 11:50 BP 94/78 L 03/24/18 11:30 Pulse Ox 98 03/24/18 11:50 - Labs Result Diagrams: 03/24/18 08:09 03/24/18 08:09 Labs: Laboratory Results - last 24 hr 03/24/18 03/24/18 03/24/18 08:09 08:09 08:09 WBC 10.6 RBC 3.88 L Hgb 11.8 L Hct 33.8 L MCV 87.2 MCH 30.4 MCHC 34.9 RDW 15.9 H Plt Count 232 MPV 9.7 Neut % (Auto) 80.4 H Lymph % (Auto) 5.[address] [place] % (Auto) 12.7 H Eos % (Auto) 1.3 Baso % (Auto) 0.2 Neut # (Auto) 8.5 H Lymph # (Auto) 0.[address] [place] # (Auto) 1.3 H Eos # (Auto) 0.1 Baso # (Auto) 0.0 Neutrophils % (Manual) 81 H Lymphocytes % (Manual) 8 L Monocytes % (Manual) 10 Eosinophils % (Manual) 1 Platelet Estimate Normal Hypochromasia (manual) Slight Poikilocytosis (manual Slight Anisocytosis (manual) Slight Ovalocytes Slight [place] Cells Slight PT INR APTT Sodium 121 L Potassium 5.8 H Chloride 92 L Carbon Dioxide 17 L Anion Gap 18 BUN 49 H Creatinine 1.6 H Est GFR ( Amer) 55 Est GFR (Non-Af Amer) 45 Random Glucose 114 H Lactic Acid Calcium 7.9 L Total Bilirubin 1.7 H AST 121 H D ALT 44 Alkaline Phosphatase 241 H D Ammonia 314 H D Total Protein 7.4 Albumin 3.0 L Globulin 4.4 H Albumin/Globulin Ratio 0.7 L Alcohol, Quantitative < 10 03/24/18 03/24/18 08:09 08:09 WBC RBC Hgb Hct MCV MCH MCHC RDW Plt Count MPV Neut % (Auto) Lymph % (Auto) [place] % (Auto) Eos % (Auto) Baso % (Auto) Neut # (Auto) Lymph # (Auto) [place] # (Auto) Eos # (Auto) Baso # (Auto) Neutrophils % (Manual) Lymphocytes % (Manual) Monocytes % (Manual) Eosinophils % (Manual) Platelet Estimate Hypochromasia (manual) Poikilocytosis (manual Anisocytosis (manual) Ovalocytes [place] Cells PT 17.2 H INR 1.5 APTT 32 Sodium Potassium Chloride Carbon Dioxide Anion Gap BUN Creatinine Est GFR ( Amer) Est GFR (Non-Af Amer) Random Glucose Lactic Acid 2.0 Calcium Total Bilirubin AST ALT Alkaline Phosphatase Ammonia Total Protein Albumin Globulin Albumin/Globulin Ratio Alcohol, Quantitative Assessment & Plan - Assessment and Plan (Free Text) Assessment: This is a 52 year old male with PMHx 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 Patient sedated and NGT placed. Neuro Altered and agitated Sedated with Precedex Cardio Assessment: hypotension in setting of patient with Hx of HTN Continue to monitor and support as necessary Pulm Assessment: Pleural effusion Saturating well on room air Will remove some pleural fluid using the patient's drain on the right side GI Assessment: Hepatic encephalopathy Lactulose 20 mg NG D0N--xzxakss to 3 BM per day Rifaximin 550 mg NG BID Renal Assessment: Hepatorenal syndrome Nephro on consult Octreotide 200 mg SC Q8H Midodrine 10 mg NG Q8H Prophylaxis Heparin SC Q12H Protonix 40 mg NG daily Discussed with Dr. Dc <Feng Dc - Last Filed: 03/24/18 17:26> Meds - Medications Medications: Current Medications Heparin Sodium (Porcine) (Heparin) 5,000 units SC Q12H GABBY Dexmedetomidine HCl 200 mcg/ (Sodium Chloride) 50 mls @ 3.85 mls/hr IV TITR PRN ; Protocol; 0.2 MCG/KG/HR PRN Reason: Agitation Last Admin: 03/24/18 11:42 Dose: 0.2 mcg/kg/hr, 3.85 mls/hr Lactulose (Enulose) 20 gm PO Q8 [facility] Last Admin: 03/24/18 14:24 Dose: 20 gm Midodrine (Proamatine) 10 mg PO TID [facility] Last Admin: 03/24/18 17:05 Dose: 10 mg Octreotide Acetate (Sandostatin) 200 mcg SC Q8 [facility] Last Admin: 03/24/18 14:48 Dose: 200 mcg Pantoprazole Sodium (Protonix Susp) 40 mg NG DAILY [facility] Rifaximin (Xifaxan) 550 mg PO BID [facility] PRN Reason: Protocol Last Admin: 03/24/18 17:05 Dose: 550 mg Sodium Bicarbonate (Sodium Bicarbonate Tab) 1,300 mg PO BID [facility] Results - Vital Signs Recent Vital Signs: Last Vital Signs Temp 97.8 F 03/24/18 12:00 Pulse 60 03/24/18 16:03 Resp 11 L 03/24/18 16:03 BP 76/43 L 03/24/18 16:03 Pulse Ox 96 03/24/18 15:30 - Labs Result Diagrams: 03/24/18 08:09 03/24/18 08:09 Labs: Laboratory Results - last 24 hr 03/24/18 03/24/18 03/24/18 07:42 08:09 08:09 WBC 10.6 RBC 3.88 L Hgb 11.8 L Hct 33.8 L MCV 87.2 MCH 30.4 MCHC 34.9 RDW 15.9 H Plt Count 232 MPV 9.7 Neut % (Auto) 80.4 H Lymph % (Auto) 5.[address] [place] % (Auto) 12.7 H Eos % (Auto) 1.3 Baso % (Auto) 0.2 Neut # (Auto) 8.5 H Lymph # (Auto) 0.[address] [place] # (Auto) 1.3 H Eos # (Auto) 0.1 Baso # (Auto) 0.0 Neutrophils % (Manual) 81 H Lymphocytes % (Manual) 8 L Monocytes % (Manual) 10 Eosinophils % (Manual) 1 Platelet Estimate Normal Hypochromasia (manual) Slight Poikilocytosis (manual Slight Anisocytosis (manual) Slight Ovalocytes Slight [place] Cells Slight PT INR APTT Sodium 121 L Potassium 5.8 H Chloride 92 L Carbon Dioxide 17 L Anion Gap 18 BUN 49 H Creatinine 1.6 H Est GFR ( Amer) 55 Est GFR (Non-Af Amer) 45 POC Glucose (mg/dL) 140 H Random Glucose 114 H Lactic Acid Calcium 7.9 L Total Bilirubin 1.7 H AST 121 H D ALT 44 Alkaline Phosphatase 241 H D Ammonia Total Protein 7.4 Albumin 3.0 L Globulin 4.4 H Albumin/Globulin Ratio 0.7 L Alcohol, Quantitative < 10 03/24/18 03/24/18 03/24/18 08:09 08:09 08:09 WBC RBC Hgb Hct MCV MCH MCHC RDW Plt Count MPV Neut % (Auto) Lymph % (Auto) [place] % (Auto) Eos % (Auto) Baso % (Auto) Neut # (Auto) Lymph # (Auto) [place] # (Auto) Eos # (Auto) Baso # (Auto) Neutrophils % (Manual) Lymphocytes % (Manual) Monocytes % (Manual) Eosinophils % (Manual) Platelet Estimate Hypochromasia (manual) Poikilocytosis (manual Anisocytosis (manual) Ovalocytes [place] Cells PT 17.2 H INR 1.5 APTT 32 Sodium Potassium Chloride Carbon Dioxide Anion Gap BUN Creatinine Est GFR ( Amer) Est GFR (Non-Af Amer) POC Glucose (mg/dL) Random Glucose Lactic Acid 2.0 Calcium Total Bilirubin AST ALT Alkaline Phosphatase Ammonia 314 H D Total Protein Albumin Globulin Albumin/Globulin Ratio Alcohol, Quantitative Attending/Attestation - Attestation I have personally seen and examined this patient.: Yes I have fully participated in the care of the patient.: Yes I have reviewed all pertinent clinical information: Yes Notes (Text): 03/24/18 17:21 Patient seen and examined in the intensive care unit. 52-year-old male with history cirrhosis of liver admitted with change in mental status secondary to elevated ammonia level Chest x-ray consistent with large right-sided pleural effusion Patient started on lactulose and rifaximin Pleural fluid drainage Seen by nephrology and started on octreotide and midodrine for hepatorenal syndrome
--- NOTE | 2018-03-24 13:21 | CP.PCM.HP ---
Past Patient History - Infectious Disease Hx of Infectious Diseases: None - Past Medical History & Family History Past Medical History?: Yes - Past Social History Smoking Status: Light Smoker < 10 Cigarettes Daily - CARDIAC Hx Hypertension: Yes - PULMONARY Hx Respiratory Disorders: Yes Other/Comment: Drain to right chest to remove fluid - NEUROLOGICAL Hx Seizures: No - HEENT Hx HEENT Problems: No - RENAL Hx Chronic Kidney Disease: No - ENDOCRINE/METABOLIC Hx Endocrine Disorders: No - HEMATOLOGICAL/ONCOLOGICAL Hx AIDS: Yes Hx Human Immunodeficiency Virus (HIV): Yes - INTEGUMENTARY Hx Dermatological Problems: Yes Hx Psoriasis: Yes - MUSCULOSKELETAL/RHEUMATOLOGICAL Hx Falls: No - GASTROINTESTINAL Hx Gastrointestinal Disorders: Yes Other/Comment: Ascites. Hepatic Encephalopathy - GENITOURINARY/GYNECOLOGICAL Hx Sexually Transmitted Disorders: No - PSYCHIATRIC Hx Substance Use: Yes - SURGICAL HISTORY Hx Surgeries: Yes Other/Comment: Right sided abdominal drain. - ANESTHESIA Hx Anesthesia: No (unknown) Hx Anesthesia Reactions: No Hx Malignant Hyperthermia: No Meds Allergies/Adverse Reactions: Allergies Allergy/AdvReac Type Severity Reaction Status Date / Time No Known Allergies Allergy Verified 03/15/18 15:14 Physical Exam - Constitutional Appears: Well - Head Exam Head Exam: ATRAUMATIC, NORMAL INSPECTION, NORMOCEPHALIC - Eye Exam Eye Exam: EOMI, Normal appearance, PERRL Pupil Exam: NORMAL ACCOMODATION, PERRL - ENT Exam ENT Exam: Mucous Membranes Moist, Normal Exam - Neck Exam Neck exam: Positive for: Normal Inspection - Respiratory Exam Respiratory Exam: Decreased Breath Sounds - Cardiovascular Exam Cardiovascular Exam: REGULAR RHYTHM, +S1, +S2 - GI/Abdominal Exam GI & Abdominal Exam: Diminished Bowel Sounds, Soft - Rectal Exam Rectal Exam: Deferred Results - Vital Signs Recent Vital Signs: Last Vital Signs Temp 97.8 F 03/24/18 12:00 Pulse 71 03/24/18 13:00 Resp 11 L 03/24/18 13:00 BP 90/52 L 03/24/18 13:00 Pulse Ox 98 03/24/18 13:00 - Labs Result Diagrams: 03/24/18 08:09 03/24/18 08:09 Labs: Laboratory Results - last 24 hr 03/24/18 03/24/18 03/24/18 07:42 08:09 08:09 WBC 10.6 RBC 3.88 L Hgb 11.8 L Hct 33.8 L MCV 87.2 MCH 30.4 MCHC 34.9 RDW 15.9 H Plt Count 232 MPV 9.7 Neut % (Auto) 80.4 H Lymph % (Auto) 5.4 L [place] % (Auto) 12.7 H Eos % (Auto) 1.3 Baso % (Auto) 0.2 Neut # (Auto) 8.5 H Lymph # (Auto) 0.6 L [place] # (Auto) 1.3 H Eos # (Auto) 0.1 Baso # (Auto) 0.0 Neutrophils % (Manual) 81 H Lymphocytes % (Manual) 8 L Monocytes % (Manual) 10 Eosinophils % (Manual) 1 Platelet Estimate Normal Hypochromasia (manual) Slight Poikilocytosis (manual Slight Anisocytosis (manual) Slight Ovalocytes Slight [place] Cells Slight PT INR APTT Sodium 121 L Potassium 5.8 H Chloride 92 L Carbon Dioxide 17 L Anion Gap 18 BUN 49 H Creatinine 1.6 H Est GFR ( Amer) 55 Est GFR (Non-Af Amer) 45 POC Glucose (mg/dL) 140 H Random Glucose 114 H Lactic Acid Calcium 7.9 L Total Bilirubin 1.7 H AST 121 H D ALT 44 Alkaline Phosphatase 241 H D Ammonia Total Protein 7.4 Albumin 3.0 L Globulin 4.4 H Albumin/Globulin Ratio 0.7 L Alcohol, Quantitative < 10 03/24/18 03/24/18 03/24/18 08:09 08:09 08:09 WBC RBC Hgb Hct MCV MCH MCHC RDW Plt Count MPV Neut % (Auto) Lymph % (Auto) [place] % (Auto) Eos % (Auto) Baso % (Auto) Neut # (Auto) Lymph # (Auto) [place] # (Auto) Eos # (Auto) Baso # (Auto) Neutrophils % (Manual) Lymphocytes % (Manual) Monocytes % (Manual) Eosinophils % (Manual) Platelet Estimate Hypochromasia (manual) Poikilocytosis (manual Anisocytosis (manual) Ovalocytes [place] Cells PT 17.2 H INR 1.5 APTT 32 Sodium Potassium Chloride Carbon Dioxide Anion Gap BUN Creatinine Est GFR ( Amer) Est GFR (Non-Af Amer) POC Glucose (mg/dL) Random Glucose Lactic Acid 2.0 Calcium Total Bilirubin AST ALT Alkaline Phosphatase Ammonia 314 H D Total Protein Albumin Globulin Albumin/Globulin Ratio Alcohol, Quantitative
[2018-03-24] MEDS ORDERED: DiphenhydrAMINE 50 mg/ml Inj IVP STA (14:23)
[2018-03-24] MEDS: Octreotide 500 mcg/ml Inj SC SCH ×2 (14:48→21:45)
--- NOTE | 2018-03-24 14:51 | RAD ---
HISTORY: NGT placed COMPARISON: March 24, 2018. Time of the most recent examination: 08:10. FINDINGS: LUNGS: Compressive atelectasis is substantial related to large right pleural effusion. PLEURA: Stable, large right pleural effusion. CARDIOVASCULAR: No radiographic findings to suggest acute or significant cardiovascular disease. OSSEOUS STRUCTURES: No significant abnormalities. VISUALIZED UPPER ABDOMEN: Normal. OTHER FINDINGS: None. IMPRESSION: Satisfactory position of recently placed nasogastric tube coursing through the esophagus into the stomach.
[2018-03-24 17:23] LABS: SQUAMOUS EPITHIAL < 1 /hpf (0-5); URINE BACTERIA RARE (<OCC); URINE BILIRUBIN NEGATIVE (NEGATIVE); URINE BLOOD 1+ (NEGATIVE); URINE CLARITY Clear (Clear); URINE COLOR Yellow (YELLOW); URINE GLUCOSE (UA) NORMAL (Normal); URINE LEUKOCYTE ESTERASE NEG Leu/uL (Negative); URINE PROTEIN NEGATIVE (NEGATIVE); URINE UROBILINOGEN NORMAL mg/dL (0.2-1.0)
[2018-03-24 17:24] LABS: URINE BILIRUBIN NEGATIVE (NEGATIVE); URINE BLOOD 1+ (NEGATIVE); URINE CLARITY Hazy (Clear); URINE COLOR Yellow (YELLOW); URINE GLUCOSE (UA) NORMAL (Normal); URINE LEUKOCYTE ESTERASE NEG Leu/uL (Negative); URINE PROTEIN 1+ mg/dL (NEGATIVE); URINE UROBILINOGEN NORMAL mg/dL (0.2-1.0)
[2018-03-24 17:29] LABS: BARBITURATES, UR NEGATIVE (NEGATIVE); BENZODIAZEPINES, UR NEGATIVE (NEGATIVE); OPIATES, UR NEGATIVE (NEGATIVE); PHENCYCLIDINE, UR NEGATIVE (NEGATIVE)
--- NOTE | 2018-03-24 17:30 | CP.PCM.CON ---
History of Present Illness - History of Present Illness History of Present Illness: Nephrology Consultation Note Assessment: critical Recurrent Acute Kidney Injury (N17.9) likely due to hepato-renal syndrome Type 1 Chronic Hep C with cirrhosis and hepatic encephalopathy Hyponatremia, metabolic acidosis, hyperkalemia Rt pleural effusion Plan No acute need for renal replacement therapy at this time. Maintain hemodynamics stable. Patient not on ACEI/ARB due to CLARA Monitor Input/Output, daily weights and renal function with basic metabolic panel continue with po midodrine to 10 mg and octreotide 200 mcg sc three times a day will resume sodium bicarb 1300 mg bid may give IV albumin as needed for low BP pt was not considered to be a candidate for liver transplant when seen at [facility] by GI team overall prognosis poor avoid rapid correction in serum sodium >6-8 meq/24 hrs. not a candidate for vaptans therapy. will check UA/urine osmol, urine Na. anticipate serum Na to improve once gets osmotic laxative as lactulose management of Rt pleural effsion as per ICU Dose meds/antibiotics for reduced GFR. Avoid fleets enema/magnesium based laxatives. Avoid nephrotoxins/NSAIDs/ iodinated contrast (unless needed emergently) Glycemic control Further work up for as per primary team Thanks for allowing me to participate in care of your patient. Will follow patient with you. Please call if any Qs. d/w ICU team Dr Sean Ruiz Office: [phone] CC: unable to obtain reason for consult: hepatorenal syndrome source of info: EMR HPI: pt is a 52 M with hx of cirrhosis chronic Hep C and recurrent hepatic encehalopathy, recurent AKIs with hepatorenal syndome and frequent hospitalizations at [facility], [facility] came with AMS and also with renal insufficiency with hyponatremia and hyperkalemia hence renal consult. pt seen in ICU and unable to provide hx due to AMS Subjective: unable to obtain Physical Examination: General Appearance: in no acute respiratory distress, unco-operative. facial muscles wasted, ill appearing Vitals reviewed and noted as below Head; Atraumatic, normocephalic ENT: no ulcers no thrush. Tongue is midline. Oropharynx: no rash or ulcers. EYES: Pupils are equal, round and reactive to light accommodation. Eye muscles and extraocular movement intact. Sclera is icteric. Neck; supple no lymphadenopathy, no thyromegaly or bruit Lungs: Normal respiratory rate/effort. Breath sounds reduced at Rt base Heart: Normal rate. s1s2 normal. No rub or gallop. Extremities: no edema. No varicose veins Neurological: Patient is delirious, confused Skin: Warm and dry. Normal turgor. No rash. Palpitation: Normal elasticity for age Abdomen: Abdomen is soft. Bowel sounds +. There is no abdominal tenderness, no guarding/rigidity no organomegaly. abdomen is ascitic Psych: unable MSK: no joint tenderness or swelling. Digits and nails normal, no deformity : kidney or bladder not palpable Labs/imaging reviewed. Past medical history, past surgical history, family history, social history, allergy reviewed and noted as below Family hx: no hx of CKD. Rest non-contributory Past Patient History - Infectious Disease Hx of Infectious Diseases: None - Past Medical History & Family History Past Medical History?: Yes - Past Social History Smoking Status: Light Smoker < 10 Cigarettes Daily - CARDIAC Hx Hypertension: Yes - PULMONARY Hx Respiratory Disorders: Yes Other/Comment: Drain to right chest to remove fluid - NEUROLOGICAL Hx Seizures: No - HEENT Hx HEENT Problems: No - RENAL Hx Chronic Kidney Disease: No - ENDOCRINE/METABOLIC Hx Endocrine Disorders: No - HEMATOLOGICAL/ONCOLOGICAL Hx AIDS: Yes Hx Human Immunodeficiency Virus (HIV): Yes - INTEGUMENTARY Hx Dermatological Problems: Yes Hx Psoriasis: Yes - MUSCULOSKELETAL/RHEUMATOLOGICAL Hx Falls: No - GASTROINTESTINAL Hx Gastrointestinal Disorders: Yes Other/Comment: Ascites. Hepatic Encephalopathy - GENITOURINARY/GYNECOLOGICAL Hx Sexually Transmitted Disorders: No - PSYCHIATRIC Hx Substance Use: Yes - SURGICAL HISTORY Hx Surgeries: Yes Other/Comment: Right sided abdominal drain. - ANESTHESIA Hx Anesthesia: No (unknown) Hx Anesthesia Reactions: No Hx Malignant Hyperthermia: No Meds Allergies/Adverse Reactions: Allergies Allergy/AdvReac Type Severity Reaction Status Date / Time No Known Allergies Allergy Verified 03/15/18 15:14 - Medications Medications: Current Medications Heparin Sodium (Porcine) (Heparin) 5,000 units SC Q12H GABBY Dexmedetomidine HCl 200 mcg/ (Sodium Chloride) 50 mls @ 3.85 mls/hr IV TITR PRN ; Protocol; 0.2 MCG/KG/HR PRN Reason: Agitation Last Admin: 03/24/18 11:42 Dose: 0.2 mcg/kg/hr, 3.85 mls/hr Lactulose (Enulose) 20 gm PO Q8 [facility] Last Admin: 03/24/18 14:24 Dose: 20 gm Midodrine (Proamatine) 10 mg PO TID [facility] Last Admin: 03/24/18 17:05 Dose: 10 mg Octreotide Acetate (Sandostatin) 200 mcg SC Q8 [facility] Last Admin: 03/24/18 14:48 Dose: 200 mcg Pantoprazole Sodium (Protonix Susp) 40 mg NG DAILY [facility] Rifaximin (Xifaxan) 550 mg PO BID [facility] PRN Reason: Protocol Last Admin: 03/24/18 17:05 Dose: 550 mg Sodium Bicarbonate (Sodium Bicarbonate Tab) 1,300 mg PO BID [facility] Results - Vital Signs Recent Vital Signs: Last Vital Signs Temp 97.8 F 03/24/18 12:00 Pulse 60 03/24/18 16:03 Resp 11 L 03/24/18 16:03 BP 76/43 L 03/24/18 16:03 Pulse Ox 96 03/24/18 15:30 - Labs Result Diagrams: 03/24/18 08:09 03/24/18 08:09 Labs: Laboratory Results - last 24 hr 03/24/18 03/24/18 03/24/18 07:42 08:09 08:09 WBC 10.6 RBC 3.88 L Hgb 11.8 L Hct 33.8 L MCV 87.2 MCH 30.4 MCHC 34.9 RDW 15.9 H Plt Count 232 MPV 9.7 Neut % (Auto) 80.4 H Lymph % (Auto) 5.4 L [place] % (Auto) 12.7 H Eos % (Auto) 1.3 Baso % (Auto) 0.2 Neut # (Auto) 8.5 H Lymph # (Auto) 0.6 L [place] # (Auto) 1.3 H Eos # (Auto) 0.1 Baso # (Auto) 0.0 Neutrophils % (Manual) 81 H Lymphocytes % (Manual) 8 L Monocytes % (Manual) 10 Eosinophils % (Manual) 1 Platelet Estimate Normal Hypochromasia (manual) Slight Poikilocytosis (manual Slight Anisocytosis (manual) Slight Ovalocytes Slight [place] Cells Slight PT INR APTT Sodium 121 L Potassium 5.8 H Chloride 92 L Carbon Dioxide 17 L Anion Gap 18 BUN 49 H Creatinine 1.6 H Est GFR ( Amer) 55 Est GFR (Non-Af Amer) 45 POC Glucose (mg/dL) 140 H Random Glucose 114 H Lactic Acid Calcium 7.9 L Total Bilirubin 1.7 H AST 121 H D ALT 44 Alkaline Phosphatase 241 H D Ammonia Total Protein 7.4 Albumin 3.0 L Globulin 4.4 H Albumin/Globulin Ratio 0.7 L Alcohol, Quantitative < 10 03/24/18 03/24/18 03/24/18 08:09 08:09 08:09 WBC RBC Hgb Hct MCV MCH MCHC RDW Plt Count MPV Neut % (Auto) Lymph % (Auto) [place] % (Auto) Eos % (Auto) Baso % (Auto) Neut # (Auto) Lymph # (Auto) [place] # (Auto) Eos # (Auto) Baso # (Auto) Neutrophils % (Manual) Lymphocytes % (Manual) Monocytes % (Manual) Eosinophils % (Manual) Platelet Estimate Hypochromasia (manual) Poikilocytosis (manual Anisocytosis (manual) Ovalocytes [place] Cells PT 17.2 H INR 1.5 APTT 32 Sodium Potassium Chloride Carbon Dioxide Anion Gap BUN Creatinine Est GFR ( Amer) Est GFR (Non-Af Amer) POC Glucose (mg/dL) Random Glucose Lactic Acid 2.0 Calcium Total Bilirubin AST ALT Alkaline Phosphatase Ammonia 314 H D Total Protein Albumin Globulin Albumin/Globulin Ratio Alcohol, Quantitative
[2018-03-24] MEDS: Albumin Human 25% (12.5 gm/50 ml) IV SCH (17:43)
[2018-03-25] MEDS: Albumin Human 25% (12.5 gm/50 ml) IV SCH ×3 (06:00→12:00)
[2018-03-25] MEDS: Octreotide 500 mcg/ml Inj SC SCH ×3 (06:00→21:47)
[2018-03-25 06:37] LABS: BASO # 0.1 K/uL (0.0-0.2); BASO % 0.5 % (0.0-2.0); EOS # 0.1 K/uL (0.0-0.7); EOS % 1.1 % (0.0-4.0); HEMOGLOBIN 11.5 g/dL (12.0-18.0); LYMPH # 0.4 K/uL (1.0-4.3); MEAN CELL VOLUME 88.3 fL (80.0-94.0); MEAN CORPUSCULAR HEMOGLOBIN 30.1 pg (27.0-31.0); MEAN CORPUSCULAR HGB CONC 34.1 g/dL (33.0-37.0); MEAN PLATELET VOLUME 9.4 fL (7.2-11.7); MONO # 1.2 K/uL (0.0-0.8); MONO % 10.5 % (0.0-10.0); NEUT # 9.2 K/uL (1.8-7.0); NEUT % 83.9 % (50.0-75.0); PLATELET COUNT 144 K/uL (130-400); RBC 3.81 Mil/uL (4.40-5.90); RED CELL DISTRIBUTION WIDTH 15.9 % (11.5-14.5)
[2018-03-25 06:55] LABS: ALB/GLOB RATIO 0.8 (1.0-2.1); ALBUMIN 2.7 g/dL (3.5-5.0); ALT/SGPT 41 U/L (21-72); AST/SGOT 53 U/L (17-59); BLOOD UREA NITROGEN 49 mg/dL (9-20); CALCIUM 7.8 mg/dl (8.6-10.4); GFR AFRICAN-AMERICAN > 60; GFR NON-AFRICAN AMERICAN > 60
[2018-03-25] MEDS ORDERED: Dextrose 50% SYRINGE Inj (50 ml) IV STA (08:10)
[2018-03-25] MEDS: Magnesium Sulfate 1 gm in D5W 1 GM/100 ML BAG IVPB SCH ×2 (08:17→08:18)
[2018-03-25 09:27] LABS: EOSINOPHIL 2 % (0-4); LYMPHOCYTE 4 % (20-40); MONOCYTE 14 % (0-10); NEUTROPHIL 80 % (50-75); PLATELET ESTIMATE NORMAL (NORMAL); TOTAL CELLS COUNTED 100
[2018-03-25 09:28] LABS: ANISOCYTOSIS SLIGHT
[2018-03-25] MEDS: Pantoprazole 40 mg Susp UD NG SCH (09:32)
--- NOTE | 2018-03-25 12:30 | CP.CCUPN ---
<Kendrick Sheikh - Last Filed: 03/25/18 13:51> CCU Subjective - Physician Review Subjective (Free Text): 03/25/18 12:27 Patient seen and examined at bedside. Patient remains altered mental status. Per staff, he gets intermittently agitated. Per palliative, the sister has signed to make the patient DNR/DNI and requests hospice evaluation. CCU Objective - Vital Signs / Intake & Output Vital Signs (Last 4 hours): Vital Signs Temp Pulse Resp BP Pulse Ox 03/25/18 11:00 97.9 F 73 14 94 L 03/25/18 10:50 77 20 84/59 L 93 L 03/25/18 10:30 69 16 95 03/25/18 10:00 97.8 F 75 18 93 L 03/25/18 09:50 78 21 84/61 L 97 03/25/18 09:30 73 16 95 03/25/18 09:00 98.4 F 75 17 94 L 03/25/18 08:50 75 17 80/54 L 94 L 03/25/18 08:30 76 17 93 L Intake and Output (Last 8hrs): Intake & Output 03/24/18 03/25/18 03/25/18 22:59 06:59 14:59 Intake Total 370.1 15.2 3.8 Output Total 260 635 100 Balance 110.1 -619.8 -96.2 Weight 173 lb Intake: IV 50 Intake, IV Amount 120.1 15.2 3.8 Right Wrist 120.1 15.2 3.8 Albumin 200 Output: Urine 260 635 100 Urethral (Reese) 260 635 100 Emesis 0 Other: # Bowel Movements 0 - Physical Exam Physical Exam Limitations: Positive for: Altered Mental Status Head: Positive for: Atraumatic Pupils: Positive for: Sluggish Mouth: Positive for: Dry Respiratory/Chest: Positive for: Decreased Breath Sounds. Negative for: Wheezes , Rales, Rhonchi Cardiovascular: Positive for: Regular Rate and Rhythm, Normal S1, S2 Abdomen: Positive for: Normal Bowel Sounds. Negative for: Tenderness Upper Extremity: Negative for: Edema Lower Extremity: Negative for: Edema Skin: Positive for: Warm, Dry - Medications Active Medications: Active Medications Generic Name Dose Route Start Last Admin Trade Name Freq PRN Reason Stop Dose Admin Heparin Sodium (Porcine) 5,000 units 03/24/18 22:00 03/25/18 09:33 Heparin SC 5,000 units Q12H GABBY Administration Dexmedetomidine HCl 200 mcg/ 50 mls @ 3.85 mls/hr 03/24/18 11:29 03/24/18 17: 49 Sodium Chloride IV 0.2 mcg/kg/hr TITR PRN 3.85 mls/hr Agitation Administration Protocol 0.2 MCG/KG/HR Albumin Human 50 mls @ 100 mls/hr 03/24/18 18:30 03/25/18 06:30 Albumin Human 25% (12.5 Gm/50 Ml) IV 03/25/18 12:59 100 mls/hr Q6H GABBY Administration Lactulose 20 gm 03/24/18 14:00 03/25/18 06:00 Enulose PO 20 gm Q8 GABBY Administration Midodrine 10 mg 03/24/18 14:00 03/25/18 09:32 Proamatine PO 10 mg TID GABBY Administration Octreotide Acetate 200 mcg 03/24/18 14:00 03/25/18 06:00 Sandostatin SC 200 mcg Q8 GABBY Administration Pantoprazole Sodium 40 mg 03/25/18 10:00 03/25/18 09:32 Protonix Susp NG 40 mg DAILY GABBY Administration Rifaximin 550 mg 03/24/18 18:00 03/25/18 09:32 Xifaxan PO 550 mg BID GABBY Administration Protocol Sodium Bicarbonate 1,300 mg 03/24/18 18:00 03/25/18 09:32 Sodium Bicarbonate Tab PO 1,300 mg BID GABBY Administration - Patient Studies Lab Studies: Microbiology Studies 03/24/18 16:52 Urine Culture - Final Urine No Growth (<1,000 CFU/ML) Lab Studies 03/25/18 03/25/18 03/25/18 Range/Units 10:40 06:28 06:28 WBC 11.0 H (4.8-10.8) K/uL RBC 3.81 L (4.40-5.90) Mil/uL Hgb 11.5 L (12.0-18.0) g/dL Hct 33.6 L (35.0-51.0) % MCV 88.3 (80.0-94.0) fL MCH 30.1 (27.0-31.0) pg MCHC 34.1 (33.0-37.0) g/dL RDW 15.9 H (11.5-14.5) % Plt Count 144 (130-400) K/uL MPV 9.4 (7.2-11.7) fL Neut % (Auto) 83.9 H (50.0-75.0) % Lymph % (Auto) 4.0 L (20.0-40.0) % [place] % (Auto) 10.5 H (0.0-10.0) % Eos % (Auto) 1.1 (0.0-4.0) % Baso % (Auto) 0.5 (0.0-2.0) % Neut # (Auto) 9.2 H (1.8-7.0) K/uL Lymph # (Auto) 0.4 L (1.0-4.3) K/uL [place] # (Auto) 1.2 H (0.0-0.8) K/uL Eos # (Auto) 0.1 (0.0-0.7) K/uL Baso # (Auto) 0.1 (0.0-0.2) K/uL Neutrophils % (Manual) 80 H (50-75) % Lymphocytes % (Manual) 4 L (20-40) % Monocytes % (Manual) 14 H (0-10) % Eosinophils % (Manual) 2 (0-4) % Platelet Estimate Normal (NORMAL) Anisocytosis (manual) Slight Sodium 127 L (132-148) mmol/L Potassium 4.8 (3.6-5.2) mmol/L Chloride 99 (98-107) mmol/L Carbon Dioxide 19 L (22-30) mmol/L Anion Gap 15 (10-20) BUN 49 H (9-20) mg/dL Creatinine 1.2 (0.8-1.5) mg/dL Est GFR ( Amer) > 60 Est GFR (Non-Af Amer) > 60 POC Glucose (mg/dL) (65-110) mg/dL Random Glucose 67 L (75-110) mg/dL Calcium 7.8 L (8.6-10.4) mg/dl Phosphorus 3.5 (2.5-4.5) mg/dL Magnesium 1.6 (1.6-2.3) mg/dL Total Bilirubin 1.2 (0.2-1.3) mg/dL AST 53 (17-59) U/L ALT 41 (21-72) U/L Alkaline Phosphatase 192 H D (38-126) U/L Ammonia 125 H D (9-33) umol/L Total Protein 6.0 L (6.3-8.3) g/dL Albumin 2.7 L (3.5-5.0) g/dL Globulin 3.3 (2.2-3.9) gm/dL Albumin/Globulin Ratio 0.8 L (1.0-2.1) Urine Color (YELLOW) Urine Clarity (Clear) Urine pH (5.0-8.0) Ur Specific [place] (1.003-1.030) Urine Protein (NEGATIVE) mg/dL Urine Glucose (UA) (Normal) mg/dL Urine Ketones (NEGATIVE) mg/dL Urine Blood (NEGATIVE) Urine Nitrate (NEGATIVE) Urine Bilirubin (NEGATIVE) Urine Urobilinogen (0.2-1.0) mg/dL Ur Leukocyte Esterase (Negative) [place]/uL Urine WBC (Auto) (0-5) /hpf Urine RBC (Auto) (0-3) /hpf Ur Squamous Epith Cells (0-5) /hpf Urine Bacteria (<OCC) Urine Opiates Screen (NEGATIVE) Urine Methadone Screen (NEGATIVE) Ur Barbiturates Screen (NEGATIVE) Ur Phencyclidine Scrn (NEGATIVE) Ur Amphetamines Screen (NEGATIVE) U Benzodiazepines Scrn (NEGATIVE) U Oth Cocaine Metabols (NEGATIVE) U Cannabinoids Screen (NEGATIVE) 03/24/18 03/24/18 03/24/18 Range/Units 17:03 17:03 16:55 WBC (4.8-10.8) K/uL RBC (4.40-5.90) Mil/uL Hgb (12.0-18.0) g/dL Hct (35.0-51.0) % MCV (80.0-94.0) fL MCH (27.0-31.0) pg MCHC (33.0-37.0) g/dL RDW (11.5-14.5) % Plt Count (130-400) K/uL MPV (7.2-11.7) fL Neut % (Auto) (50.0-75.0) % Lymph % (Auto) (20.0-40.0) % [place] % (Auto) (0.0-10.0) % Eos % (Auto) (0.0-4.0) % Baso % (Auto) (0.0-2.0) % Neut # (Auto) (1.8-7.0) K/uL Lymph # (Auto) (1.0-4.3) K/uL [place] # (Auto) (0.0-0.8) K/uL Eos # (Auto) (0.0-0.7) K/uL Baso # (Auto) (0.0-0.2) K/uL Neutrophils % (Manual) (50-75) % Lymphocytes % (Manual) (20-40) % Monocytes % (Manual) (0-10) % Eosinophils % (Manual) (0-4) % Platelet Estimate (NORMAL) Anisocytosis (manual) Sodium (132-148) mmol/L Potassium (3.6-5.2) mmol/L Chloride (98-107) mmol/L Carbon Dioxide (22-30) mmol/L Anion Gap (10-20) BUN (9-20) mg/dL Creatinine (0.8-1.5) mg/dL Est GFR ( Amer) Est GFR (Non-Af Amer) POC Glucose (mg/dL) (65-110) mg/dL Random Glucose (75-110) mg/dL Calcium (8.6-10.4) mg/dl Phosphorus (2.5-4.5) mg/dL Magnesium (1.6-2.3) mg/dL Total Bilirubin (0.2-1.3) mg/dL AST (17-59) U/L ALT (21-72) U/L Alkaline Phosphatase (38-126) U/L Ammonia (9-33) umol/L Total Protein (6.3-8.3) g/dL Albumin (3.5-5.0) g/dL Globulin (2.2-3.9) gm/dL Albumin/Globulin Ratio (1.0-2.1) Urine Color Yellow Yellow (YELLOW) Urine Clarity Hazy Clear (Clear) Urine pH 6.0 6.0 (5.0-8.0) Ur Specific [place] 1.012 1.012 (1.003-1.030) Urine Protein 1+ H Negative (NEGATIVE) mg/dL Urine Glucose (UA) Normal Normal (Normal) mg/dL Urine Ketones Negative Negative (NEGATIVE) mg/dL Urine Blood 1+ H 1+ H (NEGATIVE) Urine Nitrate Negative Negative (NEGATIVE) Urine Bilirubin Negative Negative (NEGATIVE) Urine Urobilinogen Normal Normal (0.2-1.0) mg/dL Ur Leukocyte Esterase Neg Neg (Negative) [place]/uL Urine WBC (Auto) 3 4 (0-5) /hpf Urine RBC (Auto) 27 H 18 H (0-3) /hpf Ur Squamous Epith Cells < 1 (0-5) /hpf Urine Bacteria Rare (<OCC) Urine Opiates Screen Negative (NEGATIVE) Urine Methadone Screen Negative (NEGATIVE) Ur Barbiturates Screen Negative (NEGATIVE) Ur Phencyclidine Scrn Negative (NEGATIVE) Ur Amphetamines Screen Negative (NEGATIVE) U Benzodiazepines Scrn Negative (NEGATIVE) U Oth Cocaine Metabols Negative (NEGATIVE) U Cannabinoids Screen Negative (NEGATIVE) 03/24/18 Range/Units 07:42 WBC (4.8-10.8) K/uL RBC (4.40-5.90) Mil/uL Hgb (12.0-18.0) g/dL Hct (35.0-51.0) % MCV (80.0-94.0) fL MCH (27.0-31.0) pg MCHC (33.0-37.0) g/dL RDW (11.5-14.5) % Plt Count (130-400) K/uL MPV (7.2-11.7) fL Neut % (Auto) (50.0-75.0) % Lymph % (Auto) (20.0-40.0) % [place] % (Auto) (0.0-10.0) % Eos % (Auto) (0.0-4.0) % Baso % (Auto) (0.0-2.0) % Neut # (Auto) (1.8-7.0) K/uL Lymph # (Auto) (1.0-4.3) K/uL [place] # (Auto) (0.0-0.8) K/uL Eos # (Auto) (0.0-0.7) K/uL Baso # (Auto) (0.0-0.2) K/uL Neutrophils % (Manual) (50-75) % Lymphocytes % (Manual) (20-40) % Monocytes % (Manual) (0-10) % Eosinophils % (Manual) (0-4) % Platelet Estimate (NORMAL) Anisocytosis (manual) Sodium (132-148) mmol/L Potassium (3.6-5.2) mmol/L Chloride (98-107) mmol/L Carbon Dioxide (22-30) mmol/L Anion Gap (10-20) BUN (9-20) mg/dL Creatinine (0.8-1.5) mg/dL Est GFR ( Amer) Est GFR (Non-Af Amer) POC Glucose (mg/dL) 140 H (65-110) mg/dL Random Glucose (75-110) mg/dL Calcium (8.6-10.4) mg/dl Phosphorus (2.5-4.5) mg/dL Magnesium (1.6-2.3) mg/dL Total Bilirubin (0.2-1.3) mg/dL AST (17-59) U/L ALT (21-72) U/L Alkaline Phosphatase (38-126) U/L Ammonia (9-33) umol/L Total Protein (6.3-8.3) g/dL Albumin (3.5-5.0) g/dL Globulin (2.2-3.9) gm/dL Albumin/Globulin Ratio (1.0-2.1) Urine Color (YELLOW) Urine Clarity (Clear) Urine pH (5.0-8.0) Ur Specific [place] (1.003-1.030) Urine Protein (NEGATIVE) mg/dL Urine Glucose (UA) (Normal) mg/dL Urine Ketones (NEGATIVE) mg/dL Urine Blood (NEGATIVE) Urine Nitrate (NEGATIVE) Urine Bilirubin (NEGATIVE) Urine Urobilinogen (0.2-1.0) mg/dL Ur Leukocyte Esterase (Negative) [place]/uL Urine WBC (Auto) (0-5) /hpf Urine RBC (Auto) (0-3) /hpf Ur Squamous Epith Cells (0-5) /hpf Urine Bacteria (<OCC) Urine Opiates Screen (NEGATIVE) Urine Methadone Screen (NEGATIVE) Ur Barbiturates Screen (NEGATIVE) Ur Phencyclidine Scrn (NEGATIVE) Ur Amphetamines Screen (NEGATIVE) U Benzodiazepines Scrn (NEGATIVE) U Oth Cocaine Metabols (NEGATIVE) U Cannabinoids Screen (NEGATIVE) Laboratory Results - last 24 hr 03/24/18 03/24/18 03/24/18 07:42 16:55 17:03 WBC RBC Hgb Hct MCV MCH MCHC RDW Plt Count MPV Neut % (Auto) Lymph % (Auto) [place] % (Auto) Eos % (Auto) Baso % (Auto) Neut # (Auto) Lymph # (Auto) [place] # (Auto) Eos # (Auto) Baso # (Auto) Neutrophils % (Manual) Lymphocytes % (Manual) Monocytes % (Manual) Eosinophils % (Manual) Platelet Estimate Anisocytosis (manual) Sodium Potassium Chloride Carbon Dioxide Anion Gap BUN Creatinine Est GFR ( Amer) Est GFR (Non-Af Amer) POC Glucose (mg/dL) 140 H Random Glucose Calcium Phosphorus Magnesium Total Bilirubin AST ALT Alkaline Phosphatase Ammonia Total Protein Albumin Globulin Albumin/Globulin Ratio Urine Color Yellow Yellow Urine Clarity Clear Hazy Urine pH 6.0 6.0 Ur Specific [place] 1.012 1.012 Urine Protein Negative 1+ H Urine Glucose (UA) Normal Normal Urine Ketones Negative Negative Urine Blood 1+ H 1+ H Urine Nitrate Negative Negative Urine Bilirubin Negative Negative Urine Urobilinogen Normal Normal Ur Leukocyte Esterase Neg Neg Urine WBC (Auto) 4 3 Urine RBC (Auto) 18 H 27 H Ur Squamous Epith Cells < 1 Urine Bacteria Rare Urine Opiates Screen Urine Methadone Screen Ur Barbiturates Screen Ur Phencyclidine Scrn Ur Amphetamines Screen U Benzodiazepines Scrn U Oth Cocaine Metabols U Cannabinoids Screen 03/24/18 03/25/18 03/25/18 17:03 06:28 06:28 WBC 11.0 H RBC 3.81 L Hgb 11.5 L Hct 33.6 L MCV 88.3 MCH 30.1 MCHC 34.1 RDW 15.9 H Plt Count 144 MPV 9.4 Neut % (Auto) 83.9 H Lymph % (Auto) 4.0 L [place] % (Auto) 10.5 H Eos % (Auto) 1.1 Baso % (Auto) 0.5 Neut # (Auto) 9.2 H Lymph # (Auto) 0.4 L [place] # (Auto) 1.2 H Eos # (Auto) 0.1 Baso # (Auto) 0.1 Neutrophils % (Manual) 80 H Lymphocytes % (Manual) 4 L Monocytes % (Manual) 14 H Eosinophils % (Manual) 2 Platelet Estimate Normal Anisocytosis (manual) Slight Sodium 127 L Potassium 4.8 Chloride 99 Carbon Dioxide 19 L Anion Gap 15 BUN 49 H Creatinine 1.2 Est GFR ( Amer) > 60 Est GFR (Non-Af Amer) > 60 POC Glucose (mg/dL) Random Glucose 67 L Calcium 7.8 L Phosphorus 3.5 Magnesium 1.6 Total Bilirubin 1.2 AST 53 ALT 41 Alkaline Phosphatase 192 H D Ammonia Total Protein 6.0 L Albumin 2.7 L Globulin 3.3 Albumin/Globulin Ratio 0.8 L Urine Color Urine Clarity Urine pH Ur Specific [place] Urine Protein Urine Glucose (UA) Urine Ketones Urine Blood Urine Nitrate Urine Bilirubin Urine Urobilinogen Ur Leukocyte Esterase Urine WBC (Auto) Urine RBC (Auto) Ur Squamous Epith Cells Urine Bacteria Urine Opiates Screen Negative Urine Methadone Screen Negative Ur Barbiturates Screen Negative Ur Phencyclidine Scrn Negative Ur Amphetamines Screen Negative U Benzodiazepines Scrn Negative U Oth Cocaine Metabols Negative U Cannabinoids Screen Negative 03/25/18 10:40 WBC RBC Hgb Hct MCV MCH MCHC RDW Plt Count MPV Neut % (Auto) Lymph % (Auto) [place] % (Auto) Eos % (Auto) Baso % (Auto) Neut # (Auto) Lymph # (Auto) [place] # (Auto) Eos # (Auto) Baso # (Auto) Neutrophils % (Manual) Lymphocytes % (Manual) Monocytes % (Manual) Eosinophils % (Manual) Platelet Estimate Anisocytosis (manual) Sodium Potassium Chloride Carbon Dioxide Anion Gap BUN Creatinine Est GFR ( Amer) Est GFR (Non-Af Amer) POC Glucose (mg/dL) Random Glucose Calcium Phosphorus Magnesium Total Bilirubin AST ALT Alkaline Phosphatase Ammonia 125 H D Total Protein Albumin Globulin Albumin/Globulin Ratio Urine Color Urine Clarity Urine pH Ur Specific [place] Urine Protein Urine Glucose (UA) Urine Ketones Urine Blood Urine Nitrate Urine Bilirubin Urine Urobilinogen Ur Leukocyte Esterase Urine WBC (Auto) Urine RBC (Auto) Ur Squamous Epith Cells Urine Bacteria Urine Opiates Screen Urine Methadone Screen Ur Barbiturates Screen Ur Phencyclidine Scrn Ur Amphetamines Screen U Benzodiazepines Scrn U Oth Cocaine Metabols U Cannabinoids Screen Fingerstick Blood Sugar Results: 140 Critical Care Progress Note - Nutrition Nutrition: Nutrition Category Date Time Status NPO Diet [DIET] Diets 03/24/18 Dinner Active Assessment/Plan - Assessment and Plan (Free Text) Assessment: This is a 52 year old male with PMHx 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 Patient sedated and NGT placed. Patient's sister has requested DNR/DNI and requested hospice evaluation. Neuro Altered and agitated Sedated with Precedex Cardio Assessment: hypotension in setting of patient with Hx of HTN Continue to monitor and support as necessary Pulm Assessment: Pleural effusion Saturating well on room air Will remove some pleural fluid using the patient's drain on the right side GI Assessment: Hepatic encephalopathy Lactulose 20 mg NG [id number]--[id number] to 3 BM per day Rifaximin 550 mg NG BID Renal Assessment: Hepatorenal syndrome Nephro on consult Octreotide 200 mg SC Q8H Midodrine 10 mg NG Q8H Prophylaxis Heparin SC Q12H Protonix 40 mg NG daily Disposition: Transfer to med-surg Discussed with Dr. Dc <Feng Dc - Last Filed: 03/25/18 15:46> CCU Objective - Vital Signs / Intake & Output Vital Signs (Last 4 hours): Vital Signs Pulse Resp BP Pulse Ox 03/25/18 14:00 93 H 20 94 L 03/25/18 13:50 95 H 25 H 87/54 L 94 L 03/25/18 13:33 82 17 72/49 L 94 L 03/25/18 13:30 79 14 94 L 03/25/18 13:18 86 18 80/50 L 93 L 03/25/18 13:03 78 14 80/45 L 94 L 03/25/18 13:00 77 14 94 L 03/25/18 12:55 80 15 84/44 L 95 03/25/18 12:45 81 14 95 03/25/18 12:44 84 15 79/48 L 95 03/25/18 12:30 74 13 95 03/25/18 12:00 71 13 94 L 03/25/18 11:50 73 15 80/44 L 94 L Intake and Output (Last 8hrs): Intake & Output 03/25/18 03/25/18 03/25/18 06:59 14:59 22:59 Intake Total 15.2 3.8 Output Total 635 100 Balance -619.8 -96.2 Weight 173 lb Intake: Intake, IV Amount 15.2 3.8 Right Wrist 15.2 3.8 Output: Urine 635 100 Urethral (Reese) 635 100 Emesis 0 Other: # Bowel Movements 0 - Medications Active Medications: Active Medications Generic Name Dose Route Start Last Admin Trade Name Freq PRN Reason Stop Dose Admin Heparin Sodium (Porcine) 5,000 units 03/24/18 22:00 03/25/18 09:33 Heparin SC 5,000 units Q12H GABBY Administration Dexmedetomidine HCl 200 mcg/ 50 mls @ 3.85 mls/hr 03/24/18 11:29 03/24/18 17: 49 Sodium Chloride IV 0.2 mcg/kg/hr TITR PRN 3.85 mls/hr Agitation Administration Protocol 0.2 MCG/KG/HR Lactulose 20 gm 03/24/18 14:00 03/25/18 14:23 Enulose PO 20 gm Q8 GABBY Administration Midodrine 10 mg 03/24/18 14:00 03/25/18 14:23 Proamatine PO 10 mg TID GABBY Administration Octreotide Acetate 200 mcg 03/24/18 14:00 03/25/18 14:24 Sandostatin SC 200 mcg Q8 GABBY Administration Pantoprazole Sodium 40 mg 03/25/18 10:00 03/25/18 09:32 Protonix Susp NG 40 mg DAILY GABBY Administration Rifaximin 550 mg 03/24/18 18:00 03/25/18 09:32 Xifaxan PO 550 mg BID GABBY Administration Protocol Sodium Bicarbonate 1,300 mg 03/24/18 18:00 03/25/18 09:32 Sodium Bicarbonate Tab PO 1,300 mg BID GABBY Administration - Patient Studies Lab Studies: Microbiology Studies 03/24/18 16:52 Urine Culture - Final Urine No Growth (<1,000 CFU/ML) Lab Studies 03/25/18 03/25/18 03/25/18 Range/Units 10:40 06:28 06:28 WBC 11.0 H (4.8-10.8) K/uL RBC 3.81 L (4.40-5.90) Mil/uL Hgb 11.5 L (12.0-18.0) g/dL Hct 33.6 L (35.0-51.0) % MCV 88.3 (80.0-94.0) fL MCH 30.1 (27.0-31.0) pg MCHC 34.1 (33.0-37.0) g/dL RDW 15.9 H (11.5-14.5) % Plt Count 144 (130-400) K/uL MPV 9.4 (7.2-11.7) fL Neut % (Auto) 83.9 H (50.0-75.0) % Lymph % (Auto) 4.0 L (20.0-40.0) % [place] % (Auto) 10.5 H (0.0-10.0) % Eos % (Auto) 1.1 (0.0-4.0) % Baso % (Auto) 0.5 (0.0-2.0) % Neut # (Auto) 9.2 H (1.8-7.0) K/uL Lymph # (Auto) 0.4 L (1.0-4.3) K/uL [place] # (Auto) 1.2 H (0.0-0.8) K/uL Eos # (Auto) 0.1 (0.0-0.7) K/uL Baso # (Auto) 0.1 (0.0-0.2) K/uL Neutrophils % (Manual) 80 H (50-75) % Lymphocytes % (Manual) 4 L (20-40) % Monocytes % (Manual) 14 H (0-10) % Eosinophils % (Manual) 2 (0-4) % Platelet Estimate Normal (NORMAL) Anisocytosis (manual) Slight Sodium 127 L (132-148) mmol/L Potassium 4.8 (3.6-5.2) mmol/L Chloride 99 (98-107) mmol/L Carbon Dioxide 19 L (22-30) mmol/L Anion Gap 15 (10-20) BUN 49 H (9-20) mg/dL Creatinine 1.2 (0.8-1.5) mg/dL Est GFR ( Amer) > 60 Est GFR (Non-Af Amer) > 60 Random Glucose 67 L (75-110) mg/dL Calcium 7.8 L (8.6-10.4) mg/dl Phosphorus 3.5 (2.5-4.5) mg/dL Magnesium 1.6 (1.6-2.3) mg/dL Total Bilirubin 1.2 (0.2-1.3) mg/dL AST 53 (17-59) U/L ALT 41 (21-72) U/L Alkaline Phosphatase 192 H D (38-126) U/L Ammonia 125 H D (9-33) umol/L Total Protein 6.0 L (6.3-8.3) g/dL Albumin 2.7 L (3.5-5.0) g/dL Globulin 3.3 (2.2-3.9) gm/dL Albumin/Globulin Ratio 0.8 L (1.0-2.1) Urine Color (YELLOW) Urine Clarity (Clear) Urine pH (5.0-8.0) Ur Specific [place] (1.003-1.030) Urine Protein (NEGATIVE) mg/dL Urine Glucose (UA) (Normal) mg/dL Urine Ketones (NEGATIVE) mg/dL Urine Blood (NEGATIVE) Urine Nitrate (NEGATIVE) Urine Bilirubin (NEGATIVE) Urine Urobilinogen (0.2-1.0) mg/dL Ur Leukocyte Esterase (Negative) [place]/uL Urine WBC (Auto) (0-5) /hpf Urine RBC (Auto) (0-3) /hpf Ur Squamous Epith Cells (0-5) /hpf Urine Bacteria (<OCC) Urine Opiates Screen (NEGATIVE) Urine Methadone Screen (NEGATIVE) Ur Barbiturates Screen (NEGATIVE) Ur Phencyclidine Scrn (NEGATIVE) Ur Amphetamines Screen (NEGATIVE) U Benzodiazepines Scrn (NEGATIVE) U Oth Cocaine Metabols (NEGATIVE) U Cannabinoids Screen (NEGATIVE) 03/24/18 03/24/18 03/24/18 Range/Units 17:03 17:03 16:55 WBC (4.8-10.8) K/uL RBC (4.40-5.90) Mil/uL Hgb (12.0-18.0) g/dL Hct (35.0-51.0) % MCV (80.0-94.0) fL MCH (27.0-31.0) pg MCHC (33.0-37.0) g/dL RDW (11.5-14.5) % Plt Count (130-400) K/uL MPV (7.2-11.7) fL Neut % (Auto) (50.0-75.0) % Lymph % (Auto) (20.0-40.0) % [place] % (Auto) (0.0-10.0) % Eos % (Auto) (0.0-4.0) % Baso % (Auto) (0.0-2.0) % Neut # (Auto) (1.8-7.0) K/uL Lymph # (Auto) (1.0-4.3) K/uL [place] # (Auto) (0.0-0.8) K/uL Eos # (Auto) (0.0-0.7) K/uL Baso # (Auto) (0.0-0.2) K/uL Neutrophils % (Manual) (50-75) % Lymphocytes % (Manual) (20-40) % Monocytes % (Manual) (0-10) % Eosinophils % (Manual) (0-4) % Platelet Estimate (NORMAL) Anisocytosis (manual) Sodium (132-148) mmol/L Potassium (3.6-5.2) mmol/L Chloride (98-107) mmol/L Carbon Dioxide (22-30) mmol/L Anion Gap (10-20) BUN (9-20) mg/dL Creatinine (0.8-1.5) mg/dL Est GFR ( Amer) Est GFR (Non-Af Amer) Random Glucose (75-110) mg/dL Calcium (8.6-10.4) mg/dl Phosphorus (2.5-4.5) mg/dL Magnesium (1.6-2.3) mg/dL Total Bilirubin (0.2-1.3) mg/dL AST (17-59) U/L ALT (21-72) U/L Alkaline Phosphatase (38-126) U/L Ammonia (9-33) umol/L Total Protein (6.3-8.3) g/dL Albumin (3.5-5.0) g/dL Globulin (2.2-3.9) gm/dL Albumin/Globulin Ratio (1.0-2.1) Urine Color Yellow Yellow (YELLOW) Urine Clarity Hazy Clear (Clear) Urine pH 6.0 6.0 (5.0-8.0) Ur Specific [place] 1.012 1.012 (1.003-1.030) Urine Protein 1+ H Negative (NEGATIVE) mg/dL Urine Glucose (UA) Normal Normal (Normal) mg/dL Urine Ketones Negative Negative (NEGATIVE) mg/dL Urine Blood 1+ H 1+ H (NEGATIVE) Urine Nitrate Negative Negative (NEGATIVE) Urine Bilirubin Negative Negative (NEGATIVE) Urine Urobilinogen Normal Normal (0.2-1.0) mg/dL Ur Leukocyte Esterase Neg Neg (Negative) [place]/uL Urine WBC (Auto) 3 4 (0-5) /hpf Urine RBC (Auto) 27 H 18 H (0-3) /hpf Ur Squamous Epith Cells < 1 (0-5) /hpf Urine Bacteria Rare (<OCC) Urine Opiates Screen Negative (NEGATIVE) Urine Methadone Screen Negative (NEGATIVE) Ur Barbiturates Screen Negative (NEGATIVE) Ur Phencyclidine Scrn Negative (NEGATIVE) Ur Amphetamines Screen Negative (NEGATIVE) U Benzodiazepines Scrn Negative (NEGATIVE) U Oth Cocaine Metabols Negative (NEGATIVE) U Cannabinoids Screen Negative (NEGATIVE) Laboratory Results - last 24 hr 03/24/18 03/24/18 03/24/18 16:55 17:03 17:03 WBC RBC Hgb Hct MCV MCH MCHC RDW Plt Count MPV Neut % (Auto) Lymph % (Auto) [place] % (Auto) Eos % (Auto) Baso % (Auto) Neut # (Auto) Lymph # (Auto) [place] # (Auto) Eos # (Auto) Baso # (Auto) Neutrophils % (Manual) Lymphocytes % (Manual) Monocytes % (Manual) Eosinophils % (Manual) Platelet Estimate Anisocytosis (manual) Sodium Potassium Chloride Carbon Dioxide Anion Gap BUN Creatinine Est GFR ( Amer) Est GFR (Non-Af Amer) Random Glucose Calcium Phosphorus Magnesium Total Bilirubin AST ALT Alkaline Phosphatase Ammonia Total Protein Albumin Globulin Albumin/Globulin Ratio Urine Color Yellow Yellow Urine Clarity Clear Hazy Urine pH 6.0 6.0 Ur Specific [place] 1.012 1.012 Urine Protein Negative 1+ H Urine Glucose (UA) Normal Normal Urine Ketones Negative Negative Urine Blood 1+ H 1+ H Urine Nitrate Negative Negative Urine Bilirubin Negative Negative Urine Urobilinogen Normal Normal Ur Leukocyte Esterase Neg Neg Urine WBC (Auto) 4 3 Urine RBC (Auto) 18 H 27 H Ur Squamous Epith Cells < 1 Urine Bacteria Rare Urine Opiates Screen Negative Urine Methadone Screen Negative Ur Barbiturates Screen Negative Ur Phencyclidine Scrn Negative Ur Amphetamines Screen Negative U Benzodiazepines Scrn Negative U Oth Cocaine Metabols Negative U Cannabinoids Screen Negative 03/25/18 03/25/18 03/25/18 06:28 06:28 10:40 WBC 11.0 H RBC 3.81 L Hgb 11.5 L Hct 33.6 L MCV 88.3 MCH 30.1 MCHC 34.1 RDW 15.9 H Plt Count 144 MPV 9.4 Neut % (Auto) 83.9 H Lymph % (Auto) 4.0 L [place] % (Auto) 10.5 H Eos % (Auto) 1.1 Baso % (Auto) 0.5 Neut # (Auto) 9.2 H Lymph # (Auto) 0.4 L [place] # (Auto) 1.2 H Eos # (Auto) 0.1 Baso # (Auto) 0.1 Neutrophils % (Manual) 80 H Lymphocytes % (Manual) 4 L Monocytes % (Manual) 14 H Eosinophils % (Manual) 2 Platelet Estimate Normal Anisocytosis (manual) Slight Sodium 127 L Potassium 4.8 Chloride 99 Carbon Dioxide 19 L Anion Gap 15 BUN 49 H Creatinine 1.2 Est GFR ( Amer) > 60 Est GFR (Non-Af Amer) > 60 Random Glucose 67 L Calcium 7.8 L Phosphorus 3.5 Magnesium 1.6 Total Bilirubin 1.2 AST 53 ALT 41 Alkaline Phosphatase 192 H D Ammonia 125 H D Total Protein 6.0 L Albumin 2.7 L Globulin 3.3 Albumin/Globulin Ratio 0.8 L Urine Color Urine Clarity Urine pH Ur Specific [place] Urine Protein Urine Glucose (UA) Urine Ketones Urine Blood Urine Nitrate Urine Bilirubin Urine Urobilinogen Ur Leukocyte Esterase Urine WBC (Auto) Urine RBC (Auto) Ur Squamous Epith Cells Urine Bacteria Urine Opiates Screen Urine Methadone Screen Ur Barbiturates Screen Ur Phencyclidine Scrn Ur Amphetamines Screen U Benzodiazepines Scrn U Oth Cocaine Metabols U Cannabinoids Screen Critical Care Progress Note - Nutrition Nutrition: Nutrition Category Date Time Status NPO Diet [DIET] Diets 03/24/18 Dinner Active Attending/Attestation - Attestation I have personally seen and examined this patient.: Yes I have fully participated in the care of the patient.: Yes I have reviewed all pertinent clinical information: Yes Notes (Text): 03/25/18 15:45 patient seen and examined in the intensive care unit. Sister. sign DNR/DNI and requesting for hospice Continue lactulose. Midodrine and octreotide Transfer to floor
--- NOTE | 2018-03-25 13:13 | CP.PCM.CON ---
History of Present Illness - History of Present Illness History of Present Illness: Palliative consult requested by Doctor Dc for goals of care discussion Patient is a 52 yo admired from home where he was found agitated. Per family, patient was seen in Doctor Norm's office just a day before and was in his norm. For the last month patient had frequent hospitalizations for AMS and last time he left AMA. On this admission Ammonia level was high at 314. Patient has a chronic right sided pleural effusion with PleurEx in place, but he stopped draining ascites. Patient's sister Samira came from [place] to decide on plan of care for the patient as her mother is old and sick and unable to do it. palliative Care was asked to assist in the process. PMH: HIV, Hep C, liver cirrhosis, hepatic encephalopathy Soc. Hx: single, lives with mother, sleeps on couch, prior heroin use Fam. hx: denies Review of Systems - Review of Systems All systems: reviewed and no additional remarkable complaints except Review of Systems: ROS obtained from nursing due to patient's condition. Per nursing patient had been lethargic Past Patient History - Infectious Disease Hx of Infectious Diseases: None - Past Medical History & Family History Past Medical History?: Yes - Past Social History Smoking Status: Light Smoker < 10 Cigarettes Daily - CARDIAC Hx Hypertension: Yes - PULMONARY Hx Respiratory Disorders: Yes Other/Comment: Drain to right chest to remove fluid - NEUROLOGICAL Hx Seizures: No - HEENT Hx HEENT Problems: No - RENAL Hx Chronic Kidney Disease: No - ENDOCRINE/METABOLIC Hx Endocrine Disorders: No - HEMATOLOGICAL/ONCOLOGICAL Hx AIDS: Yes Hx Human Immunodeficiency Virus (HIV): Yes - INTEGUMENTARY Hx Dermatological Problems: Yes Hx Psoriasis: Yes - MUSCULOSKELETAL/RHEUMATOLOGICAL Hx Falls: No - GASTROINTESTINAL Hx Gastrointestinal Disorders: Yes Other/Comment: Ascites. Hepatic Encephalopathy - GENITOURINARY/GYNECOLOGICAL Hx Sexually Transmitted Disorders: No - PSYCHIATRIC Hx Substance Use: Yes - SURGICAL HISTORY Hx Surgeries: Yes Other/Comment: Right sided abdominal drain. - ANESTHESIA Hx Anesthesia: No (unknown) Hx Anesthesia Reactions: No Hx Malignant Hyperthermia: No Meds Allergies/Adverse Reactions: Allergies Allergy/AdvReac Type Severity Reaction Status Date / Time No Known Allergies Allergy Verified 03/15/18 15:14 - Medications Medications: Current Medications Heparin Sodium (Porcine) (Heparin) 5,000 units SC Q12H [facility] Last Admin: 03/25/18 09:33 Dose: 5,000 units Dexmedetomidine HCl 200 mcg/ (Sodium Chloride) 50 mls @ 3.85 mls/hr IV TITR PRN ; Protocol; 0.2 MCG/KG/HR PRN Reason: Agitation Last Admin: 03/24/18 17:49 Dose: 0.2 mcg/kg/hr, 3.85 mls/hr Lactulose (Enulose) 20 gm PO Q8 [facility] Last Admin: 03/25/18 06:00 Dose: 20 gm Midodrine (Proamatine) 10 mg PO TID [facility] Last Admin: 03/25/18 09:32 Dose: 10 mg Octreotide Acetate (Sandostatin) 200 mcg SC Q8 [facility] Last Admin: 03/25/18 06:00 Dose: 200 mcg Pantoprazole Sodium (Protonix Susp) 40 mg NG DAILY [facility] Last Admin: 03/25/18 09:32 Dose: 40 mg Rifaximin (Xifaxan) 550 mg PO BID [facility] PRN Reason: Protocol Last Admin: 03/25/18 09:32 Dose: 550 mg Sodium Bicarbonate (Sodium Bicarbonate Tab) 1,300 mg PO BID [facility] Last Admin: 03/25/18 09:32 Dose: 1,300 mg Physical Exam - Constitutional Appears: Chronically Ill - Head Exam Head Exam: ATRAUMATIC, NORMAL INSPECTION, NORMOCEPHALIC - Eye Exam Eye Exam: EOMI, Normal appearance, PERRL Pupil Exam: NORMAL ACCOMODATION, PERRL - ENT Exam Additional comments: NGT - Neck Exam Neck exam: Positive for: Normal Inspection - Respiratory Exam Respiratory Exam: Decreased Breath Sounds Additional comments: right chest tube to gravity - Cardiovascular Exam Additional comments: low BP 78/56 - GI/Abdominal Exam GI & Abdominal Exam: Diminished Bowel Sounds, Distended - Rectal Exam Rectal Exam: Deferred - Exam Exam: NORMAL INSPECTION - Extremities Exam Extremities exam: Positive for: normal inspection - Back Exam Back exam: NORMAL INSPECTION - Neurological Exam Neurological exam: Motor Sensory Deficit - Psychiatric Exam Psychiatric exam: Flat Affect - Skin Skin Exam: Normal Color Results - Vital Signs Recent Vital Signs: Last Vital Signs Temp 97.9 F 03/25/18 11:00 Pulse 73 03/25/18 11:00 Resp 14 03/25/18 11:00 BP 84/59 L 03/25/18 10:50 Pulse Ox 94 L 03/25/18 11:00 - Labs Result Diagrams: 03/25/18 06:28 03/25/18 06:28 Labs: Laboratory Results - last 24 hr 03/24/18 03/24/18 03/24/18 16:55 17:03 17:03 WBC RBC Hgb Hct MCV MCH MCHC RDW Plt Count MPV Neut % (Auto) Lymph % (Auto) [place] % (Auto) Eos % (Auto) Baso % (Auto) Neut # (Auto) Lymph # (Auto) [place] # (Auto) Eos # (Auto) Baso # (Auto) Neutrophils % (Manual) Lymphocytes % (Manual) Monocytes % (Manual) Eosinophils % (Manual) Platelet Estimate Anisocytosis (manual) Sodium Potassium Chloride Carbon Dioxide Anion Gap BUN Creatinine Est GFR ( Amer) Est GFR (Non-Af Amer) Random Glucose Calcium Phosphorus Magnesium Total Bilirubin AST ALT Alkaline Phosphatase Ammonia Total Protein Albumin Globulin Albumin/Globulin Ratio Urine Color Yellow Yellow Urine Clarity Clear Hazy Urine pH 6.0 6.0 Ur Specific [place] 1.012 1.012 Urine Protein Negative 1+ H Urine Glucose (UA) Normal Normal Urine Ketones Negative Negative Urine Blood 1+ H 1+ H Urine Nitrate Negative Negative Urine Bilirubin Negative Negative Urine Urobilinogen Normal Normal Ur Leukocyte Esterase Neg Neg Urine WBC (Auto) 4 3 Urine RBC (Auto) 18 H 27 H Ur Squamous Epith Cells < 1 Urine Bacteria Rare Urine Opiates Screen Negative Urine Methadone Screen Negative Ur Barbiturates Screen Negative Ur Phencyclidine Scrn Negative Ur Amphetamines Screen Negative U Benzodiazepines Scrn Negative U Oth Cocaine Metabols Negative U Cannabinoids Screen Negative 03/25/18 03/25/18 03/25/18 06:28 06:28 10:40 WBC 11.0 H RBC 3.81 L Hgb 11.5 L Hct 33.6 L MCV 88.3 MCH 30.1 MCHC 34.1 RDW 15.9 H Plt Count 144 MPV 9.4 Neut % (Auto) 83.9 H Lymph % (Auto) 4.0 L [place] % (Auto) 10.5 H Eos % (Auto) 1.1 Baso % (Auto) 0.5 Neut # (Auto) 9.2 H Lymph # (Auto) 0.4 L [place] # (Auto) 1.2 H Eos # (Auto) 0.1 Baso # (Auto) 0.1 Neutrophils % (Manual) 80 H Lymphocytes % (Manual) 4 L Monocytes % (Manual) 14 H Eosinophils % (Manual) 2 Platelet Estimate Normal Anisocytosis (manual) Slight Sodium 127 L Potassium 4.8 Chloride 99 Carbon Dioxide 19 L Anion Gap 15 BUN 49 H Creatinine 1.2 Est GFR ( Amer) > 60 Est GFR (Non-Af Amer) > 60 Random Glucose 67 L Calcium 7.8 L Phosphorus 3.5 Magnesium 1.6 Total Bilirubin 1.2 AST 53 ALT 41 Alkaline Phosphatase 192 H D Ammonia 125 H D Total Protein 6.0 L Albumin 2.7 L Globulin 3.3 Albumin/Globulin Ratio 0.8 L Urine Color Urine Clarity Urine pH Ur Specific [place] Urine Protein Urine Glucose (UA) Urine Ketones Urine Blood Urine Nitrate Urine Bilirubin Urine Urobilinogen Ur Leukocyte Esterase Urine WBC (Auto) Urine RBC (Auto) Ur Squamous Epith Cells Urine Bacteria Urine Opiates Screen Urine Methadone Screen Ur Barbiturates Screen Ur Phencyclidine Scrn Ur Amphetamines Screen U Benzodiazepines Scrn U Oth Cocaine Metabols U Cannabinoids Screen Assessment & Plan - Assessment and Plan (Free Text) Assessment: Palliative consult Full Code, no Advance Directive on chart, PPS 0% I reviewed medical records, all diagnostic stdies, examined patient in the bed, discussed goals of care with his sister Patient is lethargic, responds to tactile stimuli but not to verbal stimuli. Unable to fallow simple commends. This morning patient was able to tell me his last name, but during the day patient remained with eyes closed. NGT in place for hydration and meds. Diminished breath sounds. Righ Pleurex catheter clammped after 1500 cc drained. Drainage light pink color. Bowel sounds diminished, abdomen mildly distended. +1 edema to LEs. Na 127, Account Specialist 1.2, Alb 2.8. Renal consult called. Per renal , no intervention at this time, prognosis seen as poor. [place] [facility] [place] as per [place]. Goals of care discussed with patient's sister Samira. Samira lives in [place] and will be going home soon.Translation in Macedonian provided. Patient 's clinical presentation reviewed. I elicited sister's impression and expectations. She agreed that she is seeing decline in her brother's condition, is aware of his non compliance with Medical care and is concerned about lack of support at home for him. Samira stated that patient lives at home with his mother who is also sick, and sleeps on the couch. We discussed poor prognosis and I suggested the NH placement under the comfort care. Information regarding Comfort care offered. Sister stated understanding and relief that her brother will have place to stay and be taken care of. Code status discussed. POLST introduced. I provided Samira with [place] version of [place] POLST. She choose DNR/DNIas she wanted her brother to naturally with out any aggressive measures that would only prolong his suffering. I shared this with Doctor Kendrick and Nursing staff. Impression * Chronically ill man with liver cirrhosis and poor prognosis * Lethargy * Weakness * Patient has no decision making capacity due to lethargy secondary to high Amonnia level * Sister Samira advocates for patient and is requesting Comfort care Suggestion * Continue Lactulose for high Amonnia level * NPO * NGT for meds and fluids * Hospice eval. * DNR/DNI * Discharge planing to Testing Director facility [facility] planing 45 min.
[2018-03-25] MEDS ORDERED: Albumin Human 25% (12.5 gm/50 ml) IV SCH (14:15)
--- NOTE | 2018-03-25 15:14 | CP.PCM.PN ---
Subjective - Date & Time of Evaluation Date of Evaluation: 03/25/18 Time of Evaluation: 09:00 - Subjective Subjective: Nephrology Consultation Note Assessment: critical Recurrent Acute Kidney Injury (N17.9) likely due to hepato-renal syndrome Type 1 Chronic Hep C with cirrhosis and hepatic encephalopathy Hyponatremia, metabolic acidosis, hyperkalemia Rt pleural effusion Plan No acute need for renal replacement therapy at this time. Maintain hemodynamics stable. Patient not on ACEI/ARB due to CLARA Monitor Input/Output, daily weights and renal function with basic metabolic panel continue with po midodrine to 10 mg and octreotide 200 mcg sc three times a day will resume sodium bicarb 1300 mg bid may give IV albumin as needed for low BP. pt ordered for 25 gram IV albumin 4 doses yesterday overall prognosis poor avoid rapid correction in serum sodium >6-8 meq/24 hrs. not a candidate for vaptans therapy. anticipate serum Na to improve once gets osmotic laxative as lactulose management of Rt pleural effsion as per ICU Dose meds/antibiotics for improved GFR. Avoid fleets enema/magnesium based laxatives. Avoid nephrotoxins/NSAIDs/ iodinated contrast (unless needed emergently) Glycemic control Further work up for as per primary team Thanks for allowing me to participate in care of your patient. Will follow patient with you. Please call if any Qs. d/w ICU team Dr Sean Ruiz Office: [phone] CC: unable to obtain reason for consult: hepatorenal syndrome source of info: EMR HPI: pt is a 52 M with hx of cirrhosis chronic Hep C and recurrent hepatic encehalopathy, recurent AKIs with hepatorenal syndome and frequent hospital[place] [facility] [place] [facility] with [facility] and also with renal insufficiency with hyponatremia and hyperkalemia hence renal consult. pt seen in ICU and unable to provide hx due to AMS Subjective: unable to obtain Physical Examination: General Appearance: in no acute respiratory distress, unco-operative. facial muscles wasted, ill appearing Vitals reviewed and noted as below Head; Atraumatic, normocephalic ENT: no ulcers no thrush. Tongue is midline. Oropharynx: no rash or ulcers. has NG tube EYES: Pupils are equal, round and reactive to light accommodation. Eye muscles and extraocular movement intact. Sclera is icteric. Neck; supple no lymphadenopathy, no thyromegaly or bruit Lungs: Normal respiratory rate/effort. Breath sounds reduced at Rt base. has pigtail catheter Heart: Normal rate. s1s2 normal. No rub or gallop. Extremities: no edema. No varicose veins Neurological: Patient is delirious, confused Skin: Warm and dry. Normal turgor. No rash. Palpitation: Normal elasticity for age Abdomen: Abdomen is soft. Bowel sounds +. There is no abdominal tenderness, no guarding/rigidity no organomegaly. abdomen is ascitic Psych: unable MSK: no joint tenderness or swelling. Digits and nails normal, no deformity : kidney or bladder not palpable Labs/imaging reviewed. Past medical history, past surgical history, family history, social history, allergy reviewed and noted as below Family hx: no hx of CKD. Rest non-contributory Objective - Vital Signs/Intake and Output Vital Signs (last 24 hours): Temp Pulse Resp BP Pulse Ox 98.4 F 93 H 20 87/54 L 94 L 03/25/18 11:28 03/25/18 14:00 03/25/18 14:00 03/25/18 13:50 03/25/18 14:00 Intake and Output: 03/25/18 03/25/18 06:59 18:59 Intake Total 24.7 3.8 Output Total 895 100 Balance -870.3 -96.2 - Medications Medications: Current Medications Heparin Sodium (Porcine) (Heparin) 5,000 units SC Q12H [facility] Last Admin: 03/25/18 09:33 Dose: 5,000 units Dexmedetomidine HCl 200 mcg/ (Sodium Chloride) 50 mls @ 3.85 mls/hr IV TITR PRN ; Protocol; 0.2 MCG/KG/HR PRN Reason: Agitation Last Admin: 03/24/18 17:49 Dose: 0.2 mcg/kg/hr, 3.85 mls/hr Albumin Human (Albumin Human 25% (12.5 Gm/50 Ml)) 50 mls @ 100 mls/hr IV Q6H [facility] Stop: 03/25/18 15:29 Lactulose (Enulose) 20 gm PO Q8 [facility] Last Admin: 03/25/18 14:23 Dose: 20 gm Midodrine (Proamatine) 10 mg PO TID [facility] Last Admin: 04/25/18 14:23 Dose: 10 mg Octreotide Acetate (Sandostatin) 200 mcg SC Q8 [facility] Last Admin: 03/25/18 14:24 Dose: 200 mcg Pantoprazole Sodium (Protonix Susp) 40 mg NG DAILY [facility] Last Admin: 03/25/18 09:32 Dose: 40 mg Rifaximin (Xifaxan) 550 mg PO BID [facility] PRN Reason: Protocol Last Admin: 03/25/18 09:32 Dose: 550 mg Sodium Bicarbonate (Sodium Bicarbonate Tab) 1,300 mg PO BID [facility] Last Admin: 03/25/18 09:32 Dose: 1,300 mg - Labs Labs: 03/25/18 06:28 03/25/18 06:28 PT 17.2 SECONDS (9.7-12.2) H 03/24/18 08:09 INR 1.5 03/24/18 08:09 APTT 32 SECONDS (21-34) 03/24/18 08:09
--- NOTE | 2018-03-25 17:34 | CP.PCM.PN ---
Subjective - Date & Time of Evaluation Date of Evaluation: 03/25/18 Time of Evaluation: 12:20 - Subjective Subjective: clinically same Objective - Vital Signs/Intake and Output Vital Signs (last 24 hours): Temp Pulse Resp BP Pulse Ox 98.4 F 102 H 17 93/52 L 94 L 03/25/18 11:28 03/25/18 17:00 03/25/18 15:53 03/25/18 16:58 03/25/18 17:00 Intake and Output: 03/25/18 03/25/18 06:59 18:59 Intake Total 24.7 3.8 Output Total 895 100 Balance -870.3 -96.2 - Medications Medications: Current Medications Heparin Sodium (Porcine) (Heparin) 5,000 units SC Q12H [facility] Last Admin: 03/25/18 09:33 Dose: 5,000 units Dexmedetomidine HCl 200 mcg/ (Sodium Chloride) 50 mls @ 3.85 mls/hr IV TITR PRN ; Protocol; 0.2 MCG/KG/HR PRN Reason: Agitation Last Admin: 03/24/18 17:49 Dose: 0.2 mcg/kg/hr, 3.85 mls/hr Lactulose (Enulose) 20 gm PO Q8 [facility] Last Admin: 03/25/18 14:23 Dose: 20 gm Midodrine (Proamatine) 10 mg PO TID [facility] Last Admin: 03/25/18 17:23 Dose: 10 mg Octreotide Acetate (Sandostatin) 200 mcg SC Q8 [facility] Last Admin: 03/25/18 14:24 Dose: 200 mcg Pantoprazole Sodium (Protonix Susp) 40 mg NG DAILY [facility] Last Admin: 03/25/18 09:32 Dose: 40 mg Pneumococcal Polyvalent Vaccine (Pneumovax 23 Vaccine) 0.5 ml IM .ONCE ONE Stop: 03/27/18 10:01 Rifaximin (Xifaxan) 550 mg PO BID [facility] PRN Reason: Protocol Last Admin: 03/25/18 17:22 Dose: 550 mg Sodium Bicarbonate (Sodium Bicarbonate Tab) 1,300 mg PO BID [facility] Last Admin: 03/25/18 17:22 Dose: 1,300 mg - Labs Labs: 03/25/18 06:28 03/25/18 06:28 PT 17.2 SECONDS (9.7-12.2) H 03/24/18 08:09 INR 1.5 03/24/18 08:09 APTT 32 SECONDS (21-34) 03/24/18 08:09 - Constitutional Appears: Well - Head Exam Head Exam: ATRAUMATIC, NORMAL INSPECTION, NORMOCEPHALIC - Eye Exam Eye Exam: EOMI, Normal appearance, PERRL Pupil Exam: NORMAL ACCOMODATION, PERRL - ENT Exam ENT Exam: Mucous Membranes Moist, Normal Exam - Neck Exam Neck Exam: Full ROM, Normal Inspection. absent: Lymphadenopathy - Respiratory Exam Respiratory Exam: Decreased Breath Sounds - Cardiovascular Exam Cardiovascular Exam: REGULAR RHYTHM, +S1, +S2 - GI/Abdominal Exam GI & Abdominal Exam: Soft, Diminished Bowel Sounds - Rectal Exam Rectal Exam: Deferred
--- NOTE | 2018-03-26 00:02 | CARD ---
APPROVED REPORT EKG Measurement Heart [id number] <Conclusion> Normal sinus rhythm Prolonged QT Abnormal ECG
[2018-03-26] MEDS: Octreotide 500 mcg/ml Inj SC SCH ×3 (05:07→21:47)
[2018-03-26] MEDS: Pantoprazole 40 mg Susp UD NG SCH (10:11)
--- NOTE | 2018-03-26 14:17 | CP.PCM.PN ---
Subjective - Date & Time of Evaluation Date of Evaluation: 03/26/18 Time of Evaluation: 14:14 - Subjective Subjective: Nephrology Consultation Note Assessment: critical Recurrent Acute Kidney Injury (N17.9) likely due to hepato-renal syndrome Type 1 Chronic Hep C with cirrhosis and hepatic encephalopathy Hyponatremia, metabolic acidosis, hyperkalemia Rt pleural effusion Plan No acute need for renal replacement therapy at this time. Maintain hemodynamics stable. Patient not on ACEI/ARB due to CLARA pt on po midodrine to 10 mg and octreotide 200 mcg sc three times a day also on sodium bicarb 1300 mg bid management of Rt pleural effsion as per pulmonary pt seen by palliative care and as per d/w family, pt for comfort measures and hospice. he is DNR/DNI overall prognosis poor Dose meds/antibiotics for improved GFR. Avoid fleets enema/magnesium based laxatives. Avoid nephrotoxins/NSAIDs/ iodinated contrast (unless needed emergently) Glycemic control Further work up for as per primary team Thanks for allowing me to participate in care of your patient. Will sign off. Please call if any Qs. d/w team Dr Sean Ruiz Office: [phone] CC: unable to obtain reason for consult: hepatorenal syndrome source of info: EMR HPI: pt is a 52 M with hx of cirrhosis chronic Hep C and recurrent hepatic encehalopathy, recurent AKIs with hepatorenal syndome and frequent hospitalizations at [facility] [place], [facility] came with AMS and also with renal insufficiency with hyponatremia and hyperkalemia hence renal consult. pt seen in ICU and unable to provide hx due to AMS Subjective: unable to obtain Physical Examination: General Appearance: in no acute respiratory distress, co-operative. facial muscles wasted, ill appearing Vitals reviewed and noted as below Head; Atraumatic, normocephalic ENT: no ulcers no thrush. Tongue is midline. Oropharynx: no rash or ulcers. has NG tube EYES: Pupils are equal, round and reactive to light accommodation. Eye muscles and extraocular movement intact. Sclera is icteric. Neck; supple no lymphadenopathy, no thyromegaly or bruit Lungs: Normal respiratory rate/effort. Breath sounds reduced at Rt base. has pigtail catheter Heart: Normal rate. s1s2 normal. No rub or gallop. Extremities: no edema. No varicose veins Neurological: Patient is delirious, confused Skin: Warm and dry. Normal turgor. No rash. Palpitation: Normal elasticity for age Abdomen: Abdomen is soft. Bowel sounds +. There is no abdominal tenderness, no guarding/rigidity no organomegaly. abdomen is ascitic Psych: unable MSK: no joint tenderness or swelling. Digits and nails normal, no deformity : kidney or bladder not palpable Labs/imaging reviewed. Past medical history, past surgical history, family history, social history, allergy reviewed and noted as below Family hx: no hx of CKD. Rest non-contributory Objective - Vital Signs/Intake and Output Vital Signs (last 24 hours): Temp Pulse Resp BP Pulse Ox 98.7 F 92 H 20 101/67 96 03/26/18 07:28 03/26/18 07:28 03/26/18 07:28 03/26/18 07:28 03/26/18 07:28 Intake and Output: 03/26/18 03/26/18 06:59 18:59 Intake Total 180 Output Total 400 Balance -220 - Medications Medications: Current Medications Heparin Sodium (Porcine) (Heparin) 5,000 units SC Q12H [facility] Last Admin: 03/26/18 10:11 Dose: 5,000 units Dexmedetomidine HCl 200 mcg/ (Sodium Chloride) 50 mls @ 3.85 mls/hr IV TITR PRN ; Protocol; 0.2 MCG/KG/HR PRN Reason: Agitation Last Admin: 03/24/18 17:49 Dose: 0.2 mcg/kg/hr, 3.85 mls/hr Lactulose (Enulose) 20 gm PO Q8 [facility] Last Admin: 03/26/18 13:39 Dose: 20 gm Midodrine (Proamatine) 10 mg PO TID [facility] Last Admin: 03/26/18 13:39 Dose: 10 mg Octreotide Acetate (Sandostatin) 200 mcg SC Q8 [facility] Last Admin: 03/26/18 13:46 Dose: 200 mcg Pantoprazole Sodium (Protonix Susp) 40 mg NG DAILY [facility] Last Admin: 03/26/18 10:11 Dose: 40 mg Pneumococcal Polyvalent Vaccine (Pneumovax 23 Vaccine) 0.5 ml IM .ONCE ONE Stop: 03/27/18 10:01 Rifaximin (Xifaxan) 550 mg PO BID [facility] PRN Reason: Protocol Last Admin: 03/26/18 11:06 Dose: 550 mg Sodium Bicarbonate (Sodium Bicarbonate Tab) 1,300 mg PO BID [facility] Last Admin: 03/26/18 10:12 Dose: 1,300 mg - Labs Labs: 03/25/18 06:28 03/25/18 06:28 PT 17.2 SECONDS (9.7-12.2) H 03/24/18 08:09 INR 1.5 03/24/18 08:09 APTT 32 SECONDS (21-34) 03/24/18 08:09
--- NOTE | 2018-03-26 16:41 | CP.PCM.PN ---
Subjective - Date & Time of Evaluation Date of Evaluation: 03/26/18 Time of Evaluation: 07:40 - Subjective Subjective: clinically same Objective - Vital Signs/Intake and Output Vital Signs (last 24 hours): Temp Pulse Resp BP Pulse Ox 97.7 F 103 H 20 108/73 95 03/26/18 16:05 03/26/18 16:05 03/26/18 16:05 03/26/18 16:05 03/26/18 16:05 Intake and Output: 03/26/18 03/26/18 06:59 18:59 Intake Total 180 240 Output Total 400 600 Balance -220 -360 - Medications Medications: Current Medications Heparin Sodium (Porcine) (Heparin) 5,000 units SC Q12H [facility] Last Admin: 03/26/18 10:11 Dose: 5,000 units Dexmedetomidine HCl 200 mcg/ (Sodium Chloride) 50 mls @ 3.85 mls/hr IV TITR PRN ; Protocol; 0.2 MCG/KG/HR PRN Reason: Agitation Last Admin: 03/24/18 17:49 Dose: 0.2 mcg/kg/hr, 3.85 mls/hr Lactulose (Enulose) 20 gm PO Q8 [facility] Last Admin: 03/26/18 13:39 Dose: 20 gm Midodrine (Proamatine) 10 mg PO TID [facility] Last Admin: 03/26/18 13:39 Dose: 10 mg Octreotide Acetate (Sandostatin) 200 mcg SC Q8 [facility] Last Admin: 03/26/18 13:46 Dose: 200 mcg Pantoprazole Sodium (Protonix Susp) 40 mg NG DAILY [facility] Last Admin: 03/26/18 10:11 Dose: 40 mg Pneumococcal Polyvalent Vaccine (Pneumovax 23 Vaccine) 0.5 ml IM .ONCE ONE Stop: 03/27/18 10:01 Rifaximin (Xifaxan) 550 mg PO BID [facility] PRN Reason: Protocol Last Admin: 03/26/18 11:06 Dose: 550 mg Sodium Bicarbonate (Sodium Bicarbonate Tab) 1,300 mg PO BID [facility] Last Admin: 03/26/18 10:12 Dose: 1,300 mg - Labs Labs: 03/25/18 06:28 03/25/18 06:28 PT 17.2 SECONDS (9.7-12.2) H 03/24/18 08:09 INR 1.5 03/24/18 08:09 APTT 32 SECONDS (21-34) 03/24/18 08:09 - Constitutional Appears: Well - Head Exam Head Exam: ATRAUMATIC, NORMAL INSPECTION, NORMOCEPHALIC - Eye Exam Eye Exam: EOMI, Normal appearance, PERRL Pupil Exam: NORMAL ACCOMODATION, PERRL - ENT Exam ENT Exam: Mucous Membranes Moist, Normal Exam - Neck Exam Neck Exam: Full ROM, Normal Inspection. absent: Lymphadenopathy - Respiratory Exam Respiratory Exam: Decreased Breath Sounds - Cardiovascular Exam Cardiovascular Exam: REGULAR RHYTHM, +S1, +S2 - GI/Abdominal Exam GI & Abdominal Exam: Soft, Diminished Bowel Sounds - Rectal Exam Rectal Exam: Deferred
[2018-03-27] MEDS: Octreotide 500 mcg/ml Inj SC SCH ×3 (05:39→21:10)
[2018-03-27] MEDS ORDERED: Pneumococcal 23-Valent Vaccine IM ONE (10:00)
[2018-03-27] MEDS: Pantoprazole 40 mg Susp UD NG SCH (10:16)
--- NOTE | 2018-03-27 15:34 | CP.PCM.PN ---
Subjective - Date & Time of Evaluation Date of Evaluation: 03/27/18 Time of Evaluation: 15:30 - Subjective Subjective: PGY2 progress note for Dr. Zheng Pt seen and examined this morning. patient agitated this morning and was requesting the griffiths to be removed. He was also requesting a full diet instead of liquids. patient denied having any CP, SOB, abd pain, N/v/D/C, F/C. Patient seen ambulating around room without difficulty. Objective - Vital Signs/Intake and Output Vital Signs (last 24 hours): Temp Pulse Resp BP Pulse Ox 98.4 F 99 H 20 104/64 96 03/27/18 08:00 03/27/18 08:00 03/27/18 08:00 03/27/18 08:00 03/27/18 08:00 Intake and Output: 03/27/18 03/27/18 06:59 18:59 Intake Total 240 Output Total 300 Balance -60 - Medications Medications: Current Medications Heparin Sodium (Porcine) (Heparin) 5,000 units SC Q12H [facility] Last Admin: 03/27/18 10:17 Dose: 5,000 units Dexmedetomidine HCl 200 mcg/ (Sodium Chloride) 50 mls @ 3.85 mls/hr IV TITR PRN ; Protocol; 0.2 MCG/KG/HR PRN Reason: Agitation Last Admin: 03/24/18 17:49 Dose: 0.2 mcg/kg/hr, 3.85 mls/hr Lactulose (Enulose) 20 gm PO Q8 [facility] Last Admin: 03/27/18 15:00 Dose: 20 gm Midodrine (Proamatine) 10 mg PO TID [facility] Last Admin: 03/27/18 15:00 Dose: 10 mg Octreotide Acetate (Sandostatin) 200 mcg SC Q8 [facility] Last Admin: 03/27/18 15:00 Dose: 200 mcg Pantoprazole Sodium (Protonix Susp) 40 mg NG DAILY [facility] Last Admin: 03/27/18 10:16 Dose: 40 mg Rifaximin (Xifaxan) 550 mg PO BID [facility] PRN Reason: Protocol Last Admin: 03/27/18 10:15 Dose: 550 mg Sodium Bicarbonate (Sodium Bicarbonate Tab) 1,300 mg PO BID [facility] Last Admin: 03/27/18 10:16 Dose: 1,300 mg - Labs Labs: 03/25/18 06:28 03/25/18 06:28 PT 17.2 SECONDS (9.7-12.2) H 03/24/18 08:09 INR 1.5 03/24/18 08:09 APTT 32 SECONDS (21-34) 03/24/18 08:09 - Constitutional Appears: Non-toxic, No Acute Distress - Head Exam Head Exam: ATRAUMATIC - ENT Exam ENT Exam: Mucous Membranes Moist - Respiratory Exam Respiratory Exam: Clear to Ausculation Bilateral, NORMAL BREATHING PATTERN. absent: Accessory Muscle Use, Rales, Rhonchi, Wheezes, Respiratory Distress - Cardiovascular Exam Cardiovascular Exam: REGULAR RHYTHM, +S1, +S2. absent: Gallop, Rubs, Murmur - GI/Abdominal Exam GI & Abdominal Exam: Soft, Normal Bowel Sounds. absent: Distended, Firm, Guarding, Rigid, Tenderness, Organomegaly - Extremities Exam Extremities Exam: Pedal Edema (1+ edema ). absent: Tenderness - Neurological Exam Neurological Exam: Alert, Awake, Oriented x3 - Psychiatric Exam Psychiatric exam: Normal Affect, Normal Mood - Skin Skin Exam: Dry, Intact, Normal Color, Warm Assessment and Plan - Assessment and Plan (Free Text) Assessment: Hepatic Encephalopathy - Patient was admitted ot ICU initially. Was started on precedex for sedation and had NG tube placed. No transferred to floor with improving mental status. - Ammonia on admission 314. Level decreased 125 - Patient is continued on lactulose 20 mg po Q8 and Rifaximin 550 mg po bid - Serum albumin is 2.7. - Avoid sedating agents Cirrhosis - continue 2 g Na diet - Currently on octreotide 200 mcg q8 [facility] - improved - Will continue to monitor. Hypotension - Currently on Midodrine 10 mg po tid HCV - HCV ab positive, viral load is negative Hyponatremia - Patient has chronic hyponatremia likely due to liver cirrhosis. Improved today. Will continue to monitor. Prophylaxis - Lovenox 30 mg sc - Protonix 40mg Po daily Patient's sister, power of patent attorney has made patient DNR/DNI and has requested hospice consult. Awaiting intermediate placement. All managements and orders per Dr. Zheng
--- NOTE | 2018-03-27 17:32 | CP.PCM.PN ---
Subjective - Date & Time of Evaluation Date of Evaluation: 03/27/18 Time of Evaluation: 07:20 - Subjective Subjective: clinically same Objective - Vital Signs/Intake and Output Vital Signs (last 24 hours): Temp Pulse Resp BP Pulse Ox 98.2 F 86 20 103/67 96 03/27/18 15:43 03/27/18 15:43 03/27/18 15:43 03/27/18 15:43 03/27/18 15:43 Intake and Output: 03/27/18 03/27/18 06:59 18:59 Intake Total 240 360 Output Total 300 450 Balance -60 -90 - Medications Medications: Current Medications Heparin Sodium (Porcine) (Heparin) 5,000 units SC Q12H [facility] Last Admin: 03/27/18 10:17 Dose: 5,000 units Lactulose (Enulose) 20 gm PO Q8 [facility] Last Admin: 03/27/18 15:00 Dose: 20 gm Midodrine (Proamatine) 10 mg PO TID [facility] Last Admin: 03/27/18 17:16 Dose: 10 mg Octreotide Acetate (Sandostatin) 200 mcg SC Q8 [facility] Last Admin: 03/27/18 15:00 Dose: 200 mcg Pantoprazole Sodium (Protonix Susp) 40 mg NG DAILY [facility] Last Admin: 03/27/18 10:16 Dose: 40 mg Rifaximin (Xifaxan) 550 mg PO BID [facility] PRN Reason: Protocol Last Admin: 03/27/18 17:16 Dose: 550 mg Sodium Bicarbonate (Sodium Bicarbonate Tab) 1,300 mg PO BID [facility] Last Admin: 03/27/18 17:16 Dose: 1,300 mg - Labs Labs: 03/25/18 06:28 03/25/18 06:28 PT 17.2 SECONDS (9.7-12.2) H 03/24/18 08:09 INR 1.5 03/24/18 08:09 APTT 32 SECONDS (21-34) 03/24/18 08:09 - Constitutional Appears: Well - Head Exam Head Exam: ATRAUMATIC, NORMAL INSPECTION, NORMOCEPHALIC - Eye Exam Eye Exam: EOMI, Normal appearance, PERRL Pupil Exam: NORMAL ACCOMODATION, PERRL - ENT Exam ENT Exam: Mucous Membranes Moist, Normal Exam - Neck Exam Neck Exam: Full ROM, Normal Inspection. absent: Lymphadenopathy - Respiratory Exam Respiratory Exam: Decreased Breath Sounds - Cardiovascular Exam Cardiovascular Exam: REGULAR RHYTHM, +S1, +S2 - GI/Abdominal Exam GI & Abdominal Exam: Soft, Diminished Bowel Sounds - Rectal Exam Rectal Exam: Deferred
[2018-03-28] MEDS: Octreotide 500 mcg/ml Inj SC SCH ×2 (06:27→13:30)
[2018-03-28 07:26] LABS: BASO % 0.1 % (0.0-2.0); EOS # 0.2 K/uL (0.0-0.7); EOS % 1.4 % (0.0-4.0); HEMOGLOBIN 11.2 g/dL (12.0-18.0); LYMPH # 0.8 K/uL (1.0-4.3); LYMPH % 4.7 % (20.0-40.0); MEAN CELL VOLUME 86.7 fL (80.0-94.0); MEAN CORPUSCULAR HEMOGLOBIN 29.7 pg (27.0-31.0); MEAN CORPUSCULAR HGB CONC 34.3 g/dL (33.0-37.0); MONO # 1.8 K/uL (0.0-0.8); MONO % 10.8 % (0.0-10.0); NEUT # 13.4 K/uL (1.8-7.0); PLATELET COUNT 130 K/uL (130-400); RBC 3.75 Mil/uL (4.40-5.90); RED CELL DISTRIBUTION WIDTH 16.1 % (11.5-14.5); WHITE BLOOD COUNT 16.2 K/uL (4.8-10.8)
[2018-03-28 08:03] LABS: CALCIUM 7.6 mg/dl (8.6-10.4)
[2018-03-28 10:15] LABS: ANISOCYTOSIS SLIGHT; BANDS 2 % (0-2); BASOPHIL 1 % (0-2); EOSINOPHIL 2 % (0-4); LYMPHOCYTE 5 % (20-40); MONOCYTE 7 % (0-10); NEUTROPHIL 83 % (50-75); PLATELET ESTIMATE NORMAL (NORMAL); TOTAL CELLS COUNTED 100
[2018-03-28 10:16] LABS: BURR CELLS SLIGHT; LARGE PLATELETS PRESENT; OVALOCYTES SLIGHT; POIKILOCYTOSIS SLIGHT
[2018-03-28] MEDS: Pantoprazole 40 mg Susp UD NG SCH (10:59)
[2018-03-28 16:23] VITALS: BP 106/65; PULSE 75; RESP 18; TEMP 98.2; O2SAT 98
--- NOTE | 2018-03-28 18:05 | CP.PCM.PN ---
Subjective - Date & Time of Evaluation Date of Evaluation: 03/28/18 Time of Evaluation: 07:20 - Subjective Subjective: clinically same Objective - Vital Signs/Intake and Output Vital Signs (last 24 hours): Temp Pulse Resp BP Pulse Ox 98.2 F 75 18 106/65 98 03/28/18 15:22 03/28/18 15:22 03/28/18 15:22 03/28/18 15:22 03/28/18 15:22 Intake and Output: 03/28/18 03/28/18 06:59 18:59 Intake Total 750 Balance 750 - Medications Medications: Current Medications Ketorolac Tromethamine (Toradol) 15 mg IVP Q8 PRN PRN Reason: Pain, moderate (4-7) Last Admin: 03/27/18 21:10 Dose: 15 mg Lactulose (Enulose) 20 gm PO Q8 [facility] Last Admin: 03/28/18 13:33 Dose: 20 gm Midodrine (Proamatine) 10 mg PO TID [facility] Last Admin: 03/28/18 17:40 Dose: 10 mg Octreotide Acetate (Sandostatin) 200 mcg SC Q8 [facility] Last Admin: 03/28/18 13:30 Dose: 200 mcg Pantoprazole Sodium (Protonix Susp) 40 mg NG DAILY [facility] Last Admin: 03/28/18 10:59 Dose: 40 mg Rifaximin (Xifaxan) 550 mg PO BID [facility] PRN Reason: Protocol Last Admin: 03/28/18 17:39 Dose: 550 mg Sodium Bicarbonate (Sodium Bicarbonate Tab) 1,300 mg PO BID [facility] Last Admin: 03/28/18 17:39 Dose: 1,300 mg - Labs Labs: 03/28/18 07:16 03/28/18 07:16 PT 17.2 SECONDS (9.7-12.2) H 03/24/18 08:09 INR 1.5 03/24/18 08:09 APTT 32 SECONDS (21-34) 03/24/18 08:09 - Constitutional Appears: Well - Head Exam Head Exam: ATRAUMATIC, NORMAL INSPECTION, NORMOCEPHALIC - Eye Exam Eye Exam: EOMI, Normal appearance, PERRL Pupil Exam: NORMAL ACCOMODATION, PERRL - ENT Exam ENT Exam: Mucous Membranes Moist, Normal Exam - Neck Exam Neck Exam: Full ROM, Normal Inspection. absent: Lymphadenopathy - Respiratory Exam Respiratory Exam: Decreased Breath Sounds - Cardiovascular Exam Cardiovascular Exam: REGULAR RHYTHM, +S1, +S2 - GI/Abdominal Exam GI & Abdominal Exam: Soft, Diminished Bowel Sounds - Rectal Exam Rectal Exam: Deferred
== END 2018-03-28 19:00 | disposition left against medical advice (07) | DRG 557 ==
LOC: C.ER 07:35 → C.9I 10:42 → C.3T 03-26 05:02
PROVIDERS: ADMIT Internal Medicine Nephrology; ATTEND Internal Medicine Nephrology
DX: K72.00 Acute and subacute hepatic failure without coma (principal); B20 Human immunodeficiency virus [HIV] disease; N17.9 Acute kidney failure, unspecified; K76.7 Hepatorenal syndrome; J90 Pleural effusion, not elsewhere classified; K74.60 Unspecified cirrhosis of liver; B18.2 Chronic viral hepatitis C; E87.1 Hypo-osmolality and hyponatremia; E87.2 Acidosis; E87.5 Hyperkalemia; R18.8 Other ascites; I10 Essential (primary) hypertension; I95.9 Hypotension, unspecified; Z51.5 Encounter for palliative care; Z66 Do not resuscitate; F17.210 Nicotine dependence, cigarettes, uncomplicated